=== PATIENT | female | born 1935 | race Caucasian/White ===

== ENCOUNTER → 2020-08-17 | Outpatient (CLI) | payer MEDICARE, OTHER ==
[2020-08-17 10:42] LABS: POTASSIUM 3.7 MMOL/L (3.6-5.0)
[2020-08-17 10:43] LABS: ALBUMIN 3.6 GM/DL (3.2-4.5); BILIRUBIN,TOTAL 0.6 MG/DL (0.1-1.0); CALCIUM 8.7 MG/DL (8.5-10.1); CREATININE SERUM 1.19 MG/DL (0.60-1.30); TOTAL PROTEIN 6.3 GM/DL (6.4-8.2)
== END ==
LOC: LAB FS 09:56
PROVIDERS: ATTEND Family Medicine
DX: I10 Essential (primary) hypertension (principal); E03.9 Hypothyroidism, unspecified
CPT/HCPCS: 36415; 80053; 80061; 84443

== ENCOUNTER → 2021-02-16 | Outpatient (CLI) | payer MEDICARE, OTHER ==
[2021-02-16 11:45] LABS: CREATININE SERUM 1.12 MG/DL (0.60-1.30); POTASSIUM 4.2 MMOL/L (3.6-5.0)
[2021-02-16 11:46] LABS: ALBUMIN 3.5 GM/DL (3.2-4.5); BILIRUBIN,TOTAL 0.3 MG/DL (0.1-1.0); CALCIUM 8.4 MG/DL (8.5-10.1); TOTAL PROTEIN 6.3 GM/DL (6.4-8.2)
== END ==
LOC: LAB FS 10:37
PROVIDERS: ATTEND Family Medicine
DX: I10 Essential (primary) hypertension (principal); E03.9 Hypothyroidism, unspecified
CPT/HCPCS: 36415; 80053; 80061; 84443

== ENCOUNTER 2021-03-04 16:54 | Inpatient (IN) | payer MEDICARE, OTHER ==
[~2021-03-04] VITALS: Ht 157.2 cm; Wt 63.3 kg
[2021-03-04 17:46] LABS: BASOPHILS # (AUTO) 0.1 10^3/uL (0.0-0.1); BASOPHILS % (AUTO) 1 % (0-10); EOSINOPHILS # (AUTO) 0.1 10^3/uL (0.0-0.3); EOSINOPHILS % (AUTO) 2 % (0-10); LYMPHOCYTES % (AUTO) 19 % (12-44); MEAN CORPUSCULAR HEMOGLOBIN 17 pg (25-34); MEAN CORPUSCULAR HGB CONC 27 g/dL (32-36); MEAN CORPUSCULAR VOLUME 64 fL (80-99); MEAN PLATELET VOLUME 9.7 fL (9.0-12.2); MONOCYTES # (AUTO) 0.4 10^3/uL (0.0-1.0); MONOCYTES % (AUTO) 7 % (0-12); NEUTROPHILS % (AUTO) 71 % (42-75); PLATELET COUNT 352 10^3/uL (130-400); WHITE BLOOD COUNT 5.6 10^3/uL (4.3-11.0)
--- NOTE | 2021-03-04 17:48 | ED General ---
General Chief Complaint: General Problems/Pain Stated Complaint: SOA/POSS GI BLEED Source of Information: Patient Exam Limitations: No Limitations History of Present Illness Date Seen by Provider: Mar 04, 2021 Time Seen by Provider: 17:38 Initial Comments This is an 85-year-old female who presented to the ER from urgent care in [facility]. States that she went to the urgent care for increasing dizziness and shortness of breath with activity. During visit she was noted to have a i-STAT hemoglobin of 5.3, they referred her to the emergency department for further evaluation. Denies any falls or trauma. States that she has "normal bowel movements", denies any dark, tarry stools, or sarika bleeding. Denies any fever, chills, cough, chest pain, nausea, vomiting, diarrhea, or abdominal pain. Allergies and Home Medications Allergies Coded Allergies: Penicillins (Verified Allergy, Unknown, 03/04/21) cephalexin (Verified Allergy, Unknown, 03/04/21) hydrocodone (Verified Allergy, Unknown, 03/04/21) indomethacin (Verified Allergy, Unknown, 03/04/21) latex (Verified Allergy, Unknown, 03/04/21) morphine (Verified Allergy, Unknown, 03/04/21) Uncoded Allergies: STATIN (Allergy, Unknown, 03/04/21) Patient Home Medication List Home Medication List Reviewed: Yes Review of Systems Review of Systems Constitutional: dizziness EENTM: no symptoms reported Respiratory: no symptoms reported Cardiovascular: no symptoms reported Gastrointestinal: no symptoms reported Genitourinary: no symptoms reported Musculoskeletal: no symptoms reported Skin: no symptoms reported Psychiatric/Neurological: No Symptoms Reported Hematologic/Lymphatic: No Symptoms Reported Immunological/Allergic: no symptoms reported Physical Exam Vital Signs Vital Signs - First Documented 03/04/21 17:10 Temp 36.6 Pulse 67 Resp 16 B/P (MAP) 122/66 (84) Pulse Ox 99 O2 Delivery Room Air Capillary Refill : Height, Weight, BMI Height: '" Weight: lbs. oz. kg; BMI Method: General Appearance: No Apparent Distress, WD/WN Eyes: Bilateral Eye Normal Inspection, Bilateral Eye PERRL, Bilateral Eye EOMI, Bilateral Eye Conjunctivae Pale HEENT: PERRL/EOMI, Pharynx Normal, Moist Mucous Membranes Neck: Full Range of Motion, Normal Inspection Respiratory: Lungs Clear, Normal Breath Sounds, No Accessory Muscle Use Cardiovascular: Regular Rate, Rhythm, No Gallop Gastrointestinal: Normal Bowel Sounds, No Organomegaly, Non Tender, Soft Rectal: Normal Exam, Normal Rectal Tone, Heme Positive Stool Genital/Rectal: Normal Rectal Exam Extremity: Normal Inspection, Normal Range of Motion Neurologic/Psychiatric: Alert, Oriented x3, No Motor/Sensory Deficits, Normal Mood/Affect Skin: Warm/Dry, Pallor Progress/Results/Core Measures Suspected Sepsis SIRS Temperature: Pulse: Respiratory Rate: Laboratory Tests 03/04/21 17:20: White Blood Count 5.6 Blood Pressure / Mean: Laboratory Tests 03/04/21 17:20: Creatinine 1.00, Platelet Count 352, Total Bilirubin 0.4 Results/Orders Lab Results Laboratory Tests Test 03/04/21 17:20 Range/Units White Blood Count 5.6 4.3-11.0 10^3/uL Red Blood Count 3.16 L 3.80-5.11 10^6/uL Hemoglobin 5.4 *L 11.5-16.0 g/dL Hematocrit 20 *L 35-52 % Mean Corpuscular Volume 64 L 80-99 fL Mean Corpuscular Hemoglobin 17 L 25-34 pg Mean Corpuscular Hemoglobin Concent 27 L 32-36 g/dL Red Cell Distribution Width 18.6 H 10.0-14.5 % Platelet Count 352 130-400 10^3/uL Mean Platelet Volume 9.7 9.0-12.2 fL Immature Granulocyte % (Auto) 0 % Neutrophils (%) (Auto) 71 42-75 % Lymphocytes (%) (Auto) 19 12-44 % Monocytes (%) (Auto) 7 0-12 % Eosinophils (%) (Auto) 2 0-10 % Basophils (%) (Auto) 1 0-10 % Neutrophils # (Auto) 4.0 1.8-7.8 10^3/uL Lymphocytes # (Auto) 1.0 1.0-4.0 10^3/uL Monocytes # (Auto) 0.4 0.0-1.0 10^3/uL Eosinophils # (Auto) 0.1 0.0-0.3 10^3/uL Basophils # (Auto) 0.1 0.0-0.1 10^3/uL Immature Granulocyte # (Auto) 0.0 0.0-0.1 10^3/uL Sodium Level 142 135-145 MMOL/L Potassium Level 3.5 L 3.6-5.0 MMOL/L Chloride Level 103 98-107 MMOL/L Carbon Dioxide Level 23 21-32 MMOL/L Anion Gap 16 H 5-14 MMOL/L Blood Urea Nitrogen 23 H 7-18 MG/DL Creatinine 1.00 0.60-1.30 MG/DL Estimat Glomerular Filtration Rate 53 BUN/Creatinine Ratio 23 Glucose Level 106 H 70-105 MG/DL Calcium Level 8.7 8.5-10.1 MG/DL Corrected Calcium 9.0 8.5-10.1 MG/DL Total Bilirubin 0.4 0.1-1.0 MG/DL Aspartate Amino Transf (AST/SGOT) 12 5-34 U/L Alanine Aminotransferase (ALT/SGPT) 6 0-55 U/L Alkaline Phosphatase 59 40-136 U/L Total Protein 6.8 6.4-8.2 GM/DL Albumin 3.6 3.2-4.5 GM/DL My Orders Orders - MARLINE MIGUEL FARM DEMONSTRATOR Cbc With Automated Diff (03/04/21 17:05) Comprehensive Metabolic Panel (03/04/21 17:05) Fecal Occult Bedside (03/04/21 17:05) Type And Screen (03/04/21 17:05) Red Cells Leukocytes Reduced (03/04/21 18:08) Vital Signs/I&O 03/04/21 17:10 Temp 36.6 Pulse 67 Resp 16 B/P (MAP) 122/66 (84) Pulse Ox 99 O2 Delivery Room Air Capillary Refill : Point of Care Testing Fecal Occult: Positive Progress Note : Progress Note Patient examined and in no acute distress. VSS. Labs repeated. Hgb 5.4, and positive bedside FOBT. Likely GI related loss. Discussed case with Dr. Kan general surgeon and Dr. Daigle hospitalist. Plan to admit patient, clear liquids, PRBC's, and possible colonoscopy on Saturday. Reviewed POC with patient and she is agreeable with plan. During ED visit stated the ED cot was uncomfortable. Requested Tylenol, given prior to dismissal from ED. Departure Communication (Admissions) Time/Spoke to Admitting Phy: 18:12 Dr. Dagile Time/Spoke to Consulting Phy: 18:09 Dr. Kan Impression Primary Impression: Anemia Additional Impression: Positive fecal occult blood test Disposition: ADMITTED INPATIENT Condition: Stable Admissions Decision to Admit Reason: Admit from ER (General) Decision to Admit/Date: Mar 04, 2021 Time/Decision to Admit Time: 18:08 Departure-Patient Inst. Referrals: ROBERTA FOSTER MD (PCP/Family) Primary Care Physician MARLINE MIGUEL APRN Mar 04, 2021 17:48
[2021-03-04 17:56] LABS: ALBUMIN 3.6 GM/DL (3.2-4.5); POTASSIUM 3.5 MMOL/L (3.6-5.0)
[2021-03-04 17:58] LABS: CALCIUM 8.7 MG/DL (8.5-10.1)
[2021-03-04 17:59] LABS: TOTAL PROTEIN 6.8 GM/DL (6.4-8.2)
[2021-03-04 18:01] LABS: BILIRUBIN,TOTAL 0.4 MG/DL (0.1-1.0)
[2021-03-04 18:07] LABS: HEMATOCRIT 20 % (35-52); HEMOGLOBIN 5.4 g/dL (11.5-16.0)
[2021-03-04] MEDS ORDERED: ACETAMINOPHEN 500 MG TAB (TYLENOL) PO ONE (19:00)
[2021-03-04 19:26] VITALS: BP 127/80
[2021-03-04] MEDS ORDERED: ONDANSETRON 4 MG/2 ML (SDV) Z0FRAN IV PRN (19:45)
[2021-03-04] MEDS ORDERED: NS IV 1000 ML 1,000 ML IV SCH (19:45)
[2021-03-04 20:49] VITALS: BP 122/66
[2021-03-04] MEDS: GABAPENTIN 600 MG (NEURONTIN) TAB PO SCH (20:50)
[2021-03-04] MEDS: PANTOPRAZOLE 40 MG (PROTONIX) VIAL IV SCH (20:50)
[2021-03-04] MEDS: eZETimibe 10 MG (ZETIA) TABLET PO SCH (20:50)
[2021-03-04] MEDS ORDERED: FUROSEMIDE 40 MG/4 ML INJ (LASIX) IV SCH (21:00)
[2021-03-04] MEDS ORDERED: RT-ALBUTEROL SULF 2.5 MG/3 ML PRE-MIX VIAL INH PRN (21:00)
[2021-03-04 21:36] VITALS: BP 120/60
[2021-03-04 21:52] VITALS: BP 128/58
[2021-03-04] MEDS: ACETAMINOPHEN 325 MG TABLET PO PRN (22:58)
[2021-03-05] VITALS (10 sets, daily range): BP systolic 110–138; BP diastolic 58–70
[2021-03-05] MEDS ORDERED: FUROSEMIDE 40 MG/4 ML INJ (LASIX) ONE (01:14)
[2021-03-05] MEDS: ACETAMINOPHEN 325 MG TABLET PO PRN (04:56)
[2021-03-05] MEDS ORDERED: LEVO50TA6 PO (05:17)
[2021-03-05] MEDS ORDERED: ESTR1TAB24 PO (05:17)
[2021-03-05] MEDS ORDERED: GBPN600T PO (05:17)
[2021-03-05] MEDS ORDERED: ALEN70TA80 PO (05:17)
[2021-03-05] MEDS ORDERED: INDA1.25 PO (05:17)
[2021-03-05] MEDS ORDERED: EZET10TA49 PO (05:17)
[2021-03-05] MEDS ORDERED: CELE-63 PO (05:17)
[2021-03-05] MEDS: LEVOTHYROXINE 50 MCG (LEVOTHROID) TAB PO SCH (05:56)
[2021-03-05] MEDS: PANTOPRAZOLE 40 MG (PROTONIX) VIAL IV SCH (05:57)
[2021-03-05 05:58] LABS: BASOPHILS # (AUTO) 0.1 10^3/uL (0.0-0.1); BASOPHILS % (AUTO) 1 % (0-10); EOSINOPHILS # (AUTO) 0.3 10^3/uL (0.0-0.3); EOSINOPHILS % (AUTO) 6 % (0-10); HEMATOCRIT 24 % (35-52); HEMOGLOBIN 7.1 g/dL (11.5-16.0); LYMPHOCYTES # (AUTO) 1.3 X 10^3 (1.0-4.0); LYMPHOCYTES % (AUTO) 28 % (12-44); MEAN CORPUSCULAR HEMOGLOBIN 20 pg (25-34); MEAN CORPUSCULAR HGB CONC 30 g/dL (32-36); MEAN CORPUSCULAR VOLUME 68 fL (80-99); MEAN PLATELET VOLUME 9.3 fL (9.0-12.2); MONOCYTES # (AUTO) 0.4 X 10^3 (0.0-1.0); MONOCYTES % (AUTO) 9 % (0-12); NEUTROPHILS # (AUTO) 2.8 X 10^3 (1.8-7.8); NEUTROPHILS % (AUTO) 57 % (42-75); PLATELET COUNT 284 10^3/uL (130-400); WHITE BLOOD COUNT 4.9 10^3/uL (4.3-11.0)
[2021-03-05 06:28] LABS: CALCIUM 8.1 MG/DL (8.5-10.1); CREATININE SERUM 0.95 MG/DL (0.60-1.30); POTASSIUM 3.1 MMOL/L (3.6-5.0)
[2021-03-05] MEDS ORDERED: ASPI-999 PO (07:28)
[2021-03-05 07:58] LABS: HEMOGLOBIN 7.2 g/dL (11.5-16.0)
[2021-03-05] MEDS: GABAPENTIN 600 MG (NEURONTIN) TAB PO SCH ×2 (08:38→20:28)
[2021-03-05] MEDS: POTASSIUM CL 10MEQ/50ML IVPB 50 ML IV SCH (10:40)
[2021-03-05] MEDS: KCL 20 MEQ TAB (K-DUR) PO SCH (10:40)
[2021-03-05] MEDS: KCL 20 MEQ TAB (K-DUR) PO NR ×2 (11:02→13:53)
--- NOTE | 2021-03-05 11:36 | History & Physical-Hospitalist ---
History of Present Illness HPI/Chief Complaint Pt is an 85yoCF with a PMH of hypothyroidism, HLD, osteoporosis who presented to the ER as she well SOB and not feeling well. She has a tooth pulled on 03/03 and thought it was due to that. She went to an urgent care where they did labs and found she was anemic and referred her to the ER. Here her hemoglobin was 5.4. Gino slaughter was admitted for anemia. She denies any dark or bloody stools. She has never had this issue before. She received 2 units yesterday and feels better but does have chest pain now. Source: patient Date Seen 03/05/21 Time Seen by a Provider: 11:34 Attending Physician Iam Freeman MD PCP Marisa Kang MD Referring Physician Date of Admission Mar 04, 2021 at 18:42 Home Medications & Allergies Home Medications Reviewed patient Home Medication Reconciliation performed by pharmacy medication reconciliations budget technician and/or nursing. Patients Allergies have been reviewed. Allergies Allergies Coded Allergies Penicillins (Verified Allergy, Unknown, 03/04/21) cephalexin (Verified Allergy, Unknown, 03/04/21) hydrocodone (Verified Allergy, Unknown, 03/04/21) indomethacin (Verified Allergy, Unknown, 03/04/21) latex (Verified Allergy, Unknown, 03/04/21) morphine (Verified Allergy, Unknown, 03/04/21) Uncoded Allergies STATIN ( Allergy, Unknown, 03/04/21) Past [id number] Hx Patient Social History Tobacco Use?: No Smoking Status: Unknown if Ever Smoked Use of E-Cig and/or Vaping dev: No Substance use?: No Alcohol Use?: No Pt feels they are or have been: No Immunizations Up To Date First/Initial COVID19 Vaccinat: OCTOBER 04 2020 Second COVID19 Vaccination [place]: NOVEMBER 02 2020 Current Status status: No status: No Advance Directives: Yes Advance Directive Location: [facility] Communicates: Verbally Primary Language: Moroccan Preferred Spoken Language: Moroccan Is interpretation needed?: No Sensory deficits: Vision impairment Implanted or Applied Medical D: Orthopedic hardware Review of Systems Constitutional: No chills, No fever; malaise, weakness EENTM: no symptoms reported Respiratory: see HPI; No cough; short of breath Cardiovascular: see HPI, chest pain; No edema, No Hx of Intervention, No palpitations Gastrointestinal: No constipation, No diarrhea, No hematemesis, No melena Genitourinary: no symptoms reported Musculoskeletal: no symptoms reported Skin: no symptoms reported Psychiatric/Neurological: No Symptoms Reported Physical Exam Physical Exam Vital Signs Vital Signs - First Documented 03/04/21 03/04/21 03/05/21 17:10 20:49 08:00 Temp 36.6 Pulse 67 Resp 16 B/P (MAP) 122/66 (84) Pulse Ox 99 O2 Delivery Room Air O2 Flow Rate 0.00 FiO2 21 Capillary Refill : Less Than 3 Seconds Height, Weight, BMI Height: '" Weight: lbs. oz. kg; 25.61 BMI Method: General Appearance: No Apparent Distress, WD/WN, Thin HEENT: PERRL/EOMI, Moist Mucous Membranes; No Scleral Icterus (L), No Scleral Icterus (R) Neck: Normal Inspection, Supple Respiratory: Chest Non Tender, Lungs Clear, No Accessory Muscle Use, No Respiratory Distress Cardiovascular: Regular Rate, Rhythm, No JVD, No Murmur Gastrointestinal: Normal Bowel Sounds, Non Tender, Soft Extremity: Normal Capillary Refill, No Calf Tenderness, No Pedal Edema Neurologic/Psychiatric: Alert, Oriented x3 Skin: Normal Color, Warm/Dry Results Results/Procedures Labs Laboratory Tests 03/04/21 17:20 03/05/21 05:41 03/05/21 07:49 Patient resulted labs reviewed. Assessment/Plan Admission Diagnosis Anemia Admission Status: Inpatient Order (span 2 midnights) Reason for Inpatient Admission: see below Assessment and Plan Anemia Presumed GI bleed Hgb up appropriately following 2 units prbcs Iron studies ordered Surgery consulted, appreciate recs plan for scope tomorrow Chest pain cardiology consulted, appreciate recs Troponin and EKG ordered likely due to anemia and demand ischemia Hypokalemia Replace per protocol Hypothyroidism Continue home meds HTN Bp well controlled, trend DVT ppx: SCDs only due to anemia IAM FREEMAN MD Mar 05, 2021 11:36
[2021-03-05 12:18] LABS: CHOLESTEROL 104 MG/DL (< 200); HDL CHOLESTEROL 39 MG/DL (40-60); TRIGLYCERIDES 67 MG/DL (<150); VLDL CHOLESTEROL 13 MG/DL (5-40)
--- NOTE | 2021-03-05 12:19 | Consultation-Cardiology ---
HPI-Cardiology Cardiology Consultation: Date of Consultation 03/05/2021 Date of Admission 03/04/2021 Attending Physician Bere Daigle MD Admitting Physician Marisa Kang MD Consulting Physician TYLER HENDRICKS JR, MD HPI: Time Seen by a Provider: 12:16 Chief Complaint: Reason for consultation: Chest pain. I had the pleasure of seeing Vicki on the medical/surgical unit here at [facility], [place] today. She is pleasant 85-year-old female with no known history of coronary artery disease. She does have hypertension and hyperlipidemia. She recently had a tooth pulled and 2 of her grandchildren was going to check on her and thought that she appeared very pale and weak. They brought her to the emergency room in [place] for further evaluation. She had a hemoglobin level drawn which was very low and she was sent to [facility] for further evaluation. She has already received 2 blood transfusions. Then this morning, she started complaining of some substernal chest discomfort. This radiates straight to her back. This makes her feel short of breath. This is not pleuritic. She denies any previous history of chest discomfort. Because of the chest discomfort, a cardiology consultation was requested. She had been having some dizziness and profound fatigue over the past few days. She denies blood in her stool or dark stools. She states that she has had some dyspnea on exertion earlier in the year and at one point had mentioned this to her primary provider but did not have any additional testing at that time. She denies paroxysmal nocturnal dyspnea, orthopnea, palpitations, or syncope. She has chronic, intermittent mild ankle edema which has been unchanged. She lives alone in the [place] area. She gets Meals on Wheels. She is a non-smoker. Certain portions of this document may have been dictated utilizing voice recognition technology. Inherent to this technology, typographical and grammatical errors may exist. As much as I am diligent to identify and correct these mistakes, some errors may remain in the document. Review of Systems-Cardiology Review of Systems Other comments Review of 10 organ systems is as per the history of present illness, otherwise negative. [id number] Hx Patient Social History Employed/Student: retired Have you traveled recently?: No Alcohol Use?: No Pt feels they are or have been: No Past Medical History PMH As described under Assessment. Family Medical History Family Medical History: The patient does not know of any family history of premature coronary artery disease. Allergies and Home Medications Allergies Coded Allergies: Penicillins (Verified Allergy, Unknown, 03/04/21) cephalexin (Verified Allergy, Unknown, 03/04/21) hydrocodone (Verified Allergy, Unknown, 03/04/21) indomethacin (Verified Allergy, Unknown, 03/04/21) latex (Verified Allergy, Unknown, 03/04/21) morphine (Verified Allergy, Unknown, 03/04/21) Uncoded Allergies: STATIN (Allergy, Unknown, 03/04/21) Home Medications Alendronate Sodium 70 Mg Tablet, 70 MG PO WEEK, (Reported) Last Action: Reviewed Celecoxib 200 Mg Capsule, 200 MG PO DAILY, (Reported) Last Action: Reviewed Estradiol 1 Mg Tablet, 1 MG PO DAILY, (Reported) Last Action: Reviewed Ezetimibe 10 Mg Tablet, 10 MG PO HS, (Reported) Last Action: Reviewed Gabapentin 600 Mg Tablet, 600 MG PO BID, (Reported) Last Action: Reviewed Indapamide 1.25 Mg Tablet, 1.25 MG PO DAILY, (Reported) Last Action: Reviewed Levothyroxine Sodium 50 Mcg Tablet, 50 MCG PO DAILY, (Reported) Last Action: Reviewed Patient Home Medication List Home Medication List Reviewed: Yes Exam Vital Signs Vital Signs Date Time Temp Pulse Resp B/P (MAP) Pulse Ox O2 Delivery O2 Flow Rate FiO2 03/05/21 11:39 36.9 58 18 132/61 (84) 99 Room Air 03/05/21 08:00 0.00 03/04/21 20:49 21 Physical Exam General: Alert. No acute distress. Well nourished and appears stated age. Eye: Extraocular movements are intact. Conjunctivae are clear. There are no xanthelasma. HENT: Normocephalic. Atraumatic. Carotid pulsations 2/2 without bruits. Neck: Jugular venous pressure does not appear elevated. No thyromegaly appreciated. Respiratory: Lungs are clear to auscultation. Respirations are non-labored. Breath sounds are equal. Symmetrical chest wall expansion. Cardiovascular: Normal rate. Regular rhythm. No murmur. No gallop. Point of maximal impulse is not appear displaced. Good pulses equal in all extremities. No edema. Gastrointestinal: Soft. Normal bowel sounds. Skin: Skin turgor is normal. There is no pallor. Musculoskeletal: No kyphosis or scoliosis appreciated. Neurologic: Alert and oriented to person, place, time. Cranial nerves 3-12 appear grossly intact. The patient has good motor tone strength in the upper and lower extremities bilaterally. Psychiatric: Cooperative. Appropriate mood & affect. Labs Laboratory Tests Test 03/04/21 17:20 03/05/21 05:41 03/05/21 07:49 Range/Units White Blood Count 5.6 4.9 4.3-11.0 10^3/uL Red Blood Count 3.16 L 3.52 L 3.80-5.11 10^6/uL Hemoglobin 5.4 *L 7.1 L 7.2 #L 11.5-16.0 g/dL Hematocrit 20 *L 24 L 25 L 35-52 % Mean Corpuscular Volume 64 L 68 L 80-99 fL Mean Corpuscular Hemoglobin 17 L 20 L 25-34 pg Mean Corpuscular Hemoglobin Concent 27 L 30 L 32-36 g/dL Red Cell Distribution Width 18.6 H 21.0 H 10.0-14.5 % Platelet Count 352 284 130-400 10^3/uL Mean Platelet Volume 9.7 9.3 9.0-12.2 fL Immature Granulocyte % (Auto) 0 0 % Neutrophils (%) (Auto) 71 57 42-75 % Lymphocytes (%) (Auto) 19 28 12-44 % Monocytes (%) (Auto) 7 9 0-12 % Eosinophils (%) (Auto) 2 6 0-10 % Basophils (%) (Auto) 1 1 0-10 % Neutrophils # (Auto) 4.0 2.8 1.8-7.8 X 10^3 Lymphocytes # (Auto) 1.0 1.3 1.0-4.0 X 10^3 Monocytes # (Auto) 0.4 0.4 0.0-1.0 X 10^3 Eosinophils # (Auto) 0.1 0.3 0.0-0.3 10^3/uL Basophils # (Auto) 0.1 0.1 0.0-0.1 10^3/uL Immature Granulocyte # (Auto) 0.0 0.0 0.0-0.1 10^3/uL Sodium Level 142 139 135-145 MMOL/L Potassium Level 3.5 L 3.1 L 3.6-5.0 MMOL/L Chloride Level 103 106 98-107 MMOL/L Carbon Dioxide Level 23 24 21-32 MMOL/L Anion Gap 16 H 9 5-14 MMOL/L Blood Urea Nitrogen 23 H 19 H 7-18 MG/DL Creatinine 1.00 0.95 0.60-1.30 MG/DL Estimat Glomerular Filtration Rate 53 56 BUN/Creatinine Ratio 23 20 Glucose Level 106 H 68 L 70-105 MG/DL Calcium Level 8.7 8.1 L 8.5-10.1 MG/DL Corrected Calcium 9.0 8.5-10.1 MG/DL Total Bilirubin 0.4 0.1-1.0 MG/DL Aspartate Amino Transf (AST/SGOT) 12 5-34 U/L Alanine Aminotransferase (ALT/SGPT) 6 0-55 U/L Alkaline Phosphatase 59 40-136 U/L Total Protein 6.8 6.4-8.2 GM/DL Albumin 3.6 3.2-4.5 GM/DL Troponin I < 0.028 <0.028 NG/ML ECG Impression ECG Comment Sinus rhythm with first-degree AV block and right bundle branch block. No acute ST changes. Diagnosis/Problems Diagnosis/Problems (1) Chest pain Assessment & Plan: Exact etiology unclear. I added her troponin levels to her admission labs and this was undetectable. I would suggest serial troponins. There are no ischemic changes on her electrocardiogram. I will start her on nitroglycerin paste. She should continue on Ezetimibe. She is intolerant to statin medications. I would hold off on aspirin given her acute anemia. I will obtain an echocardiogram in the morning. We will await the results of the troponin levels to determine whether or not she should have a noninvasive or invasive ischemic evaluation or just continue with medical therapy. (2) Abnormal ECG Assessment & Plan: Her electrocardiogram shows a first-degree AV block and right bundle branch block but no evidence of ischemia in the face of her current chest pain. We will proceed as above. (3) Essential hypertension Assessment & Plan: She was taking indapamide at home. This is presently on hold. We will monitor her blood pressures closely. (4) Mixed hyperlipidemia Assessment & Plan: Continue ezetimibe. I added a lipid panel to her admission blood sample. (5) Chronic kidney disease, stage 3 Assessment & Plan: We will need to keep this in mind if she needs any procedures that would require intravascular contrast. TYLER HENDRICKS JR, MD Mar 05, 2021 12:19
[2021-03-05] MEDS: NITROGLYCERIN 2% OINT 1 GM UNIT DOSE PACKET TOP SCH ×3 (12:50→23:44)
--- NOTE | 2021-03-05 14:51 | Consultation - Surgery ---
History of Present Illness History of Present Illness Patient Consulted On(toni/time) 03/05/21 14:46 Time Seen by Provider: 14:21 History of Present Illness Surgery asked to consult regarding Profound Anemia. HPI per ED: Pt is an 85yoCF with a PMH of hypothyroidism, HLD, osteoporosis who presented to the ER as she well SOB and not feeling well. She has a tooth pulled on 03/03 and thought it was due to that. She went to an urgent care where they did labs and found she was anemic and referred her to the ER. Here her hemoglobin was 5.4. She was admitted for anemia. She denies any dark or bloody stools. She has never had this issue before. She received 2 units yesterday and feels better but does have chest pain now. When I spoke to pt she denied any abdominal pain and didn't think she had been told before that she was anemic. She does not remember ever having any endoscopies performed. Allergies and Home Medications Allergies Coded Allergies: Penicillins (Verified Allergy, Unknown, 03/04/21) cephalexin (Verified Allergy, Unknown, 03/04/21) hydrocodone (Verified Allergy, Unknown, 03/04/21) indomethacin (Verified Allergy, Unknown, 03/04/21) latex (Verified Allergy, Unknown, 03/04/21) morphine (Verified Allergy, Unknown, 03/04/21) Uncoded Allergies: STATIN (Allergy, Unknown, 03/04/21) Home Medications Alendronate Sodium 70 Mg Tablet, 70 MG PO WEEK, (Reported) Last Action: Reviewed Celecoxib 200 Mg Capsule, 200 MG PO DAILY, (Reported) Last Action: Reviewed Estradiol 1 Mg Tablet, 1 MG PO DAILY, (Reported) Last Action: Reviewed Ezetimibe 10 Mg Tablet, 10 MG PO HS, (Reported) Last Action: Reviewed Gabapentin 600 Mg Tablet, 600 MG PO BID, (Reported) Last Action: Reviewed Indapamide 1.25 Mg Tablet, 1.25 MG PO DAILY, (Reported) Last Action: Reviewed Levothyroxine Sodium 50 Mcg Tablet, 50 MCG PO DAILY, (Reported) Last Action: Reviewed Patient Home Medication List Home Medication List Reviewed: Yes Past Akdlycv-Ajouzk-Dcuiya Hx Patient Social History Smoking Status: Never a Smoker Alcohol Use?: No Have you traveled recently?: No Surgeries History of Surgeries: Yes Surgeries: Section, Orthopedic (2 knee surgeries) Respiratory History of Respiratory Disorde: No Cardiovascular History of Cardiac Disorders: No Neurological History of Neurological Disord: No Genitourinary History of Genitourinary Disor: No Gastrointestinal History of Gastrointestinal Di: No Musculoskeletal History of Musculoskeletal Dis: Yes Musculoskeletal Disorders: Arthritis Endocrine History of Endocrine Disorders: Yes Endocrine Disorders: Hypothyroidsim HEENT History of HEENT Disorders: Yes HEENT Disorders: Cataract Hearing Impairment: Hard of Hearing Cancer History of Cancer: No Psychosocial History of Psychiatric Problem: No Integumentary History of Skin or Integumenta: No Family Medical History Significant Family History: Cancer (denied in her family), Diabetes (denied in her family) Review of Systems-General Constitutional: malaise, weakness EENTM: vision loss (with age); No blurred vision, No double vision, No epistaxis Respiratory: No cough; dyspnea on exertion; No hemoptysis; short of breath Cardiovascular: chest pain; No Hx of Intervention Gastrointestinal: No abdominal pain, No melena, No nausea, No vomiting Genitourinary: No dysuria, No frequency, No hematuria Musculoskeletal: back pain, joint pain, joint swelling, muscle pain, muscle stiffness Skin: No change in color, No change in hair/nails Psychiatric/Neurological: Denies Anxiety, Denies Depressed, Denies Seizure, Denies Tremors Physical Exam-General Problems Physical Exam Vital Signs Vital Signs - First Documented 03/04/21 03/04/21 03/05/21 17:10 20:49 08:00 Temp 36.6 Pulse 67 Resp 16 B/P (MAP) 122/66 (84) Pulse Ox 99 O2 Delivery Room Air O2 Flow Rate 0.00 FiO2 21 Capillary Refill : Less Than 3 Seconds Eyes: Bilateral Eye PERRL, Bilateral Eye EOMI (left eye slightly deviates out) HEENT: pharynx normal; No scleral icterus (R), No scleral icterus (L) Neck: non-tender, supple Respiratory: lungs clear, normal breath sounds, no respiratory distress, no accessory muscle use Cardiovascular: regular rate, rhythm, no murmur Gastrointestinal: non tender, soft, no organomegaly Back: no CVA tenderness, no vertebral tenderness Extremities: no calf tenderness, normal capillary refill, pedal edema Neurologic/Psychiatric: branch chief II-XII nml as tested, alert, normal mood/affect, oriented x 3 Skin: warm/dry, pallor (mild) Lymphatic: no adenopathy (neck, axilla or groin) Data Review Labs Laboratory Tests 03/04/21 17:20: White Blood Count 5.6, Red Blood Count 3.16L, Hemoglobin 5.4*L, Hematocrit 20*L, Mean Corpuscular Volume 64L, Mean Corpuscular Hemoglobin 17L, Mean Corpuscular Hemoglobin Concent 27L, Red Cell Distribution Width 18.6H, Platelet Count 352, Mean Platelet Volume 9.7, Immature Granulocyte % (Auto) 0, Neutrophils (%) (Auto) 71, Lymphocytes (%) (Auto) 19, Monocytes (%) (Auto) 7, Eosinophils (%) (Auto) 2, Basophils (%) (Auto) 1, Neutrophils # (Auto) 4.0, Lymphocytes # (Auto) 1.0, Monocytes # (Auto) 0.4, Eosinophils # (Auto) 0.1, Basophils # (Auto) 0.1, Immature Granulocyte # (Auto) 0.0, Sodium Level 142, Potassium Level 3.5L, Chl oride Level 103, Carbon Dioxide Level 23, Anion Gap 16H, Blood Urea Nitrogen 23H , Creatinine 1.00, Estimat Glomerular Filtration Rate 53, BUN/Creatinine Ratio 23, Glucose Level 106H, Calcium Level 8.7, Corrected Calcium 9.0, Total Bilirubin 0.4, Aspartate Amino Transf (AST/SGOT) 12, Alanine Aminotransferase (ALT/SGPT) 6, Alkaline Phosphatase 59, Total Protein 6.8, Albumin 3.6 03/05/21 05:41: White Blood Count 4.9, Red Blood Count 3.52L, Hemoglobin 7.1L, Hematocrit 24L, Mean Corpuscular Volume 68L, Mean Corpuscular Hemoglobin 20L, Mean Corpuscular Hemoglobin Concent 30L, Red Cell Distribution Width 21.0H, Platelet Count 284, Mean Platelet Volume 9.3, Immature Granulocyte % (Auto) 0, Neutrophils (%) (Auto) 57, Lymphocytes (%) (Auto) 28, Monocytes (%) (Auto) 9, Eosinophils (%) (Auto) 6, Basophils (%) (Auto) 1, Neutrophils # (Auto) 2.8, Lymphocytes # (Auto) 1.3, Monocytes # (Auto) 0.4, Eosinophils # (Auto) 0.3, Basophils # (Auto) 0.1, Immature Granulocyte # (Auto) 0.0, Sodium Level 139, Potassium Level 3.1L, Chloride Level 106, Carbon Dioxide Level 24, Anion Gap 9, Blood Urea Nitrogen 19H, Creatinine 0.95, Estimat Glomerular Filtration Rate 56, BUN/Creatinine Ratio 20, Glucose Level 68L, Calcium Level 8.1L, Troponin I < 0.028, Triglycerides Level 67, Cholesterol Level 104, LDL Cholesterol Direct 55, VLDL Cholesterol 13, HDL Cholesterol 39L 03/05/21 07:49: Hemoglobin 7.2#L, Hematocrit 25L 03/05/21 12:32: Troponin I 0.030H Assessment/Plan Assessment/Plan Assessment/Plan Anemia, profound Hyokalemia Pt does not appear to have ever had an EGD or colonoscopy; will prep her and put her on schedule tomorrow. Will get consent and put in orders for prep. Discussed the procedures with pt, including risks and complications not limited to pain, bleeding, infection and even esophageal or intestinal perforation. All questions answered to her satisfaction. BALJINDER BRINK DO Mar 05, 2021 14:51
[2021-03-05] MEDS ORDERED: BISACODYL 5 MG (DULCOLAX) TABLET PO SCH ×2 (15:00→20:00)
[2021-03-05] MEDS ORDERED: polyethylene glycoL Bowel Prep(MIRALAX) 238 GM PO SCH (18:00)
[2021-03-05] MEDS: eZETimibe 10 MG (ZETIA) TABLET PO SCH (20:27)
[2021-03-06] VITALS (12 sets, daily range): BP systolic 97–149; BP diastolic 55–74
[2021-03-06] MEDS ORDERED: POTASSIUM CL 10MEQ/50ML IVPB 50 ML IV SCH (06:00)
[2021-03-06] MEDS ORDERED: KCL 20 MEQ TAB (K-DUR) PO SCH (06:00)
[2021-03-06] MEDS: NITROGLYCERIN 2% OINT 1 GM UNIT DOSE PACKET TOP SCH ×4 (06:29→23:41)
[2021-03-06] MEDS: PANTOPRAZOLE 40 MG (PROTONIX) VIAL IV SCH (06:30)
[2021-03-06] MEDS: LEVOTHYROXINE 50 MCG (LEVOTHROID) TAB PO SCH (06:30)
[2021-03-06 06:39] LABS: HEMATOCRIT 26 % (35-52); HEMOGLOBIN 7.3 g/dL (11.5-16.0); MEAN CORPUSCULAR HEMOGLOBIN 20 pg (25-34); MEAN CORPUSCULAR HGB CONC 28 g/dL (32-36); MEAN CORPUSCULAR VOLUME 70 fL (80-99); MEAN PLATELET VOLUME 9.3 fL (9.0-12.2); PLATELET COUNT 306 10^3/uL (130-400); WHITE BLOOD COUNT 5.2 10^3/uL (4.3-11.0)
[2021-03-06 07:10] LABS: CALCIUM 8.4 MG/DL (8.5-10.1)
[2021-03-06 07:14] LABS: CREATININE SERUM 0.88 MG/DL (0.60-1.30)
[2021-03-06 07:16] LABS: MAGNESIUM 1.9 MG/DL (1.6-2.4)
[2021-03-06] MEDS: POTASSIUM CL 10MEQ/50ML IVPB 50 ML IV SCH (07:35)
[2021-03-06] MEDS: KCL 20 MEQ TAB (K-DUR) PO SCH (07:36)
[2021-03-06] MEDS: MAGNESIUM 1 GM/100 ML IVPB 100 ML IV SCH (07:36)
[2021-03-06] MEDS: GABAPENTIN 600 MG (NEURONTIN) TAB PO SCH ×2 (09:04→20:43)
--- NOTE | 2021-03-06 10:32 | Progress Note - Hospitalist ---
Subjective HPI/CC On Admission Date Seen by Provider: Mar 06, 2021 Time Seen by Provider: 10:00 Pt is an 85yoCF with a PMH of hypothyroidism, HLD, osteoporosis who presented to the ER as she well SOB and not feeling well. She has a tooth pulled on 03/03 and thought it was due to that. She went to an urgent care where they did labs and found she was anemic and referred her to the ER. Here her hemoglobin was 5.4. She was admitted for anemia. She denies any dark or bloody stools. She has never had this issue before. She received 2 units yesterday and feels better but does have chest pain now. Subjective/Events-last exam Pt doing a little bit better After three units of blood her Hgb is 7.3 Echocardiogram ordered by cardiology Slightly elevated Troponin Pt is a poor historian Dementia is likely the diagnosis Will reach out to Dr. Kan Review of Systems General: Fatigue Pulmonary: Dyspnea Neurological: Confusion Objective Exam Vital Signs Vital Signs Date Time Temp Pulse Resp B/P (MAP) Pulse Ox O2 Delivery O2 Flow Rate FiO2 03/07/21 03:46 36.6 74 18 112/56 (74) 95 Room Air 03/06/21 13:25 5 03/04/21 20:49 21 Capillary Refill : Less Than 3 Seconds General Appearance: No Apparent Distress, WD/WN, Chronically ill Respiratory: Lungs Clear, Normal Breath Sounds Cardiovascular: Regular Rate, Rhythm Neurologic/Psychiatric: Alert, Oriented x3, Disoriented Results/Procedures Lab Laboratory Tests 03/06/21 06:20 Patient resulted labs reviewed. Assessment/Plan Assessment and Plan Assess & Plan/Chief Complaint Assessment: Anemia Presumed GI bleed Hgb up appropriately following 2 units prbcs Iron studies ordered Surgery consulted, appreciate recs plan for scope today Chest pain cardiology consulted, appreciate recs Troponin and EKG ordered likely due to anemia and demand ischemia Hypokalemia Replace per protocol Hypothyroidism Continue home meds HTN Bp well controlled, trend DVT ppx: SCDs only due to anemia Plan: Scopes today ALFONSO MEDINA DO Mar 06, 2021 10:32
[2021-03-06] MEDS ORDERED: LACTATED RINGERS 1,000 ML IV ONE (12:28)
[2021-03-06] MEDS ORDERED: LACTATED RINGERS 1,000 ML IV STA (12:33)
[2021-03-06] MEDS ORDERED: PROPOFOL INJECTION 50 ML IV ONE (12:33)
[2021-03-06] MEDS ORDERED: HURRICAINE EXT TUBE (BENZOCAINE) XX PRN (12:45)
--- NOTE | 2021-03-06 12:46 | Progress Note - Surgery ---
Subjective Time Seen by a Provider: 12:37 Subjective/Events-last exam Pt seen and examined, states she is tired and just wants to get the scopes over with. Denied abdominal pain, when I asked if she was up all night going to the bathroom; she said no. Review of Systems General: Fatigue, Malaise Pulmonary: Dyspnea; No Cough Cardiovascular: No: Chest Pain, Palpitations Gastrointestinal: No: Nausea, Vomiting, Abdominal Pain Objective Exam Vital Signs Date Time Temp Pulse Resp B/P (MAP) Pulse Ox O2 Delivery O2 Flow Rate FiO2 03/06/21 11:38 37.0 64 18 121/66 (84) 98 Room Air 03/06/21 08:00 Room Air 03/06/21 07:19 36.6 66 18 119/66 (83) 98 Room Air 03/06/21 07:00 50 03/06/21 06:36 62 119/68 (85) 03/06/21 03:47 35.8 64 18 98/62 (74) 100 Room Air 03/06/21 01:00 57 03/06/21 00:17 36.4 60 18 149/72 (97) 100 Room Air 03/05/21 20:30 Room Air 03/05/21 19:09 63 03/05/21 19:03 35.8 61 18 135/65 (88) 99 Room Air 03/05/21 15:50 36.4 58 18 110/61 (77) 100 Room Air 03/05/21 13:00 58 I & O 03/06/21 07:00 Intake Total 4004 ml Output Total 5200 ml Balance -1196 ml Capillary Refill : Less Than 3 Seconds General Appearance: No Apparent Distress, Thin HEENT: PERRL/EOMI, Moist Mucous Membranes; No Scleral Icterus (L), No Scleral Icterus (R) Neck: Normal Inspection, Supple Respiratory: Chest Non Tender, Lungs Clear, No Accessory Muscle Use, No Respiratory Distress Cardiovascular: Regular Rate, Rhythm, No JVD, No Murmur Gastrointestinal: non tender, soft, no organomegaly Extremity: Normal Capillary Refill, No Calf Tenderness, No Pedal Edema Neurologic/Psychiatric: Alert, Oriented x3 Skin: Normal Color, Warm/Dry Results Lab Laboratory Tests 03/05/21 15:00: SARS-CoV-2 RNA (RT-PCR) Not Detected 03/05/21 15:31: 8/2/21 06:20: White Blood Count 5.2, Red Blood Count 3.70L, Hemoglobin 7.3L, Hematocrit 26L, Mean Corpuscular Volume 70L, Mean Corpuscular Hemoglobin 20L, Mean Corpuscular Hemoglobin Concent 28L, Red Cell Distribution Width 20.7H, Platelet Count 306, Mean Platelet Volume 9.3, Sodium Level 140, Potassium Level 4.0, Chloride Level 108H, Carbon Dioxide Level 23, Anion Gap 9, Blood Urea Nitrogen 10, Creatinine 0.88, Estimat Glomerular Filtration Rate 61, BUN/Creatinine Ratio 11, Glucose Level 65L, Calcium Level 8.4L, Magnesium Level 1.9 Assessment/Plan Assessment/Plan Assessment/Plan Anemia, profound Hyokalemia Plan is EGD and colonoscopy today. All questions answered to her satisfaction. BALJINDER BRINK DO Mar 06, 2021 12:46
--- NOTE | 2021-03-06 13:26 | Progress Note-Post Operative ---
Post-Operative Progess Note Surgeon (s)/Psychologist Developmental (s) Surgeon BALJINDER BRINK DO Psychologist Developmental: none Pre-Operative Diagnosis Profound anemia Post-Operative Diagnosis Gastric ulcers hiatal hernia - small Diverticula Int hem thrombosed ext hem Procedure & Operative Findings Date of Procedure 03/06/21 Procedure Performed/Findings EGD with bx Colonoscopy PROCEDURE NOTE: After informed consent was obtained, the patient was brought to the endoscopy suite, placed in bed in left lateral decubitus position. She was administered IV sedation by the SELLING MANAGER who then monitored vitals the entire time, heart rate, blood pressure and pulse ox and the scope was inserted down the mouth through the esophagus into the stomach. On the way down, did not see any esophagitis, pushed into the stomach and past the antrum into the duodenum. Duodenum looked good. Pulled back into the antrum and found 2 large gastric ulcers. No signs of active bleeding or any recent bleeding. Did a biopsy of one of the antral ulcers. Next I retroflexed the scope and saw what looked like very severe Gastritis and did a biopsy of the body. I also saw a small hiatal hernia, took a picture of this and then pulled the scope into the GE junction. I did not see any esophagitis or change of the Z-line; did a biopsy of the GE junction. Pushed the scope back into the stomach, suctioned all the air out of the stomach. At this point pulled the scope up the esophagus and out the mouth. Switched camera, switched gloves, went down below, started the colonoscopy. Pushed all the way into about 140 cm to get all the way to cecum, took a picture of the appendiceal orifice, noted the ileocecal valve and then slowly withdrew the scope, insufflating to look circumferentially at the tovar starting in the cecum, up the ascending colon to the hepatic flexure, then down the transverse colon, splenic flexure, into the descending colon, down into the sigmoid. I saw Diverticula mostly in the descending and sigmoid colon, but did see some in ascending colon also. Finally into the rectum, retroflexed in the rectal vault, saw some minimal internal hemorrhoids and took a picture of this. I also noted a thrombosed hemorrhoid just before I started colonoscopy and took a picture; it had ruptured and clot was visible. The patient tolerated the procedure and she recovered in the endoscopy suite. Anesthesia Type IV sedation by anesthesia Estimated Blood Loss Estimated blood loss (mL): scant Specimens/Packing Specimens Removed antral ulcer bx body of stomach bx GE jxn bx BALJINDER BRINK DO Mar 06, 2021 13:26
[2021-03-06] MEDS ORDERED: ASPI-1238 PO (14:26)
--- NOTE | 2021-03-06 15:20 | Anesthesia-General Post-Op ---
MAC Patient Condition Mental Status/LOC: Same as Preop Cardiovascular: Satisfactory Nausea/Vomiting: Absent Respiratory: Satisfactory Pain: Controlled Complications: Absent Post Op Complications Complications None Follow Up Care/Instructions Patient Instructions None needed. Anesthesiology Discharge Order Discharge Order Patient was seen after the procedure and she was doing well, no complaints, stable vital signs, no apparent adverse anesthesia problems. PORFIRIO CARRERO DO Mar 06, 2021 15:20
[2021-03-06] MEDS: eZETimibe 10 MG (ZETIA) TABLET PO SCH (20:43)
[2021-03-07] VITALS (10 sets, daily range): BP systolic 101–124; BP diastolic 53–67
[2021-03-07] MEDS: LEVOTHYROXINE 50 MCG (LEVOTHROID) TAB PO SCH (05:58)
[2021-03-07] MEDS: PANTOPRAZOLE 40 MG (PROTONIX) VIAL IV SCH (05:58)
[2021-03-07] MEDS: NITROGLYCERIN 2% OINT 1 GM UNIT DOSE PACKET TOP SCH ×2 (05:59→12:46)
[2021-03-07 06:50] LABS: BASOPHILS % (AUTO) 0 % (0-10); EOSINOPHILS # (AUTO) 0.3 10^3/uL (0.0-0.3); EOSINOPHILS % (AUTO) 4 % (0-10); HEMATOCRIT 24 % (35-52); LYMPHOCYTES # (AUTO) 1.2 10^3/uL (1.0-4.0); LYMPHOCYTES % (AUTO) 18 % (12-44); MEAN CORPUSCULAR HEMOGLOBIN 20 pg (25-34); MEAN CORPUSCULAR HGB CONC 29 g/dL (32-36); MEAN CORPUSCULAR VOLUME 70 fL (80-99); MEAN PLATELET VOLUME 9.4 fL (9.0-12.2); MONOCYTES # (AUTO) 0.4 10^3/uL (0.0-1.0); MONOCYTES % (AUTO) 7 % (0-12); NEUTROPHILS # (AUTO) 4.6 10^3/uL (1.8-7.8); NEUTROPHILS % (AUTO) 70 % (42-75); PLATELET COUNT 265 10^3/uL (130-400); WHITE BLOOD COUNT 6.5 10^3/uL (4.3-11.0)
[2021-03-07 06:52] LABS: HEMOGLOBIN 6.8 g/dL (11.5-16.0)
[2021-03-07 07:16] LABS: ALBUMIN 2.7 GM/DL (3.2-4.5); BILIRUBIN,TOTAL 0.4 MG/DL (0.1-1.0); CALCIUM 8.1 MG/DL (8.5-10.1); CREATININE SERUM 0.81 MG/DL (0.60-1.30); MAGNESIUM 2.1 MG/DL (1.6-2.4); POTASSIUM 3.5 MMOL/L (3.6-5.0); TOTAL PROTEIN 5.3 GM/DL (6.4-8.2)
[2021-03-07] MEDS: MAGNESIUM 1 GM/100 ML IVPB 100 ML IV SCH (07:23)
[2021-03-07] MEDS: KCL 20 MEQ TAB (K-DUR) PO SCH (07:24)
[2021-03-07] MEDS: POTASSIUM CL 10MEQ/50ML IVPB 50 ML IV SCH (07:25)
[2021-03-07] MEDS ORDERED: KCL 20 MEQ TAB (K-DUR) PO ONE (08:00)
[2021-03-07] MEDS: GABAPENTIN 600 MG (NEURONTIN) TAB PO SCH ×2 (08:28→19:38)
[2021-03-07] MEDS ORDERED: NS IV 500 ML 500 ML IV NR (10:15)
--- NOTE | 2021-03-07 10:52 | History & Physical ---
History of Present Illness History of Present Illness Reason for visit/HPI Severe anemia Date of Admission Mar 04, 2021 at 18:42 Time Seen by a Provider: 08:21 I consulted on this patient on 03/07/21 08:21 Vicki is recovering from severe anemia, much improved after 3 units of blood by IM yesterday. She had just finished eating a full breakfast when entering room. She feels ready to go home but is slightly hesitant pending getting a ride from her grandson Christiano. Attending Physician Torrie Oro DO Admitting Physician Marisa Kang MD Consult Allergies and Home Medications Allergies Coded Allergies: Penicillins (Verified Allergy, Unknown, 03/04/21) Egfqfme-Iiw-Cat Reductase Inhibitor (Unverified Allergy, Unknown, 03/07/21) cephalexin (Verified Allergy, Unknown, 03/04/21) hydrocodone (Verified Allergy, Unknown, 03/04/21) indomethacin (Verified Allergy, Unknown, 03/04/21) latex (Verified Allergy, Unknown, 03/04/21) morphine (Verified Allergy, Unknown, 03/04/21) Home Medications Alendronate Sodium 70 Mg Tablet, 70 MG PO SATURDAY, (Reported) Last Action: Reviewed Aspirin 81 Mg Tablet.dr, 81 MG PO DAILY, (Reported) Last Action: Reviewed Celecoxib 200 Mg Capsule, 200 MG PO DAILY, (Reported) Last Action: Reviewed Estradiol 1 Mg Tablet, 1 MG PO DAILY, (Reported) Last Action: Reviewed Ezetimibe 10 Mg Tablet, 10 MG PO HS, (Reported) Last Action: Reviewed Gabapentin 600 Mg Tablet, 600 MG PO BID, (Reported) Last Action: Reviewed Indapamide 1.25 Mg Tablet, 1.25 MG PO DAILY, (Reported) Last Action: Reviewed Levothyroxine Sodium 50 Mcg Tablet, 50 MCG PO DAILY, (Reported) Last Action: Reviewed Past Zkfqlwv-Nqeati-Oyvlnn Hx Patient Social History Employed/Student: retired Tobacco Use?: No Smoking Status: Never a Smoker Use of E-Cig and/or Vaping dev: No Substance use?: No Alcohol Use?: No Pt feels they are or have been: No Immunizations Up To Date First/Initial COVID19 Vaccinat: OCTOBER 04 2020 Second COVID19 Vaccination [place]: NOVEMBER 02 2020 Current Status status: No status: No Advance Directives: Yes Advance Directive Location: [facility] Communicates: Verbally Primary Language: Guyanese Preferred Spoken Language: Guyanese Is interpretation needed?: No Sensory deficits: Vision impairment Implanted or Applied Medical D: Orthopedic hardware Past Medical History Surgeries: Section, Orthopedic (2 knee surgeries) Arthritis Hypothyroidsim Cataract Hearing Impairment: Hard of Hearing Family Medical History Cancer (denied in her family), Diabetes (denied in her family) Review of Systems Constitutional: weakness EENTM: no symptoms reported Respiratory: no symptoms reported Cardiovascular: no symptoms reported Gastrointestinal: no symptoms reported Musculoskeletal: no symptoms reported Physical Exam Vital Signs Vital Signs - First Documented 03/04/21 03/04/21 03/05/21 17:10 20:49 08:00 Temp 36.6 Pulse 67 Resp 16 B/P (MAP) 122/66 (84) Pulse Ox 99 O2 Delivery Room Air O2 Flow Rate 0.00 FiO2 21 Capillary Refill : Less Than 3 Seconds Height, Weight, BMI Height: '" Weight: lbs. oz. kg; 25.61 BMI Method: General Appearance: No Apparent Distress Eyes: Right Eye Abnormal EOM; Bilateral Eye PERRL Respiratory: Chest Non Tender, Lungs Clear, Normal Breath Sounds, No Accessory Muscle Use Cardiovascular: Regular Rate, Rhythm, Normal Peripheral Pulses Neurologic/Psychiatric: Alert, Oriented x3 Skin: Normal Color, Warm/Dry Assessment/Plan Assessment and Plan recovering from anemia, improved to 7.3Hgb Plan - monitor and consider discharge plans Problems: (1) Chest pain Assessment & Plan: Exact etiology unclear. I added her troponin levels to her admission labs and this was undetectable. I would suggest serial troponins. There are no ischemic changes on her electrocardiogram. I will start her on nitroglycerin paste. She should continue on Ezetimibe. She is intolerant to statin medications. I would hold off on aspirin given her acute anemia. I will obtain an echocardiogram in the morning. We will await the results of the troponin levels to determine whether or not she should have a noninvasive or in vasive ischemic evaluation or just continue with medical therapy. (2) Abnormal ECG Assessment & Plan: Her electrocardiogram shows a first-degree AV block and right bundle branch block but no evidence of ischemia in the face of her current chest pain. We will proceed as above. (3) Essential hypertension Assessment & Plan: She was taking indapamide at home. This is presently on hold. We will monitor her blood pressures closely. (4) Mixed hyperlipidemia Assessment & Plan: Continue ezetimibe. I added a lipid panel to her admission blood sample. (5) Chronic kidney disease, stage 3 Assessment & Plan: We will need to keep this in mind if she needs any procedures that would require intravascular contrast. TYLER CROFT Mar 07, 2021 10:52
--- NOTE | 2021-03-07 11:56 | Occupational Therapy Eval ---
OT Evaluation-General/PLF Medical Diagnosis Admission Date Mar 04, 2021 at 18:42 Medical Diagnosis: anemia Onset Date: Mar 03, 2021 Therapy Diagnosis Therapy Diagnosis: weakness Precautions Precautions/Isolations: Standard Precautions Referral Physician: Shorty Referral Reason: Evaluation/Treatment Medical History Pertinent Medical History: Arthritis, Hypothroidism Additional Medical History cataract, 2 knee surgeries, HLD Current History pt went to urgent care due to SOB and not feeling well, labs found anemic Hgb 5.4, pt referred to ED Social History Home: Single Level Current Living Status: Alone Entry Into Home: Stairs With Railing Steps Into Home: 2 ADL-Prior Level of Function SCALE: Activities may be completed with or without assistive devices. 8-Qmjtgbcctr-boyysqe completes the activity by him/herself with no assistance from a helper. 5-Set-up or Clean-up Assistance-helper sets up or cleans up; patient completes activity. [place] assists only prior to or following the activity. 4-Supervision or Touching Assistance-helper provides verbal cues and/or touching/steadying and/or contact guard assistance as patient completes activity. Assistance may be provided throughout the activity or intermittently. 3-Partial/Moderate Assistance-helper does LESS THAN HALF the effort. Ellery lifts, holds or supports trunk or limbs, but provides less than half the effort. 2-Substantial/Maximal Assistance-helper does MORE THAN HALF the effort. Ellery lifts or holds trunk or limbs and provides more than half the effort. 7-Btjikkzwp-mjsxup does ALL the effort. Patient does none of the effort to complete the activity. Or, the assistance of 2 or more helpers is required for the patient to complete the activity. If activity was not attempted, code reason: 7-Patient Refused. 9-Not Applicable-not attempted and the patient did not perform the activity be fore the current illness, exacerbation or injury. 10-Not Attempted due to Environmental Limitations-(lack of equipment, weather restraints, etc.). 88-Not Attempted due to Medical Conditions or Safety Concerns. ADL PLOF Comments Pt reports IND with ADLs and functional mobility using 4WW Self Care: Independent Functional Cognition: Independent OT Current Status Subjective Pt up in recliner, agreeable to OT Tx. During tx, nurse present to start blood transfusion. Mental Status/Objective Patient Orientation: Person, Place, Time, Situation Current Glasses/Contacts: Yes Hand Dominance: Right Upper Extremity ROM WFL, BUE shoulder flexion to approx 140 degrees Upper Extremity Coordination WFL Upper Extremity Sensation WFL Upper Extremity Strength grossly 3+/5 ADL-Treatment Eating (QC): 6 (per pt report) Toileting Hygiene (QC): 4 (Pt states able to manage clothing and hygiene.) Other Treatments Pt seated in recliner, OT educated pt on purpose and benefit of OT, she verbalized understanding. Pt provided information about PLOF and home set up, and participated in UE screen. Pt's nurse present to begin blood transfusion. Pt declined need to complete toileting and ADLs at this time. In order to increase BUE strength and activity tolerance, pt completed x10 reps each of the following BUE exercises: shoulder flexion, elbow flexion, elbow extension, and finger flexion/extension. Post tx, pt seated in recliner, call light in reach and all needs met. 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 2=Patient will verbalize/demonstrate understanding of assistive devices/modifications for ADL. 3=Patient will improve strength/tolerance for activity to enable patient to perform ADL's. OT Education/Plan Problem List/Assessment Assessment: Decreased Activ Tolerance, Decreased UE Strength, Impaired Funct Balance, Impaired I ADL's, Impaired Self-Care Skills Discharge Recommendations Plan/Recommendations: Continue POC Treatment Plan/Plan of Care Patient would benefit from OT for education, treatment and training to promote independence in ADL's, mobility, safety and/or upper extremity function for ADL's. Plan of Care: ADL Retraining, Functional Mobility, UE Funct Exercise/Act Treatment Duration: Mar 17, 2021 Frequency: 5 times per week Estimated Hrs Per Day: .25 hour per day Rehab Potential: Fair Time/GCodes Start Time: 11:04 Stop Time: 11:19 Total Time Billed (hr/min): 15 Billed Treatment Time 1, WAQAS KUNZ OT Mar 07, 2021 11:56
--- NOTE | 2021-03-07 12:24 | Progress Note - Surgery ---
TYLER CROFT 03/07/21 1224: Subjective Date Seen by a Provider: Mar 07, 2021 Time Seen by a Provider: 08:21 Subjective/Events-last exam 03/07/21 08:21 Vicki is recovering from severe anemia, much improved after 3 units of blood by IM yesterday. She had just finished eating a full breakfast when entering room. She feels ready to go home but is slightly hesitant pending getting a ride from her grandson Christiano. Review of Systems General: No Chills, No Night Sweats, No Fatigue, No Malaise HEENT: No Head Aches, No Eye Pain, No Ear Pain, No Dysphasia, No Sinus Congestion, No Post Nasal Drip, No Sore Throat Pulmonary: No Dyspnea, No Cough, No Pleuritic Chest Pain Cardiovascular: No: Chest Pain, Palpitations, Orthopnea, Paroxysmal Noc. Dyspnea, Edema, Lt Headedness Gastrointestinal: No: Nausea, Vomiting, Abdominal Pain, Diarrhea, Constipation, Melena, Hematochezia Genitourinary: No Dysuria, No Frequency, No Incontinence, No Hematuria, No Retention Musculoskeletal: No: other, neck pain, shoulder pain, arm pain, back pain, hand pain, leg pain, foot pain Neurological: No: Weakness, Numbness, Incoordination, Change in speech, Confusion, Seizures, Other Focused Exam Respiratory: Chest Non Tender, Lungs Clear, Normal Breath Sounds, No Accessory Muscle Use, No Respiratory Distress Cardiovascular: Regular Rate, Rhythm Peripheral Pulses: 2+ Radial Pulses (R), 2+ Radial Pulses (L) Skin: normal color, warm/dry Objective Exam Vital Signs Date Time Temp Pulse Resp B/P (MAP) Pulse Ox O2 Delivery O2 Flow Rate FiO2 03/07/21 11:50 36.7 68 18 113/67 (82) 98 Room Air 03/07/21 11:25 36.7 68 18 113/53 98 Room Air 03/07/21 11:10 36.8 70 18 103/53 98 Room Air 03/07/21 08:00 Room Air 03/07/21 07:30 35.4 74 18 101/58 (72) 97 Room Air 03/07/21 07:00 70 03/07/21 03:46 36.6 74 18 112/56 (74) 95 Room Air 8/3/21 01:16 36.9 78 97 03/07/21 01:13 77 03/07/21 00:03 36.9 78 16 107/57 (74) 97 Room Air 03/06/21 20:45 Room Air 03/06/21 19:20 35.2 74 18 111/61 (78) 98 Room Air 03/06/21 19:00 70 03/06/21 18:03 Room Air 03/06/21 15:55 36.0 71 18 130/60 (83) 99 Room Air 03/06/21 14:04 36.2 65 18 124/62 (82) 98 Room Air 03/06/21 13:35 63 16 95 Room Air 03/06/21 13:30 73 20 99 Room Air 03/06/21 13:25 70 20 98 OxyMask 5 03/06/21 13:21 77 20 100 OxyMask 10 03/06/21 13:00 76 I & O 03/07/21 07:00 Intake Total 1360 ml Output Total 1625 ml Balance -265 ml Capillary Refill : Less Than 3 Seconds General Appearance: No Apparent Distress HEENT: PERRL/EOMI, Moist Mucous Membranes; No Scleral Icterus (L), No Scleral Icterus (R) Neck: Normal Inspection, Supple Respiratory: Chest Non Tender, Lungs Clear, Normal Breath Sounds, No Accessory Muscle Use Cardiovascular: Regular Rate, Rhythm, Normal Peripheral Pulses Gastrointestinal: non tender, soft, no organomegaly Extremity: Normal Capillary Refill, No Calf Tenderness, No Pedal Edema Neurologic/Psychiatric: Alert, Oriented x3 Skin: Normal Color, Warm/Dry Results Lab Laboratory Tests 03/07/21 06:35: White Blood Count 6.5, Red Blood Count 3.41L, Hemoglobin 6.8*L, Hematocrit 24L, Mean Corpuscular Volume 70L, Mean Corpuscular Hemoglobin 20L, Mean Corpuscular Hemoglobin Concent 29L, Red Cell Distribution Width 22.3H, Platelet Count 265, Mean Platelet Volume 9.4, Immature Granulocyte % (Auto) 1, Neutrophils (%) (Auto) 70, Lymphocytes (%) (Auto) 18, Monocytes (%) (Auto) 7, Eosinophils (%) (Auto) 4, Basophils (%) (Auto) 0, Neutrophils # (Auto) 4.6, Lymphocytes # (Auto) 1.2, Monocytes # (Auto) 0.4, Eosinophils # (Auto) 0.3, Basophils # (Auto) 0.0, Immature Granulocyte # (Auto) 0.0, Percent Immature Platelet Fraction 2.2, Sodium Level 138, Potassium Level 3.5L, Chloride Level 108H, Carbon Dioxide Level 24, Anion Gap 6, Blood Urea Nitrogen 8, Creatinine 0.81, Estimat Glomerular Filtration Rate 68, BUN/Creatinine Ratio 10, Glucose Level 67L, Calcium Level 8.1L, Corrected Calcium 9.1, Magnesium Level 2.1, Total Bilirubin 0.4, Aspartate Amino Transf (AST/SGOT) 13, Alanine Aminotransferase (ALT/SGPT) 11, Alkaline Phosphatase 55, Total Protein 5.3L, Albumin 2.7L Microbiology 03/05/21 MRSA Screen - Final, Complete MRSA not isolated Assessment/Plan Assessment/Plan Assessment/Plan Anemia, improved to 7.3Hgb Plan is monitor and consider discharge Clinical Quality Measures Admission Status Admission Dx recovering from anemia, improved to 7.3Hgb Plan - monitor and consider discharge plans BALJINDER KAN DO 03/07/21 1310: Subjective Time Seen by a Provider: 12:01 Subjective/Events-last exam Pt seen and examined, she was getting another unit of PRBC when I saw her. She denied melena, hematochezia or hematemesis. She is still weak Review of Systems General: Fatigue, Malaise Pulmonary: No Dyspnea, No Cough Cardiovascular: No: Chest Pain, Palpitations Gastrointestinal: No: Nausea, Vomiting, Abdominal Pain, Melena, Hematochezia Objective Exam General Appearance: No Apparent Distress, Thin HEENT: Moist Mucous Membranes Respiratory: Lungs Clear, Normal Breath Sounds, No Accessory Muscle Use Cardiovascular: Regular Rate, Rhythm, No Murmur Gastrointestinal: non tender, soft, no organomegaly Skin: Warm/Dry Assessment/Plan Assessment/Plan Assessment/Plan Anemia secondary to Gastric ulcers (found yesterday during EGD) Plan is PPI BID, Carafate QID and monitor H/H. She can be D/C'd from surgery standpoint. Will need to follow up with me in a week and will need repeat EGD in 2-3 months. Supervisory-Addendum Brief Verification & Attestation Participated in pt care: history, MDM, physical Personally performed: exam, history, MDM, supervision of care Care discussed with: Medical Student Procedures: n/a Verification and Attestation of Medical Student E/M Service A medical student performed and documented this service. I then reviewed and verified all information documented by the medical student and made modifications to such information, when appropriate. I personally performed a physical exam, medical decision making and then discussed any differences between the notes and made revisions as necessary to create one note. Baljinder Kan , 03/07/21 , 13:09 TYLER CROFT Mar 07, 2021 12:24 BALJINDER KAN DO Mar 07, 2021 13:10
[2021-03-07] MEDS: SUCRALFATE 1 GM (CARAFATE) TAB PO SCH ×3 (12:46→19:38)
--- NOTE | 2021-03-07 12:55 | Physical Therapy Evaluation ---
PT Evaluation-General Medical Diagnosis Admission Date Mar 04, 2021 at 18:42 Medical Diagnosis: anemia Onset Date: Mar 03, 2021 Therapy Diagnosis Therapy Diagnosis: debility/weakenss Precautions Precautions/Isolations: Standard Precautions Referral Physician: Shorty Reason for Referral: Evaluation/Treatment Medical History Pertinent Medical History: Arthritis, Hypothroidism Current History ER from urgent care due to critical Hgb Reviewed History: Yes Social History Home: Single Level Current Living Status: Alone Entry Into Home: Stairs With Railing PT Steps Into Home: 2 Prior Prior Level of Function SCALE: Activities may be completed with or without assistive devices. 7-Rddsvufsvr-pkgizue completes the activity by him/herself with no assistance from a helper. 5-Set-up or Clean-up Assistance-helper sets up or cleans up; patient completes activity. [place] assists only prior to or following the activity. 4-Supervision or Touching Assistance-helper provides verbal cues and/or touching/steadying and/or contact guard assistance as patient completes activity. Assistance may be provided throughout the activity or intermittently. 3-Partial/Moderate Assistance-helper does LESS THAN HALF the effort. [place] l ifts, holds or supports trunk or limbs, but provides less than half the effort. 2-Substantial/Maximal Assistance-helper does MORE THAN HALF the effort. [place] lifts or holds trunk or limbs and provides more than half the effort. 5-Ivotjvlnv-mecxmw does ALL the effort. Patient does none of the effort to complete the activity. Or, the assistance of 2 or more helpers is required for t he patient to complete the activity. If activity was not attempted, code reason: 7-Patient Refused. 9-Not Applicable-not attempted and the patient did not perform the activity before the current illness, exacerbation or injury. 10-Not Attempted due to Environmental Limitations-(lack of equipment, weather restraints, etc.). 88-Not Attempted due to Medical Conditions or Safety Concerns. Bed Mobility: 6 Transfers (B,C,W/C): 6 Gait: 6 Stairs: 6 Indoor Mobility (Ambulation): Independent Stairs: Independent Prior Devices Use: Walker (4WW) PT Evaluation-Current Subjective Patient agrees to PT. Objective Patient Orientation: Normal For Age Attachments: IV ROM/Strength ROM Lower Extremities bilateral LE WFL Strength Lower Extremities 4-/5 grossly bilateral LE Integumentary/Posture Bowel Incontinence: No Bladder Incontinence: No Posture slightly kyphotic Neuromuscular (Tone, Coordination, Reflexes) grossly intact Sensory Vision: Wears Glasses Hearing: Functional Hand Dominance: Right Transfers Roll Left to Right (QC): 5 Sit to Lying (QC): 5 Lying to Sitting/Side of Bed(Q: 5 Sit to Stand (QC): 4 Chair/Doj-qw-Whetr Xfer(QC): 4 Gait Does the Patient Walk?: Yes Mode of Locomotion: Walk Anticipated Mode of Locomotion: Walk Walk 10 feet (QC): 4 Walk 50 ft with 2 Turns(QC): 4 Walk 150 ft (QC): 88 Distance: 50' Gait Assistive Device: Walker 4 Wheeled Comments/Gait Description safe and functional with no deviation Balance Sitting Static: Normal Sitting Dynamic: Normal Standing Static: Normal Standing Dynamic: Normal Assessment/Needs Slight impaired mobility due to weakness/decreased Hgb. Fatigues quickly with minimal activity. Rehab Potential: Fair PT Correction Goals Ibm [employer] Commerce Developer Goals PT Correction Goals Time Frame: Mar 17, 2021 Roll Left & Right (QC): 6 Sit to Lying (QC): 6 Lying-Sitting on Side/Bed(QC): 6 Sit to Stand (QC): 6 Chair/Uvl-sp-Njpkw Xfer(QC): 6 Toilet Transfer (QC): 6 Car Transfer (QC): 6 Does the Patient Walk: Yes Walk 10 feet (QC): 6 Walk 50ft with 2 Turns (QC): 6 Walk 150 ft (QC): 6 PT Plan Problem List Problem List: Activity Tolerance, Functional Strength Treatment/Plan Treatment Plan: Continue Plan of Care Treatment Plan: Bed Mobility, Education, Functional Activity Philipp, Functional Strength, Gait, Safety, Therapeutic Exercise, Transfers Treatment Duration: Mar 17, 2021 Frequency: 6 times per week Estimated Hrs Per Day: .25 hour per day Patient and/or Family Agrees t: Yes Time/GCodes Time In: 1125 Time Out: 1140 Total Billed Treatment Time: 15 Total Billed Treatment 1 visit EVMod 15 min NIA DAMON PT Mar 07, 2021 12:55
--- NOTE | 2021-03-07 12:59 | Physician Query Clarification ---
Physician Query-General Query to Physician: The medical record reflects the following clinical scenario: The patient, in the setting of History/Risk factors, Home medications: Alendronate, aspirin, Celecoxib Clinical Findings FOBT - Pos, EGD showing 2 large gastric ulcers (no sign of active bleeding), "Severe Gastritis", Iron studies showing low iron levels Treatment 2 units PRBC's, Surgery consult with EGD and colonoscopy Question: Can you further specify Anemia per the clinical indicators above? Please document your response in the Progress Notes or Discharge Summary. 1. Anemia likely due to due to acute blood loss 2. Other, with explanation of clinical findings 3. Clinically undetermined, no explanation for clinical findings Please clarify and document your clinical opinion in the Progress Notes and Discharge Summary including the definitive and/or presumptive diagnosis, (suspected or probable), related to the above clinical findings. Please include clinical findings supporting your diagnosis. In responding to this query, please exercise your independent professional judgment. The purpose of this communication is to more accurately reflect the complexity of your patients condition. The fact that a question is asked does not imply that any particular answer is desired or expected. Please remember a lack of response to the above will prompt a phone page by CDI/coding staff. Thank you for timely response to this clarification. Teresa Vergara MSN, RN Clinical Weapons Designer [phone] [email or web address] PHYSICIAN RESPONSE: Based on the clinical findings in the record, please respond to the query above on this document as an addendum. Physician Response: Physician Response 1 If you have questions please contact: Restaurant Operations Manager: Ext: Thank you for your time and cooperation. Clinical Weapons Designer/Restaurant Operations Manager This is a permanent part of the medical record TERESA VERGARA Mar 07, 2021 12:59 ALFONSO MEDINA DO Mar 07, 2021 20:27
--- NOTE | 2021-03-07 13:53 | Progress Note ---
DEE MENJIVAR MED STUDENT 03/07/21 1353: Subjective Date Seen by a Provider: Mar 07, 2021 Time Seen by a Provider: 10:30 Subjective/Events-last exam Tracy is a 85 yo female that was sitting in her chair watching TV upon entering the room. Pt was calm, cooperative, and engaged during questioning. Cu rrently on day 4 of her hospital stay with the chief complaint of anemia requiring 3 prior units of blood. Pt was oriented x2 and aware that she was forgetful stating that "she could hardly remember who she was at times". She complained of fatigue and left sided neck tenderness upon palpation. She denies having any chest pain, such as that described yesterday. Pt was much more resp onsive to questioning when rounding this morning as compared to previous day. ECHO report showed minimal mitral and tricuspid regurgitation. EGD and colonoscopy complete 03/06 showed the presence of gastric ulcers, a small hiatal hernia, diverticula, internal hemorrhoids, and thrombosed external hemorrhoids. Review of Systems General: Fatigue; No Appetite HEENT: No Head Aches Pulmonary: No Dyspnea Cardiovascular: Edema (nonpitting edema on bilateral lower extrremity); No: Chest Pain Gastrointestinal: No: Nausea, Vomiting, Constipation, Melena, Hematochezia Genitourinary: No Dysuria, No Frequency, No Hematuria Musculoskeletal: neck pain (left sided cervical tenderness to palpation) Neurological: Weakness, Confusion Focused Exam Time of Focused Exam: 10:30 Respiratory: Chest Non Tender, Lungs Clear, Normal Breath Sounds, No Accessory Muscle Use, No Respiratory Distress Cardiovascular: Regular Rate, Rhythm, No Gallop, No JVD, Normal Peripheral Pulses; No Other (nonpitting edema on bilateral lower extrremity) Skin: normal color, warm/dry Objective Exam Last Set of Vital Signs Vital Signs Date Time Temp Pulse Resp B/P (MAP) Pulse Ox O2 Delivery O2 Flow Rate FiO2 03/07/21 13:28 37.2 68 18 115/65 98 Room Air 03/06/21 13:25 5 03/04/21 20:49 21 Capillary Refill : Less Than 3 Seconds I&O Intake and Output 03/07/21 00:00 Intake Total 1260 ml Output Total 2325 ml Balance -1065 ml Intake Oral 660 ml IV Total 600 ml Output Urine Total 225 ml Stool Total 2100 ml # Voids 1 General: Alert, Cooperative HEENT: Atraumatic, PERRLA Neck: Supple, Other (left sided cervical tenderness to palpation) Lungs: Clear to Auscultation, Normal Air Movement Heart: Regular Rate, Other (2/6 murmur present) Abdomen: Normal Bowel Sounds, Soft, No Tenderness, No Hepatosplenomegaly Extremities: No Cyanosis, Normal Pulses, Other (minimal nonpitting edema present on bilateral lower extremeities) Skin: No Rashes, No Breakdown, No Significant Lesion Neuro: Normal Speech Psych/Mental Status: Mood NL, Other (signs of dementia present) Results Lab Laboratory Tests 03/07/21 06:35: White Blood Count 6.5, Red Blood Count 3.41L, Hemoglobin 6.8*L, Hematocrit 24L, Mean Corpuscular Volume 70L, Mean Corpuscular Hemoglobin 20L, Mean Corpuscular Hemoglobin Concent 29L, Red Cell Distribution Width 22.3H, Platelet Count 265, Mean Platelet Volume 9.4, Immature Granulocyte % (Auto) 1, Neutrophils (%) (Auto) 70, Lymphocytes (%) (Auto) 18, Monocytes (%) (Auto) 7, Eosinophils (%) (Auto) 4, Basophils (%) (Auto) 0, Neutrophils # (Auto) 4.6, Lymphocytes # (Auto) 1.2, Monocytes # (Auto) 0.4, Eosinophils # (Auto) 0.3, Basophils # (Auto) 0.0, Immature Granulocyte # (Auto) 0.0, Percent Immature Platelet Fraction 2.2, Sodium Level 138, Potassium Level 3.5L, Chloride Level 108H, Carbon Dioxide Level 24, Anion Gap 6, Blood Urea Nitrogen 8, Creatinine 0.81, Estimat Glomerular Filtration Rate 68, BUN/Creatinine Ratio 10, Glucose Level 67L, Calcium Level 8.1L, Corrected Calcium 9.1, Magnesium Level 2.1, Total Bilirubin 0.4, Aspartate Amino Transf (AST/SGOT) 13, Alanine Aminotransferase (ALT/SGPT) 11, Alkaline Phosphatase 55, Total Protein 5.3L, Albumin 2.7L Microbiology 03/05/21 MRSA Screen - Final, Complete MRSA not isolated Assessment/Plan Assessment/Plan Assess & Plan/Chief Complaint Assessment/Plan: -anemia secondary to gastric ulcers-HgB of 6.8, down from 7.3 yesterday add carafate and a proton pump inhibitor for treatment transfuse 1 unit of blood today -occasional chest pain pain likely due to anemia and demand ischemia -hypokalemia- potassium of 3.5 replace per protocol -hypothyroidism home medications continued -HTN well controlled on home medications- BP of 101/58 - DVT prophalaxis SCDs only due to anemia - dementia - consult PT/OT to assess for capacity to go home TORRIE MEDINA DO 03/08/21 0614: Subjective Subjective/Events-last exam Pt doing a little better PT and OT will be ordered Assisted living at [place] will be recommended by family Hgb 6.8 will give one more unit of blood Gastric ulcers on scope Overall doing very well otherwise Review of Systems General: Fatigue Objective Exam General: Alert, Oriented X3, Cooperative, No Acute Distress, Other (Poor recall) Lungs: Clear to Auscultation Heart: Regular Rate Psych/Mental Status: Mental Status NL Assessment/Plan Assessment/Plan Assess & Plan/Chief Complaint Monitor closely Check labs in the morning Assisted living at discharge PT and OT Supervisory-Addendum Brief Verification & Attestation Participated in pt care: history, MDM, physical Personally performed: exam, history, MDM, supervision of care Care discussed with: Medical Student Procedures: n/a Results interpretation: Verified all documentation Verification and Attestation of Medical Student E/M Service A medical student performed and documented this service in my presence. I reviewed and verified all information documented by the medical student and made modifications to such information, when appropriate. I personally performed the physical exam and medical decision making. Torrie Medina, Mar 08, 2021,06:13 DEE MENJIVAR MED STUDENT Mar 07, 2021 13:53 TORRIE MEDINA DO Mar 08, 2021 06:14
--- NOTE | 2021-03-07 17:46 | Cardiology Progress Note ---
Progress Note-Cardiology Events since last exam Date Seen by Provider: Mar 07, 2021 Time Seen by Provider: 17:40 Events since last exam We are seeing her for chest pain. She denies any further chest pain since ad mission. She denies chest discomfort, palpitations, or syncope. She denies any change in her chronic lower extremity edema. Certain portions of this document may have been dictated utilizing voice r ecognition technology. Inherent to this technology, typographical and grammatical errors may exist. As much as I am diligent to identify and correct these mistakes, some errors may remain in the document. Vitals Last set of Vitals Signs Vital Signs 03/04/21 03/06/21 03/07/21 20:49 13:25 15:29 Temp 36.5 Pulse 69 Resp 20 B/P (MAP) 122/67 (85) Pulse Ox 97 O2 Delivery Room Air O2 Flow Rate 5 FiO2 21 Labs Labs Laboratory Tests 03/07/21 06:35 Exam Vital Signs Vital Signs Date Time Temp Pulse Resp B/P (MAP) Pulse Ox O2 Delivery O2 Flow Rate FiO2 03/07/21 15:29 36.5 69 20 122/67 (85) 97 Room Air 03/06/21 13:25 5 03/04/21 20:49 21 Physical Exam General: Alert. No acute distress. Eye: No xanthelasma. HENT: Normocephalic. Neck: Jugular venous pressure does not appear elevated. Respiratory: Lungs are clear to auscultation. Respirations are non-labored. Breath sounds are equal. Symmetrical chest wall expansion. Cardiovascular: Normal rate. Regular rhythm. No murmur. No gallop. 1+ bilateral pretibial edema. Gastrointestinal: Soft. Normal bowel sounds. Skin: Warm. Dry. Neurologic: Alert and oriented to person, place, time. Cranial nerves 3-11 grossly intact. Psychiatric: Cooperative. Appropriate mood & affect. Labs Laboratory Tests Test 03/07/21 06:35 03/07/21 14:32 Range/Units White Blood Count 6.5 4.3-11.0 10^3/uL Red Blood Count 3.41 L 3.80-5.11 10^6/uL Hemoglobin 6.8 *L 11.5-16.0 g/dL Hematocrit 24 L 35-52 % Mean Corpuscular Volume 70 L 80-99 fL Mean Corpuscular Hemoglobin 20 L 25-34 pg Mean Corpuscular Hemoglobin Concent 29 L 32-36 g/dL Red Cell Distribution Width 22.3 H 10.0-14.5 % Platelet Count 265 130-400 10^3/uL Mean Platelet Volume 9.4 9.0-12.2 fL Immature Granulocyte % (Auto) 1 % Neutrophils (%) (Auto) 70 42-75 % Lymphocytes (%) (Auto) 18 12-44 % Monocytes (%) (Auto) 7 0-12 % Eosinophils (%) (Auto) 4 0-10 % Basophils (%) (Auto) 0 0-10 % Neutrophils # (Auto) 4.6 1.8-7.8 10^3/uL Lymphocytes # (Auto) 1.2 1.0-4.0 10^3/uL Monocytes # (Auto) 0.4 0.0-1.0 10^3/uL Eosinophils # (Auto) 0.3 0.0-0.3 10^3/uL Basophils # (Auto) 0.0 0.0-0.1 10^3/uL Immature Granulocyte # (Auto) 0.0 0.0-0.1 10^3/uL Percent Immature Platelet Fraction 2.2 0.0-7.6 % Sodium Level 138 135-145 MMOL/L Potassium Level 3.5 L 3.6-5.0 MMOL/L Chloride Level 108 H 98-107 MMOL/L Carbon Dioxide Level 24 21-32 MMOL/L Anion Gap 6 5-14 MMOL/L Blood Urea Nitrogen 8 7-18 MG/DL Creatinine 0.81 0.60-1.30 MG/DL Estimat Glomerular Filtration Rate 68 BUN/Creatinine Ratio 10 Glucose Level 67 L 70-105 MG/DL Calcium Level 8.1 L 8.5-10.1 MG/DL Corrected Calcium 9.1 8.5-10.1 MG/DL Magnesium Level 2.1 1.6-2.4 MG/DL Total Bilirubin 0.4 0.1-1.0 MG/DL Aspartate Amino Transf (AST/SGOT) 13 5-34 U/L Alanine Aminotransferase (ALT/SGPT) 11 0-55 U/L Alkaline Phosphatase 55 40-136 U/L Total Protein 5.3 L 6.4-8.2 GM/DL Albumin 2.7 L 3.2-4.5 GM/DL Lab Scanned Report Transfusion Reaction Form [id number] Diagnosis/Problems Diagnosis/Problems (1) Chest pain Assessment & Plan: Exact etiology unclear. Her initial troponin level on admission was negative and then she had one borderline elevated troponin. She had no ischemic changes on her electrocardiogram. Her echocardiogram showed normal ejection fraction with no obvious wall motion abnormalities. This may have been a probable type II non-ST elevation myocardial infarction due to supply/demand mismatch from her severe anemia. Her chest discomfort resolved after she received blood transfusions. She should continue on Ezetimibe. She is intolerant to statin medications. I would hold off on aspirin given her acute anemia. I do not see any strong indication for an ischemic evaluation at this time. Since her chest discomfort has resolved, cardiology will sign off. Please call if you have other questions or concerns. I do not necessarily see any reason why she will need ongoing cardiology follow-up after discharge. (2) Essential hypertension Assessment & Plan: She was taking indapamide at home. This is presently on hold. She remains normotensive on new antihypertensive medication here in the hospital. (3) Mixed hyperlipidemia Assessment & Plan: Continue ezetimibe. Her cholesterol level is under excellent control on the lipid panel obtained during this hospitalization. TYLER HENDRICKS JR, MD Mar 07, 2021 17:46
[2021-03-07] MEDS: PANTOPRAZOLE 40 MG (PROTONIX) TAB PO SCH (19:38)
[2021-03-07] MEDS: eZETimibe 10 MG (ZETIA) TABLET PO SCH (19:38)
[2021-03-08 00:22] VITALS: BP 114/56
[2021-03-08 04:10] VITALS: BP 113/56
[2021-03-08 05:44] LABS: POTASSIUM 4.1 MMOL/L (3.6-5.0)
[2021-03-08 05:45] LABS: CALCIUM 8.2 MG/DL (8.5-10.1)
[2021-03-08 05:49] LABS: CREATININE SERUM 0.97 MG/DL (0.60-1.30)
[2021-03-08 05:52] LABS: MAGNESIUM 1.7 MG/DL (1.6-2.4)
[2021-03-08] MEDS: POTASSIUM CL 10MEQ/50ML IVPB 50 ML IV SCH (05:52)
[2021-03-08] MEDS: KCL 20 MEQ TAB (K-DUR) PO SCH (05:53)
[2021-03-08] MEDS: MAGNESIUM 1 GM/100 ML IVPB 100 ML IV SCH ×3 (05:56→06:29)
[2021-03-08] MEDS ORDERED: IRON SUCROSE 200 MG/10 ML (VENOFER) VIAL IV ONE (06:00)
[2021-03-08 06:05] LABS: BASOPHILS % (AUTO) 1 % (0-10); EOSINOPHILS # (AUTO) 0.4 10^3/uL (0.0-0.3); EOSINOPHILS % (AUTO) 5 % (0-10); HEMATOCRIT 28 % (35-52); HEMOGLOBIN 8.2 g/dL (11.5-16.0); LYMPHOCYTES # (AUTO) 1.3 10^3/uL (1.0-4.0); LYMPHOCYTES % (AUTO) 17 % (12-44); MEAN CORPUSCULAR HEMOGLOBIN 21 pg (25-34); MEAN CORPUSCULAR HGB CONC 29 g/dL (32-36); MEAN CORPUSCULAR VOLUME 73 fL (80-99); MEAN PLATELET VOLUME 9.5 fL (9.0-12.2); MONOCYTES # (AUTO) 0.5 10^3/uL (0.0-1.0); MONOCYTES % (AUTO) 7 % (0-12); NEUTROPHILS # (AUTO) 5.3 10^3/uL (1.8-7.8); NEUTROPHILS % (AUTO) 70 % (42-75); PLATELET COUNT 260 10^3/uL (130-400); WHITE BLOOD COUNT 7.5 10^3/uL (4.3-11.0)
[2021-03-08] MEDS: LEVOTHYROXINE 50 MCG (LEVOTHROID) TAB PO SCH (06:24)
[2021-03-08] MEDS: SUCRALFATE 1 GM (CARAFATE) TAB PO SCH ×4 (06:24→20:03)
[2021-03-08 07:17] VITALS: BP 116/67
[2021-03-08] MEDS: GABAPENTIN 600 MG (NEURONTIN) TAB PO SCH ×2 (07:58→20:03)
[2021-03-08] MEDS: PANTOPRAZOLE 40 MG (PROTONIX) TAB PO SCH ×2 (07:58→20:03)
--- NOTE | 2021-03-08 11:00 | Occupational Ther Daily Note ---
OT Current Status-Daily Note Subjective Pt alert, sitting in recliner. Pt states that she is worn out from moving from the bed to BSC to recliner. With encouragement pt agrees to therapy. Mental Status/Objective Patient Orientation: Person, Place, Time, Situation Attachments: IV ADL-Treatment Pt states that meghan penny only had to stand with her while she completed toilet transfer, hygiene and clothing manipulation. Pt able to adjust self in chair to make herself comfortable. Therapy Code Descriptions/Definitions Functional [place] Measure: 0=Not Assessed/NA 4=Minimal Assistance 1=Total Assistance 5=Supervision or Setup 2=Maximal Assistance 6=Modified [place] 3=Moderate Assistance 7=Complete IndependenceSCALE: Activities may be completed with or without assistive devices. 3-Zhwcichjvc-ymkmvyo completes the activity by him/herself with no assistance from a helper. 5-Set-up or Clean-up Assistance-helper sets up or cleans up; patient completes activity. [place] assists only prior to or following the activity. 4-Supervision or Touching Assistance-helper provides verbal cues and/or touching/steadying and/or contact guard assistance as patient completes activity. Assistance may be provided throughout the activity or intermittently. 3-Partial/Moderate Assistance-helper does LESS THAN HALF the effort. [place] lifts, holds or supports trunk or limbs, but provides less than half the effort. 2-Substantial/Maximal Assistance-helper does MORE THAN HALF the effort. [place] lifts or holds trunk or limbs and provides more than half the effort. 1-Nivndrnqa-naozml does ALL the effort. Patient does none of the effort to complete the activity. Or, the assistance of 2 or more helpers is required for the patient to complete the activity. If activity was not attempted, code reason: 7-Patient Refused. 9-Not Applicable-not attempted and the patient did not perform the activity before the current illness, exacerbation or injury. 10-Not Attempted due to Environmental Limitations-(lack of equipment, weather restraints, etc.). 88-Not Attempted due to Medical Conditions or Safety Concerns. Toileting Hygiene (QC): 4 Toilet Transfer (QC): 4 Other Treatment Discussed energy conservation with pt. Pt acknowledged understanding of this by giving own strategies that she has used at home. Pt did stated that she will be moving to an assisted living facility that will assist with IADLs and ADLs. Pt encouraged to continue to do as much for herself as possible to maintain independence and function. After therapy, pt sitting in recliner with call light/phone in reach. All needs met in room. 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 2=Patient will verbalize/demonstrate understanding of assistive hillary martha/modifications for ADL. 3=Patient will improve strength/tolerance for activity to enable patient to perform ADL's. OT Education/Plan Problem List/Assessment Assessment: Decreased Activ Tolerance, Decreased UE Strength, Impaired I ADL's, Impaired Self-Care Skills Discharge Recommendations Plan/Recommendations: Continue POC Treatment Plan/Plan of Care Patient would benefit from OT for education, treatment and training to promote independence in ADL's, mobility, safety and/or upper extremity function for ADL's. Plan of Care: ADL Retraining, Functional Mobility, UE Funct Exercise/Act Treatment Duration: Mar 17, 2021 Frequency: 5 times per week Estimated Hrs Per Day: .25 hour per day Rehab Potential: Fair Time/GCodes Start Time: 10:35 Stop Time: 10:52 Total Time Billed (hr/min): 17 Billed Treatment Time 1 visit-FA 1 (17 min) DARREL BEARD Mar 08, 2021 11:00
[2021-03-08 11:27] VITALS: BP 132/78
--- NOTE | 2021-03-08 11:50 | Physical Therapy Daily Note ---
PT Daily Note-Current Subjective Patient in recliner pre tx, agrees to PT, has no complaints of pain Appearance Patient in recliner post tx with nurse call, phone, tray, all needs met, legs elevated. Mental Status Patient Orientation: Person, Place, Situation Transfers SCALE: Activities may be completed with or without assistive devices. 6-Bjdmzjvqyt-ewybtjc completes the activity by him/herself with no assistance from a helper. 5-Set-up or Clean-up Assistance-helper sets up or cleans up; patient completes activity. [place] assists only prior to or following the activity. 4-Supervision or Touching Assistance-helper provides verbal cues and/or touching/steadying and/or contact guard assistance as patient completes activity. Assistance may be provided throughout the activity or intermittently. 3-Partial/Moderate Assistance-helper does LESS THAN HALF the effort. [place] lifts, holds or supports trunk or limbs, but provides less than half the effort. 2-Substantial/Maximal Assistance-helper does MORE THAN HALF the effort. [place] lifts or holds trunk or limbs and provides more than half the effort. 4-Kwgzpmcsa-uvmysi does ALL the effort. Patient does none of the effort to complete the activity. Or, the assistance of 2 or more helpers is required for the patient to complete the activity. If activity was not attempted, code reason: 7-Patient Refused. 9-Not Applicable-not attempted and the patient did not perform the activity before the current illness, exacerbation or injury. 10-Not Attempted due to Environmental Limitations-(lack of equipment, weather restraints, etc.). 88-Not Attempted due to Medical Conditions or Safety Concerns. Sit to Stand (QC): 3 Chair/Ady-dq-Ejgxc Xfer(QC): 4 Gait Training Distance: 120' Walk 10 feet (QC): 4 Walk 50 ft with 2 Turns(QC): 4 Gait Persons Needed: 1 Gait Assistive Device: Walker 4 Wheeled CGA, slow but steady ambulation, patient states she may have walked too far but she was able to make it back to her room without incident Exercises Seated Therapy Exercises: Ankle pumps, Long arc quads Seated Reps: 20 Treatments transfers, ambulation, LE strengthening Assessment Current Status: Fair Progress improving endurance PT Integrated Program Teacher Goals Integrated Program Teacher Goals PT Integrated Program Teacher Goals Time Frame: Mar 17, 2021 Roll Left & Right (QC): 6 Sit to Lying (QC): 6 Lying-Sitting on Side/Bed(QC): 6 Sit to Stand (QC): 6 Chair/Pvd-nl-Walee Xfer(QC): 6 Toilet Transfer (QC): 6 Car Transfer (QC): 6 Does the Patient Walk: Yes Walk 10 feet (QC): 6 Walk 50ft with 2 Turns (QC): 6 Walk 150 ft (QC): 6 PT Plan Problem List Problem List: Activity Tolerance, Functional Strength, Safety, Balance, Gait, Transfer, Bed Mobility, ROM Treatment/Plan Treatment Plan: Continue Plan of Care Treatment Plan: Bed Mobility, Education, Functional Activity Philipp, Functional Strength, Gait, Safety, Therapeutic Exercise, Transfers Treatment Duration: Mar 17, 2021 Frequency: 6 times per week Estimated Hrs Per Day: .25 hour per day Patient and/or Family Agrees t: Yes Safety Risks/Education Patient Education: Gait Training, Transfer Techniques, Correct Positioning, Safety Issues Teaching Recipient: Patient Teaching Methods: Demonstration, Discussion Response to Teaching: Reinforcement Needed Time/GCodes Time In: 1112 Time Out: 1124 Total Billed Treatment Time: 12 Total Billed Treatment 1 visit GT 12' SANDRA TRAN PT Mar 08, 2021 11:50
--- NOTE | 2021-03-08 11:57 | Progress Note ---
ANDREW WALSH 03/08/21 1157: Subjective Date Seen by a Provider: Mar 08, 2021 Time Seen by a Provider: 09:32 Subjective/Events-last exam Patient reports fatigue, but has been eating solids. Patient denies bowel movements since colonoscopy, chest pain, bloody stool, black tarry stools, pallor, abdominal pain, allergic rxn from blood transfusion, fever, chills, diarrhea. Her vitals have been stable and has been given 1 unit of blood where hgb 6.8 to 8.2 L. Still on protonix and carafate for gastritis. Plan for discharge soon. Review of Systems General: No Chills; Fatigue, Appetite HEENT: No Visual Changes, No Dysphasia, No Post Nasal Drip Pulmonary: No Dyspnea, No Cough Cardiovascular: No: Chest Pain, Lt Headedness Gastrointestinal: No: Nausea, Vomiting, Diarrhea Genitourinary: No Dysuria, No Hematuria Musculoskeletal: No: neck pain, shoulder pain Neurological: No: Change in speech, Seizures Focused Exam Time of Focused Exam: 10:30 Objective Exam Last Set of Vital Signs Vital Signs Date Time Temp Pulse Resp B/P (MAP) Pulse Ox O2 Delivery O2 Flow Rate FiO2 03/08/21 11:27 35.6 68 18 132/78 (96) 97 Room Air 03/06/21 13:25 5 03/04/21 20:49 21 Capillary Refill : Less Than 3 Seconds I&O Intake and Output 03/08/21 00:00 Intake Total 1800 ml Output Total 2800 ml Balance -1000 ml Intake Oral 1770 ml IV Total 30 ml Output Urine Total 2800 ml General: Alert, Cooperative, No Acute Distress HEENT: Atraumatic, EOMI, Mucous Memb Moist/[place] Neck: Supple, No Thyromegaly Lungs: Clear to Auscultation, Normal Air Movement Heart: Regular Rate, No Murmurs, Gallops Abdomen: Soft, No Tenderness Extremities: No Cyanosis, No Edema, No Tenderness/Swelling Skin: No Breakdown, No Significant Lesion Neuro: Normal Speech, Cranial Nerves 3-12 NL (CN 3-12 Grossly intact) Psych/Mental Status: Mood NL Results Lab Laboratory Tests 03/07/21 14:32: Lab Scanned Report Transfusion Reaction Form 03/08/21 05:25: White Blood Count 7.5, Red Blood Count 3.86, Hemoglobin 8.2#L, Hematocrit 28L, Mean Corpuscular Volume 73L, Mean Corpuscular Hemoglobin 21L, Mean Corpuscular Hemoglobin Concent 29L, Red Cell Distribution Width 23.3H, Platelet Count 260, Mean Platelet Volume 9.5, Immature Granulocyte % (Auto) 0, Neutrophils (%) (Au to) 70, Lymphocytes (%) (Auto) 17, Monocytes (%) (Auto) 7, Eosinophils (%) (Auto) 5, Basophils (%) (Auto) 1, Neutrophils # (Auto) 5.3, Lymphocytes # (Auto) 1.3, Monocytes # (Auto) 0.5, Eosinophils # (Auto) 0.4H, Basophils # (Auto) 0.0, Immature Granulocyte # (Auto) 0.0, Sodium Level 139, Potassium Level 4.1, Chloride Level 105, Carbon Dioxide Level 25, Anion Gap 9, Blood Urea Nitrogen 11, Creatinine 0.97, Estimat Glomerular Filtration Rate 55, BUN/Creatinine Ratio 11, Glucose Level 88, Calcium Level 8.2L, Magnesium Level 1.7 Microbiology 03/05/21 MRSA Screen - Final, Complete MRSA not isolated Assessment/Plan Assessment/Plan Assess & Plan/Chief Complaint Anemia Hgb 6.8 to 8.2 after new 1 unit prbcs Iron was administered, follow up iron studies Chest pain Resolved Status Post Op EGD/Scope Findings were significant for Gastric ulcers, hiatal hernia - small, Diverticula, Int hem, thrombosed ext hem Hypokalemia Resolved and continue replace per protocol Hypothyroidism Continue home meds HTN Bp well controlled, trend DVT ppx: SCDs only due to anemia TORRIE MEDINA DO 03/08/212131: Subjective Subjective/Events-last exam Pt doing a lot better Has received a total of 3 units of blood, her Hgb is 8.2 Denies any other significant problems Poor recall, I have introduced myself everyday Reported she didnt even know her son yesterday Going to assisted living tomorrow Objective Exam General: Alert, Cooperative, No Acute Distress, Other (poo recall) Lungs: Clear to Auscultation Heart: Regular Rate Assessment/Plan Assessment/Plan Assess & Plan/Chief Complaint DC to [facility] tomorrow Monitor hgb Supervisory-Addendum Brief Verification & Attestation Participated in pt care: history, MDM, physical Personally performed: exam, history, MDM, supervision of care Care discussed with: Medical Student Procedures: n/a Results interpretation: Verified all documentation Verification and Attestation of Medical Student E/M Service A medical student performed and documented this service in my presence. I reviewed and verified all information documented by the medical student and made modifications to such information, when appropriate. I personally performed the physical exam and medical decision making. Torrie Medina, Mar 08, 2021,21:32 ANDREW WALSH Mar 08, 2021 11:57 TORRIE MEDINA DO Mar 08, 2021 21:32
--- NOTE | 2021-03-08 14:09 | Endoscopy Discharge Instruct ---
Endo Procedure/Findings Findings 1.: Gastric Ulcer 2.: Hiatal Hernia 3.: Diverticulosis 4.: Internal Hemorrhoids, Other Findings (Thrombosed ext hemorrhoid) Discharge Instructions - Activity: You might feel a little sleepy until tomorrow. This is due to the medicine you received to relax you. Until tomorrow, you should: NOT drive a car, operate machinery or power tools. NOT drink any alcoholic beverages. NOT make any important decisions or sign importortant papers. Do not return to work until tomorrow, unless otherwise instructed. Resume previous activities tomorrow. Diet: Start by taking liquids. If you tolerate liquids, advance to solid food. Make an appointment to see me in one week, 1.: EGD in 6-8 weeks 2.: Colonscopy in 10 years Notify Physician - If you experience excessive bleeding, unusual abdominal pain, fever, or chest pain, contact your doctor immediately. Follow-Up: Reconcile Patient Problems Problems: (1) Chest pain (2) Essential hypertension (3) Mixed hyperlipidemia BALJINDER BRINK DO Mar 08, 2021 14:09
--- NOTE | 2021-03-08 14:12 | Progress Note - Surgery ---
Subjective Time Seen by a Provider: 13:26 Subjective/Events-last exam Pt seen and examined, she is tolerating regular diet. Denies hematochezia and melena; thinks she is slightly stronger today. Pt is also confused, stated "I am not sure where I am", but knows her name and where she lives. Review of Systems General: Fatigue Pulmonary: No Dyspnea, No Cough Cardiovascular: No: Chest Pain, Palpitations Gastrointestinal: No: Nausea, Vomiting, Abdominal Pain Focused Exam Time of Focused Exam: 10:30 Objective Exam Vital Signs Date Time Temp Pulse Resp B/P (MAP) Pulse Ox O2 Delivery O2 Flow Rate FiO2 03/08/21 11:27 35.6 68 18 132/78 (96) 97 Room Air 03/08/21 08:00 95 Room Air 03/08/21 07:17 37.6 77 18 116/67 (83) 95 Room Air 03/08/21 06:42 81 03/08/21 04:10 37.2 74 20 113/56 (75) 96 Room Air 03/08/21 01:07 75 03/08/21 00:22 37.0 69 18 114/56 (75) 97 Room Air 03/07/21 20:00 37.0 68 18 124/67 (86) 98 Room Air 03/07/21 19:35 Room Air 03/07/21 19:00 68 03/07/21 15:29 36.5 69 20 122/67 (85) 97 Room Air I & O 03/08/21 07:00 Intake Total 1650 ml Output Total 2700 ml Balance -1050 ml Capillary Refill : Less Than 3 Seconds General Appearance: No Apparent Distress, Thin HEENT: Moist Mucous Membranes Neck: Normal Inspection, Supple Respiratory: Chest Non Tender, Lungs Clear, Normal Breath Sounds, No Accessory Muscle Use, No Respiratory Distress Cardiovascular: Regular Rate, Rhythm, Normal Peripheral Pulses; No Other (nonpitting edema on bilateral lower extrremity) Peripheral Pulses: 2+ Radial Pulses (R), 2+ Radial Pulses (L) Gastrointestinal: non tender, soft, no organomegaly Extremity: Normal Capillary Refill, No Calf Tenderness, No Pedal Edema Neurologic/Psychiatric: Alert Skin: Warm/Dry Results Lab Laboratory Tests 03/07/21 14:32: Lab Scanned Report Transfusion Reaction Form 03/08/21 05:25: White Blood Count 7.5, Red Blood Count 3.86, Hemoglobin 8.2#L, Hematocrit 28L, Mean Corpuscular Volume 73L, Mean Corpuscular Hemoglobin 21L, Mean Corpuscular Hemoglobin Concent 29L, Red Cell Distribution Width 23.3H, Platelet Count 260, Mean Platelet Volume 9.5, Immature Granulocyte % (Auto) 0, Neutrophils (%) (Auto) 70, Lymphocytes (%) (Auto) 17, Monocytes (%) (Auto) 7, Eosinophils (%) (Auto) 5, Basophils (%) (Auto) 1, Neutrophils # (Auto) 5.3, Lymphocytes # (Auto) 1.3, Monocytes # (Auto) 0.5, Eosinophils # (Auto) 0.4H, Basophils # (Auto) 0.0, Immature Granulocyte # (Auto) 0.0, Sodium Level 139, Potassium Level 4.1, Chloride Level 105, Carbon Dioxide Level 25, Anion Gap 9, Blood Urea Nitrogen 11, Creatinine 0.97, Estimat Glomerular Filtration Rate 55, BUN/Creatinine Ratio 11, Glucose Level 88, Calcium Level 8.2L, Magnesium Level 1.7 03/08/21 12:30: Lab Scanned Report Transfusion Reaction Form Microbiology 03/05/21 MRSA Screen - Final, Complete MRSA not isolated Assessment/Plan Assessment/Plan Assessment/Plan Anemia Hgb 6.8 to 8.2 after new 1 unit prbcs. Will probably do well with Iron infusions Chest pain Resolved Status Post Op EGD/Scope Findings were significant for Gastric ulcers, hiatal hernia - small, Diverticula, Int hem, thrombosed ext hem Hypokalemia Resolved and continue replace per protocol Hypothyroidism Continue home meds HTN Bp well controlled, trend DVT ppx: SCDs only due to anemia BALJINDER BRINK DO Mar 08, 2021 14:12
[2021-03-08 15:45] VITALS: BP 131/70
[2021-03-08] MEDS: eZETimibe 10 MG (ZETIA) TABLET PO SCH (20:03)
[2021-03-08 20:50] VITALS: BP 119/70
[2021-03-09 00:36] VITALS: BP 124/59
[2021-03-09 03:11] VITALS: BP 121/69
[2021-03-09] MEDS: ACETAMINOPHEN 325 MG TABLET PO PRN (03:11)
[2021-03-09] MEDS: LEVOTHYROXINE 50 MCG (LEVOTHROID) TAB PO SCH (05:29)
[2021-03-09] MEDS: SUCRALFATE 1 GM (CARAFATE) TAB PO SCH ×2 (05:29→11:27)
[2021-03-09 05:42] LABS: BASOPHILS % (AUTO) 1 % (0-10); EOSINOPHILS # (AUTO) 0.4 10^3/uL (0.0-0.3); EOSINOPHILS % (AUTO) 5 % (0-10); HEMATOCRIT 29 % (35-52); HEMOGLOBIN 8.2 g/dL (11.5-16.0); LYMPHOCYTES # (AUTO) 1.3 10^3/uL (1.0-4.0); LYMPHOCYTES % (AUTO) 15 % (12-44); MEAN CORPUSCULAR HEMOGLOBIN 21 pg (25-34); MEAN CORPUSCULAR HGB CONC 29 g/dL (32-36); MEAN CORPUSCULAR VOLUME 73 fL (80-99); MEAN PLATELET VOLUME 9.8 fL (9.0-12.2); MONOCYTES # (AUTO) 0.7 10^3/uL (0.0-1.0); MONOCYTES % (AUTO) 8 % (0-12); NEUTROPHILS # (AUTO) 6.1 10^3/uL (1.8-7.8); NEUTROPHILS % (AUTO) 71 % (42-75); PLATELET COUNT 269 10^3/uL (130-400); WHITE BLOOD COUNT 8.6 10^3/uL (4.3-11.0)
[2021-03-09 05:51] LABS: ALBUMIN 2.8 GM/DL (3.2-4.5); POTASSIUM 3.9 MMOL/L (3.6-5.0)
[2021-03-09 05:53] LABS: CALCIUM 8.1 MG/DL (8.5-10.1)
[2021-03-09 05:54] LABS: TOTAL PROTEIN 5.5 GM/DL (6.4-8.2)
[2021-03-09 05:56] LABS: BILIRUBIN,TOTAL 0.3 MG/DL (0.1-1.0)
[2021-03-09 05:57] LABS: CREATININE SERUM 1.01 MG/DL (0.60-1.30)
[2021-03-09] MEDS: POTASSIUM CL 10MEQ/50ML IVPB 50 ML IV SCH (06:30)
[2021-03-09] MEDS: KCL 20 MEQ TAB (K-DUR) PO SCH (06:31)
[2021-03-09 07:13] VITALS: BP 113/64
[2021-03-09] MEDS: PANTOPRAZOLE 40 MG (PROTONIX) TAB PO SCH (09:25)
[2021-03-09] MEDS: GABAPENTIN 600 MG (NEURONTIN) TAB PO SCH (09:25)
[2021-03-09] MEDS ORDERED: PANT40TA52 PO (11:38)
[2021-03-09] MEDS ORDERED: TRM50T PO (11:38)
[2021-03-09] MEDS ORDERED: FERR325T18 PO (11:38)
[2021-03-09] MEDS ORDERED: SUCR1TAB PO (11:38)
--- NOTE | 2021-03-09 11:40 | Discharge Summary ---
Diagnosis/Chief Complaint Date of Admission Mar 04, 2021 at 18:42 Date of Discharge Discharge Date: Mar 09, 2021 Discharge Diagnosis Anemia Hgb 6.8 to 8.2 after new 1 unit prbcs Iron was administered, follow up iron studies Chest pain Resolved Status Post Op EGD/Scope Findings were significant for Gastric ulcers, hiatal hernia - small, Diverticula, Int hem, thrombosed ext hem Hypokalemia Resolved and continue replace per protocol Hypothyroidism Continue home meds HTN Bp well controlled, trend DVT ppx: SCDs only due to anemia Discharge Summary Discharge Physical Examination Allergies: Coded Allergies: Penicillins (Verified Allergy, Unknown, 03/04/21) [id number] Reductase Inhibitor (Unverified Allergy, Unknown, 03/07/21) cephalexin (Verified Allergy, Unknown, 03/04/21) hydrocodone (Verified Allergy, Unknown, 03/04/21) indomethacin (Verified Allergy, Unknown, 03/04/21) latex (Verified Allergy, Unknown, 03/04/21) morphine (Verified Allergy, Unknown, 03/04/21) Vitals & I&Os Vital Signs Date Time Temp Pulse Resp B/P (MAP) Pulse Ox O2 Delivery O2 Flow Rate FiO2 03/09/21 12:18 35.8 69 18 134/78 98 Room Air 03/06/21 13:25 5 03/04/21 20:49 21 General Appearance: Alert, Cooperative, Other (Poor recall) Respiratory: Clear to Auscultation Neuro: Normal Gait Hospital Course Was the Problem List Reviewed?: Yes Hospital Course: Pt had a lengthy hospital course. She was admitted for GI bleed and severe anemia. EGD showed gastric ulcers. She received 3 units of blood, Hgb remained stable at 8.2 at time of DC. Proton pump inhibitor and Carafate initiated. She will go to assisted living with outpatient PT and OT. Labs (last 24 hrs) Laboratory Tests 03/04/21 17:20: White Blood Count 5.6, Red Blood Count 3.16L, Hemoglobin 5.4*L, Hematocrit 20*L, Mean Corpuscular Volume 64L, Mean Corpuscular Hemoglobin 17L, Mean Corpuscular Hemoglobin Concent 27L, Red Cell Distribution Width 18.6H, Platelet Count 352, Mean Platelet Volume 9.7, Immature Granulocyte % (Auto) 0, Neutrophils (%) (Auto) 71, Lymphocytes (%) (Auto) 19, Monocytes (%) (Auto) 7, Eosinophils (%) (Auto) 2, Basophils (%) (Auto) 1, Neutrophils # (Auto) 4.0, Lymphocytes # (Auto) 1.0, Monocytes # (Auto) 0.4, Eosinophils # (Auto) 0.1, Basophils # (Auto) 0.1, Immature Granulocyte # (Auto) 0.0, Sodium Level 142, Potassium Level 3.5L, Chloride Level 103, Carbon Dioxide Level 23, Anion Gap 16H, Blood Urea Nitrogen 23H, Creatinine 1.00, Estimat Glomerular Filtration Rate 53, BUN/Creatinine Ratio 23, Glucose Level 106H, Calcium Level 8.7, Corrected Calcium 9.0, Total Bilirubin 0.4, Aspartate Amino Transf (AST/SGOT) 12, Alanine Aminotransferase (ALT/SGPT) 6, Alkaline Phosphatase 59, Total Protein 6.8, Albumin 3.6 03/05/21 05:41: White Blood Count 4.9, Red Blood Count 3.52L, Hemoglobin 7.1L, Hematocrit 24L, Mean Corpuscular Volume 68L, Mean Corpuscular Hemoglobin 20L, Mean Corpuscular Hemoglobin Concent 30L, Red Cell Distribution Width 21.0H, Platelet Count 284, Mean Platelet Volume 9.3, Immature Granulocyte % (Auto) 0, Neutrophils (%) (Auto) 57, Lymphocytes (%) (Auto) 28, Monocytes (%) (Auto) 9, Eosinophils (%) (Auto) 6, Basophils (%) (Auto) 1, Neutrophils # (Auto) 2.8, Lymphocytes # (Auto) 1.3, Monocytes # (Auto) 0.4, Eosinophils # (Auto) 0.3, Basophils # (Auto) 0.1, Immature Granulocyte # (Auto) 0.0, Sodium Level 139, Potassium Level 3.1L, Chloride Level 106, Carbon Dioxide Level 24, Anion Gap 9, Blood Urea Nitrogen 19H, Creatinine 0.95, Estimat Glomerular Filtration Rate 56, BUN/Creatinine Ratio 20, Glucose Level 68L, Calcium Level 8.1L, Troponin I < 0.028, Triglycerides Level 67, Cholesterol Level 104, LDL Cholesterol Direct 55, VLDL Cholesterol 13, HDL Cholesterol 39L 03/05/21 07:49: Hemoglobin 7.2#L, Hematocrit 25L 03/05/21 12:32: Troponin I 0.030H 03/05/21 15:00: SARS-CoV-2 RNA (RT-PCR) Not Detected 03/05/21 15:31: Iron Level 45, Total Iron Binding Capacity 377H, Unsaturated Iron Binding Capacity 332, Transferrin % Saturation 12L, Ferritin 9.3L 03/06/21 06:20: White Blood Count 5.2, Red Blood Count 3.70L, Hemoglobin 7.3L, Hematocrit 26L, Mean Corpuscular Volume 70L, Mean Corpuscular Hemoglobin 20L, Mean Corpuscular Hemoglobin Concent 28L, Red Cell Distribution Width 20.7H, Platelet Count 306, Mean Platelet Volume 9.3, Sodium Level 140, Potassium Level 4.0, Chloride Level 108H, Carbon Dioxide Level 23, Anion Gap 9, Blood Urea Nitrogen 10, Creatinine 0.88, Estimat Glomerular Filtration Rate 61, BUN/Creatinine Ratio 11, Glucose Level 65L, Calcium Level 8.4L, Magnesium Level 1.9 03/07/21 06:35: White Blood Count 6.5, Red Blood Count 3.41L, Hemoglobin 6.8*L, Hematocrit 24L, Mean Corpuscular Volume 70L, Mean Corpuscular Hemoglobin 20L, Mean Corpuscular Hemoglobin Concent 29L, Red Cell Distribution Width 22.3H, Platelet Count 265, Mean Platelet Volume 9.4, Sodium Level 138, Potassium Level 3.5L, Chloride Level 108H, Carbon Dioxide Level 24, Anion Gap 6, Blood Urea Nitrogen 8, Creatinine 0.81, Estimat Glomerular Filtration Rate 68, BUN/Creatinine Ratio 10, Glucose Level 67L, Calcium Level 8.1L, Magnesium Level 2.1, Immature Granulocyte % (Auto) 1, Neutrophils (%) (Auto) 70, Lymphocytes (%) (Auto) 18, Monocytes (%) (Auto) 7, Eosinophils (%) (Auto) 4, Basophils (%) (Auto) 0, Neutrophils # (Auto) 4.6, Lymphocytes # (Auto) 1.2, Monocytes # (Auto) 0.4, Eosinophils # (Auto) 0.3, Basophils # (Auto) 0.0, Immature Granulocyte # (Auto) 0.0, Percent Immature Platelet Fraction 2.2, Corrected Calcium 9.1, Total Bilirubin 0.4, Aspartate Amino Transf (AST/SGOT) 13, Alanine Aminotransferase (ALT/SGPT) 11, Alkaline Phosphatase 55, Total Protein 5.3L, Albumin 2.7L 03/07/21 14:32: Lab Scanned Report Transfusion Reaction Form 03/08/21 05:25: White Blood Count 7.5, Red Blood Count 3.86, Hemoglobin 8.2#L, Hematocrit 28L, Mean Corpuscular Volume 73L, Mean Corpuscular Hemoglobin 21L, Mean Corpuscular Hemoglobin Concent 29L, Red Cell Distribution Width 23.3H, Platelet Count 260, Mean Platelet Volume 9.5, Immature Granulocyte % (Auto) 0, Neutrophils (%) (Auto) 70, Lymphocytes (%) (Auto) 17, Monocytes (%) (Auto) 7, Eosinophils (%) (Auto) 5, Basophils (%) (Auto) 1, Neutrophils # (Auto) 5.3, Lymphocytes # (Auto) 1.3, Monocytes # (Auto) 0.5, Eosinophils # (Auto) 0.4H, Basophils # (Auto) 0.0, Immature Granulocyte # (Auto) 0.0, Sodium Level 139, Potassium Level 4.1, Chloride Level 105, Carbon Dioxide Level 25, Anion Gap 9, Blood Urea Nitrogen 11, Creatinine 0.97, Estimat Glomerular Filtration Rate 55, BUN/Creatinine Ratio 11, Glucose Level 88, Calcium Level 8.2L, Magnesium Level 1.7 03/08/21 12:30: Lab Scanned Report Transfusion Reaction Form 03/09/21 05:08: White Blood Count 8.6, Red Blood Count 3.92, Hemoglobin 8.2L, Hematocrit 29L, Mean Corpuscular Volume 73L, Mean Corpuscular Hemoglobin 21L, Mean Corpuscular Hemoglobin Concent 29L, Red Cell Distribution Width 24.7H, Platelet Count 269, Mean Platelet Volume 9.8, Immature Granulocyte % (Auto) 1, Neutrophils (%) (Auto) 71, Lymphocytes (%) (Auto) 15, Monocytes (%) (Auto) 8, Eosinophils (%) (Auto) 5, Basophils (%) (Auto) 1, Neutrophils # (Auto) 6.1, Lymphocytes # (Auto) 1.3, Monocytes # (Auto) 0.7, Eosinophils # (Auto) 0.4H, Basophils # (Auto) 0.0, Immature Granulocyte # (Auto) 0.1, Sodium Level 140, Potassium Level 3.9, Chloride Level 105, Carbon Dioxide Level 26, Anion Gap 9, Blood Urea Nitrogen 16, Creatinine 1.01, Estimat Glomerular Filtration Rate 52, BUN/Creatinine Ratio 16, Glucose Level 81, Calcium Level 8.1L, Corrected Calcium 9.1, Total Bilirubin 0.3, Aspartate Amino Transf (AST/SGOT) 12, Alanine Aminotransferase (ALT/SGPT) 7, Alkaline Phosphatase 66, Total Protein 5.5L, Albumin 2.8L Microbiology 03/05/21 MRSA Screen - Final, Complete MRSA not isolated Pending Labs Microbiology Date/Time Source Procedure Growth Status 03/05/21 15:00 Nasal MRSA Screen - Final MRSA not isolated Complete Laboratory Tests 03/04/21 17:20: White Blood Count 5.6, Red Blood Count 3.16, Hemoglobin 5.4, Hematocrit 20, Mean Corpuscular Volume 64, Mean Corpuscular Hemoglobin 17, Mean Corpuscular Hemoglobin Concent 27, Red Cell Distribution Width 18.6, Platelet Count 352, Mean Platelet Volume 9.7, Immature Granulocyte % (Auto) 0, Neutrophils (%) (Auto) 71, Lymphocytes (%) (Auto) 19, Monocytes (%) (Auto) 7, Eosinophils (%) (Auto) 2, Basophils (%) (Auto) 1, Neutrophils # (Auto) 4.0, Lymphocytes # (Auto) 1.0, Monocytes # (Auto) 0.4, Eosinophils # (Auto) 0.1, Basophils # (Auto) 0.1, Immature Granulocyte # (Auto) 0.0, Sodium Level 142, Potassium Level 3.5, Chloride Level 103, Carbon Dioxide Level 23, Anion Gap 16, Blood Urea Nitrogen 23, Creatinine 1.00, Estimat Glomerular Filtration Rate 53, BUN/Creatinine Ratio 23, Glucose Level 106, Calcium Level 8.7, Corrected Calcium 9.0, Total Bilirubin 0.4, Aspartate Amino Transf (AST/SGOT) 12, Alanine Aminotransferase (ALT/SGPT) 6, Alkaline Phosphatase 59, Total Protein 6.8, Albumin 3.6 03/05/21 05:41: White Blood Count 4.9, Red Blood Count 3.52, Hemoglobin 7.1, Hematocrit 24, Mean Corpuscular Volume 68, Mean Corpuscular Hemoglobin 20, Mean Corpuscular Hemoglobin Concent 30, Red Cell Distribution Width 21.0, Platelet Count 284, Mean Platelet Volume 9.3, Immature Granulocyte % (Auto) 0, Neutrophils (%) (Auto) 57, Lymphocytes (%) (Auto) 28, Monocytes (%) (Auto) 9, Eosinophils (%) (Auto) 6, Basophils (%) (Auto) 1, Neutrophils # (Auto) 2.8, Lymphocytes # (Auto) 1.3, Monocytes # (Auto) 0.4, Eosinophils # (Auto) 0.3, Basophils # (Auto) 0.1, Immature Granulocyte # (Auto) 0.0, Sodium Level 139, Potassium Level 3.1, Chloride Level 106, Carbon Dioxide Level 24, Anion Gap 9, Blood Urea Nitrogen 19, Creatinine 0.95, Estimat Glomerular Filtration Rate 56, BUN/Creatinine Ratio 20, Glucose Level 68, Calcium Level 8.1, Troponin I < 0.028, Triglycerides Level 67, Cholesterol Level 104, LDL Cholesterol Direct 55, VLDL Cholesterol 13, HDL Cholesterol 39 03/05/21 07:49: Hemoglobin 7.2, Hematocrit 25 03/05/21 12:32: Troponin I 0.030 03/05/21 15:00: SARS-CoV-2 RNA (RT-PCR) Not Detected 03/05/21 15:31: Iron Level 45, Total Iron Binding Capacity 377, Unsaturated Iron Binding Capacity 332, Transferrin % Saturation 12, Ferritin 9.3 03/06/21 06:20: White Blood Count 5.2, Red Blood Count 3.70, Hemoglobin 7.3, Hematocrit 26, Mean Corpuscular Volume 70, Mean Corpuscular Hemoglobin 20, Mean Corpuscular Hemoglobin Concent 28, Red Cell Distribution Width 20.7, Platelet Count 306, Mean Platelet Volume 9.3, Sodium Level 140, Potassium Level 4.0, Chloride Level 108, Carbon Dioxide Level 23, Anion Gap 9, Blood Urea Nitrogen 10, Creatinine 0.88, Estimat Glomerular Filtration Rate 61, BUN/Creatinine Ratio 11, Glucose Level 65, Calcium Level 8.4, Magnesium Level 1.9 03/07/21 06:35: White Blood Count 6.5, Red Blood Count 3.41, Hemoglobin 6.8, Hematocrit 24, Mean Corpuscular Volume 70, Mean Corpuscular Hemoglobin 20, Mean Corpuscular Hemoglobin Concent 29, Red Cell Distribution Width 22.3, Platelet Count 265, Mean Platelet Volume 9.4, Sodium Level 138, Potassium Level 3.5, Chloride Level 108, Carbon Dioxide Level 24, Anion Gap 6, Blood Urea Nitrogen 8, Creatinine 0.81, Estimat Glomerular Filtration Rate 68, BUN/Creatinine Ratio 10, Glucose Level 67, Calcium Level 8.1, Magnesium Level 2.1, Immature Granulocyte % (Auto) 1, Neutrophils (%) (Auto) 70, Lymphocytes (%) (Auto) 18, Monocytes (%) (Auto) 7, Eosinophils (%) (Auto) 4, Basophils (%) (Auto) 0, Neutrophils # (Auto) 4.6, Lymphocytes # (Auto) 1.2, Monocytes # (Auto) 0.4, Eosinophils # (Auto) 0.3, Basophils # (Auto) 0.0, Immature Granulocyte # (Auto) 0.0, Percent Immature Platelet Fraction 2.2, Corrected Calcium 9.1, Total Bilirubin 0.4, Aspartate Amino Transf (AST/SGOT) 13, Alanine Aminotransferase (ALT/SGPT) 11, Alkaline Phosphatase 55, Total Protein 5.3, Albumin 2.7 03/07/21 14:32: Lab Scanned Report Transfusion Reaction Form 03/08/21 05:25: White Blood Count 7.5, Red Blood Count 3.86, Hemoglobin 8.2, Hematocrit 28, Mean Corpuscular Volume 73, Mean Corpuscular Hemoglobin 21, Mean Corpuscular Hemoglobin Concent 29, Red Cell Distribution Width 23.3, Platelet Count 260, Mean Platelet Volume 9.5, Immature Granulocyte % (Auto) 0, Neutrophils (%) (Auto) 70, Lymphocytes (%) (Auto) 17, Monocytes (%) (Auto) 7, Eosinophils (%) (Auto) 5, Basophils (%) (Auto) 1, Neutrophils # (Auto) 5.3, Lymphocytes # (Auto) 1.3, Monocytes # (Auto) 0.5, Eosinophils # (Auto) 0.4, Basophils # (Auto) 0.0, Immature Granulocyte # (Auto) 0.0, Sodium Level 139, Potassium Level 4.1, Chloride Level 105, Carbon Dioxide Level 25, Anion Gap 9, Blood Urea Nitrogen 11, Creatinine 0.97, Estimat Glomerular Filtration Rate 55, BUN/Creatinine Ratio 11, Glucose Level 88, Calcium Level 8.2, Magnesium Level 1.7 03/08/21 12:30: Lab Scanned Report Transfusion Reaction Form 03/09/21 05:08: White Blood Count 8.6, Red Blood Count 3.92, Hemoglobin 8.2, Hematocrit 29, Mean Corpuscular Volume 73, Mean Corpuscular Hemoglobin 21, Mean Corpuscular Hemoglobin Concent 29, Red Cell Distribution Width 24.7, Platelet Count 269, Mean Platelet Volume 9.8, Immature Granulocyte % (Auto) 1, Neutrophils (%) (Auto) 71, Lymphocytes (%) (Auto) 15, Monocytes (%) (Auto) 8, Eosinophils (%) (Auto) 5, Basophils (%) (Auto) 1, Neutrophils # (Auto) 6.1, Lymphocytes # (Auto) 1.3, Monocytes # (Auto) 0.7, Eosinophils # (Auto) 0.4, Basophils # (Auto) 0.0, Immature Granulocyte # (Auto) 0.1, Sodium Level 140, Potassium Level 3.9, Chloride Level 105, Carbon Dioxide Level 26, Anion Gap 9, Blood Urea Nitrogen 16, Creatinine 1.01, Estimat Glomerular Filtration Rate 52, BUN/Creatinine Ratio 16, Glucose Level 81, Calcium Level 8.1, Corrected Calcium 9.1, Total Bilirubin 0.3, Aspartate Amino Transf (AST/SGOT) 12, Alanine Aminotransferase (ALT/SGPT) 7, Alkaline Phosphatase 66, Total Protein 5.5, Albumin 2.8 Discharge Home Medications: Active Scripts Active Ferrous Sulfate 325 Mg Tablet 325 Mg PO DAILY Pantoprazole Sodium 40 Mg Tablet.dr 40 Mg PO BID Sucralfate 1 Gm Tablet 1 Gm PO ACHS Tramadol HCl 50 Mg Tablet 50 Mg PO Q6HR PRN Reported Estradiol Tablet (Estradiol) 1 Mg Tablet 1 Mg PO DAILY Alendronate Sodium 70 Mg Tablet 70 Mg PO SATURDAY Gabapentin 600 Mg Tablet 600 Mg PO BID Levothyroxine Sodium 50 Mcg Tablet 50 Mcg PO DAILY Ezetimibe 10 Mg Tablet 10 Mg PO HS Indapamide 1.25 Mg Tablet 1.25 Mg PO DAILY Instructions to patient/family Please see electronic discharge instructions given to patient. ALFONSO MEDINA DO Mar 09, 2021 11:40
[2021-03-09 11:43] VITALS: BP 134/78
[2021-03-09 12:18] VITALS: BP 134/78
--- NOTE | 2021-03-09 16:11 | Progress Note ---
ANDREW WALSH 03/09/21 1610: Progress Note 85 F presents with anemia secondary to gastric ulcer. Consult with Dr. Kan EGD/Colonoscopy. Echo normal. 3 units of PRBCs was transfused and hgb levels improved appropriately. Discharged to assisted living on protonix and carafate. TORRIE MEDINA DO 03/10/21 0709: Supervisory-Addendum Brief Verification & Attestation Participated in pt care: history, MDM, physical Personally performed: exam, history, MDM, supervision of care Care discussed with: Medical Student Procedures: n/a Results interpretation: Verified all documentation Verification and Attestation of Medical Student E/M Service A medical student performed and documented this service in my presence. I reviewed and verified all information documented by the medical student and made modifications to such information, when appropriate. I personally performed the physical exam and medical decision making. Torrie Medina, Mar 10, 2021,07:09 ANDREW WALSH Mar 09, 2021 16:10 TORRIE MEDINA DO Mar 10, 2021 07:09
== END 2021-03-09 14:15 | disposition home or self-care (01) | DRG 378 ==
LOC: EDUNIT# 16:54 → ER 16:55 → 4TH 18:42
PROVIDERS: ADMIT Family Medicine; ATTEND Internal Medicine
PROC: 0DJD8ZZ Inspection of Lower Intestinal Tract, Via Natural or Artificial Opening Endoscopic (ICD-10-PCS; 2021-03-06)
PROC: 0DB48ZX Excision of Esophagogastric Junction, Via Natural or Artificial Opening Endoscopic, Diagnostic (ICD-10-PCS; principal; 2021-03-06 12:20)
PROC: 0DB68ZX Excision of Stomach, Via Natural or Artificial Opening Endoscopic, Diagnostic (ICD-10-PCS; 2021-03-06 12:20)
DX: K25.4 Chronic or unspecified gastric ulcer with hemorrhage (principal); D62 Acute posthemorrhagic anemia; E03.9 Hypothyroidism, unspecified; M81.0 Age-related osteoporosis without current pathological fracture; R07.9 Chest pain, unspecified; Z20.822 Contact with and (suspected) exposure to COVID-19; E78.2 Mixed hyperlipidemia; E87.6 Hypokalemia; N18.30 Chronic kidney disease, stage 3 unspecified; I12.9 Hypertensive chronic kidney disease with stage 1 through stage 4 chronic kidney disease, or unspecified chronic kidney disease; F03.90 Unspecified dementia, unspecified severity, without behavioral disturbance, psychotic disturbance, mood disturbance, and anxiety; K44.9 Diaphragmatic hernia without obstruction or gangrene; K57.90 Diverticulosis of intestine, part unspecified, without perforation or abscess without bleeding; K64.8 Other hemorrhoids; K64.4 Residual hemorrhoidal skin tags; Z88.5 Allergy status to narcotic agent; Z88.0 Allergy status to penicillin; Z88.1 Allergy status to other antibiotic agents; Z91.040 Latex allergy status
CPT/HCPCS: 36415; 80048; 80053; 80061; 82274; 82728; 83540; 83550; 83735; 84484; 85014; 85018; 85025; 85027; 86850; 86900; 86901; 86920; 87081; 87636; 88305; 93005; 93306

== ENCOUNTER 2021-08-07 12:55 | Emergency (ER) | payer MEDICARE, OTHER ==
[~2021-08-07 12:55] MED LIST: ALEN70TA80 PO; ASPI-1238 PO; ASPI-999 PO; CELE-63 PO; ESTR1TAB24 PO; EZET10TA49 PO; FERR325T18 PO; GBPN600T PO; INDA1.25 PO; LEVO50TA6 PO; PANT40TA52 PO; SUCR1TAB PO; TRM50T PO
--- NOTE | 2021-08-07 13:25 | ED Fall/Injury ---
General Chief Complaint: Trauma-Non Activation Stated Complaint: FALL History of Present Illness Date Seen by Provider: Aug 07, 2021 Time Seen by Provider: 13:15 Initial Comments 86-year-old female presents after a fall at her assisted living this morning. The fall was not witnessed by staff and the patient has confusion related to the events. Her only complaint is pain in her right shoulder which is chronic for her. She has no areas of erythema or ecchymosis. She is not on anticoagulants and denies a headache or head injury. Occurred: this morning Severity: mild Loss of Consciousness: unsure Associated Symptoms (Fall): Denies Symptoms; No Abdominal Pain, No Chest Pain, No Confusion, No Headache, No Muscle Spasms, No Nausea/Vomiting, No Neck Pain, No Seizures, No Shortness of Air, No Slurred Speech, No Trouble Walking, No Vision Changes Allergies and Home Medications Allergies Coded Allergies: Penicillins (Verified Allergy, Unknown, 03/04/21) Fusxomr-Uim-Oal Reductase Inhibitor (Unverified Allergy, Unknown, 03/07/21) cephalexin (Verified Allergy, Unknown, 03/04/21) hydrocodone (Verified Allergy, Unknown, 03/04/21) indomethacin (Verified Allergy, Unknown, 03/04/21) latex (Verified Allergy, Unknown, 03/04/21) morphine (Verified Allergy, Unknown, 03/04/21) Patient Home Medication List Home Medication List Reviewed: Yes Alendronate Sodium (Alendronate Sodium) 70 Mg Tablet, 70 MG PO SATURDAY, (Report ed) Entered as Reported by: ANANT PRATT on 03/05/21516 Ciprofloxacin HCl (Ciprofloxacin HCl) 500 Mg Tablet, 500 MG PO BID Prescribed by: PREET MAN on 08/07/21 1616 Estradiol (Estradiol Tablet) 1 Mg Tablet, 1 MG PO DAILY, (Reported) Entered as Reported by: ANANT PRATT on 03/05/21516 Ezetimibe (Ezetimibe) 10 Mg Tablet, 10 MG PO HS, (Reported) Entered as Reported by: ANANT PRATT on 03/05/21516 Ferrous Sulfate (Ferrous Sulfate) 325 Mg Tablet, 325 MG PO DAILY Prescribed by: ALFONSO MEDINA on 03/09/21 1138 Gabapentin (Gabapentin) 600 Mg Tablet, 600 MG PO BID, (Reported) Entered as Reported by: ANANT PRATT on 03/05/21516 Indapamide (Indapamide) 1.25 Mg Tablet, 1.25 MG PO DAILY, (Reported) Entered as Reported by: ANANT PRATT on 03/05/21516 Levothyroxine Sodium (Levothyroxine Sodium) 50 Mcg Tablet, 50 MCG PO DAILY, (Reported) Entered as Reported by: ANANT PRATT on 03/05/21516 Pantoprazole Sodium (Pantoprazole Sodium) 40 Mg Tablet.dr, 40 MG PO BID Prescribed by: ALFONSO MEDINA on 03/09/211137 Sucralfate (Sucralfate) 1 Gm Tablet, 1 GM PO ACHS Prescribed by: ALFONSO MEDINA on 03/09/21 113 Tramadol HCl (Tramadol HCl) 50 Mg Tablet, 50 MG PO Q6HR PRN for PAIN-MODERATE (5-7) Prescribed by: ALFONSO MEDINA on 03/09/211137 Review of Systems Review of Systems Constitutional: no symptoms reported, see HPI Musculoskeletal: see HPI; No back pain; joint pain (Right shoulder); No neck pain All Other Systems Reviewed Negative Unless Noted: Yes Past Chpvhqf-Bqxelg-Pfvjql Hx Past Medical History Surgeries: Yes Section, Orthopedic Respiratory: No Cardiac: No Neurological: No Genitourinary: No Gastrointestinal: No Musculoskeletal: Yes Arthritis Endocrine: Yes Hypothyroidsim HEENT: Yes Cataract Hearing Impairment: Hard of Hearing Cancer: No Psychosocial: No Integumentary: No Family Medical History Reviewed Nursing Family Hx Cancer, Diabetes Physical Exam Vital Signs Vital Signs - First Documented 08/07/21 12:55 Temp 36.3 Pulse 70 Resp 17 B/P (MAP) 155/74 (101) Pulse Ox 95 O2 Delivery Room Air Capillary Refill : Height, Weight, BMI Height: '" Weight: lbs. oz. kg; 25.61 BMI Method: General Appearance: WD/WN, no apparent distress HEENT: PERRL/EOMI, normal ENT inspection, TMs normal, pharynx normal Neck: non-tender, full range of motion, supple, normal inspection Cardiovascular: normal peripheral pulses, regular rate, rhythm Respiratory: chest non-tender, lungs clear, normal breath sounds Gastrointestinal: normal bowel sounds, non tender, soft Extremities: normal inspection, pedal edema (1+ bilateral lower extremities.), other (Limitation of motion right shoulder secondary to pain, no ecchymosis, swelling or crepitus.) Neurologic/Psychiatric: no motor/sensory deficits, alert, normal mood/affect, oriented x 3 Skin: normal color, warm/dry Irina Coma Score Best Eye Response: (4) Open Spontaneously Best Verbal Response: (5) Oriented Best Motor Response: (6) Obeys Commands [place] Total: 15 Progress/Results/Core Measures Results/Orders Lab Results Laboratory Tests Test 08/07/21 14:50 08/07/21 15:32 Range/Units Urine Color DARK YELLOW Urine Clarity SL CLOUDY Urine pH 5.5 5-9 Urine Specific [place] 1.020 1.016-1.022 Urine Protein 2+ H NEGATIVE Urine Glucose (UA) NEGATIVE NEGATIVE Urine Ketones TRACE H NEGATIVE Urine Nitrite NEGATIVE NEGATIVE Urine Bilirubin NEGATIVE NEGATIVE Urine Urobilinogen 0.2 < = 1.0 MG/DL Urine Leukocyte Esterase TRACE H NEGATIVE Urine RBC (Auto) 3+ H NEGATIVE Urine RBC 50-100 H /HPF Urine WBC 5-10 H /HPF Urine Squamous Epithelial Cells 5-10 /HPF Urine Crystals NONE /LPF Urine Bacteria FEW H /HPF Urine Casts PRESENT /LPF Urine Hyaline Casts RARE /LPF Urine Mucus SMALL H /LPF Urine Culture Indicated YES White Blood Count 8.4 4.3-11.0 10^3/uL Red Blood Count 5.08 3.80-5.11 10^6/uL Hemoglobin 15.8 11.5-16.0 g/dL Hematocrit 47 35-52 % Mean Corpuscular Volume 92 80-99 fL Mean Corpuscular Hemoglobin 31 25-34 pg Mean Corpuscular Hemoglobin Concent 34 32-36 g/dL Red Cell Distribution Width 13.9 10.0-14.5 % Platelet Count 152 130-400 10^3/uL Mean Platelet Volume 8.9 L 9.0-12.2 fL Immature Granulocyte % (Auto) 1 % Neutrophils (%) (Auto) 89 H 42-75 % Lymphocytes (%) (Auto) 6 L 12-44 % Monocytes (%) (Auto) 2 0-12 % Eosinophils (%) (Auto) 3 0-10 % Basophils (%) (Auto) 0 0-10 % Neutrophils # (Auto) 7.5 1.8-7.8 X 10^3 Lymphocytes # (Auto) 0.5 L 1.0-4.0 X 10^3 Monocytes # (Auto) 0.2 0.0-1.0 X 10^3 Eosinophils # (Auto) 0.2 0.0-0.3 10^3/uL Basophils # (Auto) 0.0 0.0-0.1 10^3/uL Immature Granulocyte # (Auto) 0.1 0.0-0.1 10^3/uL Neutrophils % (Manual) 66 % Lymphocytes % (Manual) 10 % Monocytes % (Manual) 2 % Eosinophils % (Manual) 5 % Band Neutrophils 17 % Blood Morphology Comment NORMAL Prothrombin Time 13.0 12.2-14.7 SEC INR Comment 0.9 0.8-1.4 Activated Partial Thromboplast Time 33 24-35 SEC Sodium Level 135 135-145 MMOL/L Potassium Level 3.0 L 3.6-5.0 MMOL/L Chloride Level 90 L 98-107 MMOL/L Carbon Dioxide Level 30 21-32 MMOL/L Anion Gap 15 H 5-14 MMOL/L Blood Urea Nitrogen 20 H 7-18 MG/DL Creatinine 1.04 0.60-1.30 MG/DL Estimat Glomerular Filtration Rate 50 BUN/Creatinine Ratio 19 Glucose Level 94 70-105 MG/DL Calcium Level 9.6 8.5-10.1 MG/DL Corrected Calcium 9.6 8.5-10.1 MG/DL Total Bilirubin 0.6 0.1-1.0 MG/DL Aspartate Amino Transf (AST/SGOT) 111 H 5-34 U/L Alanine Aminotransferase (ALT/SGPT) 47 0-55 U/L Alkaline Phosphatase 72 40-136 U/L Total Protein 7.8 6.4-8.2 GM/DL Albumin 4.0 3.2-4.5 GM/DL My Orders Orders - [employer] Cbc With Automated Diff (08/07/21 13:25) Comprehensive Metabolic Panel (08/07/21 13:25) Ua Culture If Indicated (08/07/21 13:25) Protime With Inr (08/07/21 13:25) Partial Thromboplastin Time (08/07/21 13:25) Shoulder, Right, 3 Views (08/07/21 13:29) Ct Head Wo (08/07/21 13:45) Chest 1 View, Ap/Pa Only (08/07/21 13:47) Acetaminophen Tablet/Caplet (Tylenol T (08/07/21 15:01) Urine Culture (08/07/21 14:50) Manual Differential (08/07/21 15:32) Ciprofloxacin Tablet (Cipro Tablet) (08/07/21 16:17) Vital Signs/I&O 08/07/21 08/07/21 12:55 16:30 Temp 36.3 36.3 Pulse 70 62 Resp 17 17 B/P (MAP) 155/74 (101) 118/70 Pulse Ox 95 94 O2 Delivery Room Air Room Air Progress Progress Note : Time: 13:15 Progress Note Patient seen and evaluated, will obtain CT of the head, and x-rays of the right shoulder. 1400 patient requesting medicine for pain, will give Tylenol 650 mg orally. 1445 patient's son is present in the room, he reports that her symptoms are compatible with her baseline status, she will have times of confusion at other times of being coherent. He reports she has had right shoulder pain for several years. No acute fracture was noted on x-ray. Awaiting lab results 1600 patient has UTI. Otherwise labs are all within normal limits. Plan to return to assisted living. Discharge instructions and return precautions reviewed. Diagnostic Imaging Diagonstic Imaging: Xray Plain Films/CT/US/NM/MRI: chest Comments NAME: [facility] REC#: [id number] PT STATUS: REG ER : 1935 PHYSICIAN: PREET MAN ADMIT DATE: 08/07/21/ER Signed Date of Exam:08/07/21 CHEST 1 VIEW, AP/PA ONLY INDICATION: Right shoulder injury from a fall. EXAMINATION: Portable chest at 1:57 PM. FINDINGS: The heart size and pulmonary vascularity are normal. The lungs are clear. There are no effusions or pneumothoraces. IMPRESSION: No acute abnormalities in the chest. Dictated by: Dictated on workstation # [id number] Dict: 08/07/21 1402 Trans: 08/07/21 1440 [id number] Interpreted by: RAFAL SHANE MD Electronically signed by: RAFAL SHANE MD 08/07/21 1440 Reviewed: Reviewed by Pa Diagonstic Imaging: CT Comments NAME: [facility] REC#: [id number] PT STATUS: REG ER : 1935 PHYSICIAN: PREET MAN ADMIT DATE: 08/07/21/ER Signed Date of Exam:08/07/21 CT HEAD WO EXAMINATION: CT head without contrast. TECHNIQUE: Multiple contiguous axial images were obtained through the brain without the use of intravenous contrast. All CT scans use one or more of the following dose optimizing techniques: Automated exposure control, MA and/or KvP adjustment based on patient size and exam type or iterative reconstruction. HISTORY: Confusion. Unwitnessed fall. Right-sided head pain. COMPARISON: None available. FINDINGS: No large acute territorial ischemia, mass, or hemorrhage. No midline shift or mass effect. Decreased attenuation is seen in the periventricular and subcortical white matter. The ventricles and cortical sulci are prominent. The basilar cisterns are patent and unremarkable. The orbits are normal. Frothy secretions are seen in the left sphenoid sinus. Mastoid air cells are clear. No soft tissue abnormality is seen. No osseous lesions or fractures are seen. IMPRESSION: 1. No large acute territorial ischemia, mass, or hemorrhage. 2. Chronic microvascular disease. 3. Generalized parenchymal volume loss. 4. Acute sinusitis involving the left sphenoid sinus. Dictated by: Dictated on workstation # [id number] Dict: 08/07/21 1408 Trans: 08/07/21 1426 [id number] Interpreted by: ASYA HATCH DO Electronically signed by: ASYA HATCH DO 08/07/21 1426 Reviewed: Reviewed by Pa Diagonstic Imaging: Xray Comments NAME: [facility] REC#: [id number] PT STATUS: REG ER : 1935 PHYSICIAN: PREET MAN ADMIT DATE: 08/07/21/ER Signed Date of Exam:08/07/21 SHOULDER, RIGHT, 3 VIEWS INDICATION: Right shoulder pain. FINDINGS: Three views of the right shoulder show degenerative changes of the glenohumeral joint with large osteophytes forming at the articular margins. There is no acute fracture or dislocation. IMPRESSION: Degenerative changes of the glenohumeral joint. No acute abnormality seen. 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 Decision time for Depature: 16:00 Referrals: ROBERTA FOSTER MD (PCP/Family) Primary Care Physician Patient Instructions: Shoulder Pain (DC), Urinary Tract Infection, Adult (DC) Add. Discharge Instructions: Limit the number of sedating medications given, please follow up with Yanna PICKARD for medications. Take antibiotics, as prescribed for UTI. Alternate between Tylenol 650 mg and ibuprofen 600 mg every 4 hours as needed for pain. Follow-up with your primary care provider if symptoms are not improving or worsen. Assist with activities, as needed. Return to the emergency department for new, urgent healthcare needs. All discharge instructions reviewed with patient and/or family. Voiced understanding. Scripts Ciprofloxacin HCl (Ciprofloxacin HCl) 500 Mg Tablet 500 MG PO BID, #10 TAB Prov: PREET MAN 08/07/21 Copy Copies To 1: WEN LARIOS MD, AMY ARNP Aug 07, 2021 13:25
--- NOTE | 2021-08-07 14:05 | Diagnostic Imaging Report ---
INDICATION: Right shoulder pain. FINDINGS: Three views of the right shoulder show degenerative changes of the glenohumeral joint with large osteophytes forming at the articular margins. There is no acute fracture or dislocation. IMPRESSION: Degenerative changes of the glenohumeral joint. No acute abnormality seen. Dictated by: Dictated on workstation # [id number]
--- NOTE | 2021-08-07 14:08 | Diagnostic Imaging Report ---
INDICATION: Right shoulder injury from a fall. EXAMINATION: Portable chest at 1:57 PM. FINDINGS: The heart size and pulmonary vascularity are normal. The lungs are clear. There are no effusions or pneumothoraces. IMPRESSION: No acute abnormalities in the chest. Dictated by: Dictated on workstation # [id number]
--- NOTE | 2021-08-07 14:11 | Diagnostic Imaging Report ---
EXAMINATION: CT head without contrast. TECHNIQUE: Multiple contiguous axial images were obtained through the brain without the use of intravenous contrast. All CT scans use one or more of the following dose optimizing techniques: Automated exposure control, MA and/or KvP adjustment based on patient size and exam type or iterative reconstruction. HISTORY: Confusion. Unwitnessed fall. Right-sided head pain. COMPARISON: None available. FINDINGS: No large acute territorial ischemia, mass, or hemorrhage. No midline shift or mass effect. Decreased attenuation is seen in the periventricular and subcortical white matter. The ventricles and cortical sulci are prominent. The basilar cisterns are patent and unremarkable. The orbits are normal. Frothy secretions are seen in the left sphenoid sinus. Mastoid air cells are clear. No soft tissue abnormality is seen. No osseous lesions or fractures are seen. IMPRESSION: 1. No large acute territorial ischemia, mass, or hemorrhage. 2. Chronic microvascular disease. 3. Generalized parenchymal volume loss. 4. Acute sinusitis involving the left sphenoid sinus. Dictated by: Dictated on workstation # [id number]
[2021-08-07] MEDS ORDERED: ACETAMINOPHEN 325 MG TABLET PO STA (15:01)
[2021-08-07 15:07] LABS: BILIRUBIN,URINE NEGATIVE (NEGATIVE); CLARITY,URINE SL CLOUDY; COLOR,URINE DARK YELLOW; GLUCOSE, URINE (UA) NEGATIVE (NEGATIVE); KETONES,URINE TRACE (NEGATIVE); LEUKOCYTE ESTERASE ,URINE TRACE (NEGATIVE); NITRITE,URINE NEGATIVE (NEGATIVE); PH,URINE 5.5 (5-9); PROTEIN,URINE 2+ (NEGATIVE)
[2021-08-07 15:36] LABS: BACTERIA,URINE FEW /HPF; HYALINE CASTS, URINE RARE /LPF; RBC,URINE 50-100 /HPF
[2021-08-07 15:46] LABS: BASOPHILS % (AUTO) 0 % (0-10); EOSINOPHILS # (AUTO) 0.2 10^3/uL (0.0-0.3); EOSINOPHILS % (AUTO) 3 % (0-10); HEMATOCRIT 47 % (35-52); HEMOGLOBIN 15.8 g/dL (11.5-16.0); LYMPHOCYTES # (AUTO) 0.5 X 10^3 (1.0-4.0); LYMPHOCYTES % (AUTO) 6 % (12-44); MEAN CORPUSCULAR HEMOGLOBIN 31 pg (25-34); MEAN CORPUSCULAR HGB CONC 34 g/dL (32-36); MEAN CORPUSCULAR VOLUME 92 fL (80-99); MEAN PLATELET VOLUME 8.9 fL (9.0-12.2); MONOCYTES # (AUTO) 0.2 X 10^3 (0.0-1.0); MONOCYTES % (AUTO) 2 % (0-12); NEUTROPHILS # (AUTO) 7.5 X 10^3 (1.8-7.8); NEUTROPHILS % (AUTO) 89 % (42-75); PLATELET COUNT 152 10^3/uL (130-400); WHITE BLOOD COUNT 8.4 10^3/uL (4.3-11.0)
[2021-08-07 15:55] LABS: CALCIUM 9.6 MG/DL (8.5-10.1)
[2021-08-07 15:57] LABS: TOTAL PROTEIN 7.8 GM/DL (6.4-8.2)
[2021-08-07 15:58] LABS: BILIRUBIN,TOTAL 0.6 MG/DL (0.1-1.0); INR 0.9 (0.8-1.4)
[2021-08-07 16:00] LABS: CREATININE SERUM 1.04 MG/DL (0.60-1.30)
[2021-08-07] MEDS ORDERED: CIPR500T5 PO (16:16)
[2021-08-07] MEDS ORDERED: CIPROFLOXACIN 500 MG (CIPRO) TABLET PO STA (16:17)
[2021-08-07 16:28] LABS: BAND NEUTROPHILS 17 %; EOSINOPHILS % (MANUAL) 5 %; LYMPHOCYTES % (MANUAL) 10 %; MONOCYTES % (MANUAL) 2 %; NEUTROPHILS % (MANUAL) 66 %; RBC MORPH NORMAL
[2021-08-07 16:30] VITALS: BP 118/70
== END 2021-08-07 16:29 | disposition home or self-care (01) ==
LOC: EDUNIT# 12:55 → ER 12:56
DX: M19.011 Primary osteoarthritis, right shoulder (principal); N39.0 Urinary tract infection, site not specified; E03.9 Hypothyroidism, unspecified; Z91.040 Latex allergy status; Z79.890 Hormone replacement therapy
CPT/HCPCS: 36415; 70450; 71045; 73030; 80053; 81000; 85007; 85027; 85610; 85730; 87077; 87088

== ENCOUNTER 2021-08-17 16:13 | Inpatient (IN) | payer MEDICARE, OTHER ==
[~2021-08-17] VITALS: Ht 157.4 cm; Wt 76.5 kg
[~2021-08-17 16:13] MED LIST changes: +CIPR500T5 PO
[2021-08-17] MEDS ORDERED: NS IV 1000 ML 1,000 ML IV SCH ×2 (16:45→18:15)
[2021-08-17 16:46] LABS: BASOPHILS # (AUTO) 0.1 10^3/uL (0.0-0.1); BASOPHILS % (AUTO) 0 % (0-10); EOSINOPHILS # (AUTO) 0.4 10^3/uL (0.0-0.3); EOSINOPHILS % (AUTO) 2 % (0-10); HEMATOCRIT 39 % (35-52); HEMOGLOBIN 13.1 g/dL (11.5-16.0); LYMPHOCYTES # (AUTO) 0.4 10^3/uL (1.0-4.0); LYMPHOCYTES % (AUTO) 2 % (12-44); MEAN CORPUSCULAR HEMOGLOBIN 31 pg (25-34); MEAN CORPUSCULAR HGB CONC 33 g/dL (32-36); MEAN CORPUSCULAR VOLUME 94 fL (80-99); MEAN PLATELET VOLUME 9.3 fL (9.0-12.2); MONOCYTES # (AUTO) 0.9 10^3/uL (0.0-1.0); MONOCYTES % (AUTO) 4 % (0-12); NEUTROPHILS # (AUTO) 22.6 10^3/uL (1.8-7.8); NEUTROPHILS % (AUTO) 92 % (42-75); PLATELET COUNT 262 10^3/uL (130-400); WHITE BLOOD COUNT 24.5 10^3/uL (4.3-11.0)
--- NOTE | 2021-08-17 16:48 | ED General ---
General Stated Complaint: LETHARGIC Source of Information: Family (daughter) Exam Limitations: Physical Impairments (COLIN OJEDA MD) History of Present Illness Date Seen by Provider: Aug 17, 2021 Time Seen by Provider: 16:28 Initial Comments Patient is an 86-year-old female who presents to the emergency room from a local assisted living facility, chief complaint altered mental status. Patient has been on antibiotics now for several weeks, started out on Cipro which she had a reaction to change to Macrobid. Repeat urinalysis done on 08/15/2021, restarted on Macrobid on the . Patient was also started on Remeron and as needed Xanax on the night of the . According to daughter at the bedside she is normally completely awake alert oriented and conversational. Over the last several days she has made random phone calls to multiple family members during the night, yesterday she was quite tearful and confused but looked better according to the daughter. No known COVID at the assisted living facility that she resides at. She is COVID vaccinated in October 2020, no booster. At the facility this afternoon she had a slightly low blood pressure at 90/50, slightly low oxygen saturations at 91 to 92%. She normally does not wear oxygen. She did not recognize her daughter from [place] when she came to visit today. She is only had approximately 16 ounces of fluid intake and a little bit of food. The majority of this history was obtained from a note from the RN at [facility]. Further history from the daughter from [place] at the bedside. Patient reportedly had a fall on Saturday earlier this week and was seen and evaluated at this facility. No falls known since that time Timing/Duration: Other (Several weeks) Severity: Severe Associated Systoms: Malaise, Weakness (COLIN OJEDA MD) Allergies and Home Medications Allergies Coded Allergies: Penicillins (Verified Allergy, Unknown, 03/04/21) Ypdithm-NOF-BtP Reductase Inhibitor (Unverified Allergy, Unknown, 03/07/21) cephalexin (Verified Allergy, Unknown, 03/04/21) hydrocodone (Verified Allergy, Unknown, 03/04/21) indomethacin (Verified Allergy, Unknown, 03/04/21) latex (Verified Allergy, Unknown, 03/04/21) morphine (Verified Allergy, Unknown, 03/04/21) Patient Home Medication List Home Medication List Reviewed: Yes (COLIN OJEDA MD) ALPRAZolam (ALPRAZolam) 0.25 Mg Tablet, 0.25 MG PO BID, (Reported) Entered as Reported by: JUANA TEE on 08/18/21919 Last Action: Reviewed Acetaminophen (Tylenol Extra Strength) 500 Mg Tablet, 500 MG PO QID, (Reported) Entered as Reported by: JUANA TEE on 08/18/21919 Last Action: Reviewed Alendronate Sodium (Alendronate Sodium) 70 Mg Tablet, 70 MG PO SATURDAY, (Reported) Entered as Reported by: ANANT PRATT on 03/05/21516 Last Action: Reviewed Baclofen (Baclofen) 10 Mg Tablet, 10 MG PO TID PRN for MUSCLE SPASMS, (Reported) Entered as Reported by: JUANA TEE on 08/18/21919 Last Action: Reviewed Estradiol (Estradiol Tablet) 1 Mg Tablet, 1 MG PO DAILY, (Reported) Entered as Reported by: ANANT PRATT on 03/05/21516 Last Action: Reviewed Ezetimibe (Ezetimibe) 10 Mg Tablet, 10 MG PO HS, (Reported) Entered as Reported by: ANANT PRATT on 03/05/21516 Last Action: Reviewed Ferrous Sulfate (Ferrous Sulfate) 325 Mg Tablet, 325 MG PO 1200, (Reported) Entered as Reported by: JUANA TEE on 08/18/21919 Last Action: Reviewed Gabapentin (Gabapentin) 600 Mg Tablet, 600 MG PO BID, (Reported) Entered as Reported by: ANANT PRATT on 03/05/21516 Last Action: Reviewed Indapamide (Indapamide) 1.25 Mg Tablet, 1.25 MG PO DAILY, (Reported) Entered as Reported by: ANANT PRATT on 03/05/21516 Last Action: Reviewed Levothyroxine Sodium (Levothyroxine Sodium) 75 Mcg Tablet, 75 MCG PO DAILY, (Reported) Entered as Reported by: JUANA TEE on 08/18/21919 Last Action: Reviewed Nitrofurantoin Monohyd/M-Cryst (Nitrofurantoin [place]-Mcr 100 mg) 100 Mg Capsule, 100 MG PO BID, (Reported) Entered as Reported by: JUANA TEE on 08/18/21919 Last Action: Reviewed Pantoprazole Sodium (Pantoprazole Sodium) 40 Mg Tablet.dr, 40 MG PO BID, (Reported) Entered as Reported by: JUANA TEE on 08/18/21919 Last Action: Reviewed Sucralfate (Carafate) 1 Gm Tablet, 1 GM PO ACHS, (Reported) Entered as Reported by: JUANA TEE on 08/18/21919 Last Action: Reviewed Discontinued Medications Ciprofloxacin HCl (Ciprofloxacin HCl) 500 Mg Tablet, 500 MG PO BID Discontinued Reason: Duplicate Order Prescribed by: PREET MAN on 08/07/21 1616 Last Action: Discontinued Ferrous Sulfate (Ferrous Sulfate) 325 Mg Tablet, 325 MG PO DAILY Discontinued Reason: Duplicate Order Prescribed by: ALFONSO MEDINA on 03/09/211137 Last Action: Discontinued Levothyroxine Sodium (Levothyroxine Sodium) 50 Mcg Tablet, 50 MCG PO DAILY, (Reported) Discontinued Reason: Duplicate Order Entered as Reported by: ANANT PRATT on 03/05/21 0517 Last Action: Discontinued Pantoprazole Sodium (Pantoprazole Sodium) 40 Mg Tablet., 40 MG PO BID Discontinued Reason: No Longer Taking Prescribed by: ALFOSNO MEDINA on 03/09/211137 Last Action: Discontinued Sucralfate (Sucralfate) 1 Gm Tablet, 1 GM PO ACHS Discontinued Reason: No Longer Taking Prescribed by: ALFONSO MEDINA on 03/09/211137 Last Action: Discontinued Tramadol HCl (Tramadol HCl) 50 Mg Tablet, 50 MG PO Q6HR PRN for PAIN-MODERATE (5-7) Discontinued Reason: No Longer Taking Prescribed by: ALFONSO MEDINA on 03/09/211137 Last Action: Discontinued Review of Systems Review of Systems Constitutional: malaise, weakness EENTM: other (Dry mouth) Respiratory: no symptoms reported Cardiovascular: no symptoms reported Gastrointestinal: no symptoms reported Genitourinary: no symptoms reported Musculoskeletal: no symptoms reported Skin: no symptoms reported Psychiatric/Neurological: Headache (Slight) (COLIN OJEDA MD) All Other Systems Reviewed Negative Unless Noted: Yes (COLIN OJEDA MD) Past Sadzgdf-Cgfjdk-Fsavas Hx Immunizations Up To Date First/Initial COVID19 Vaccinat: OCTOBER 04 2020 Second COVID19 Vaccination Ford: NOVEMBER 02 2020 (COLIN OJEDA MD) Past Medical History Surgeries: Yes Section, Orthopedic Respiratory: No Cardiac: No Neurological: No Genitourinary: No Gastrointestinal: No Musculoskeletal: Yes Arthritis Endocrine: Yes Hypothyroidsim HEENT: Yes Cataract Hearing Impairment: Hard of Hearing Cancer: No Psychosocial: No Integumentary: No (COLIN OJEDA MD) Family Medical History Cancer, Diabetes (COLIN OJEDA MD) Physical Exam Vital Signs Vital Signs - First Documented (SILKE SIEGEL APRN) Vital Signs Capillary Refill : (COLIN OJEDA MD) Height, Weight, BMI Height: '" Weight: lbs. oz. kg; 25.61 BMI Method: General Appearance: No Apparent Distress, WD/WN Eyes: Bilateral Eye Normal Inspection, Bilateral Eye PERRL (Pupils 2 to 3 mm, equal bilaterally), Bilateral Eye EOMI HEENT: PERRL/EOMI, Other (Extremely dry oral mucosa) Neck: Normal Inspection Respiratory: Lungs Clear (Oxygen saturations 91% on room air, no increased work of breathing/respiratory distress), Normal Breath Sounds, No Accessory Muscle Use, No Respiratory Distress Cardiovascular: Regular Rate, Rhythm (90's) Gastrointestinal: Non Tender, Soft Extremity: Normal Inspection, Normal Range of Motion, Non Tender, No Calf Tenderness, No Pedal Edema Neurologic/Psychiatric: Alert, No Motor/Sensory Deficits, Depressed Affect, Other (Disoriented to year, states it is 2020, when I asked her the month she said "[place]") Skin: Normal Color, Warm/Dry (COLIN OJEDA MD) Focused Exam Lactate Level 08/17/21 17:30: Lactic Acid Level 2.64*H (SILKE SIEGEL APRN) Lactic Acid Level Laboratory Tests Test 08/17/21 17:30 Lactic Acid Level 2.64 MMOL/L (0.50-2.00) *H (SILKE SIEGEL APRN) Procedures/Interventions Lumen: triple Central Line Procedure: betadine prep, sterile drapes applied, sterile dressing applied Position: internal jugular (R) Anesthesia: Lidocaine Volume Anesthetic (ccs): 5 Complications: none Post Position: sutured, good blood return, position confirmed w/ CXR The right internal jugular was placed and it looks like it tracks down of the right subclavian. Left this in place and attempted to start a left internal jugular but as with the first had some difficulty getting the guidewire to advance. Due to fear of causing injury we ceased further attempts at attempting to advance the guidewire on the left side. (SILKE SIEGEL APRN) Progress/Results/Core Measures Suspected Sepsis SIRS Temperature: Pulse: Respiratory Rate: Blood Pressure / Mean: 08/17/21 17:30: Lactic Acid Level 2.64*H Laboratory Tests 08/17/21 16:22: INR Comment 1.0 (COLIN OJEDA MD) Results/Orders Lab Results Laboratory Tests Test 08/17/21 16:22 08/17/21 16:36 08/17/21 16:39 08/17/21 17:30 Range/Units White Blood Count 24.5 H 4.3-11.0 10^3/uL Red Blood Count 4.19 3.80-5.11 10^6/uL Hemoglobin 13.1 11.5-16.0 g/dL Hematocrit 39 35-52 % Mean Corpuscular Volume 94 80-99 fL Mean Corpuscular Hemoglobin 31 25-34 pg Mean Corpuscular Hemoglobin Concent 33 32-36 g/dL Red Cell Distribution Width 15.2 H 10.0-14.5 % Platelet Count 262 130-400 10^3/uL Mean Platelet Volume 9.3 9.0-12.2 fL Immature Granulocyte % (Auto) 1 % Neutrophils (%) (Auto) 92 H 42-75 % Lymphocytes (%) (Auto) 2 L 12-44 % Monocytes (%) (Auto) 4 0-12 % Eosinophils (%) (Auto) 2 0-10 % Basophils (%) (Auto) 0 0-10 % Neutrophils # (Auto) 22.6 H 1.8-7.8 10^3/uL Lymphocytes # (Auto) 0.4 L 1.0-4.0 10^3/uL Monocytes # (Auto) 0.9 0.0-1.0 10^3/uL Eosinophils # (Auto) 0.4 H 0.0-0.3 10^3/uL Basophils # (Auto) 0.1 0.0-0.1 10^3/uL Immature Granulocyte # (Auto) 0.2 H 0.0-0.1 10^3/uL Neutrophils % (Manual) 96 % Lymphocytes % (Manual) 2 % Monocytes % (Manual) 2 % Blood Morphology Comment NORMAL Prothrombin Time 13.9 12.2-14.7 SEC INR Comment 1.0 0.8-1.4 Activated Partial Thromboplast Time 35 24-35 SEC Sodium Level 138 135-145 MMOL/L Potassium Level 3.4 L 3.6-5.0 MMOL/L Chloride Level 98 98-107 MMOL/L Carbon Dioxide Level 24 21-32 MMOL/L Anion Gap 16 H 5-14 MMOL/L Blood Urea Nitrogen 28 H 7-18 MG/DL Creatinine 1.59 H 0.60-1.30 MG/DL Estimat Glomerular Filtration Rate 32 BUN/Creatinine Ratio 18 Glucose Level 108 H 70-105 MG/DL Calcium Level 8.7 8.5-10.1 MG/DL Corrected Calcium 9.6 8.5-10.1 MG/DL Total Bilirubin 0.9 0.1-1.0 MG/DL Aspartate Amino Transf (AST/SGOT) 29 5-34 U/L Alanine Aminotransferase (ALT/SGPT) 27 0-55 U/L Alkaline Phosphatase 60 40-136 U/L Total Protein 5.8 L 6.4-8.2 GM/DL Albumin 2.9 L 3.2-4.5 GM/DL Glucometer 103 70-110 MG/DL Influenza Type A (RT-PCR) Not Detected Not Detecte Influenza Type B (RT-PCR) Not Detected Not Detecte SARS-CoV-2 RNA (RT-PCR) Not Detected Not Detecte Lactic Acid Level 2.64 *H 0.50-2.00 MMOL/L Test 08/17/21 17:40 Range/Units Urine Color YELLOW Urine Clarity CLEAR Urine pH 6.0 5-9 Urine Specific [place] 1.015 L 1.016-1.022 Urine Protein NEGATIVE NEGATIVE Urine Glucose (UA) NEGATIVE NEGATIVE Urine Ketones NEGATIVE NEGATIVE Urine Nitrite NEGATIVE NEGATIVE Urine Bilirubin NEGATIVE NEGATIVE Urine Urobilinogen 0.2 < = 1.0 MG/DL Urine Leukocyte Esterase NEGATIVE NEGATIVE Urine RBC (Auto) NEGATIVE NEGATIVE Urine RBC NONE /HPF Urine WBC 0-2 /HPF Urine Squamous Epithelial Cells 0-2 /HPF Urine Crystals NONE /LPF Urine Bacteria TRACE /HPF Urine Casts PRESENT /LPF Urine Hyaline Casts 5-10 H /LPF Urine Mucus NEGATIVE /LPF Urine Culture Indicated NO (SILKE SIEGEL APRN) Vital Signs/I&O 08/17/21 08/17/21 08/17/21 16:20 16:20 16:20 Temp 36.4 36.4 Pulse 89 89 Resp 24 24 B/P (MAP) 100/55 100/55 (70) Pulse Ox 92 92 94 O2 Delivery Nasal Cannula Nasal Cannula Nasal Cannula O2 Flow Rate 2.00 2.00 2.00 (SILKE SIEGEL APRN) Vital Signs/I&O Capillary Refill : (COLIN OJEDA MD) Progress Note : Time: 18:29 Progress Note Discussed with Dr. Medina, she states the patient meets ICU criteria for severe sepsis, likely has bilateral pneumonia with "basilar atelectasis bilaterally" on chest x-ray. She is septic. She has had 2 L of fluids at this point with a pressure of 100/44. Checked again a couple of minutes ago, blood pressure 90s over upper 40s. Patient's heart rate is in the low 80s. Dr. Medina recommends 1/3 L of normal saline, meropenem 500 mg x 1 and Vanco 1 g. We will maintain patient's DNR status and see if we can treat her sepsis. I have discussed all of this with the patient's daughter who is at the bedside. She is actually an employee of [facility] [employer] in [place] and requested that I call their facility to see if they had capability for ICU care. They are in fact on forced open meaning they are not taking any outside transfers at this time. Central line will be placed by Silke Siegel NP. (COLIN OJEDA MD) Diagnostic Imaging Diagonstic Imaging: Xray Plain Films/CT/US/NM/MRI: chest Comments [facility], [place] NAME: CLINTON SCHWAB [facility] REC#: [id number] PT STATUS: REG ER : 1935 PHYSICIAN: COLIN OJEDA MD ADMIT DATE: 08/17/21/ER Signed Date of Exam:08/17/21 CHEST 1 VIEW, AP/PA ONLY INDICATION: Chest pain COMPARISON: 08/07/2021 FINDINGS: Single view of the chest demonstrates minimal atelectasis in the bases. The heart is prominent but stable. There is no pulmonary edema, pneumothorax or effusion. Osseous structures are stable. IMPRESSION: 1. Basilar atelectasis. 2. Cardiac enlargement without pulmonary edema or acute infiltrate. Dictated by: Dictated on workstation # [id number] Dict: 08/17/21 1726 Trans: 08/17/21 1735 [facility] [id number] Interpreted by: ALDAIR YOU Electronically signed by: ALDAIR YOU 08/17/21 1735 (COLIN OJEDA MD) Critical Care Note Critical Care Start Time: 16:28 Stop Time: 18:15 Total Time (minutes) 40 minutes critical care time in the evaluation and management of this 86-year-old with altered mental status, hypotension. Time includes initial evaluation and management, fluid resuscitation with 2 L of IV fluids, review and interpretation of laboratory studies, review and interpretation of imaging, review of the patient's medical record, extensive discussion with admitting provider, Dr. Medina, antibiotics and further fluids. (COLIN OJEDA MD) Departure Communication (Admissions) Time/Spoke to Admitting Phy: 18:[address] Medina (COLIN OJEDA MD) Impression Primary Impression: Severe sepsis Additional Impression: Pneumonia Qualified Codes: J18.9 - Pneumonia, unspecified organism Disposition: ADMITTED INPATIENT Condition: Stable Admissions Decision to Admit Reason: Admit from ER (General) Decision to Admit/Date: Aug 17, 2021 Time/Decision to Admit Time: 17:51 (COLIN OJEDA MD) Departure-Patient Inst. Referrals: ROBERTA FOSTER MD (PCP/Family) Primary Care Physician COLIN OJEDA MD Aug 17, 2021 16:48 SILKE SIEGEL APRN Aug 17, 2021 21:29
[2021-08-17 16:52] LABS: PROTHROMBIN TIME PATIENT 13.9 SEC (12.2-14.7)
[2021-08-17 16:55] LABS: ALBUMIN 2.9 GM/DL (3.2-4.5)
[2021-08-17 16:56] LABS: POTASSIUM 3.4 MMOL/L (3.6-5.0)
[2021-08-17 16:57] LABS: CALCIUM 8.7 MG/DL (8.5-10.1)
[2021-08-17 16:58] LABS: TOTAL PROTEIN 5.8 GM/DL (6.4-8.2)
[2021-08-17 17:00] LABS: BILIRUBIN,TOTAL 0.9 MG/DL (0.1-1.0)
[2021-08-17 17:02] LABS: CREATININE SERUM 1.59 MG/DL (0.60-1.30)
[2021-08-17 17:25] LABS: LYMPHOCYTES % (MANUAL) 2 %; MONOCYTES % (MANUAL) 2 %; NEUTROPHILS % (MANUAL) 96 %
[2021-08-17 17:26] LABS: RBC MORPH NORMAL
--- NOTE | 2021-08-17 17:28 | Diagnostic Imaging Report ---
INDICATION: Chest pain COMPARISON: 08/07/2021 FINDINGS: Single view of the chest demonstrates minimal atelectasis in the bases. The heart is prominent but stable. There is no pulmonary edema, pneumothorax or effusion. Osseous structures are stable. IMPRESSION: 1. Basilar atelectasis. 2. Cardiac enlargement without pulmonary edema or acute infiltrate. Dictated by: Dictated on workstation # [id number]
[2021-08-17 17:46] LABS: BILIRUBIN,URINE NEGATIVE (NEGATIVE); CLARITY,URINE CLEAR; COLOR,URINE YELLOW; GLUCOSE, URINE (UA) NEGATIVE (NEGATIVE); KETONES,URINE NEGATIVE (NEGATIVE); LEUKOCYTE ESTERASE ,URINE NEGATIVE (NEGATIVE); NITRITE,URINE NEGATIVE (NEGATIVE); PROTEIN,URINE NEGATIVE (NEGATIVE)
[2021-08-17 17:54] LABS: BACTERIA,URINE TRACE /HPF; SQUAMOUS EPITHELIAL CELL,UR 0-2 /HPF; WBC,URINE 0-2 /HPF
[2021-08-17] MEDS ORDERED: MEROPENEM 500 MG in NS (IVPB) 100 ML IV ONE (18:15)
[2021-08-17] MEDS ORDERED: VANCOMYCIN INJECTION 1,000 MG in NS (IVPB) 250 ML IV ONE (18:15)
--- NOTE | 2021-08-17 19:53 | Diagnostic Imaging Report ---
INDICATION: Central line. COMPARISON: 08/17/2021 at 5:04 p.m. FINDINGS: There is a right entering central venous catheter which tracks superiorly into the internal jugular vein. There is no obvious pneumothorax. IMPRESSION: Right-sided central venous catheter in right internal jugular vein. Dictated by: Dictated on workstation # [id number]
--- NOTE | 2021-08-17 20:35 | Tele-ICU Consult ---
History of Present Illness History of Present Illness Date Seen by Provider: Aug 17, 2021 Time Seen by Provider: 20:34 Allergies and Home Medications Allergies Coded Allergies: Penicillins (Verified Allergy, Unknown, 03/04/21) Ylkckvz-NLC-YrT Reductase Inhibitor (Unverified Allergy, Unknown, 03/07/21) cephalexin (Verified Allergy, Unknown, 03/04/21) hydrocodone (Verified Allergy, Unknown, 03/04/21) indomethacin (Verified Allergy, Unknown, 03/04/21) latex (Verified Allergy, Unknown, 03/04/21) morphine (Verified Allergy, Unknown, 03/04/21) Home Medications Alendronate Sodium 70 Mg Tablet, 70 MG PO SATURDAY, (Reported) Ciprofloxacin HCl 500 Mg Tablet, 500 MG PO BID Prescribed by: PREET MAN on 08/07/21 1616 Estradiol 1 Mg Tablet, 1 MG PO DAILY, (Reported) Ezetimibe 10 Mg Tablet, 10 MG PO HS, (Reported) Ferrous Sulfate 325 Mg Tablet, 325 MG PO DAILY Prescribed by: ALFONSO MEDINA on 03/09/21 1138 Gabapentin 600 Mg Tablet, 600 MG PO BID, (Reported) Indapamide 1.25 Mg Tablet, 1.25 MG PO DAILY, (Reported) Levothyroxine Sodium 50 Mcg Tablet, 50 MCG PO DAILY, (Reported) Pantoprazole Sodium 40 Mg Tablet.dr, 40 MG PO BID Prescribed by: ALFONSO MEDINA on 03/09/21 1138 Sucralfate 1 Gm Tablet, 1 GM PO ACHS Prescribed by: ALFONSO MEDINA on 03/09/21 1138 Tramadol HCl 50 Mg Tablet, 50 MG PO Q6HR PRN for PAIN-MODERATE (5-7) Prescribed by: ALFONSO MEDINA on 03/09/21 1138 Past Medical/Social/Family Hx Patient Social History Tobacco Use?: No Use of E-Cig and/or Vaping dev: No Substance use?: No Alcohol Use?: No Pt stated abuse/neglect: No Immunizations Up To Date First/Initial COVID19 Vaccinat: 10.04.2020 Second COVID19 Vaccination [place]: 11.02.2020 Tetanus Booster (TDap): Unknown Current Status Advance Directives: Yes Advance Directive Location: Copy placed in chart Communicates: Verbally Primary Language: [place]ican Preferred Spoken Language: [place] Is interpretation needed?: No Focused Exam Lactate Level 08/17/21 17:30: Lactic Acid Level 2.64*H 08/17/21 20:05: Height, Weight, BMI Height: '" Weight: lbs. oz. kg; 29.00 BMI Method: Lactic Acid Level Laboratory Tests Test 08/17/21 17:30 08/17/21 20:05 Lactic Acid Level 2.64 MMOL/L (0.50-2.00) *H Exam Exam Patient acknowledged, consented, and participated in this virtual visit which was conducted using real time audio/video Vital Signs Date Time Temp Pulse Resp B/P (MAP) Pulse Ox O2 Delivery O2 Flow Rate FiO2 08/17/21 16:20 94 Nasal Cannula 2.00 08/17/21 16:20 36.4 89 24 100/55 (70) 92 Nasal Cannula 2.00 08/17/21 16:20 36.4 89 24 100/55 92 Nasal Cannula 2.00 Height & Weight Height: '" Weight: lbs. oz. kg; 29.00 BMI Method: General Appearance: No Apparent Distress, WD/WN HEENT: PERRL/EOMI, Other (Extremely dry oral mucosa) Neck: Normal Inspection Respiratory: Lungs Clear (Oxygen saturations 91% on room air, no increased work of breathing/respiratory distress), Normal Breath Sounds, No Accessory Muscle Use, No Respiratory Distress Cardiovascular: Regular Rate, Rhythm (90's) Capillary Refill: Less Than 3 Seconds Extremity: Normal Inspection, Normal Range of Motion, Non Tender, No Calf Tenderness, No Pedal Edema Neurologic/Psychiatric: Alert, No Motor/Sensory Deficits, Depressed Affect, Other (Disoriented to year, states it is 2020, when I asked her the month she said "[place]") Skin: Normal Color, Warm/Dry Results Lab Laboratory Tests 08/17/21 16:22 KATIE VILLANUEVA MD Aug 17, 2021 20:35
--- NOTE | 2021-08-17 20:49 | Tele-ICU Consult ---
History of Present Illness History of Present Illness Date Seen by Provider: Aug 17, 2021 Time Seen by Provider: 20:39 History of Present Illness 86 yo F came to ED with AMS, lives in assisted living, has bilateral infiltrates on CXR, given appropriate IVF, started on IV Vanco/Meropenem, pt is DNR Has been on Nitrobid for chonic UTI, also Remeron, Xanax, WBC 24k, Cr 1.59 suggesting mild GIGI, CT head not done yet Allergies and Home Medications Allergies Coded Allergies: Penicillins (Verified Allergy, Unknown, 03/04/21) Wcfepun-NDD-OeQ Reductase Inhibitor (Unverified Allergy, Unknown, 03/07/21) cephalexin (Verified Allergy, Unknown, 03/04/21) hydrocodone (Verified Allergy, Unknown, 03/04/21) indomethacin (Verified Allergy, Unknown, 03/04/21) latex (Verified Allergy, Unknown, 03/04/21) morphine (Verified Allergy, Unknown, 03/04/21) Home Medications Alendronate Sodium 70 Mg Tablet, 70 MG PO SATURDAY, (Reported) Ciprofloxacin HCl 500 Mg Tablet, 500 MG PO BID Prescribed by: PREET MAN on 08/07/21 1616 Estradiol 1 Mg Tablet, 1 MG PO DAILY, (Reported) Ezetimibe 10 Mg Tablet, 10 MG PO HS, (Reported) Ferrous Sulfate 325 Mg Tablet, 325 MG PO DAILY Prescribed by: ALFONSO MEDINA on 03/09/21 1138 Gabapentin 600 Mg Tablet, 600 MG PO BID, (Reported) Indapamide 1.25 Mg Tablet, 1.25 MG PO DAILY, (Reported) Levothyroxine Sodium 50 Mcg Tablet, 50 MCG PO DAILY, (Reported) Pantoprazole Sodium 40 Mg Tablet.dr, 40 MG PO BID Prescribed by: ALFONSO MEDINA on 03/09/21 1138 Sucralfate 1 Gm Tablet, 1 GM PO ACHS Prescribed by: ALFONSO MEDINA on 03/09/21 1138 Tramadol HCl 50 Mg Tablet, 50 MG PO Q6HR PRN for PAIN-MODERATE (5-7) Prescribed by: ALFONSO MEDINA on 03/09/21 1138 Past Medical/Social/Family Hx Patient Social History Tobacco Use?: No Use of E-Cig and/or Vaping dev: No Substance use?: No Alcohol Use?: No Pt stated abuse/neglect: No Immunizations Up To Date First/Initial COVID19 Vaccinat: 10.04.2020 Second COVID19 Vaccination [place]: 11.02.2020 Tetanus Booster (TDap): Unknown Current Status Advance Directives: Yes Advance Directive Location: Copy placed in chart Communicates: Verbally Primary Language: Namibian Preferred Spoken Language: Namibian Is interpretation needed?: No Review of Systems Constitutional: see HPI EENTM: see HPI Respiratory: see HPI Cardiovascular: see HPI Gastrointestinal: see HPI Genitourinary: see HPI Musculoskeletal: see HPI Skin: see HPI Psychiatric/Neurological: See HPI Focused Exam Lactate Level 08/17/21 17:30: Lactic Acid Level 2.64*H 08/17/21 20:05: Lactic Acid Level 1.69 Height, Weight, BMI Height: '" Weight: lbs. oz. kg; 29.00 BMI Method: Lactic Acid Level Laboratory Tests Test 08/17/21 17:30 08/17/21 20:05 Lactic Acid Level 2.64 MMOL/L (0.50-2.00) *H 1.69 MMOL/L (0.50-2.00) Exam Exam Patient acknowledged, consented, and participated in this virtual visit which was conducted using real time audio/video Vital Signs Date Time Temp Pulse Resp B/P (MAP) Pulse Ox O2 Delivery O2 Flow Rate FiO2 08/17/21 16:20 94 Nasal Cannula 2.00 08/17/21 16:20 36.4 89 24 100/55 (70) 92 Nasal Cannula 2.00 08/17/21 16:20 36.4 89 24 100/55 92 Nasal Cannula 2.00 Height & Weight Height: '" Weight: lbs. oz. kg; 29.00 BMI Method: General Appearance: No Apparent Distress, WD/WN HEENT: PERRL/EOMI, Other (Extremely dry oral mucosa) Neck: Normal Inspection Respiratory: Lungs Clear (Oxygen saturations 91% on room air, no increased work of breathing/respiratory distress), Normal Breath Sounds, No Accessory Muscle Use, No Respiratory Distress Cardiovascular: Regular Rate, Rhythm (90's) Capillary Refill: Less Than 3 Seconds Extremity: Normal Inspection, Normal Range of Motion, Non Tender, No Calf Tenderness, No Pedal Edema Neurologic/Psychiatric: Alert, No Motor/Sensory Deficits, Depressed Affect, Other (Disoriented to year, states it is 2020, when I asked her the month she said "[place]") Skin: Normal Color, Warm/Dry Results Lab Laboratory Tests 08/17/21 16:22 Assessment/Plan Assessment/Plan AMS, probably from sepsis, but would do CT head has gotten appropriate IVF, continue abx will replace potassium, if HR goes higher, will give IV metroprolol Critical Care: Critically Ill Patient Time spent with patient (mins): 30 KATIE VILLANUEVA MD Aug 17, 2021 20:49
[2021-08-17] MEDS ORDERED: MELATONIN 3 MG TABLET PO PRN (22:00)
[2021-08-17] MEDS ORDERED: MILK OF MAGNESIA 400 MG/5 ML 30 ML UDC PO PRN (22:00)
[2021-08-17] MEDS ORDERED: diphenhydrAMINE 50 MG/ML INJ (BENADRYL) IVP PRN (22:00)
[2021-08-17] MEDS ORDERED: WATER (STERILE) FOR INJ 10 ML BTL INJ SCH (22:00)
[2021-08-17] MEDS ORDERED: BISACODYL 10 MG SUPP (DULCOLAX) PR PRN (22:00)
[2021-08-17] MEDS ORDERED: ONDANSETRON 4 MG/2 ML (SDV) Z0FRAN IV PRN (22:00)
[2021-08-17] MEDS ORDERED: ANTACID SUSP 30 ML UDC (MYLANTA) PO PRN (22:00)
[2021-08-17] MEDS ORDERED: diphenhydrAMINE 25 MG TAB (BENADRYL) PO PRN (22:00)
[2021-08-17] MEDS ORDERED: NOREPINEPHRINE 8 MG/250 ML 250 ML IV SCH (22:00)
[2021-08-17] MEDS ORDERED: CALCIUM CARBONATE 500 MG (TUMS) TAB.CHEW PO PRN (22:00)
[2021-08-17] MEDS ORDERED: ONDANSETRON 4 MG (ZOFRAN) ORAL DISSOLVE TAB PO PRN (22:00)
[2021-08-17] MEDS ORDERED: ZIPRASIDONE 20 MG INJ (GEODON) VIAL IM PRN (22:00)
[2021-08-17] MEDS ORDERED: ENOXAPARIN 40 MG/0.4 ML (LOVENOX) SYR SC SCH (22:00)
[2021-08-17] MEDS ORDERED: HYDROmorphone 2 MG/ML VIAL (DILAUDID) IVP PRN (22:00)
[2021-08-17] MEDS ORDERED: LACTULOSE SYRUP 10GM/15ML (ENULOSE) 30ML UDC PO PRN (22:00)
[2021-08-17] MEDS ORDERED: polyethylene glycoL POWDER 17 GM (MIRALAX) PACK PO PRN (22:00)
[2021-08-17] MEDS ORDERED: PHARMACY TO DOSE IV SCH (22:00)
[2021-08-17] MEDS: ACETAMINOPHEN 325 MG TABLET PO PRN (22:05)
[2021-08-17] MEDS: NS IV 1000 ML 1,000 ML IV SCH (22:06)
[2021-08-17] MEDS ORDERED: ENOXAPARIN 30 MG/0.3 ML (LOVENOX) SYR SC SCH (22:30)
[2021-08-17] MEDS ORDERED: VANCOMYCIN 500 MG/NS 100 ML IV ONE ×2 (22:30)
[2021-08-17] MEDS: FAMOTIDINE 20MG/2ML IV (PEPCID) IVP SCH (23:34)
[2021-08-18 01:05] LABS: CALCIUM 7.5 MG/DL (8.5-10.1)
[2021-08-18] MEDS ORDERED: POTASSIUM CL 10MEQ/50ML IVPB 250 ML IV ONE (01:08)
[2021-08-18 01:09] LABS: PHOSPHORUS 2.3 MG/DL (2.3-4.7)
[2021-08-18 01:10] LABS: CREATININE SERUM 1.13 MG/DL (0.60-1.30)
[2021-08-18 01:12] LABS: MAGNESIUM 1.3 MG/DL (1.6-2.4)
[2021-08-18] MEDS ORDERED: MAGNESIUM 1 GM/100 ML IVPB 400 ML IV ONE (01:17)
[2021-08-18] MEDS: MAGNESIUM 1 GM/100 ML IVPB 100 ML IV SCH ×4 (01:20→05:18)
[2021-08-18] MEDS: POTASSIUM CL 10MEQ/50ML IVPB 50 ML IV SCH ×5 (01:20→05:19)
[2021-08-18] MEDS ORDERED: RT-ALBUTEROL SULF 2.5 MG/3 ML PRE-MIX VIAL INH PRN (01:45)
[2021-08-18 05:56] LABS: BASOPHILS # (AUTO) 0.1 10^3/uL (0.0-0.1); BASOPHILS % (AUTO) 0 % (0-10); EOSINOPHILS # (AUTO) 0.7 10^3/uL (0.0-0.3); EOSINOPHILS % (AUTO) 4 % (0-10); HEMATOCRIT 36 % (35-52); HEMOGLOBIN 11.9 g/dL (11.5-16.0); LYMPHOCYTES # (AUTO) 0.4 10^3/uL (1.0-4.0); LYMPHOCYTES % (AUTO) 2 % (12-44); MEAN CORPUSCULAR HEMOGLOBIN 31 pg (25-34); MEAN CORPUSCULAR HGB CONC 33 g/dL (32-36); MEAN CORPUSCULAR VOLUME 94 fL (80-99); MEAN PLATELET VOLUME 9.1 fL (9.0-12.2); MONOCYTES # (AUTO) 0.5 10^3/uL (0.0-1.0); MONOCYTES % (AUTO) 3 % (0-12); NEUTROPHILS # (AUTO) 16.7 10^3/uL (1.8-7.8); NEUTROPHILS % (AUTO) 90 % (42-75); PLATELET COUNT 184 10^3/uL (130-400); WHITE BLOOD COUNT 18.6 10^3/uL (4.3-11.0)
[2021-08-18] MEDS ORDERED: KCL 20 MEQ TAB (K-DUR) PO SCH (06:00)
[2021-08-18] MEDS ORDERED: POTASSIUM CL 10MEQ/50ML IVPB 50 ML IV SCH (06:00)
[2021-08-18] MEDS ORDERED: MAGNESIUM 1 GM/100 ML IVPB 100 ML IV SCH (06:00)
[2021-08-18 06:17] LABS: ALBUMIN 2.5 GM/DL (3.2-4.5); BILIRUBIN,TOTAL 0.7 MG/DL (0.1-1.0); CALCIUM 7.6 MG/DL (8.5-10.1); CREATININE SERUM 1.1 MG/DL (0.60-1.30); MAGNESIUM 2.1 MG/DL (1.6-2.4); PHOSPHORUS 2.5 MG/DL (2.3-4.7); POTASSIUM 3.5 MMOL/L (3.6-5.0); TOTAL PROTEIN 4.9 GM/DL (6.4-8.2)
[2021-08-18] MEDS: NS IV 1000 ML 1,000 ML IV SCH ×2 (06:32→16:05)
[2021-08-18] MEDS: MEROPENEM 500 MG in NS (IVPB) 100 ML IV SCH ×3 (06:32→19:51)
[2021-08-18] MEDS: DOCUSATE SODIUM 100 MG (COLACE) CAP PO SCH ×2 (08:07→19:57)
[2021-08-18] MEDS: SENNOSIDES 8.6 MG (SENOKOT) TAB PO SCH ×2 (08:08→19:58)
--- NOTE | 2021-08-18 08:33 | Diagnostic Imaging Report ---
INDICATION: Follow-up pneumonia. TIME OF EXAM: 1:37 AM Correlation is made with prior chest from one day earlier. Heart size is stable. There has been some improved aeration of both lungs. There is a zone of linear atelectasis in the left base. Otherwise, the lungs appear clear. There is no effusion or pneumothorax. IMPRESSION: Improved aeration of both lungs when compared with examination one day earlier. Dictated by: Dictated on workstation # [id number]
[2021-08-18] MEDS ORDERED: ALPR0.254 PO (09:20)
[2021-08-18] MEDS ORDERED: NITR100C10 PO (09:20)
[2021-08-18] MEDS ORDERED: LEVO75TA6 PO (09:20)
[2021-08-18] MEDS ORDERED: PANT40TA52 PO (09:20)
[2021-08-18] MEDS ORDERED: SUCR1TAB36 PO (09:20)
[2021-08-18] MEDS ORDERED: BACL10TA PO (09:20)
[2021-08-18] MEDS ORDERED: FERR325T18 PO (09:20)
[2021-08-18] MEDS ORDERED: ACET-2267 PO (09:20)
[2021-08-18 10:41] LABS: CALCIUM 7.8 MG/DL (8.5-10.1); CREATININE SERUM 0.99 MG/DL (0.60-1.30); MAGNESIUM 2.1 MG/DL (1.6-2.4); POTASSIUM 3.6 MMOL/L (3.6-5.0)
--- NOTE | 2021-08-18 14:37 | History & Physical-Hospitalist ---
[facility] 08/18/21 1437: History of Present Illness HPI/Chief Complaint CC: Altered mental status HPI: 86 yo female presents to the ED from a local assisted living facility with altered mental status. Patient has a history of falls. At the time of visit, history was collected via family members and RN note, but this morning patient was much more oriented to place and self. Stated that a week ago, she was feeling more and more confused making phone calls to family members. She cannot recall the events prior to arriving to the ED, but was found on the ground. Patient reports MSK pain that comes and goes and appears to be positional. Denies being short of breath or having a cough. A CBC revealed a WBC of 24 and chest x-ray showed basilar atelectasis. Source: patient, family Exam Limitations: clinical condition Date Seen 08/18/21 Time Seen by a Provider: 09:30 Attending Physician Torrie Oro Katrina M MD Referring Physician Date of Admission Aug 17, 2021 at 18:14 Home Medications & Allergies Home Medications Reviewed patient Home Medication Reconciliation performed by pharmacy medication reconciliations robotic maintenance technician and/or nursing. Patients Allergies have been reviewed. Allergies Allergies Coded Allergies Penicillins (Verified Allergy, Unknown, 03/04/21) Kqtyvjy-KDZ-HtI Reductase Inhibitor (Unverified Allergy, Unknown, 03/07/21) cephalexin (Verified Allergy, Unknown, 03/04/21) hydrocodone (Verified Allergy, Unknown, 03/04/21) indomethacin (Verified Allergy, Unknown, 03/04/21) latex (Verified Allergy, Unknown, 03/04/21) morphine (Verified Allergy, Unknown, 03/04/21) Past Uyzkiwn-Azqcow-Nqsuzi Hx Patient Social History Tobacco Use?: No Smoking Status: Never a Smoker Use of E-Cig and/or Vaping dev: No Substance use?: No Alcohol Use?: No Pt feels they are or have been: No Immunizations Up To Date Date of Influenza Vaccine: May 05, 2021 First/Initial COVID19 Vaccinat: 10.04.2020 Second COVID19 Vaccination Ford: 11.02.2020 Tetanus Booster (TDap): Unknown Current Status Advance Directives: Yes Advance Directive Location: Copy placed in chart Communicates: Verbally Primary Language: [place]se Preferred Spoken Language: [place]se Is interpretation needed?: No Past Medical History Surgeries: Section, Orthopedic Arthritis Hypothyroidsim Cataract Hearing Impairment: Hard of Hearing Family Medical History Cancer, Diabetes Review of Systems Constitutional: No chills, No fever Respiratory: No cough, No dyspnea on exertion Cardiovascular: No chest pain, No palpitations Gastrointestinal: No abdominal pain, No nausea Genitourinary: No dysuria, No frequency Musculoskeletal: No joint pain, No other (joint erythema) Physical Exam Physical Exam Vital Signs Vital Signs - First Documented 08/18/21 01:25 FiO2 24 Capillary Refill : Less Than 3 Seconds Height, Weight, BMI Height: '" Weight: lbs. oz. kg; 33.82 BMI Method: General Appearance: No Apparent Distress, Other (Frail, Elderly) HEENT: PERRL/EOMI, Normal ENT Inspection (No gross deformities) Neck: Non Tender, Supple Respiratory: Chest Non Tender, No Accessory Muscle Use, No Respiratory Distress Cardiovascular: Normal Peripheral Pulses (radial pulses bilaterally) Gastrointestinal: Non Tender, Soft Extremity: Non Tender, No Calf Tenderness Neurologic/Psychiatric: Alert, Normal Mood/Affect, Other (Oriented x 2) Skin: Normal Color, Warm/Dry Lymphatic: No Adenopathy Results Results/Procedures Labs Laboratory Tests 08/17/21 16:22 08/18/21 00:25 08/18/21 05:40 08/18/21 10:15 Patient resulted labs reviewed. Assessment/Plan Admission Diagnosis Severe Sepsis secondary to pneumonia Admission Status: Inpatient Order (span 2 midnights) Reason for Inpatient Admission: Severe sepsis secondary to pneumonia Assessment and Plan Severe Sepsis secondary to pneumonia Leukocytosis Elevated lactic acid History of Falls Altered mental status (resolved) Dehydration Hypothyroidism Poor venous access Consult social welfare clerk for placement when clinically indicated PICC line for IV access Continue Home medications Transfer to floor Continue Abx Continue Fluids Requires assistance with out of bed activity DNR Monitor Oxygen saturation TORRIE ORO DO 08/19/21 0537: History of Present Illness HPI/Chief Complaint CC: AMS with hypotension History of present illness: This is an 86-year-old white female who lives in assisted living who presented to the ER with weakness and altered mental status. She was found to have an elevated white count of 24,000 without source initially since she had had struggles with recurrent UTIs last few weeks but chest x-ray revealed bilateral atelectasis and considering her dehydration state bilateral pneumonia was diagnosed IV meropenem and vancomycin initiated. One of the 7 children is an ICU nurse and is at the bedside who has made it clear she is a DNR but upon my assessment if she is to continue on this level she would be on the cusp of recoverable. Source: patient, family Exam Limitations: clinical condition Past Guztyhp-Jpazbu-Yhbayk Hx Patient Social History Marrital Status: single Employed/Student: retired Smoking Status: Unknown if Ever Smoked Past Medical History Hypertension Dementia Kidney Infection, Bladder Infection Review of Systems ROS-Unable to Obtain: Lethargy Constitutional: see HPI Physical Exam Physical Exam General Appearance: Other (Frail, Elderly) Respiratory: No Accessory Muscle Use, No Respiratory Distress, Decreased Breath Sounds Cardiovascular: Regular Rate, Rhythm Neurologic/Psychiatric: Alert, Disoriented, Other (Oriented x 2) Assessment/Plan Admission Diagnosis Assessment: Altered mental status Sepsis severe type status post 30 cc/KG fluid Hypotension Dehydration Leukocytosis Bilateral pneumonia Dementia DNR Recurrent UTI with multiple antibiotics recently Plan: IV fluid Transfer to fourth floor IV antibiotics Admission Status: Inpatient Order (span 2 midnights) Reason for Inpatient Admission: Sepsis Supervisory-Addendum Brief Verification & Attestation Participated in pt care: history, MDM, physical Personally performed: exam, history, MDM, supervision of care Care discussed with: Medical Student Procedures: n/a Results interpretation: Verified all documentation Verification and Attestation of Medical Student E/M Service A medical student performed and documented this service in my presence. I reviewed and verified all information documented by the medical student and made modifications to such information, when appropriate. I personally performed the physical exam and medical decision making. Torrie Oro, Aug 19, 2021,05:31 DEENA [facility] Aug 18, 2021 14:37 TORRIE ORO DO Aug 19, 2021 05:37
[2021-08-18] MEDS: VANCOMYCIN 1 GM/NS 250 ML IVPB IV SCH ×2 (18:46)
[2021-08-18] MEDS: ENOXAPARIN 40 MG/0.4 ML (LOVENOX) SYR SC SCH (19:51)
[2021-08-18] MEDS: FAMOTIDINE 20MG/2ML IV (PEPCID) IVP SCH (21:43)
[2021-08-19] MEDS: NS IV 1000 ML 1,000 ML IV SCH ×4 (01:47→20:07)
[2021-08-19] MEDS: MEROPENEM 500 MG in NS (IVPB) 100 ML IV SCH ×3 (03:12→20:51)
[2021-08-19 04:53] LABS: ALBUMIN 2.4 GM/DL (3.2-4.5); POTASSIUM 3.2 MMOL/L (3.6-5.0)
[2021-08-19 04:54] LABS: CALCIUM 7.4 MG/DL (8.5-10.1)
[2021-08-19 04:55] LABS: TOTAL PROTEIN 4.9 GM/DL (6.4-8.2)
[2021-08-19 04:57] LABS: BILIRUBIN,TOTAL 0.5 MG/DL (0.1-1.0)
[2021-08-19 04:59] LABS: CREATININE SERUM 0.73 MG/DL (0.60-1.30)
[2021-08-19 05:00] LABS: BASOPHILS % (AUTO) 0 % (0-10); EOSINOPHILS # (AUTO) 0.9 10^3/uL (0.0-0.3); EOSINOPHILS % (AUTO) 9 % (0-10); HEMATOCRIT 33 % (35-52); HEMOGLOBIN 10.8 g/dL (11.5-16.0); LYMPHOCYTES # (AUTO) 0.7 10^3/uL (1.0-4.0); LYMPHOCYTES % (AUTO) 8 % (12-44); MEAN CORPUSCULAR HEMOGLOBIN 31 pg (25-34); MEAN CORPUSCULAR HGB CONC 33 g/dL (32-36); MEAN CORPUSCULAR VOLUME 95 fL (80-99); MEAN PLATELET VOLUME 9.3 fL (9.0-12.2); MONOCYTES # (AUTO) 0.4 10^3/uL (0.0-1.0); MONOCYTES % (AUTO) 4 % (0-12); NEUTROPHILS # (AUTO) 7.2 10^3/uL (1.8-7.8); NEUTROPHILS % (AUTO) 77 % (42-75); PLATELET COUNT 186 10^3/uL (130-400); WHITE BLOOD COUNT 9.3 10^3/uL (4.3-11.0)
--- NOTE | 2021-08-19 06:00 | Progress Note - Hospitalist ---
Subjective HPI/CC On Admission Date Seen by Provider: Aug 19, 2021 Time Seen by Provider: 11:00 CC: AMS with hypotension History of present illness: This is an 86-year-old white female who lives in assisted living who presented to the ER with weakness and altered mental status. She was found to have an elevated white count of 24,000 without source initially since she had had struggles with recurrent UTIs last few weeks but chest x-ray revealed bilateral atelectasis and considering her dehydration state bilateral pneumonia was diagnosed IV meropenem and vancomycin initiated. One of the 7 children is an ICU nurse and is at the bedside who has made it clear she is a DNR but upon my assessment if she is to continue on this level she would be on the cusp of recoverable. Subjective/Events-last exam Patient doing a lot better More alert Eating lunch 2 daughters at the bedside PT worked with her Patient's dementia is profound more than reported by ronen originally Other daughter took a video of her walking today Empiric antibiotics continue Labs reviewed Review of Systems General: Fatigue, Malaise Neurological: Confusion Focused Exam Lactate Level 08/17/21 17:30: Lactic Acid Level 2.64*H 08/17/21 20:05: Lactic Acid Level 1.69 Objective Exam Vital Signs Vital Signs Date Time Temp Pulse Resp B/P (MAP) Pulse Ox O2 Delivery O2 Flow Rate FiO2 08/20/21 04:00 36.7 83 20 154/74 93 Room Air 08/18/21 06:00 2.00 08/18/21 01:25 24 Capillary Refill : Less Than 3 Seconds General Appearance: No Apparent Distress, WD/WN, Chronically ill Respiratory: Lungs Clear, Normal Breath Sounds, Decreased Breath Sounds Cardiovascular: Regular Rate, Rhythm Neurologic/Psychiatric: Alert, Oriented x3, Abnormal Gait, Disoriented, Motor Weakness Results/Procedures Lab Patient resulted labs reviewed. Assessment/Plan Assessment and Plan Assess & Plan/Chief Complaint Assessment: Altered mental status now much improved Sepsis severe type status post 30 cc/KG fluid Hypotension resolved Dehydration improved Leukocytosis improved Bilateral pneumonia Dementia DNR Recurrent UTI with multiple antibiotics recently Plan: IV fluids IV antibiotics Critical Care Critically Ill Patient DAAMALFONSO DON Aug 19, 2021 06:00
[2021-08-19] MEDS: POTASSIUM CL 10MEQ/50ML IVPB 50 ML IV SCH ×3 (06:50→07:52)
[2021-08-19] MEDS: DOCUSATE SODIUM 100 MG (COLACE) CAP PO SCH ×2 (07:52→19:03)
[2021-08-19] MEDS: SENNOSIDES 8.6 MG (SENOKOT) TAB PO SCH ×2 (07:52→19:04)
[2021-08-19] MEDS: ACETAMINOPHEN 325 MG TABLET PO PRN (07:59)
--- NOTE | 2021-08-19 12:42 | Physical Therapy Evaluation ---
PT Evaluation-General Medical Diagnosis Admission Date Aug 17, 2021 at 18:14 Medical Diagnosis: sepsis; pneumonia Onset Date: Aug 18, 2021 Therapy Diagnosis Therapy Diagnosis: weakness Precautions Precautions/Isolations: Fall Prevention, Standard Precautions Weight Bear Status Full Weight Bearing Full Weight Bearing Referral Reason for Referral: Evaluation/Treatment Medical History Pertinent Medical History: Arthritis, Hypothroidism Additional Medical History AMENA Current History Pt fell at her assisted living facility. She has had progressive mental confusion for several days. Found to have pneumonia with spesis. Social History Home: Assisted Living Prior Prior Level of Function SCALE: Activities may be completed with or without assistive devices. 2-Yuhbtuifoq-puzkwzg completes the activity by him/herself with no assistance from a helper. 5-Set-up or Clean-up Assistance-helper sets up or cleans up; patient completes activity. Bayard assists only prior to or following the activity. 4-Supervision or Touching Assistance-helper provides verbal cues and/or touching/steadying and/or contact guard assistance as patient completes activity. Assistance may be provided throughout the activity or intermittently. 3-Partial/Moderate Assistance-helper does LESS THAN HALF the effort. Bayard lifts, holds or supports trunk or limbs, but provides less than half the effort. 2-Substantial/Maximal Assistance-helper does MORE THAN HALF the effort. Bayard lifts or holds trunk or limbs and provides more than half the effort. 1-Pkudxofrd-vkzgnx does ALL the effort. Patient does none of the effort to complete the activity. Or, the assistance of 2 or more helpers is required for the patient to complete the activity. If activity was not attempted, code reason: 7-Patient Refused. 9-Not Applicable-not attempted and the patient did not perform the activity before the current illness, exacerbation or injury. 10-Not Attempted due to Environmental Limitations-(lack of equipment, weather restraints, etc.). 88-Not Attempted due to Medical Conditions or Safety Concerns. Bed Mobility: 6 Transfers (B,C,W/C): 6 Gait: 6 walked to and from meals with supervision using a 4 wheel walker and was ad golden in her room at assisted living PT Evaluation-Current Subjective 86 y/o female that fell at her assisted living facility. She has a hx of falls. Objective Patient Orientation: Confused, Place, Situation Attachments: Avitia Catheter, IV ROM/Strength Strength Upper Extremities gross 4/5 Strength Lower Extremities gross 4/5 Sensory Vision: Functional Hearing: Functional Transfers Roll Left to Right (QC): 4 Sit to Lying (QC): 3 Lying to Sitting/Side of Bed(Q: 3 Sit to Stand (QC): 4 Chair/Ygy-pz-Jbqsv Xfer(QC): 4 Min assist for legs out of bed, mod assist for legs back to bed Gait Does the Patient Walk?: Yes Mode of Locomotion: Walk Anticipated Mode of Locomotion: Walk Gait Assistive Device: FWW Comments/Gait Description Ambulate 50ft with FWW, stopped secondary to fatigue. Min assist to guide around obstacles. Balance Sitting Static: Fair Sitting Dynamic: Fair Standing Static: Fair Standing Dynamic: Fair Assessment/Needs Pt cognition is improving per daughter's report. She was steady on her feet but very fatigued. This was her first time out of bed in 3 days. Rehab Potential: Good PT Nursing Home Goals Nursing Home Goals PT Nursing Home Goals Time Frame: Aug 25, 2021 Roll Left & Right (QC): 6 Sit to Lying (QC): 6 Lying-Sitting on Side/Bed(QC): 6 Sit to Stand (QC): 6 Chair/Bmh-hh-Jedqu Xfer(QC): 6 Toilet Transfer (QC): 5 Does the Patient Walk: Yes Walk 150 ft (QC): 4 PT Plan Problem List Problem List: Activity Tolerance, Safety, Balance, Gait, Transfer Treatment/Plan Treatment Plan: Continue Plan of Care Treatment Plan: Bed Mobility, Concurrent Therapy, Education, Functional Activity Philipp, Functional Strength, Gait, Safety, Therapeutic Exercise, Transfers Treatment Duration: Aug 25, 2021 Frequency: 6 times per week Estimated Hrs Per Day: .25 hour per day Discharge Recommendations Therapy Discharge Recommendati: Post Acute PT Barriers to Progress confusion Time/GCodes Time In: 950 Time Out: 1015 Total Billed Treatment Time: 25 Total Billed Treatment visit, evaluation moderate complexity 25 min JENNIFER BARDEN PT Aug 19, 2021 12:42
[2021-08-19] MEDS: LORazepam INJ 2 MG/ML (ATIVAN) VIAL IVP PRN ×2 (16:18→21:43)
[2021-08-19] MEDS ORDERED: TROUGH ORDER-PHARMACY XX ONE (17:30)
[2021-08-19] MEDS: VANCOMYCIN 1 GM/NS 250 ML IVPB IV SCH ×2 (19:16)
[2021-08-19] MEDS: ENOXAPARIN 40 MG/0.4 ML (LOVENOX) SYR SC SCH (20:07)
[2021-08-19] MEDS: FAMOTIDINE 20MG/2ML IV (PEPCID) IVP SCH (20:52)
[2021-08-20] MEDS: MEROPENEM 500 MG in NS (IVPB) 100 ML IV SCH ×3 (04:06→19:15)
[2021-08-20] MEDS: LORazepam INJ 2 MG/ML (ATIVAN) VIAL IVP PRN (04:12)
[2021-08-20] MEDS: NS IV 1000 ML 1,000 ML IV SCH (05:31)
[2021-08-20 05:42] LABS: BASOPHILS % (AUTO) 1 % (0-10); EOSINOPHILS # (AUTO) 0.6 10^3/uL (0.0-0.3); EOSINOPHILS % (AUTO) 8 % (0-10); HEMATOCRIT 35 % (35-52); HEMOGLOBIN 11.6 g/dL (11.5-16.0); LYMPHOCYTES # (AUTO) 0.7 10^3/uL (1.0-4.0); LYMPHOCYTES % (AUTO) 9 % (12-44); MEAN CORPUSCULAR HEMOGLOBIN 31 pg (25-34); MEAN CORPUSCULAR HGB CONC 34 g/dL (32-36); MEAN CORPUSCULAR VOLUME 93 fL (80-99); MONOCYTES # (AUTO) 0.5 10^3/uL (0.0-1.0); MONOCYTES % (AUTO) 7 % (0-12); NEUTROPHILS # (AUTO) 5.7 10^3/uL (1.8-7.8); NEUTROPHILS % (AUTO) 75 % (42-75); PLATELET COUNT 200 10^3/uL (130-400); WHITE BLOOD COUNT 7.7 10^3/uL (4.3-11.0)
[2021-08-20 05:53] LABS: ALBUMIN 2.7 GM/DL (3.2-4.5); POTASSIUM 3.2 MMOL/L (3.6-5.0)
[2021-08-20 05:55] LABS: CALCIUM 7.9 MG/DL (8.5-10.1)
[2021-08-20 05:56] LABS: TOTAL PROTEIN 5.5 GM/DL (6.4-8.2)
[2021-08-20 05:59] LABS: CREATININE SERUM 0.68 MG/DL (0.60-1.30)
--- NOTE | 2021-08-20 06:18 | Progress Note - Hospitalist ---
Subjective HPI/CC On Admission Date Seen by Provider: Aug 20, 2021 Time Seen by Provider: 10:30 CC: AMS with hypotension History of present illness: This is an 86-year-old white female who lives in assisted living who presented to the ER with weakness and altered mental status. She was found to have an elevated white count of 24,000 without source initially since she had had struggles with recurrent UTIs last few weeks but chest x-ray revealed bilateral atelectasis and considering her dehydration state bilateral pneumonia was diagnosed IV meropenem and vancomycin initiated. One of the 7 children is an ICU nurse and is at the bedside who has made it clear she is a DNR but upon my assessment if she is to continue on this level she would be on the cusp of recoverable. Subjective/Events-last exam Patient doing better Ativan was given due to restlessness and made her oversedated CT of brain will be obtained tomorrow morning since she does have some facial droop and has some weakness on left side that has been chronic due to left leg injury also in the past Potassium 3.2 so supplementing that We will discontinue catheter tomorrow she is just not moving around much Bowels are loose Good urinary output Daughters at bedside who are heavily involved and give an immense amount of information during conversations Review of Systems General: Fatigue, Malaise Neurological: Weakness, Confusion Focused Exam Lactate Level Objective Exam Vital Signs Vital Signs Date Time Temp Pulse Resp B/P (MAP) Pulse Ox O2 Delivery O2 Flow Rate FiO2 08/21/21 03:13 36.7 74 18 140/67 95 Room Air 08/20/21 13:38 0.00 08/18/21 01:25 24 Capillary Refill : Less Than 3 Seconds General Appearance: No Apparent Distress, WD/WN, Chronically ill Respiratory: Lungs Clear, Normal Breath Sounds Cardiovascular: Regular Rate, Rhythm Neurologic/Psychiatric: Alert, Depressed Affect, Disoriented Results/Procedures Lab Laboratory Tests 08/20/21 05:35 Patient resulted labs reviewed. Assessment/Plan Assessment and Plan Assess & Plan/Chief Complaint Assessment: Altered mental status now much improved Sepsis severe type status post 30 cc/KG fluid Hypotension resolved Dehydration improved Leukocytosis improved Bilateral pneumonia Dementia DNR Recurrent UTI with multiple antibiotics recently Plan: IV fluids IV antibiotics 08/20/2021: Obtain CT brain tomorrow Continue antibiotics PT and OT Critical Care Critically Ill Patient ALFONSO MEDINA DO Aug 20, 2021 06:18
[2021-08-20] MEDS: KCL 20 MEQ TAB (K-DUR) PO SCH (06:44)
[2021-08-20] MEDS: SENNOSIDES 8.6 MG (SENOKOT) TAB PO SCH ×2 (07:25→19:10)
[2021-08-20] MEDS: DOCUSATE SODIUM 100 MG (COLACE) CAP PO SCH ×2 (07:25→19:10)
[2021-08-20] MEDS: VANCOMYCIN 1250 MG/NS 250 ML IVPB IV SCH ×2 (11:23)
[2021-08-20] MEDS ORDERED: LORazepam INJ 2 MG/ML (ATIVAN) VIAL IM PRN (12:00)
[2021-08-20] MEDS: ACETAMINOPHEN 325 MG TABLET PO PRN (14:32)
[2021-08-20] MEDS: ENOXAPARIN 40 MG/0.4 ML (LOVENOX) SYR SC SCH (21:45)
[2021-08-20] MEDS: FAMOTIDINE 20MG/2ML IV (PEPCID) IVP SCH (21:45)
[2021-08-21] MEDS: MEROPENEM 500 MG in NS (IVPB) 100 ML IV SCH ×3 (03:10→20:30)
[2021-08-21] MEDS: ACETAMINOPHEN 325 MG TABLET PO PRN ×2 (04:37→10:37)
[2021-08-21] MEDS: KCL 20 MEQ TAB (K-DUR) PO SCH (06:01)
[2021-08-21 07:22] LABS: BASOPHILS % (AUTO) 1 % (0-10); EOSINOPHILS # (AUTO) 0.4 10^3/uL (0.0-0.3); EOSINOPHILS % (AUTO) 6 % (0-10); HEMATOCRIT 37 % (35-52); HEMOGLOBIN 12.4 g/dL (11.5-16.0); LYMPHOCYTES # (AUTO) 1.2 10^3/uL (1.0-4.0); LYMPHOCYTES % (AUTO) 19 % (12-44); MEAN CORPUSCULAR HEMOGLOBIN 31 pg (25-34); MEAN CORPUSCULAR HGB CONC 34 g/dL (32-36); MEAN CORPUSCULAR VOLUME 92 fL (80-99); MEAN PLATELET VOLUME 9.2 fL (9.0-12.2); MONOCYTES # (AUTO) 0.6 10^3/uL (0.0-1.0); MONOCYTES % (AUTO) 10 % (0-12); NEUTROPHILS % (AUTO) 64 % (42-75); PLATELET COUNT 233 10^3/uL (130-400); WHITE BLOOD COUNT 6.3 10^3/uL (4.3-11.0)
[2021-08-21 07:46] LABS: ALBUMIN 2.9 GM/DL (3.2-4.5); BILIRUBIN,TOTAL 1.1 MG/DL (0.1-1.0); CALCIUM 8.6 MG/DL (8.5-10.1); CREATININE SERUM 0.66 MG/DL (0.60-1.30); POTASSIUM 3.5 MMOL/L (3.6-5.0)
[2021-08-21 07:55] VITALS: BP 140/67
[2021-08-21] MEDS: DOCUSATE SODIUM 100 MG (COLACE) CAP PO SCH ×2 (07:57→20:31)
[2021-08-21] MEDS: SENNOSIDES 8.6 MG (SENOKOT) TAB PO SCH ×2 (07:58→20:31)
--- NOTE | 2021-08-21 10:27 | Diagnostic Imaging Report ---
CLINICAL INDICATION: Patient with CVA, pneumonia, septic. EXAM: Axial CT scan of the brain performed without IV contrast with sagittal and coronal reformatted images. Auto Exposure Controls were utilized during the CT exam to meet ALARA standards for radiation dose reduction. COMPARISON: CT scan of the brain without contrast dated 08/07/2021. FINDINGS: There is interval development of a small area of low density involving the inferior aspect of left cerebellum concerning for likely subacute infarct. This area measures roughly 10 mm in greatest axial dimension. There are no new areas of intracranial hemorrhage or other areas concerning for acute infarct seen on this exam. There is stable diffuse brain parenchymal volume loss. Stable diffuse confluent low-attenuation white matter changes throughout both cerebral hemispheres and periventricular regions, likely representing chronic small vessel ischemic disease and leukoaraiosis. Stable ventricle sizes which are slightly prominent, but likely related to brain parenchymal volume loss. There is no evidence of hydrocephalus. Basal cisterns are unremarkable. The extracranial soft tissue, skull, and orbits are unremarkable. There is moderate mucosal thickening or secretions within the sphenoid sinus which has slightly increased in the interim. Mastoid air cells are clear. IMPRESSION: 1.: There is interval development of a small likely subacute infarct involving the inferior aspect of left cerebellum. There is no brain herniation, midline shift or intracranial hemorrhage. 2: Otherwise, stable age-related brain parenchymal changes with chronic small vessel ischemic disease and leukoaraiosis. 3: Slight progression of sphenoid sinus disease. Dictated by: Dictated on workstation # [id number]
--- NOTE | 2021-08-21 11:49 | Physical Therapy Daily Note ---
PT Daily Note-Current Subjective Patient has difficulty remaining on task and following direction. Family present. Mental Status Patient Orientation: Confused Attachments: Avitia Catheter Transfers SCALE: Activities may be completed with or without assistive devices. 9-Dmpebhlhxx-oeloflw completes the activity by him/herself with no assistance from a helper. 5-Set-up or Clean-up Assistance-helper sets up or cleans up; patient completes activity. Binger assists only prior to or following the activity. 4-Supervision or Touching Assistance-helper provides verbal cues and/or touching/steadying and/or contact guard assistance as patient completes activity. Assistance may be provided throughout the activity or intermittently. 3-Partial/Moderate Assistance-helper does LESS THAN HALF the effort. Binger lifts, holds or supports trunk or limbs, but provides less than half the effort. 2-Substantial/Maximal Assistance-helper does MORE THAN HALF the effort. Binger lifts or holds trunk or limbs and provides more than half the effort. 9-Utmuyzerj-fdjljd does ALL the effort. Patient does none of the effort to complete the activity. Or, the assistance of 2 or more helpers is required for the patient to complete the activity. If activity was not attempted, code reason: 7-Patient Refused. 9-Not Applicable-not attempted and the patient did not perform the activity before the current illness, exacerbation or injury. 10-Not Attempted due to Environmental Limitations-(lack of equipment, weather restraints, etc.). 88-Not Attempted due to Medical Conditions or Safety Concerns. Lying to Sitting/Side of Bed(Q: 3 Sit to Stand (QC): 3 Chair/Voi-kg-Ifwlq Xfer(QC): 3 Weight Bearing Full Weight Bearing Full Weight Bearing Gait Training Distance: 10' Walk 10 feet (QC): 3 Gait Assistive Device: FWW very unsteady with PT correct/shuffle gait sequence Assessment Patient had difficulty with remaining on task and following direction. Patient is unsteady with mobility. Per daughter, patient had received a pain pill this morning and this could be effecting her status. SW notified. PT [facility] Goals [facility] Goals PT Senior Care Goals Time Frame: Aug 25, 2021 Roll Left & Right (QC): 6 Sit to Lying (QC): 6 Lying-Sitting on Side/Bed(QC): 6 Sit to Stand (QC): 6 Chair/Buk-yf-Rencd Xfer(QC): 6 Toilet Transfer (QC): 5 Does the Patient Walk: Yes Walk 150 ft (QC): 4 PT Plan Treatment/Plan Treatment Plan: Continue Plan of Care Treatment Plan: Bed Mobility, Concurrent Therapy, Education, Functional Activity Philipp, Functional Strength, Gait, Safety, Therapeutic Exercise, Transfers Treatment Duration: Aug 25, 2021 Frequency: 6 times per week Estimated Hrs Per Day: .25 hour per day Time/GCodes Time In: 1120 Time Out: 1131 Total Billed Treatment Time: 11 Total Billed Treatment 1 visit FA 11 min NIA DAMON PT Aug 21, 2021 11:49
--- NOTE | 2021-08-21 11:58 | Occupational Therapy Eval ---
OT Evaluation-General/PLF Medical Diagnosis Admission Date Aug 17, 2021 at 18:14 Medical Diagnosis: sepsis; pneumonia Onset Date: Aug 18, 2021 Therapy Diagnosis Therapy Diagnosis: decreased ADL status Precautions Precautions/Isolations: Fall Prevention, Standard Precautions Referral Physician: Shorty Cassidy Reason: Evaluation/Treatment Medical History Pertinent Medical History: Arthritis, Hypothroidism Additional Medical History arthritis, hypothyroidism, cataract Current History ED from [facility] due to AMS and falls. Pt's daughter states CT scan revealed CVA Social History Home: Assisted Living ADL-Prior Level of Function SCALE: Activities may be completed with or without assistive devices. 8-Twmruehphm-ktozbwe completes the activity by him/herself with no assistance from a helper. 5-Set-up or Clean-up Assistance-helper sets up or cleans up; patient completes activity. Percival assists only prior to or following the activity. 4-Supervision or Touching Assistance-helper provides verbal cues and/or touching/steadying and/or contact guard assistance as patient completes activity. Assistance may be provided throughout the activity or intermittently. 3-Partial/Moderate Assistance-helper does LESS THAN HALF the effort. Percival lifts, holds or supports trunk or limbs, but provides less than half the effort. 2-Substantial/Maximal Assistance-helper does MORE THAN HALF the effort. Percival lifts or holds trunk or limbs and provides more than half the effort. 9-Lpmhklgnn-plpwre does ALL the effort. Patient does none of the effort to complete the activity. Or, the assistance of 2 or more helpers is required for the patient to complete the activity. If activity was not attempted, code reason: 7-Patient Refused. 9-Not Applicable-not attempted and the patient did not perform the activity befo re the current illness, exacerbation or injury. 10-Not Attempted due to Environmental Limitations-(lack of equipment, weather re straints, etc.). 88-Not Attempted due to Medical Conditions or Safety Concerns. ADL PLOF Comments Per pt and daughter report, pt IND with bathing, dressing and toileting. Uses a FWW for functional mobility, and has supervision between her room and dinning room with ambulation. She has a walk in shower with SC Self Care: Independent Functional Cognition: Independent OT Current Status Subjective Pt in bed, daughter present. Pt agreeable to OT Tx. Mental Status/Objective Patient Orientation: Person, Place, Situation Current Glasses/Contacts: Yes Dentures/Partials: No Hand Dominance: Right Upper Extremity ROM Decreased RUE shoulder ROM, daughter states pt got an injection recently. LUManju WFL Upper Extremity Coordination Slightly decreased. ADL-Treatment Eating (QC): 3 (Per daughter report, required min A - SBA with breakfast this AM.) Oral Hygiene (QC): 3 (Min A with wiping her mouth and bringing cup/basin to her mouth for rinsing.) Toileting Hygiene (QC): 1 (catheter) Other Treatments Pt in bed, agreeable to OT Tx. Pt's daughter provided information about PLOF. Pt agreeable to brushing her teeth and washing her face. Pt required min A with oral care, cue to terminate task as pt perseverated with brushing, assistance bringing cup to mouth to rinse, and assistance to wipe lips after rinsing. Pt a ble to wash her face with set up assistance. Pt agreeable to transferring to recliner, PT entered room at this time. Post tx, pt in bed, PT present, all needs met. 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 2=Patient will verbalize/demonstrate understanding of assistive devices/modifications for ADL. 3=Patient will improve strength/tolerance for activity to enable patient to perform ADL's. OT Education/Plan Problem List/Assessment Assessment: Decreased Activ Tolerance, Decreased UE Strength, Impaired Coordination, Impaired Funct Balance, Impaired I ADL's, Impaired Self-Care Skills, Restricted Funct UE ROM Discharge Recommendations Plan/Recommendations: Continue POC Treatment Plan/Plan of Care Patient would benefit from OT for education, treatment and training to promote independence in ADL's, mobility, safety and/or upper extremity function for ADL 's. Plan of Care: ADL Retraining, Functional Mobility, UE Funct Exercise/Act Treatment Duration: Sep 08, 2021 Frequency: 5 times per week Estimated Hrs Per Day: .25 hour per day Rehab Potential: Fair Time/GCodes Start Time: 11:03 Stop Time: 11:21 Total Time Billed (hr/min): 18 Billed Treatment Time 1, WAQAS KUNZ OT Aug 21, 2021 11:58
[2021-08-21] MEDS: VANCOMYCIN 1250 MG/NS 250 ML IVPB IV SCH ×2 (12:34)
[2021-08-21] MEDS ORDERED: ASPIRIN E.C. 325 MG (ECOTRIN) TABLET PO NR (15:15)
--- NOTE | 2021-08-21 15:47 | Diagnostic Imaging Report ---
CLINICAL INDICATION: Patient with pneumonia, severe sepsis, and stroke. COMPARISON: None. EXAM: Real-time ultrasound carotid Doppler duplex imaging is performed bilaterally with multiple real-time grayscale images obtained in various projections. Additional spectral analysis and color Doppler duple images were also obtained. Peak systolic velocity, ICA/CCA peak systolic ratio, spectral analysis, and vascular morphology are studied. FINDINGS: ARTERY VELOCITY Right Left CCA 0.81 m/s 1.03 m/s ICA 1.06 m/s 0.73 m/s ECA 0.77 m/s 0.56 m/s ICA/CCA 1.3 0.7 VERT.ART Antegrade Antegrade There is mild bilateral carotid artery atherosclerotic disease. There is a small area of vascular prominence in the expected region of the right jugular vein measuring at least 1.6 cm in width. IMPRESSION: 1: There is mild bilateral carotid artery atherosclerotic disease with no grayscale or Doppler evidence of significant vascular stenosis. 2: There is a short segment area of vascular prominence involving the right IJ which may represent a small varix. Dictated by: Dictated on workstation # [id number]
--- NOTE | 2021-08-21 16:53 | Progress Note - Hospitalist ---
Subjective HPI/CC On Admission Date Seen by Provider: Aug 21, 2021 Time Seen by Provider: 10:40 CC: AMS with hypotension History of present illness: This is an 86-year-old white female who lives in assisted living who presented to the ER with weakness and altered mental status. She was found to have an elevated white count of 24,000 without source initially since she had had struggles with recurrent UTIs last few weeks but chest x-ray revealed bilateral atelectasis and considering her dehydration state bilateral pneumonia was diagnosed IV meropenem and vancomycin initiated. One of the 7 children is an ICU nurse and is at the bedside who has made it clear she is a DNR but upon my assessment if she is to continue on this level she would be on the cusp of recoverable. Subjective/Events-last exam She is in bed. She is not short of breath. She is not having pain. She is not lightheaded or dizzy. She is not having any weakness. Objective Exam Vital Signs Vital Signs Date Time Temp Pulse Resp B/P (MAP) Pulse Ox O2 Delivery O2 Flow Rate FiO2 08/21/21 15:34 37.0 77 20 169/78 95 Room Air 08/20/21 13:38 0.00 08/18/21 01:25 24 Capillary Refill : Less Than 3 Seconds General Appearance: No Apparent Distress, WD/WN Respiratory: Lungs Clear, Normal Breath Sounds, No Respiratory Distress Cardiovascular: Regular Rate, Rhythm, No Murmur Gastrointestinal: Normal Bowel Sounds, Non Tender, Soft Extremity: Normal Inspection, Non Tender, No Pedal Edema Neurologic/Psychiatric: Alert, No Motor/Sensory Deficits, Normal Mood/Affect, Disoriented Skin: Normal Color, Warm/Dry Results/Procedures Lab Laboratory Tests 08/21/21 07:10 Patient resulted labs reviewed. Imaging: Reviewed Imaging Report Assessment/Plan Assessment and Plan Assess & Plan/Chief Complaint Sepsis Pneumonia Procal remains elevated Cultures negative to date Continue Merrem Stop Vancomycin Subacute cerebellar stroke Irregular heart rhythm Mild bilateral carotid stenois Recurrent falls Debility CT with cerebellar stroke EKG with irregular rhythm Consult cardiology Echo ordered Carotid ultrasound with mild bilateral stenosis ASA Allergy to statins PT/OT IRU evaluation Dementia Appears to be mild-moderate Clinically significant, no acute management needs DVT prophylaxis: Lovenox Diagnosis/Problems Diagnosis/Problems (1) Severe sepsis Status: Acute (2) Pneumonia Status: Acute Qualifiers: Pneumonia type: due to unspecified organism Laterality: bilateral Lung location: lower lobe of lung Qualified Codes: J18.9 - Pneumonia, unspecified organism (3) Irregular heart rhythm Status: Acute (4) Cerebellar stroke Status: Acute (5) Recurrent falls Status: Acute HIEU ALLEN MD Aug 21, 2021 16:53
[2021-08-21] MEDS: ENOXAPARIN 40 MG/0.4 ML (LOVENOX) SYR SC SCH (20:30)
[2021-08-21] MEDS: FAMOTIDINE 20MG/2ML IV (PEPCID) IVP SCH (21:08)
[2021-08-22] MEDS: ACETAMINOPHEN 325 MG TABLET PO PRN ×2 (03:50→17:14)
[2021-08-22] MEDS: KCL 20 MEQ TAB (K-DUR) PO SCH (05:03)
[2021-08-22 07:41] LABS: BASOPHILS # (AUTO) 0.1 10^3/uL (0.0-0.1); BASOPHILS % (AUTO) 1 % (0-10); EOSINOPHILS # (AUTO) 0.4 10^3/uL (0.0-0.3); EOSINOPHILS % (AUTO) 8 % (0-10); HEMATOCRIT 38 % (35-52); HEMOGLOBIN 12.7 g/dL (11.5-16.0); LYMPHOCYTES # (AUTO) 1.3 10^3/uL (1.0-4.0); LYMPHOCYTES % (AUTO) 23 % (12-44); MEAN CORPUSCULAR HEMOGLOBIN 31 pg (25-34); MEAN CORPUSCULAR HGB CONC 34 g/dL (32-36); MEAN CORPUSCULAR VOLUME 93 fL (80-99); MEAN PLATELET VOLUME 9.5 fL (9.0-12.2); MONOCYTES # (AUTO) 0.6 10^3/uL (0.0-1.0); MONOCYTES % (AUTO) 11 % (0-12); NEUTROPHILS % (AUTO) 55 % (42-75); PLATELET COUNT 241 10^3/uL (130-400); WHITE BLOOD COUNT 5.4 10^3/uL (4.3-11.0)
[2021-08-22 07:54] LABS: ALBUMIN 2.9 GM/DL (3.2-4.5); BILIRUBIN,TOTAL 0.6 MG/DL (0.1-1.0); CALCIUM 8.6 MG/DL (8.5-10.1); CREATININE SERUM 0.68 MG/DL (0.60-1.30); POTASSIUM 3.5 MMOL/L (3.6-5.0); TOTAL PROTEIN 6.4 GM/DL (6.4-8.2)
[2021-08-22] MEDS: DOCUSATE SODIUM 100 MG (COLACE) CAP PO SCH ×2 (09:10→20:07)
[2021-08-22] MEDS: SENNOSIDES 8.6 MG (SENOKOT) TAB PO SCH ×2 (09:11→20:07)
[2021-08-22] MEDS: ASPIRIN E.C. 325 MG (ECOTRIN) TABLET PO SCH (09:12)
--- NOTE | 2021-08-22 10:14 | Consultation-Cardiology ---
HPI-Cardiology Cardiology Consultation: Date of Consultation 08/22/2021 Date of Admission 08/17/2021 Attending Physician Essence Lyon MD Admitting Physician Marisa Kang MD Consulting Physician TYLER HENDRICKS JR, MD HPI: Time Seen by a Provider: 09:40 Chief Complaint: Reason for consultation: Acute/subacute stroke I had the pleasure of seeing Vicki on the medical/surgical unit at [facility] in [place], [place] this morning. I spoke with the patient and one of her daughters. I actually met the patient back in March when she was in the hospital with anemia and also had some chest pain. At that time she underwent endoscopies and there was no source of gastrointestinal hemorrhage identified. I had her undergo a troponin level at that time which was undetectable and I concluded that her chest discomfort was most likely noncardiac. I did suggest that she may need to undergo an ischemic evaluation after discharge but then the patient was lost to follow-up with my office. She currently resides in an assisted care facility. On the day of admission she was confused and very weak. She had slipped out of her chair. Her daughter was visiting with her and noted that her mother just was not right. The patient was brought to the emergency room for further evaluation. During her evaluation, she underwent a head CT that showed an acute/subacute cerebellar stroke. She was also noted to have some irregular heart rhythms. Because of this, a cardiology consultation was requested. The patient's daughter states that her mother seems to be a little more clear today. Normally the patient is oriented to person place and time but this morning was only oriented to person. She was not having any focal neurologic complaints. Yesterday after having her echocardiogram, she was complaining of some left-sided chest discomfort around the area where the spinneret cleaner was taking images from her chest. This morning she denied any chest discomfort. She denied dyspnea, paroxysmal nocturnal dyspnea, orthopnea, palpitations, lightheadedness, or syncope. She has been having some mild lower extremity edema but her daughter reports that she spends much of her day in a chair with her feet down. Certain portions of this document may have been dictated utilizing voice recognition technology. Inherent to this technology, typographical and grammatical errors may exist. As much as I am diligent to identify and correct these mistakes, some errors may remain in the document. Review of Systems-Cardiology Review of Systems Other comments Review of 10 organ systems is as per the history of present illness, otherwise negative. All Other Systems Reviewed Negative Unless Noted: Yes [id number] Hx Patient Social History Marrital Status: single Employed/Student: retired Smoking Status: Unknown if Ever Smoked Have you traveled recently?: No Alcohol Use?: No Pt feels they are or have been: No Immunizations Up To Date Date of Influenza Vaccine: May 05, 2021 Past Medical History PMH As described under Assessment. Family Medical History Family Medical History: The patient does not know of any family history of premature coronary artery disease. Allergies and Home Medications Allergies Coded Allergies: Penicillins (Verified Allergy, Unknown, 03/04/21) Xukanuo-FQG-JgT Reductase Inhibitor (Unverified Allergy, Unknown, 03/07/21) cephalexin (Verified Allergy, Unknown, 03/04/21) hydrocodone (Verified Allergy, Unknown, 03/04/21) indomethacin (Verified Allergy, Unknown, 03/04/21) latex (Verified Allergy, Unknown, 03/04/21) morphine (Verified Allergy, Unknown, 03/04/21) Patient Home Medication List Home Medication List Reviewed: Yes ALPRAZolam (ALPRAZolam) 0.25 Mg Tablet, 0.25 MG PO BID, (Reported) Entered as Reported by: JUANA TEE on 08/18/21919 Last Action: Reviewed Acetaminophen (Tylenol Extra Strength) 500 Mg Tablet, 500 MG PO QID, (Reported) Entered as Reported by: JUANA TEE on 08/18/21919 Last Action: Reviewed Alendronate Sodium (Alendronate Sodium) 70 Mg Tablet, 70 MG PO SATURDAY, (Reported) Entered as Reported by: ANANT PRATT on 03/05/21516 Last Action: Reviewed Baclofen (Baclofen) 10 Mg Tablet, 10 MG PO TID PRN for MUSCLE SPASMS, (Reported) Entered as Reported by: JUANA TEE on 08/18/21919 Last Action: Reviewed Estradiol (Estradiol Tablet) 1 Mg Tablet, 1 MG PO DAILY, (Reported) Entered as Reported by: ANANT PRATT on 03/05/21516 Last Action: Reviewed Ezetimibe (Ezetimibe) 10 Mg Tablet, 10 MG PO HS, (Reported) Entered as Reported by: ANANT PRATT on 03/05/21516 Last Action: Reviewed Ferrous Sulfate (Ferrous Sulfate) 325 Mg Tablet, 325 MG PO 1200, (Reported) Entered as Reported by: JUANA TEE on 08/18/21919 Last Action: Reviewed Gabapentin (Gabapentin) 600 Mg Tablet, 600 MG PO BID, (Reported) Entered as Reported by: ANANT PRATT on 03/05/21516 Last Action: Reviewed Indapamide (Indapamide) 1.25 Mg Tablet, 1.25 MG PO DAILY, (Reported) Entered as Reported by: ANANT PRATT on 03/05/21516 Last Action: Reviewed Levothyroxine Sodium (Levothyroxine Sodium) 75 Mcg Tablet, 75 MCG PO DAILY, (Reported) Entered as Reported by: JUANA TEE on 08/18/21919 Last Action: Reviewed Nitrofurantoin Monohyd/M-Cryst (Nitrofurantoin Nance-Mcr 100 mg) 100 Mg Capsule, 100 MG PO BID, (Reported) Entered as Reported by: JUANA TEE on 08/18/21919 Last Action: Reviewed Pantoprazole Sodium (Pantoprazole Sodium) 40 Mg Tablet.dr, 40 MG PO BID, (Reported) Entered as Reported by: JUANA TEE on 08/18/21919 Last Action: Reviewed Sucralfate (Carafate) 1 Gm Tablet, 1 GM PO ACHS, (Reported) Entered as Reported by: JUANA TEE on 08/18/21919 Last Action: Reviewed Discontinued Medications Ciprofloxacin HCl (Ciprofloxacin HCl) 500 Mg Tablet, 500 MG PO BID Discontinued Reason: Duplicate Order Prescribed by: PREET MAN on 08/07/21 1616 Last Action: Discontinued Ferrous Sulfate (Ferrous Sulfate) 325 Mg Tablet, 325 MG PO DAILY Discontinued Reason: Duplicate Order Prescribed by: ALFONSO MEDINA on 03/09/21 1138 Last Action: Discontinued Levothyroxine Sodium (Levothyroxine Sodium) 50 Mcg Tablet, 50 MCG PO DAILY, (Reported) Discontinued Reason: Duplicate Order Entered as Reported by: ANANT PRATT on 03/05/21516 Last Action: Discontinued Pantoprazole Sodium (Pantoprazole Sodium) 40 Mg Tablet.dr, 40 MG PO BID Discontinued Reason: No Longer Taking Prescribed by: ALFONSO MEDINA on 03/09/211137 Last Action: Discontinued Sucralfate (Sucralfate) 1 Gm Tablet, 1 GM PO ACHS Discontinued Reason: No Longer Taking Prescribed by: ALFONSO MEDINA on 03/09/211137 Last Action: Discontinued Tramadol HCl (Tramadol HCl) 50 Mg Tablet, 50 MG PO Q6HR PRN for PAIN-MODERATE (5-7) Discontinued Reason: No Longer Taking Prescribed by: ALFONSO MEDINA on 03/09/211137 Last Action: Discontinued Exam Vital Signs Vital Signs Date Time Temp Pulse Resp B/P (MAP) Pulse Ox O2 Delivery O2 Flow Rate FiO2 08/22/21 08:00 36.5 80 20 166/87 95 Room Air 08/20/21 13:38 0.00 08/18/21 01:25 24 Physical Exam General: Alert. No acute distress. Well nourished and appears stated age. Eye: Extraocular movements are intact. Conjunctivae are clear. There are no xanthelasma. HENT: Normocephalic. Atraumatic. Carotid pulsations 2/2 without bruits. Neck: Jugular venous pressure does not appear elevated. No thyromegaly appreciated. Respiratory: Lungs are clear to auscultation. Respirations are non-labored. Breath sounds are equal. Symmetrical chest wall expansion. Cardiovascular: Normal rate. Regular rhythm. No murmur. No gallop. Point of maximal impulse is not appear displaced. Good pulses equal in all extremities. No edema. Gastrointestinal: Soft. Normal bowel sounds. Skin: Skin turgor is normal. There is no pallor. Musculoskeletal: No kyphosis or scoliosis appreciated. Neurologic: Alert and oriented to person only. Cranial nerves 3-12 appear grossly intact. The patient has good motor tone strength in the upper and lower extremities bilaterally. Psychiatric: Cooperative. Flat affect. Labs Laboratory Tests Test 08/22/21 07:25 Range/Units White Blood Count 5.4 4.3-11.0 10^3/uL Red Blood Count 4.07 3.80-5.11 10^6/uL Hemoglobin 12.7 11.5-16.0 g/dL Hematocrit 38 35-52 % Mean Corpuscular Volume 93 80-99 fL Mean Corpuscular Hemoglobin 31 25-34 pg Mean Corpuscular Hemoglobin Concent 34 32-36 g/dL Red Cell Distribution Width 14.0 10.0-14.5 % Platelet Count 241 130-400 10^3/uL Mean Platelet Volume 9.5 9.0-12.2 fL Immature Granulocyte % (Auto) 1 % Neutrophils (%) (Auto) 55 42-75 % Lymphocytes (%) (Auto) 23 12-44 % Monocytes (%) (Auto) 11 0-12 % Eosinophils (%) (Auto) 8 0-10 % Basophils (%) (Auto) 1 0-10 % Neutrophils # (Auto) 3.0 1.8-7.8 10^3/uL Lymphocytes # (Auto) 1.3 1.0-4.0 10^3/uL Monocytes # (Auto) 0.6 0.0-1.0 10^3/uL Eosinophils # (Auto) 0.4 H 0.0-0.3 10^3/uL Basophils # (Auto) 0.1 0.0-0.1 10^3/uL Immature Granulocyte # (Auto) 0.1 0.0-0.1 10^3/uL Sodium Level 139 135-145 MMOL/L Potassium Level 3.5 L 3.6-5.0 MMOL/L Chloride Level 108 H 98-107 MMOL/L Carbon Dioxide Level 21 21-32 MMOL/L Anion Gap 10 5-14 MMOL/L Blood Urea Nitrogen 9 7-18 MG/DL Creatinine 0.68 0.60-1.30 MG/DL Estimat Glomerular Filtration Rate 86 BUN/Creatinine Ratio 13 Glucose Level 80 70-105 MG/DL Calcium Level 8.6 8.5-10.1 MG/DL Corrected Calcium 9.5 8.5-10.1 MG/DL Total Bilirubin 0.6 0.1-1.0 MG/DL Aspartate Amino Transf (AST/SGOT) 17 5-34 U/L Alanine Aminotransferase (ALT/SGPT) 16 0-55 U/L Alkaline Phosphatase 52 40-136 U/L Total Protein 6.4 6.4-8.2 GM/DL Albumin 2.9 L 3.2-4.5 GM/DL Radiology ECHOCARDIOGRAM (08/21/2021): 1. Left ventricle: The cavity size is normal. There is mild concentric hypertrophy. Systolic function is normal. The estimated ejection fraction is 55- 60%. There were no regional wall motion abnormalities identified. Doppler parameters are consistent with abnormal left ventricular relaxation (grade 1 diastolic dysfunction). 2. Pulmonary arteries: The pulmonary artery pressure cannot be estimated on this study due to inadequate tricuspid regurgitant envelope. ECG Impression ECG Comment She had an electrocardiogram on 08/17 and another on 08/22 both of which showed sinus tachycardia with multiple premature supraventricular complexes and a right bundle branch block Diagnosis/Problems Diagnosis/Problems (1) Cerebellar stroke Status: Acute Assessment & Plan: As above, she appears to have suffered a left cerebellar ischemic stroke. This may have caused issues with her balance which may have led to her fall prior to admission. She is now working with physical therapy. This raises a concern of possible atrial fibrillation. I would normally consider implanting a loop recorder but the patient's daughter is not sure the family wants to have her mother undergo any further invasive procedures. The patient's daughter will discuss this with her siblings and get back to us. If the family does decide to go ahead with an implantable loop recorder, I could certainly before she goes back home to the assisted living. In the interim, I recommend she continue on aspirin. She was taking low strength aspirin at home and is now on full-strength aspirin. This is not unreasonable. There is no indication for antithrombotic treatment at this time. I will resume her ezetimibe. She has an intolerance to statin medications. (2) Irregular heart rhythm Status: Acute Assessment & Plan: She has frequent premature supraventricular complexes which is most likely causing the irregular heart rhythm. There has not been any definitive evidence of atrial fibrillation. If the patient and family decide to go ahead with a loop recorder, I will before she is discharged. I can either do this procedure on the medical floor or in the rehab unit. (3) Primary hypertension Assessment & Plan: She was taking indapamide at home. Given the frequent premature supraventricular complexes and elevated blood pressure, I will start her on metoprolol succinate. I will start her on a low-dose due to the acute/subacute stroke. I would recommend we allow for at least some degree of permissive hypertension in light of the stroke (4) Mixed hyperlipidemia Assessment & Plan: Her LDL level is under reasonably good control with Ezetimibe. I have reordered this medication. TYLER HENDRICKS JR, MD Aug 22, 2021 10:14
--- NOTE | 2021-08-22 10:40 | Physical Therapy Daily Note ---
PT Daily Note-Current Subjective Patient presented in chair and was more alert today than yesterday. Patient consented to ambulate for physical therapy today. Mental Status Patient Orientation: Confused, Mumbles Attachments: Avitia Catheter Transfers SCALE: Activities may be completed with or without assistive devices. 4-Rbhtzfxvmz-errpdql completes the activity by him/herself with no assistance from a helper. 5-Set-up or Clean-up Assistance-helper sets up or cleans up; patient completes activity. Isabella assists only prior to or following the activity. 4-Supervision or Touching Assistance-helper provides verbal cues and/or touching/steadying and/or contact guard assistance as patient completes activity. Assistance may be provided throughout the activity or intermittently. 3-Partial/Moderate Assistance-helper does LESS THAN HALF the effort. Isabella lifts, holds or supports trunk or limbs, but provides less than half the effort. 2-Substantial/Maximal Assistance-helper does MORE THAN HALF the effort. Isabella lifts or holds trunk or limbs and provides more than half the effort. 3-Kixkjzeqm-pmnlzl does ALL the effort. Patient does none of the effort to complete the activity. Or, the assistance of 2 or more helpers is required for the patient to complete the activity. If activity was not attempted, code reason: 7-Patient Refused. 9-Not Applicable-not attempted and the patient did not perform the activity before the current illness, exacerbation or injury. 10-Not Attempted due to Environmental Limitations-(lack of equipment, weather restraints, etc.). 88-Not Attempted due to Medical Conditions or Safety Concerns. Sit to Stand (QC): 3 Weight Bearing Full Weight Bearing Full Weight Bearing Gait Training Does the Patient Walk?: Yes Distance: 150' Walk 10 feet (QC): 3 Walk 50 ft with 2 Turns(QC): 3 Walk 150 ft (QC): 3 Gait Assistive Device: FWW Patient ambulated with FWW but required min assist for ambulation. Patient required assistance to ambulate in a straight line and not run into the wall or other objects when ambulating. Exercises Seated Therapy Exercises: Long arc quads, Hip flexion Seated Reps: 10 Assessment Patient was able to ambulate more today than yesterday and seemed to be cognitively more aware today. Patient might have minor neglect on the left side and PT had to give patient multiple cues to keep patient from veering to the left while ambulating. Patient had difficulty steering the walking and not running into objects while ambulating. Patient had difficulty following cues and was confused with instructions given. Patients daughter answers lots of questions for the patient so it is difficult to determine level of function for the patient. PT Dental Hygiene Administrative Assistant Goals Dental Hygiene Administrative Assistant Goals PT Dental Hygiene Administrative Assistant Goals Time Frame: Aug 25, 2021 Roll Left & Right (QC): 6 Sit to Lying (QC): 6 Lying-Sitting on Side/Bed(QC): 6 Sit to Stand (QC): 6 Chair/Qwm-gb-Mndoz Xfer(QC): 6 Toilet Transfer (QC): 5 Does the Patient Walk: Yes Walk 150 ft (QC): 4 PT Plan Treatment/Plan Treatment Plan: Continue Plan of Care Treatment Plan: Bed Mobility, Concurrent Therapy, Education, Functional Activity Philipp, Functional Strength, Gait, Safety, Therapeutic Exercise, Transfers Treatment Duration: Aug 25, 2021 Frequency: 6 times per week Estimated Hrs Per Day: .25 hour per day Time/GCodes Time In: 945 Time Out: 956 Total Billed Treatment Time: 11 Total Billed Treatment 1 Visit FA 11 min NIA DAMON PT Aug 22, 2021 10:40
[2021-08-22] MEDS ORDERED: meTOproloL SUCCINATE 50 MG (TOPROL XL) TAB PO NR (11:00)
--- NOTE | 2021-08-22 14:25 | Occupational Ther Daily Note ---
OT Current Status-Daily Note Subjective Pt sitting in recliner. Pt agreeable to OT tx. Pts daughter present in room. Mental Status/Objective Patient Orientation: Person, Confused (Pt asked multiple times what she was supposed to be doing during her sponge bath.) Attachments: Telemetry ADL-Treatment Therapy Code Descriptions/Definitions Functional Meacham Measure: 0=Not Assessed/NA 4=Minimal Assistance 1=Total Assistance 5=Supervision or Setup 2=Maximal Assistance 6=Modified Meacham 3=Moderate Assistance 7=Complete IndependenceSCALE: Activities may be completed with or without assistive devices. 7-Makqdsjtwm-kezpvzv completes the activity by him/herself with no assistance from a helper. 5-Set-up or Clean-up Assistance-helper sets up or cleans up; patient completes activity. [place] assists only prior to or following the activity. 4-Supervision or Touching Assistance-helper provides verbal cues and/or touching/steadying and/or contact guard assistance as patient completes activity. Assistance may be provided throughout the activity or intermittently. 3-Partial/Moderate Assistance-helper does LESS THAN HALF the effort. [place] lifts, holds or supports trunk or limbs, but provides less than half the effort. 2-Substantial/Maximal Assistance-helper does MORE THAN HALF the effort. [place] lifts or holds trunk or limbs and provides more than half the effort. 2-Wgisgjhku-ndqdhf does ALL the effort. Patient does none of the effort to complete the activity. Or, the assistance of 2 or more helpers is required for the patient to complete the activity. If activity was not attempted, code reason: 7-Patient Refused. 9-Not Applicable-not attempted and the patient did not perform the activity before the current illness, exacerbation or injury. 10-Not Attempted due to Environmental Limitations-(lack of equipment, weather restraints, etc.). 88-Not Attempted due to Medical Conditions or Safety Concerns. Bathing Location: L Arm, R Arm, L Upper Leg, R Upper Leg, L Lower Leg (including foot), R Lower Leg (including foot), Chest, Abdomen Shower/Bathe Self (QC): 3 (min A needed to clean BLE) Upper Body Dressing (QC): 5 (setup) Lower Body Dressing (QC): 2 (max assist. Pt needed help threading feet through pants, pt able to pull them up once standing.) On/Off Footwear: 1 (total assist ) Other Treatment Pt in recliner. Pt used shower cap to wash hair, mod A needed to thoroughly wash, Pt was able to scrub the front of her head. Pt doffed socks, total assist and hospital gown with min A. Pt completed a sponge bath, she needed min A to clean BLE, Pt was able to clean the rest of body with verbal cues for sequence. Buttocks and periarea not washed during sponge bath due to recently being cleaned with nursings staff. Pt handed initial washcloth, perseverated on washing her face. 2nd wash cloth provided, pt again used it to wash her face after instructions given to wash legs. Pt required redirection in order to wash her legs. Pt donned shirt, pants and socks. Pt needed total assist to don socks and was able to pull pants up once she stood up, after they were threaded on her feet. Pt able to don shirt with set up assistance, checking to make sure the tag was in the back without cues. Pt brushed hair, assistance needed to thoroughly brush the back. Pt in recliner, call light in reach and all needs met. Throughout session, pt required min-mod verbal cues for sequencing, as she often forgot what she was supposed to be doing. Min A sit to stand transfer. Education OT Patient Education: Correct positioning, Energy conservation, Modified ADL techniques, Progress toward Goal/Update tx plan, Purpose of tx/functional activities Teaching Recipient: Patient, Family (daughter) Teaching Methods: Demonstration, Discussion Response to Teaching: Verbalize Understanding, Return Demonstration, Reinforcement Needed OT Usp Goals Usp Goals Time Frame: Sep 08, 2021 Eating (QC): 5 Oral Hygiene (QC): 5 Toileting Hygiene (QC): 4 Shower/Bathe Self (QC): 4 Upper Body Dressing (QC): 5 Lower Body Dressing (QC): 4 On/Off Footwear (QC): 4 Additional Goals: 1-Demonstrate ADL Tasks, 2-Verbalize Understanding, 3- ImproveStrength/Philipp 1=Demonstrate adherence to instructed precautions during ADL tasks. 2=Patient will verbalize/demonstrate understanding of assistive devices/modifications for ADL. 3=Patient will improve strength/tolerance for activity to enable patient to perform ADL's. OT Education/Plan Problem List/Assessment Assessment: Decreased Activ Tolerance, Decreased UE Strength, Impaired Cognition, Impaired I ADL's, Impaired Self-Care Skills Discharge Recommendations Plan/Recommendations: Continue POC Treatment Plan/Plan of Care Patient would benefit from OT for education, treatment and training to promote independence in ADL's, mobility, safety and/or upper extremity function for ADL's. Plan of Care: ADL Retraining, Functional Mobility, UE Funct Exercise/Act Treatment Duration: Sep 08, 2021 Frequency: 5 times per week Estimated Hrs Per Day: .25 hour per day Rehab Potential: Fair Time/GCodes Start Time: 13:45 Stop Time: 14:15 Total Time Billed (hr/min): 30 Billed Treatment Time 1, ADL 2 (30) WAQAS HARDING OT Aug 22, 2021 14:25
[2021-08-22] MEDS ORDERED: amLODIPine 10 MG (NORVASC) TAB PO NR (18:15)
--- NOTE | 2021-08-22 18:20 | Progress Note - Hospitalist ---
Subjective HPI/CC On Admission Date Seen by Provider: Aug 22, 2021 Time Seen by Provider: 11:25 CC: AMS with hypotension History of present illness: This is an 86-year-old white female who lives in assisted living who presented to the ER with weakness and altered mental status. She was found to have an elevated white count of 24,000 without source initially since she had had struggles with recurrent UTIs last few weeks but chest x-ray revealed bilateral atelectasis and considering her dehydration state bilateral pneumonia was diagnosed IV meropenem and vancomycin initiated. One of the 7 children is an ICU nurse and is at the bedside who has made it clear she is a DNR but upon my assessment if she is to continue on this level she would be on the cusp of recoverable. Subjective/Events-last exam She is doing a little better today. She was able to walk with therapy in the halls. She denies pain. She denies lightheadedness and dizziness. Objective Exam Vital Signs Vital Signs Date Time Temp Pulse Resp B/P (MAP) Pulse Ox O2 Delivery O2 Flow Rate FiO2 08/22/21 15:00 35.8 64 18 187/88 95 Room Air 08/20/21 13:38 0.00 08/18/21 01:25 24 Capillary Refill : Less Than 3 Seconds General Appearance: No Apparent Distress, WD/WN Respiratory: Lungs Clear, Normal Breath Sounds, No Respiratory Distress Cardiovascular: Regular Rate, Rhythm, No Murmur Gastrointestinal: Normal Bowel Sounds, Soft Extremity: Normal Inspection, No Pedal Edema Neurologic/Psychiatric: Alert, Motor Weakness Skin: Normal Color, Warm/Dry Results/Procedures Lab Laboratory Tests 08/22/21 07:25 Patient resulted labs reviewed. Imaging: Reviewed Imaging Report Assessment/Plan Assessment and Plan Assess & Plan/Chief Complaint Sepsis Pneumonia Procal remains elevated Cultures negative to date Continue Merrem Subacute cerebellar stroke Irregular heart rhythm Mild bilateral carotid stenois Recurrent falls Debility CT with cerebellar stroke EKG with irregular rhythm Consult cardiology Echo pending Carotid ultrasound with mild bilateral stenosis ASA Allergy to statins PT/OT IRU evaluation Dementia Appears to be mild-moderate Clinically significant, no acute management needs DVT prophylaxis: Lovenox Diagnosis/Problems Diagnosis/Problems (1) Severe sepsis Status: Acute (2) Pneumonia Status: Acute Qualifiers: Pneumonia type: due to unspecified organism Laterality: bilateral Lung location: lower lobe of lung Qualified Codes: J18.9 - Pneumonia, unspecified organism (3) Irregular heart rhythm Status: Acute (4) Cerebellar stroke Status: Acute (5) Recurrent falls Status: Acute HIEU ALLEN MD Aug 22, 2021 18:20
[2021-08-22] MEDS: ENOXAPARIN 40 MG/0.4 ML (LOVENOX) SYR SC SCH (20:46)
[2021-08-22] MEDS ORDERED: eZETimibe 10 MG (ZETIA) TABLET PO SCH (21:00)
[2021-08-22] MEDS: FAMOTIDINE 20MG/2ML IV (PEPCID) IVP SCH (22:57)
[2021-08-23] MEDS: KCL 20 MEQ TAB (K-DUR) PO SCH (06:25)
[2021-08-23] MEDS: ACETAMINOPHEN 325 MG TABLET PO PRN (06:32)
[2021-08-23 07:11] LABS: BASOPHILS # (AUTO) 0.1 10^3/uL (0.0-0.1); BASOPHILS % (AUTO) 1 % (0-10); EOSINOPHILS # (AUTO) 0.5 10^3/uL (0.0-0.3); EOSINOPHILS % (AUTO) 6 % (0-10); HEMATOCRIT 44 % (35-52); HEMOGLOBIN 14.6 g/dL (11.5-16.0); LYMPHOCYTES # (AUTO) 1.5 10^3/uL (1.0-4.0); LYMPHOCYTES % (AUTO) 20 % (12-44); MEAN CORPUSCULAR HEMOGLOBIN 31 pg (25-34); MEAN CORPUSCULAR HGB CONC 33 g/dL (32-36); MEAN CORPUSCULAR VOLUME 93 fL (80-99); MEAN PLATELET VOLUME 9.2 fL (9.0-12.2); MONOCYTES # (AUTO) 0.7 10^3/uL (0.0-1.0); MONOCYTES % (AUTO) 10 % (0-12); NEUTROPHILS # (AUTO) 4.6 10^3/uL (1.8-7.8); NEUTROPHILS % (AUTO) 61 % (42-75); PLATELET COUNT 290 10^3/uL (130-400); WHITE BLOOD COUNT 7.5 10^3/uL (4.3-11.0)
[2021-08-23 07:30] LABS: ALBUMIN 3.5 GM/DL (3.2-4.5); BILIRUBIN,TOTAL 0.8 MG/DL (0.1-1.0); CALCIUM 9.6 MG/DL (8.5-10.1); CREATININE SERUM 0.74 MG/DL (0.60-1.30); POTASSIUM 3.5 MMOL/L (3.6-5.0); TOTAL PROTEIN 7.6 GM/DL (6.4-8.2)
[2021-08-23] MEDS ORDERED: doxAzosin 4 MG (CARDURA) TAB PO PRN (08:00)
[2021-08-23] MEDS: ASPIRIN E.C. 325 MG (ECOTRIN) TABLET PO SCH (08:59)
[2021-08-23] MEDS: SENNOSIDES 8.6 MG (SENOKOT) TAB PO SCH (08:59)
[2021-08-23] MEDS: DOCUSATE SODIUM 100 MG (COLACE) CAP PO SCH (08:59)
[2021-08-23] MEDS ORDERED: meTOproloL SUCCINATE 50 MG (TOPROL XL) TAB PO SCH (09:00)
[2021-08-23] MEDS ORDERED: amLODIPine 10 MG (NORVASC) TAB PO SCH (09:00)
--- NOTE | 2021-08-23 09:45 | Cardiology Progress Note ---
Progress Note-Cardiology Events since last exam Date Seen by Provider: Aug 23, 2021 Time Seen by Provider: 09:44 Events since last exam I am following her due to acute cerebellar stroke. I spoke with the patient and another one of her daughters who was at the bedside. The patient denies chest discomfort, dyspnea at rest, palpitations, syncope, or ankle edema. The plan is to transfer her to inpatient rehab. The family has requested to have their mother undergo an implantable loop recorder for prolonged surveillance for atrial fibrillation in light of the acute stroke. Certain portions of this document may have been dictated utilizing voice recognition technology. Inherent to this technology, typographical and grammatical errors may exist. As much as I am diligent to identify and correct these mistakes, some errors may remain in the document. Vitals Last set of Vitals Signs Vital Signs 08/18/21 08/20/21 08/23/21 08/23/21 01:25 13:38 11:15 13:00 Temp 36.4 Pulse 64 Resp 16 B/P (MAP) 159/78 Pulse Ox 92 O2 Delivery Room Air O2 Flow Rate 0.00 FiO2 24 Labs Labs Laboratory Tests 08/23/21 06:50 Exam Vital Signs Vital Signs Date Time Temp Pulse Resp B/P (MAP) Pulse Ox O2 Delivery O2 Flow Rate FiO2 08/23/21 13:00 64 08/23/21 11:15 36.4 16 159/78 92 Room Air 08/20/21 13:38 0.00 08/18/21 01:25 24 Physical Exam General: Alert. No acute distress. She was sitting up in bed and had just finished eating breakfast on her own. Eye: No xanthelasma. HENT: Normocephalic. Neck: Jugular venous pressure does not appear elevated. Respiratory: Lungs are clear to auscultation. Respirations are non-labored. Breath sounds are equal. Symmetrical chest wall expansion. Cardiovascular: Normal rate. Regular rhythm. No murmur. No gallop. Trace bilateral pretibial edema. Gastrointestinal: Soft. Normal bowel sounds. Skin: Warm. Dry. Neurologic: Alert and oriented to person only. Cranial nerves 3-11 grossly intact. Psychiatric: Cooperative. Flat affect. Labs Laboratory Tests Test 08/23/21 06:50 Range/Units White Blood Count 7.5 4.3-11.0 10^3/uL Red Blood Count 4.71 3.80-5.11 10^6/uL Hemoglobin 14.6 11.5-16.0 g/dL Hematocrit 44 35-52 % Mean Corpuscular Volume 93 80-99 fL Mean Corpuscular Hemoglobin 31 25-34 pg Mean Corpuscular Hemoglobin Concent 33 32-36 g/dL Red Cell Distribution Width 14.2 10.0-14.5 % Platelet Count 290 130-400 10^3/uL Mean Platelet Volume 9.2 9.0-12.2 fL Immature Granulocyte % (Auto) 2 % Neutrophils (%) (Auto) 61 42-75 % Lymphocytes (%) (Auto) 20 12-44 % Monocytes (%) (Auto) 10 0-12 % Eosinophils (%) (Auto) 6 0-10 % Basophils (%) (Auto) 1 0-10 % Neutrophils # (Auto) 4.6 1.8-7.8 10^3/uL Lymphocytes # (Auto) 1.5 1.0-4.0 10^3/uL Monocytes # (Auto) 0.7 0.0-1.0 10^3/uL Eosinophils # (Auto) 0.5 H 0.0-0.3 10^3/uL Basophils # (Auto) 0.1 0.0-0.1 10^3/uL Immature Granulocyte # (Auto) 0.2 H 0.0-0.1 10^3/uL Sodium Level 141 135-145 MMOL/L Potassium Level 3.5 L 3.6-5.0 MMOL/L Chloride Level 105 98-107 MMOL/L Carbon Dioxide Level 22 21-32 MMOL/L Anion Gap 14 5-14 MMOL/L Blood Urea Nitrogen 12 7-18 MG/DL Creatinine 0.74 0.60-1.30 MG/DL Estimat Glomerular Filtration Rate 80 BUN/Creatinine Ratio 16 Glucose Level 76 70-105 MG/DL Calcium Level 9.6 8.5-10.1 MG/DL Corrected Calcium 10.0 8.5-10.1 MG/DL Total Bilirubin 0.8 0.1-1.0 MG/DL Aspartate Amino Transf (AST/SGOT) 17 5-34 U/L Alanine Aminotransferase (ALT/SGPT) 18 0-55 U/L Alkaline Phosphatase 69 40-136 U/L Total Protein 7.6 6.4-8.2 GM/DL Albumin 3.5 3.2-4.5 GM/DL Diagnosis/Problems Diagnosis/Problems (1) Cerebellar stroke Status: Acute Assessment & Plan: As above, she appears to have suffered a left cerebellar ischemic stroke. This may have caused issues with her balance which may have led to her fall prior to admission. She is now working with physical therapy and will be transferred to inpatient rehab. The stroke a concern of possible atrial fibrillation. I will plan to have her undergo an implantable loop recorder insertion tomorrow. I recommend she continue on aspirin. She was taking low strength aspirin at home and is now on full-strength aspirin. This is not unreasonable. There is no indication for antithrombotic treatment at this time. I resumed her ezetimibe. She has an intolerance to statin medications. (2) Irregular heart rhythm Status: Acute Assessment & Plan: She has frequent premature supraventricular complexes which is most likely causing the irregular heart rhythm. There has not been any definitive evidence of atrial fibrillation. As above, I will plan to implant a loop recorder tomorrow. (3) Primary hypertension Assessment & Plan: She was taking indapamide at home. Given the frequent premature supraventricular complexes and elevated blood pressure, I started her on metoprolol succinate. I started a low-dose due to the acute/subacute stroke. I would recommend we allow for at least some degree of permissive hypertension in light of the stroke (4) Mixed hyperlipidemia Assessment & Plan: Her LDL level is under reasonably good control with Ezetimibe. I have reordered this medication. TYLER HENDRICKS JR, MD Aug 23, 2021 09:45
[2021-08-23] MEDS ORDERED: ASPI325T32 PO (10:41)
--- NOTE | 2021-08-23 11:02 | Speech Therapy Progress Note ---
Therapy Progress Note Speech pathology received and acknowledges the consult for a cognitive linguistic evaluation. As the patient will be admitted to the ARU, ST was instructed to HOLD evaluation until ARU admit. RADHA EVERETT Aug 23, 2021 11:02
[2021-08-23 11:15] VITALS: BP 159/78
[2021-08-23] MEDS ORDERED: FAMOTIDINE 20 MG (PEPCID) TABLET PO SCH (21:00)
== END 2021-08-23 11:15 | DRG 871 ==
LOC: EDUNIT# 16:13 → ER 16:14 → ICU 18:14 → 4TH 08-18 13:00
PROVIDERS: ADMIT Internal Medicine; ATTEND Internal Medicine
DX: A41.9 Sepsis, unspecified organism (principal); J18.9 Pneumonia, unspecified organism; I63.89 Other cerebral infarction; N39.0 Urinary tract infection, site not specified; R65.20 Severe sepsis without septic shock; D72.829 Elevated white blood cell count, unspecified; Z20.822 Contact with and (suspected) exposure to COVID-19; E86.0 Dehydration; E03.9 Hypothyroidism, unspecified; E78.2 Mixed hyperlipidemia; Z66 Do not resuscitate; I10 Essential (primary) hypertension; F03.90 Unspecified dementia, unspecified severity, without behavioral disturbance, psychotic disturbance, mood disturbance, and anxiety; M19.90 Unspecified osteoarthritis, unspecified site; I65.23 Occlusion and stenosis of bilateral carotid arteries; R53.81 Other malaise; Z88.0 Allergy status to penicillin; Z88.5 Allergy status to narcotic agent; Z88.1 Allergy status to other antibiotic agents; Z91.040 Latex allergy status
CPT/HCPCS: 36410; 36415; 51702; 70450; 71045; 76937; 80048; 80053; 80061; 80202; 81000; 82947; 83605; 83735; 84100; 84145; 85007; 85025; 85027; 85610; 85730; 87040; 87088; 87636; 93005; 93306; 93880; 94640; 94664; 94760

== ENCOUNTER 2021-08-23 10:12 | Inpatient (IN) | payer MEDICARE, OTHER ==
[~2021-08-23] VITALS: Ht 152.4 cm; Wt 74.3 kg
[~2021-08-23 10:12] MED LIST changes: +ACET-2267 PO; +ALPR0.254 PO; +BACL10TA PO; +LEVO75TA6 PO; +NITR100C10 PO; +SUCR1TAB36 PO
[2021-08-23] MEDS ORDERED: ASPI325T32 PO (10:41)
[2021-08-23 11:30] VITALS: BP 140/76
--- NOTE | 2021-08-23 12:02 | Occupational Therapy Eval ---
OT Evaluation-General/PLF Medical Diagnosis Admission Date Aug 23, 2021 Medical Diagnosis: CVA Onset Date: Aug 18, 2021 Therapy Diagnosis Therapy Diagnosis: decreased ADL status Referral Physician: Shorty Referral Reason: Evaluation/Treatment Medical History Pertinent Medical History: Arthritis, Hypothroidism Additional Medical History arthritis, hypothyroidism, cataract Current History ED from [facility] due to AMS and falls. Pt's daughter states CT scan revealed CVA. Pt transferred to ARU 08/23/21 for continued skilled therapy and medication management. Social History Home: Assisted Living ADL-Prior Level of Function SCALE: Activities may be completed with or without assistive devices. 4-Exidkjyizl-zxvgzsd completes the activity by him/herself with no assistance from a helper. 5-Set-up or Clean-up Assistance-helper sets up or cleans up; patient completes activity. [place] assists only prior to or following the activity. 4-Supervision or Touching Assistance-helper provides verbal cues and/or touching/steadying and/or contact guard assistance as patient completes activity. Assistance may be provided throughout the activity or intermittently. 3-Partial/Moderate Assistance-helper does LESS THAN HALF the effort. [place] lifts, holds or supports trunk or limbs, but provides less than half the effort. 2-Substantial/Maximal Assistance-helper does MORE THAN HALF the effort. [place] lifts or holds trunk or limbs and provides more than half the effort. 4-Ymyxwoanf-asitod does ALL the effort. Patient does none of the effort to complete the activity. Or, the assistance of 2 or more helpers is required for the patient to complete the activity. If activity was not attempted, code reason: 7-Patient Refused. 9-Not Applicable-not attempted and the patient did not perform the activity before the current illness, exacerbation or injury. 10-Not Attempted due to Environmental Limitations-(lack of equipment, weather restraints, etc.). 88-Not Attempted due to Medical Conditions or Safety Concerns. ADL PLOF Comments Per pt and daughter report, pt IND with bathing, dressing and toileting. Uses a FWW for functional mobility, and has supervision between her room and dinning room with ambulation. She has a walk in shower with SC Self Care: Independent Functional Cognition: Independent DME/Equipment: Bath Chair, Shower OT Current Status Subjective Pt agreeable to OT evaluation. Mental Status/Objective Patient Orientation: Person Current Glasses/Contacts: Yes Dentures/Partials: No Hand Dominance: Right Upper Extremity ROM WFL AAROM. Pt able to perform AROM LUE to approx 120 degrees, AAROM RUE to ap prox 120 degrees as pt flexed her elbow with instruction but did not flex shoulder. Upper Extremity Strength grossly 3+/5 ADL-Treatment Eating (QC): 7 Oral Hygiene (QC): 7 Shower/Bathe Self (QC): 7 Upper Body Dressing (QC): 7 Lower Body Dressing (QC): 7 On/Off Footwear (QC): 7 Toileting Hygiene (QC): 7 Other Treatments OT evaluation performed. Pt and daughter provided information about PLOF and home set up and participated in UE screen. PT present for evaluation and tx. Post tx, pt with PT, all needs met. ADLs will be complete on follow up OT tx. Education OT Patient Education: Correct positioning, Modified ADL techniques, Progress toward Goal/Update tx plan, Purpose of tx/functional activities, Rehab process Teaching Recipient: Patient Teaching Methods: Discussion Response to Teaching: Verbalize Understanding OT Short Term Goals Short Term Goals Time Frame: Sep 01, 2021 Eatin Oral hygiene: 5 Toileting hygiene: 3 Shower/bathe self: 3 OT Penitentiary Goals Steelscope Operator Goals Time Frame: Sep 15, 2021 Eating (QC): 6 Oral Hygiene (QC): 6 Toileting Hygiene (QC): 6 Shower/Bathe Self (QC): 4 Upper Body Dressing (QC): 6 Lower Body Dressing (QC): 4 On/Off Footwear (QC): 4 Additional Goals: 1-Demonstrate ADL Tasks, 2-Verbalize Understanding, 3-Im proveStrength/Philipp 1=Demonstrate adherence to instructed precautions during ADL tasks. 2=Patient will verbalize/demonstrate understanding of assistive devices/modifications for ADL. 3=Patient will improve strength/tolerance for activity to enable patient to perform ADL's. OT Education/Plan Problem List/Assessment Assessment: Decreased Activ Tolerance, Decreased UE Strength, Impaired Funct Balance, Impaired I ADL's, Impaired Self-Care Skills Discharge Recommendations Plan/Recommendations: Continue POC Treatment Plan/Plan of Care Patient would benefit from OT for education, treatment and training to promote independence in ADL's, mobility, safety and/or upper extremity function for ADL's. Plan of Care: ADL Retraining, Functional Mobility, UE Funct Exercise/Act Treatment Duration: Sep 15, 2021 Frequency: At least 5 of 7 days/Wk (IRF) Estimated Hrs Per Day: 1.5 hours per day Agreement: Yes Rehab Potential: Fair Time/GCodes Start Time: 11:10 Stop Time: 11:20 Total Time Billed (hr/min): 10 Billed Treatment Time 1, WAQAS KUNZ OT Aug 23, 2021 12:02
[2021-08-23] MEDS ORDERED: ONDANSETRON 4 MG (ZOFRAN) ORAL DISSOLVE TAB PO PRN (12:45)
[2021-08-23] MEDS ORDERED: LACTULOSE SYRUP 10GM/15ML (ENULOSE) 30ML UDC PO PRN (12:45)
[2021-08-23] MEDS ORDERED: CALCIUM CARBONATE 500 MG (TUMS) TAB.CHEW PO PRN (12:45)
[2021-08-23] MEDS ORDERED: FLEET ENEMA ADULT 1 EA BTL PR PRN (12:45)
[2021-08-23] MEDS ORDERED: DOCUSATE SODIUM 100 MG (COLACE) CAP PO PRN (12:45)
[2021-08-23] MEDS ORDERED: LOPERAMIDE 2 MG (IMODIUM) TABLET PO PRN (12:45)
[2021-08-23] MEDS ORDERED: BISACODYL 10 MG SUPP (DULCOLAX) PR PRN (12:45)
[2021-08-23] MEDS ORDERED: guaiFENesin/CODEINE (ROBITUSSIN AC) 10ML UDC PO PRN (12:45)
[2021-08-23] MEDS ORDERED: ALPRAZolam 0.25 MG (XANAX) TAB PO PRN (12:45)
[2021-08-23] MEDS ORDERED: diphenhydrAMINE 25 MG TAB (BENADRYL) PO PRN (12:45)
--- NOTE | 2021-08-23 12:46 | PM&R Post Admission Assessment ---
PM&R HP Date of Visit: Aug 23, 2021 Time of Visit: 13:00 History of Present Illness CC: Debility from cerebellar stroke, pneumonia HPI: This is an 86 yr old clinic pt of Dr. Kang who presents from 4th floor after a complicated course requiring ICU for pneumonia with hypotension and severe sepsis placed on broad spectrum antibiotics. Pt ultimately improved but appears she has sustained a subacute cerebellar stroke. She will be receiving aggressive therapy in order to return back to independent living with assisted living. She does have significant dementia, so I'll monitor closely. She resides in assisted living and the goal is to regain enough independence to return there. Cognition is certainly an issue. Past Zwdhtfs-Ijfpvq-Exjilg Hx Past Med/Social Hx: Reviewed Nursing Past Med/Soc Hx, Reviewed and Corrections made Patient Social History Marrital Status: Employed/Student: retired Smoking Status: Never a Smoker Immunizations Up To Date Date of Influenza Vaccine: May 05, 2021 Past Medical History Surgeries: Section, Orthopedic Respiratory: Pneumonia Cardiac: Hypertension Neurological: Dementia, Stroke, TIA Genitourinary: Kidney Infection, Bladder Infection Musculoskeletal: Arthritis Endocrine: Hypothyroidsim HEENT: Cataract Hearing Impairment: Hard of Hearing Family History Cancer, Diabetes Self Care: Independent Functional Cognition: Independent PM&R Allergy/Meds/Data Review Allergies Coded Allergies: Penicillins (Verified Allergy, Unknown, 03/04/21) Venrcss-AAH-CoZ Reductase Inhibitor (Unverified Allergy, Unknown, 03/07/21) cephalexin (Verified Allergy, Unknown, 03/04/21) hydrocodone (Verified Allergy, Unknown, 03/04/21) indomethacin (Verified Allergy, Unknown, 03/04/21) latex (Verified Allergy, Unknown, 03/04/21) morphine (Verified Allergy, Unknown, 03/04/21) Home Medications Scheduled ALPRAZolam (ALPRAZolam), 0.25 MG PO BID, (Reported) Acetaminophen (Tylenol Extra Strength), 500 MG PO QID, (Reported) Alendronate Sodium (Alendronate Sodium), 70 MG PO SATURDAY, (Reported) Aspirin (Aspirin EC), 325 MG PO DAILY Estradiol (Estradiol Tablet), 1 MG PO DAILY, (Reported) Ezetimibe (Ezetimibe), 10 MG PO HS, (Reported) Ferrous Sulfate (Ferrous Sulfate), 325 MG PO 1200, (Reported) Gabapentin (Gabapentin), 600 MG PO BID, (Reported) Indapamide (Indapamide), 1.25 MG PO DAILY, (Reported) Levothyroxine Sodium (Levothyroxine Sodium), 75 MCG PO DAILY, (Reported) Pantoprazole Sodium (Pantoprazole Sodium), 40 MG PO BID, (Reported) Sucralfate (Carafate), 1 GM PO ACHS, (Reported) Scheduled PRN Baclofen (Baclofen), 10 MG PO TID PRN for MUSCLE SPASMS, (Reported) Discontinued Medications Ciprofloxacin HCl (Ciprofloxacin HCl), 500 MG PO BID Discontinued Reason: Duplicate Order Ferrous Sulfate (Ferrous Sulfate), 325 MG PO DAILY Discontinued Reason: Duplicate Order Levothyroxine Sodium (Levothyroxine Sodium), 50 MCG PO DAILY, (Reported) Discontinued Reason: Duplicate Order Nitrofurantoin Monohyd/M-Cryst (Nitrofurantoin [place]-Mcr 100 mg), 100 MG PO BID, (Reported) Pantoprazole Sodium (Pantoprazole Sodium), 40 MG PO BID Discontinued Reason: No Longer Taking Sucralfate (Sucralfate), 1 GM PO ACHS Discontinued Reason: No Longer Taking Tramadol HCl (Tramadol HCl), 50 MG PO Q6HR PRN for PAIN-MODERATE (5-7) Discontinued Reason: No Longer Taking Current Medications Current Medications Reviewed Review of Systems Constitutional: see HPI, malaise, weakness EENTM: no symptoms reported Respiratory: no symptoms reported Cardiovascular: no symptoms reported Gastrointestinal: no symptoms reported Genitourinary: no symptoms reported Musculoskeletal: no symptoms reported Skin: no symptoms reported Psychiatric/Neurological: Anxiety, Depressed All Other Systems Reviewed Negative Unless Noted: Yes Physical Exam Physical Exam Vital Signs Vital Signs - First Documented 08/23/21 11:30 Temp 37.0 Pulse 66 Resp 18 B/P (MAP) 140/76 (97) Pulse Ox 99 O2 Delivery Room Air Capillary Refill : Height, Weight, BMI Height: '" Weight: lbs. oz. kg; 33.82 BMI Method: General Appearance: No Apparent Distress, WD/WN, Chronically ill Eyes: Bilateral Eye Normal Inspection, Bilateral Eye PERRL HEENT: PERRL/EOMI, Normal ENT Inspection, Pharynx Normal Neck: Full Range of Motion, Normal Inspection, Non Tender, Supple, Carotid Brui t Respiratory: Chest Non Tender, Lungs Clear, Normal Breath Sounds, No Accessory Muscle Use, No Respiratory Distress Cardiovascular: Regular Rate, Rhythm, No Edema, No Gallop, No JVD, No Murmur, Normal Peripheral Pulses Gastrointestinal: Normal Bowel Sounds, No Organomegaly, No Pulsatile Mass, Non Tender, Soft Back: Normal Inspection, No CVA Tenderness, No Vertebral Tenderness Extremity: Normal Capillary Refill, Normal Inspection, Normal Range of Motion, Non Tender, No Calf Tenderness, No Pedal Edema Neurologic/Psychiatric: Alert, No Motor/Sensory Deficits, inspector subassemblies II-XII Norm as Tested, Abnormal Gait, Depressed Affect, Disoriented, Motor Weakness (left sided) Skin: Normal Color, Warm/Dry Lymphatic: No Adenopathy PM&R Medical Assessment & Plan REHAB/MEDICAL ASSESSMENT AND PLAN: REHAB IMPAIRMENT GROUP: Cerebellar CVA ETIOLOGIC DIAGNOSIS: Cerebellar CVA The comorbidities that impact the patients function and/or functional outcome by: Cognitive deficit acute on chronic, new CVA, dementia, recent pneumonia REHAB PLAN: The patient is being admitted to our comprehensive inpatient rehabilitation facility and can tolerate the intensity of service consisting of at least: 180 minutes of therapy a day, 5 out of 7 days a week Rehab treatment will consist of: PT and OT will focus on regaining enough independence to use assistive device in order to return back to independent living and speech therapy will work on cognition The patient/family has a good understanding of our discharge process and will benefit from an interdisciplinary inpatient rehabilitation program. The patient has potential to make improvement and is in need of at least two of the following multidisciplinary therapies including but not limited to physical, occupational, speech, and prosthetics and orthotics. Additionally the patient will need services from respiratory, nutritional services, wound care, psychology, etc. (Customize this to each patient). Given the patients complex condition and risk of further medical complications, rehabilitation services cannot be safely or effectively provided at a lower level of care such as a intermediate facility. BARRIERS TO DISCHARGE: Cognitive deficit ESTIMATED LOS: 7 days DISPOSITION: Assisted living RELEVANT CHANGES SINCE PREADMISSION SCREENING: I have compared the patients medical and functional status at the time of the preadmission screening and there are: No changes PROGNOSIS: Fair REHABILITATION GOALS: 1. PT and OT will focus on regaining enough independence to use assistive device in order to return back to independent living and speech therapy will work on cognition All the above goals were reviewed with the patient and he/she is in agreement. By signing this document, I acknowledge that I have personally performed a full physical examination on this patient within 24 hours of admission to this inpatient rehabilitation facility and have determined the patient to be able to tolerate the above course of treatment at an intensive level for a reasonable period of time. I will be completing a detailed individualized Plan of Care for this patient by day #4 of the patients stay based upon the Preadmission Screen, the Post-Admission Evaluation, and the therapy evaluations. Admission Dx/Comorbidities: (1) Cerebellar stroke Status: Acute ICD Codes: I63.9 - Cerebral infarction, unspecified (2) Severe sepsis Status: Acute ICD Codes: A41.9 - Sepsis, unspecified organism; R65.20 - Severe sepsis without septic shock (3) Pneumonia Status: Acute ICD Codes: J18.9 - Pneumonia, unspecified organism (4) Primary hypertension ICD Codes: I10 - Essential (primary) hypertension (5) Anemia Status: Acute ICD Codes: D64.9 - Anemia, unspecified (6) Mixed hyperlipidemia ICD Codes: E78.2 - Mixed hyperlipidemia (7) Right bundle branch block ICD Codes: I45.10 - Unspecified right bundle-branch block (8) Essential hypertension ICD Codes: I10 - Essential (primary) hypertension (9) Chronic kidney disease, stage 3 ICD Codes: N18.30 - Chronic kidney disease, stage 3 unspecified Assessment/Plan Assessment and Plan Assess & Plan/Chief Complaint Assessment: Cerebellar stroke Dementia Status post severe sepsis with pneumonia History of recurrent UTIs Osteoporosis Hypertension Anemia DNR Chronic debility resides in assisted living Plan: Home meds Aggressive rehab Speech therapy ALFONSO MEDINA DO Aug 23, 2021 12:45
--- NOTE | 2021-08-23 12:46 | Physical Therapy Evaluation ---
PT Evaluation-General Medical Diagnosis Admission Date Aug 23, 2021 at 11:10 Medical Diagnosis: sepsis, pneumonia Onset Date: Aug 18, 2021 Therapy Diagnosis Therapy Diagnosis: debility, weakness Precautions Precautions/Isolations: Fall Prevention Referral Physician: Shorty Reason for Referral: Evaluation/Treatment Medical History Pertinent Medical History: Arthritis, Hypothroidism Additional Medical History Arthritis, Hypothroidism Reviewed History: Yes Social History Home: Assisted Living Prior Prior Level of Function SCALE: Activities may be completed with or without assistive devices. 1-Kulqkiqlzz-rvcqjbx completes the activity by him/herself with no assistance from a helper. 5-Set-up or Clean-up Assistance-helper sets up or cleans up; patient completes activity. [place] assists only prior to or following the activity. 4-Supervision or Touching Assistance-helper provides verbal cues and/or touching/steadying and/or contact guard assistance as patient completes activity. Assistance may be provided throughout the activity or intermittently. 3-Partial/Moderate Assistance-helper does LESS THAN HALF the effort. [place] lifts, holds or supports trunk or limbs, but provides less than half the effort. 2-Substantial/Maximal Assistance-helper does MORE THAN HALF the effort. [place] lifts or holds trunk or limbs and provides more than half the effort. 5-Qxdxiboir-skiekn does ALL the effort. Patient does none of the effort to complete the activity. Or, the assistance of 2 or more helpers is required for the patient to complete the activity. If activity was not attempted, code reason: 7-Patient Refused. 9-Not Applicable-not attempted and the patient did not perform the activity before the current illness, exacerbation or injury. 10-Not Attempted due to Environmental Limitations-(lack of equipment, weather restraints, etc.). 88-Not Attempted due to Medical Conditions or Safety Concerns. Bed Mobility: 6 Transfers (B,C,W/C): 6 Gait: 6 Indoor Mobility (Ambulation): Independent Stairs: Unknown Prior Devices Use: Walker PT Evaluation-Current Subjective Patient presented sitting in her chair with and agrees to start therapy. Patient is very slow with answering questions today. No complaints of pain. Pt/Family Goals none stated Objective Patient Orientation: Person, Confused ROM/Strength ROM Lower Extremities WFL Strength Lower Extremities 4/5 strength bilaterally grossly Sensory Vision: Wears Glasses Hearing: Functional Transfers Roll Left & Right (QC): 1 (dependent x2) Sit to Lying (QC): 1 (dependent) Lying to Sitting/Side of Bed(Q: 1 (dependent x2) Sit to Stand (QC): 3 (mod) Chair/Vbg-gb-Kqehz Xfer(QC): 3 (mod) Toilet Transfer (QC): 3 (mod) Car Transfer (QC): 1 (dependent) Patient performs rolling and supine <-> sit with dependence, sit <-> stand and transfers mod assist, car transfer dependent. Patient could not actually complete a car transfer even with assist of 2 people. Patient needs assist to help guide her walker and tactile and verbal cues for positioning and safety. Gait Does the Patient Walk?: Yes Mode of Locomotion: Walk Anticipated Mode of Locomotion: Walk Walk 10 feet (QC): 3 (mod) Walk 50 ft with 2 Turns(QC): 88 Walk 150 ft (QC): 88 Walking 10ft/uneven surface-QC: 88 Distance: 10' Gait Assistive Device: FWW Comments/Gait Description Patient can ambulate 10' with a rolling walker with mod assist. Patient ambulated with slow gait pattern. Patient required assistance moving the walker and had problems following directions with ambulation. She had difficulty bearing weight on right leg due to hip pain, has a trendelenburg gait and leans to the left. Wheelchair Training Does the Pt Use a Wheelchair?: Yes Distance: 15' Wheel 50 ft with 2 turns (QC): 88 Wheel 150 ft (QC): 88 Type of Wheelchair: Manual Patient can propel a manual WC 15' with min assist. Patient had difficulty with moving the w/c with her legs and did not attempt to propel herself with her arms. Patient moved very slowly required assistance with turning the w/c. Stairs 1 Step (curb) (QC): 88 4 Steps (QC): 88 12 Steps (QC): 88 Balance Sitting Static: Normal Sitting Dynamic: Fair Standing Static: Fair Standing Dynamic: Poor Picking up an Object (QC): 88 Assessment/Needs Patient in bed post tx with nurse call, phone, tray, all needs met, bed alarm on. Patient has impaired mobility, strength, endurance. She needs significant level of assist for supine <-> sit and mod assist for transfers and ambulation. Rehab Potential: Guarded PT Short Term Goals Short Term Goals Time Frame: Aug 30, 2021 Roll Left & Right: 2 Sit to lyin Lying to sitting on side of be: 2 Sit to stand: 3 Chair/odx-cd-zhesv transfer: 3 Walk 10 feet: 3 Walk 50 feet with two turns: 3 PT Healthcare Marketer Goals Healthcare Marketer Goals PT Correction Goals Time Frame: Sep 13, 2021 Roll Left & Right (QC): 3 Sit to Lying (QC): 3 Lying-Sitting on Side/Bed(QC): 3 Sit to Stand (QC): 4 Chair/Sju-ms-Xhpzu Xfer(QC): 4 Toilet Transfer (QC): 4 Car Transfer (QC): 3 Does the Patient Walk: Yes Walk 10 feet (QC): 4 Walk 50ft with 2 Turns (QC): 4 Walk 150 ft (QC): 4 Walking 10ft on Uneven Surface: 4 1 Step (curb) (QC): 88 4 Steps (QC): 88 12 Steps (QC): 88 Picking up an Object (QC): 4 Wheel 50 feet with 2 turns (QC: 4 Wheel 150 feet: 4 PT Plan Problem List Problem List: Activity Tolerance, Functional Strength, Safety, Balance, Gait, Transfer, Bed Mobility, ROM Treatment/Plan Treatment Plan: Continue Plan of Care Treatment Plan: Bed Mobility, Education, Functional Activity Philipp, Functional Strength, Group Therapy, Gait, Safety, Therapeutic Exercise, Transfers Treatment Duration: Sep 13, 2021 Frequency: At least 5 of 7 days/Wk (IRF) Estimated Hrs Per Day: 1.5 hours per day Patient and/or Family Agrees t: Yes Safety Risks/Education Patient Education: Gait Training, Transfer Techniques, Correct Positioning, W/C Management, Safety Issues Teaching Recipient: Patient Teaching Methods: Demonstration, Discussion Response to Teaching: Reinforcement Needed Discharge Recommendations Plan Patient will perform bed mobility and transfer training, balance and endurance training, functional strengthening, gait training, and education, to improve functional mobility and independence at home. Therapy Discharge Recommendati: 24 Hour Supervision, Post Acute PT Time/GCodes Time In: 1120 Time Out: 1200 Total Billed Treatment Time: 40 Total Billed Treatment 1 visit EVM 10' FA 30' SANDRA TRAN PT Aug 23, 2021 12:46
--- NOTE | 2021-08-23 12:57 | ST Cognitive Linguistic Eval ---
Speech Evaluation-General Medical Diagnosis CVA Onset Date: Aug 18, 2021 Therapy Diagnosis Therapy Diagnosis: Suspected Cognitive Linguistic Impairment Precautions Precautions: Fall Precautions/Isolations: Standard Precautions Referral Referring Physician: Dr. Torrie Oro Medical History Pertinent Medical History: Arthritis, Hypothroidism Current History The patient is an 86 year-old female with a past medical history significant for dementia, arthritis, and hypothyroidism, who presented to [facility] with altered mental status. The patient was found to have experienced a cerebellar stroke per head CT. Head CT: 08/21/2021: 1.: There is interval development of a small likely subacute infarct involving the inferior aspect of left cerebellum. There is no brain herniation, midline shift or intracranial hemorrhage. Reviewed History: Yes Social History Home: Assisted Living Current Living Status: Alone Speech PLF-Current Status Prior Level of Function Per patient's daughter, the patient resided in an assisted living facility. The patient completed bathroom transfers independently and required "a little help" in the shower. Subjective The patient was lying in bed, eyes closed, upon entrance. The patient required consistent verbal prompting and encouragement from the clinician for limited participation in the assessment. The patient's daughter was present at bedside, who aided the clinician in prior medical history and function information. The RN was intermittently in the room throughout the evaluation. Language Eval: Auditory The patient does not continuously remain in a wakeful state for the clinician to determine full comprehension of simple yes and no questions or the patient's ability to follow verbal commands. The patient does initially display accuracy with these items, however, her accuracy drastically declines throughout the session as the patient returns to sleep frequently. Language Eval: Verbal Language Completes Spontaneous Greeting: Functional Produces Auto, Serial Info: Functional States Basic Personal Info: Functional The patient does not continuously remain in a wakeful state for the clinician to determine the patient's full ability to express her wants and needs fluently. The patient does initially display accuracy with verbal expression, sharing basic information about self, however, her accuracy drastically declines throughout the session as the patient returns to sleep frequently. Cognitive Patient Orientation The patient stated the date was "August 05, 2020." The patient stated she was in the state of [place] following multiple repetitions of the question by the clinician. Objective Cognitive Domain Attention: Severe Memory: Severe (The patient was unable to recall any of five single words following a three minute delay.) The patient's cognitive function appears to be greatly impacted by her level of fatigue. Continued attempts to complete the cognitive screening will be attempted by the clinician. Objective Formal/Standardized Tests [facility] Status ([facility])- attempted. Oral Motor/Speech Production The clinician is unable to fully assess the patient's verbal intelligibility as the patient communicate in single words. As fatigue decreases and increased participation is accomplished, additional assessment values can be determined by the clinician. Impression Due to continued fatigue, the patient's cognitive linguistic function and ability fluctuated throughout the clinician's attempts to complete the formal cognitive linguistic evaluation. With improved alertness and participation, continued and ongoing assessment will be completed by the clinician. At this time, the patient does present with significant impairments in the areas of cognition. Speech Patient Assess Expression of Ideas/Wants: Rarely/Never (1) Understanding Verbal Content: Rarely/Never Understand (1) Brief Interview-Mental Status: No(pt is rarely/never understood) Repetition of Three Words: Three (3) Temporal Orientation: Year: Missed by 1 year (2) Temporal Orientation: Month: Accurate within 5 days(2) Temporal Orientation: Day: Incorrect or No Answer(0) Recall : Wear to say "Sock": No, could not recall (0) Recall : Color: No, could not recall (0) Recall : Bed: No, could not recall (0) Memory/Recall Ability: None of the above were recalled Speech Short Term Goals Short Term Goals Short Term Goals 1. The patient will participate in completion of the UMS assessment with mild clinician verbal prompting. Speech Long-Term Goals Medical Dosimetrist Goals 1. The patient will demonstrate increased functional safety awareness and problem solving for return to the least restrictive environment. Speech-Plan Treatment Plan Speech Therapy Treatment Plan: Continue Plan of Care Treatment Duration: Sep 20, 2021 Frequency: 4 times per week (Four to five times per week.) Estimated Hrs Per Day: .5 hour per day Rehab Potential: Fair Pt/Family Agrees to Plan: Yes Safety Risks/Education Teaching Recipient: Patient, Family Teaching Methods: Discussion Response to Teaching: Verbalize Understanding, Reinforcement Needed Education Topics Provided: Plan of Care, Role of Skilled Speech Language Pathology Time Speech Therapy Time In: 11:56 Speech Therapy Time Out: 12:26 Total Billed Time: 30 Billed Treatment Time 1[facility] SLTS LOY, ELIZ[facility] Aug 23, 2021 12:57
[2021-08-23] MEDS ORDERED: NON-FORMULARY MEDICATION 1 EA EA (Alendronate Sodium 70 MG) PO SCH (13:00)
--- NOTE | 2021-08-23 13:32 | Physical Therapy Daily Note ---
PT Daily Note-Current Subjective Patient in bed pre tx, agrees to PT with a nod of the head, voices no complaints of pain but also seems to be virtually non-verbal at this time. Will be co- treating with OT due to poor patient mobility, strength, endurance, poor safety awareness, coordinate UE and LE during activity, safety and reduce risk of falls. Appearance Patient in WC post tx, still working with OT. Mental Status Patient Orientation: Person, Unable to Assess, Non-Verbal/Aphasic Transfers SCALE: Activities may be completed with or without assistive devices. 6-Tjeauisikb-lrznwjs completes the activity by him/herself with no assistance from a helper. 5-Set-up or Clean-up Assistance-helper sets up or cleans up; patient completes activity. [place] assists only prior to or following the activity. 4-Supervision or Touching Assistance-helper provides verbal cues and/or touching/steadying and/or contact guard assistance as patient completes activity. Assistance may be provided throughout the activity or intermittently. 3-Partial/Moderate Assistance-helper does LESS THAN HALF the effort. [place] lifts, holds or supports trunk or limbs, but provides less than half the effort. 2-Substantial/Maximal Assistance-helper does MORE THAN HALF the effort. [place] lifts or holds trunk or limbs and provides more than half the effort. 1-Vjybdowbj-togmfr does ALL the effort. Patient does none of the effort to complete the activity. Or, the assistance of 2 or more helpers is required for the patient to complete the activity. If activity was not attempted, code reason: 7-Patient Refused. 9-Not Applicable-not attempted and the patient did not perform the activity before the current illness, exacerbation or injury. 10-Not Attempted due to Environmental Limitations-(lack of equipment, weather restraints, etc.). 88-Not Attempted due to Medical Conditions or Safety Concerns. Roll Left & Right (QC): 3 Lying to Sitting/Side of Bed(Q: 3 Sit to Stand (QC): 3 Chair/Gee-lb-Qkccq Xfer(QC): 3 Toilet Transfer (QC): 3 needs assist guiding walker with transfers. Assist with balance and positioning during undressing and transfers in shower and back to . Gait Training Distance: 10' Walk 10 feet (QC): 3 Gait Assistive Device: FWW Patient needs help guiding the walker, very slow ambulation, very little foot clearance, short steps. Treatments PT performed bed mobility and transfers, ambulation, balance and positioning during dressing and shower, OT performed dressing, shower, UE positioning and safety during activity. Assessment Current Status: Poor Progress Patient either having difficulty or deciding not to communicate. PT Short Term Goals Short Term Goals Time Frame: Aug 30, 2021 Roll Left & Right: 2 Sit to lyin Lying to sitting on side of be: 2 Sit to stand: 3 Chair/wqh-wx-fvhqf transfer: 3 Walk 10 feet: 3 Walk 50 feet with two turns: 3 PT Group Home Goals Hardwood Floor Installer Goals PT Group Home Goals Time Frame: Sep 13, 2021 Roll Left & Right (QC): 3 Sit to Lying (QC): 3 Lying-Sitting on Side/Bed(QC): 3 Sit to Stand (QC): 4 Chair/Pso-sv-Focob Xfer(QC): 4 Toilet Transfer (QC): 4 Car Transfer (QC): 3 Does the Patient Walk: Yes Walk 10 feet (QC): 4 Walk 50ft with 2 Turns (QC): 4 Walk 150 ft (QC): 4 Walking 10ft on Uneven Surface: 4 1 Step (curb) (QC): 88 4 Steps (QC): 88 12 Steps (QC): 88 Picking up an Object (QC): 4 Wheel 50 feet with 2 turns (QC: 4 Wheel 150 feet: 4 PT Plan Problem List Problem List: Activity Tolerance, Functional Strength, Safety, Balance, Gait, Transfer, Bed Mobility, ROM Treatment/Plan Treatment Plan: Continue Plan of Care Treatment Plan: Bed Mobility, Education, Functional Activity Philipp, Functional Strength, Group Therapy, Gait, Safety, Therapeutic Exercise, Transfers Treatment Duration: Sep 13, 2021 Frequency: At least 5 of 7 days/Wk (IRF) Estimated Hrs Per Day: 1.5 hours per day Patient and/or Family Agrees t: Yes Safety Risks/Education Patient Education: Gait Training, Transfer Techniques, Correct Positioning, Safety Issues Teaching Recipient: Patient Teaching Methods: Demonstration, Discussion Response to Teaching: Reinforcement Needed Time/GCodes Time In: 1300 Time Out: 1335 Total Billed Treatment Time: 35 Total Billed Treatment 1 visit FA 35' MARKELLSANDRA HUYNH PT Aug 23, 2021 13:32
--- NOTE | 2021-08-23 14:27 | Occupational Ther Daily Note ---
OT Current Status-Daily Note Subjective Pt alert, lying in bed. Pt inconsistently verbal, not consistently acknowledging questions. Mental Status/Objective Patient Orientation: Person, Place, Time, Situation ADL-Treatment OT/PT co-treat ([id number]), skills of 2 clinicians required to increase overall mobility for ambulation and ADLs while decreasing fall risk. PT focusing on ambulation and transfers while OT focusing on B UE placement during transfer/ambulation and ADLs. Pt appears to get 'stuck' when completing motor movements. Pt requires assist to initiate movement then at times will continue with movement or other times will not be able to move. Assist x2 for toilet transfer and assist x2 for toileting. Pt able to wash R UE and abdomen then required assist to bathe all other areas. Max A for upper/lower body dressing and footwear. Set up/supervision for oral care sitting at sink. Pt has difficulty with motor planing movements with transfers. After session, pt lying in bed with call light/phone in reach. All needs met in room. Therapy Code Descriptions/Definitions Functional [place] Measure: 0=Not Assessed/NA 4=Minimal Assistance 1=Total Assistance 5=Supervision or Setup 2=Maximal Assistance 6=Modified [place] 3=Moderate Assistance 7=Complete IndependenceSCALE: Activities may be completed with or without assistive devices. 4-Qubgohspza-awintlj completes the activity by him/herself with no assistance from a helper. 5-Set-up or Clean-up Assistance-helper sets up or cleans up; patient completes activity. [place] assists only prior to or following the activity. 4-Supervision or Touching Assistance-helper provides verbal cues and/or touching/steadying and/or contact guard assistance as patient completes activity. Assistance may be provided throughout the activity or intermittently. 3-Partial/Moderate Assistance-helper does LESS THAN HALF the effort. [place] lifts, holds or supports trunk or limbs, but provides less than half the effort. 2-Substantial/Maximal Assistance-helper does MORE THAN HALF the effort. [place] lifts or holds trunk or limbs and provides more than half the effort. 8-Vpjlovgjk-ggfccr does ALL the effort. Patient does none of the effort to complete the activity. Or, the assistance of 2 or more helpers is required for the patient to complete the activity. If activity was not attempted, code reason: 7-Patient Refused. 9-Not Applicable-not attempted and the patient did not perform the activity before the current illness, exacerbation or injury. 10-Not Attempted due to Environmental Limitations-(lack of equipment, weather restraints, etc.). 88-Not Attempted due to Medical Conditions or Safety Concerns. Oral Hygiene (QC): 4 Bathing Location: L Arm, Abdomen Shower/Bathe Self (QC): 2 Upper Body Dressing (QC): 2 Lower Body Dressing (QC): 2 On/Off Footwear: 2 Toileting Hygiene (QC): 1 Toilet Transfer (QC): 1 OT Short Term Goals Short Term Goals Time Frame: Sep 01, 2021 Eatin Oral hygiene: 5 Toileting hygiene: 3 Shower/bathe self: 3 OT Alf Goals Bible Teacher Goals Time Frame: Sep 15, 2021 Eating (QC): 6 Oral Hygiene (QC): 6 Toileting Hygiene (QC): 6 Shower/Bathe Self (QC): 4 Upper Body Dressing (QC): 6 Lower Body Dressing (QC): 4 On/Off Footwear (QC): 4 Additional Goals: 1-Demonstrate ADL Tasks, 2-Verbalize Understanding, 3- ImproveStrength/Philipp 1=Demonstrate adherence to instructed precautions during ADL tasks. 2=Patient will verbalize/demonstrate understanding of assistive devices/modific ations for ADL. 3=Patient will improve strength/tolerance for activity to enable patient to perform ADL's. OT Education/Plan Problem List/Assessment Assessment: Decreased Activ Tolerance, Decreased Safety Aware, Impaired Bed Mobility, Impaired Cognition, Impaired Coordination, Impaired Self-Care Skills Discharge Recommendations Plan/Recommendations: Continue POC Treatment Plan/Plan of Care Patient would benefit from OT for education, treatment and training to promote independence in ADL's, mobility, safety and/or upper extremity function for ADL's. Plan of Care: ADL Retraining, Functional Mobility, UE Funct Exercise/Act Treatment Duration: Sep 15, 2021 Frequency: At least 5 of 7 days/Wk (IRF) Estimated Hrs Per Day: 1.5 hours per day Agreement: Yes Rehab Potential: Guarded Time/GCodes Start Time: 13:00 Stop Time: 14:10 Total Time Billed (hr/min): 70 Billed Treatment Time 1 visit-ADL 5 (70 min) DARREL BEARD Aug 23, 2021 14:27
[2021-08-23] MEDS: ACETAMINOPHEN 500 MG TAB (TYLENOL) PO SCH ×3 (14:33→19:23)
[2021-08-23] MEDS: SUCRALFATE 1 GM (CARAFATE) TAB PO SCH ×3 (16:02→19:23)
[2021-08-23] MEDS: ALPRAZolam 0.25 MG (XANAX) TAB PO SCH (19:23)
[2021-08-23] MEDS: GABAPENTIN 600 MG (NEURONTIN) TAB PO SCH (19:23)
[2021-08-23] MEDS: PANTOPRAZOLE 40 MG (PROTONIX) TAB PO SCH (19:23)
[2021-08-23] MEDS: eZETimibe 10 MG (ZETIA) TABLET PO SCH (19:23)
[2021-08-23 20:00] VITALS: BP 148/73
[2021-08-23] MEDS: polyethylene glycoL POWDER 17 GM (MIRALAX) PACK PO SCH (20:05)
[2021-08-23] MEDS: DOCUSATE SODIUM 100 MG (COLACE) CAP PO SCH (20:05)
[2021-08-23] MEDS: SENNA W/DOCUSATE (SENOKOT S) TABLET PO SCH (20:05)
[2021-08-24] MEDS ORDERED: LORazepam INJ 2 MG/ML (ATIVAN) VIAL IM PRN (05:45)
[2021-08-24] MEDS ORDERED: BISACODYL 10 MG SUPP (DULCOLAX) PR PRN (05:45)
[2021-08-24] MEDS ORDERED: WATER (STERILE) FOR INJ 10 ML BTL INJ SCH ×2 (05:45)
[2021-08-24] MEDS ORDERED: MELATONIN 3 MG TABLET PO PRN (05:45)
[2021-08-24] MEDS ORDERED: CALCIUM CARBONATE 500 MG (TUMS) TAB.CHEW PO PRN (05:45)
[2021-08-24] MEDS ORDERED: ONDANSETRON 4 MG/2 ML (SDV) Z0FRAN IV PRN (05:45)
[2021-08-24] MEDS ORDERED: polyethylene glycoL POWDER 17 GM (MIRALAX) PACK PO PRN (05:45)
[2021-08-24] MEDS ORDERED: MILK OF MAGNESIA 400 MG/5 ML 30 ML UDC PO PRN (05:45)
[2021-08-24] MEDS ORDERED: diphenhydrAMINE 25 MG TAB (BENADRYL) PO PRN (05:45)
[2021-08-24] MEDS ORDERED: ZIPRASIDONE 20 MG INJ (GEODON) VIAL IM PRN (05:45)
[2021-08-24] MEDS ORDERED: ANTACID SUSP 30 ML UDC (MYLANTA) PO PRN (05:45)
[2021-08-24] MEDS ORDERED: ACETAMINOPHEN 325 MG TABLET PO PRN (05:45)
[2021-08-24] MEDS ORDERED: diphenhydrAMINE 50 MG/ML INJ (BENADRYL) IVP PRN (05:45)
[2021-08-24] MEDS ORDERED: ONDANSETRON 4 MG (ZOFRAN) ORAL DISSOLVE TAB PO PRN (05:45)
[2021-08-24] MEDS ORDERED: doxAzosin 4 MG (CARDURA) TAB PO PRN (05:45)
[2021-08-24] MEDS ORDERED: LACTULOSE SYRUP 10GM/15ML (ENULOSE) 30ML UDC PO PRN (05:45)
--- NOTE | 2021-08-24 06:06 | PM&R Progress Note ---
Subjective HPI/CC On Admission Date Seen by Provider: Aug 24, 2021 Time Seen by Provider: 11:00 Subjective/Events-last exam 08/24/2021: Patient doing pretty well Held the scheduled Xanax due to sedation Blood pressure was elevated prior to meds Feeds her self Family told nurse they think she is having seizures since everyone in her family has seizures but there was no evidence of any seizure-like activity assessed by the nursing staff so will be on alert for anything like that. No evidence to support the addition of antiseizure meds. Review of Systems General: Fatigue, Malaise Neurological: Confusion Objective Exam Vital Signs Vital Signs Date Time Temp Pulse Resp B/P (MAP) Pulse Ox O2 Delivery O2 Flow Rate FiO2 08/24/21 21:30 58 98/54 (69) 08/24/21 21:16 36.8 24 96 Room Air Capillary Refill : General Appearance: No Apparent Distress, WD/WN, Chronically ill HEENT: PERRL/EOMI, Normal ENT Inspection, Pharynx Normal Neck: Full Range of Motion, Normal Inspection, Non Tender, Supple, Carotid Bruit Respiratory: Chest Non Tender, Lungs Clear, Normal Breath Sounds, No Accessory Muscle Use, No Respiratory Distress Cardiovascular: Regular Rate, Rhythm, No Edema, No Gallop, No JVD, No Murmur, Normal Peripheral Pulses Gastrointestinal: Normal Bowel Sounds, No Organomegaly, No Pulsatile Mass, Non Tender, Soft Back: Normal Inspection, No CVA Tenderness, No Vertebral Tenderness Extremity: Normal Capillary Refill, Normal Inspection, Normal Range of Motion, Non Tender, No Calf Tenderness, No Pedal Edema Neurologic/Psychiatric: Alert, No Motor/Sensory Deficits, cia agent II-XII Norm as Tested, Abnormal Gait, Depressed Affect, Disoriented, Motor Weakness (left sided) Skin: Normal Color, Warm/Dry Lymphatic: No Adenopathy Results/Procedures Lab Laboratory Tests 08/24/21 06:21 08/24/21 07:50 Patient resulted labs reviewed. FIM Transfers Therapy Code Descriptions/Definitions Functional [place] Measure: 0=Not Assessed/NA 4=Minimal Assistance 1=Total Assistance 5=Supervision or Setup 2=Maximal Assistance 6=Modified [place] 3=Moderate Assistance 7=Complete IndependenceSCALE: Activities may be completed with or without assistive devices. 9-Nsqbxwnvrp-yeugznd completes the activity by him/herself with no assistance from a helper. 5-Set-up or Clean-up Assistance-helper sets up or cleans up; patient completes activity. [place] assists only prior to or following the activity. 4-Supervision or Touching Assistance-helper provides verbal cues and/or touching /steadying and/or contact guard assistance as patient completes activity. Assistance may be provided throughout the activity or intermittently. 3-Partial/Moderate Assistance-helper does LESS THAN HALF the effort. [place] lifts, holds or supports trunk or limbs, but provides less than half the effort. 2-Substantial/Maximal Assistance-helper does MORE THAN HALF the effort. [place] lifts or holds trunk or limbs and provides more than half the effort. 0-Yxbopeswa-jpjgfl does ALL the effort. Patient does none of the effort to complete the activity. Or, the assistance of 2 or more helpers is required for the patient to complete the activity. If activity was not attempted, code reason: 7-Patient Refused. 9-Not Applicable-not attempted and the patient did not perform the activity before the current illness, exacerbation or injury. 10-Not Attempted due to Environmental Limitations-(lack of equipment, weather restraints, etc.). 88-Not Attempted due to Medical Conditions or Safety Concerns. Roll Left to Right (QC): 3 Sit to Lying (QC): 1 (dependent) Sit to Stand (QC): 3 Chair/Dqx-ee-Wojyx Xfer(QC): 3 Car Transfer (QC): 1 (dependent) Gait Training Does the Patient Walk?: Yes Distance: 10' Walk 10 feet (QC): 3 Walk 50 ft with 2 Turns(QC): 88 Walk 150 ft (QC): 88 Walking 10ft/uneven surface-QC: 88 Gait Assistive Device: FWW Wheelchair Training Does the Pt Use a Wheelchair?: Yes Distance: 15' Wheel 50 ft with 2 turns (QC): 88 Wheel 150 ft (QC): 88 Type of Wheelchair: Manual Stair Training 1 Step (curb) (QC): 88 4 Steps (QC): 88 12 Steps (QC): 88 Balance Picking up an Object (QC): 88 ADL-Treatment Eating (QC): 7 Oral Hygiene (QC): 4 Bathing Location: L Arm, Abdomen Shower/Bathe Self (QC): 2 Upper Body Dressing (QC): 2 Lower Body Dressing (QC): 2 On/Off Footwear (QC): 2 Toileting Hygiene (QC): 1 Toilet Transfer (QC): 1 Assessment/Plan Assessment and Plan Assess & Plan/Chief Complaint Assessment: Cerebellar stroke Dementia Status post severe sepsis with pneumonia History of recurrent UTIs Osteoporosis Hypertension Anemia DNR Chronic debility resides in assisted living Plan: Home meds Aggressive rehab Speech therapy 08/24/2021: Supportive care Be on alert for any seizures per family request (1) Cerebellar stroke Status: Acute (2) Severe sepsis Status: Acute (3) Pneumonia Status: Acute (4) Primary hypertension (5) Anemia Status: Acute (6) Mixed hyperlipidemia (7) Right bundle branch block (8) Essential hypertension (9) Chronic kidney disease, stage 3 ALFONSO MEDINA DO Aug 24, 2021 06:06
--- NOTE | 2021-08-24 06:06 | Individualized Plan of Care ---
Individualized Plan of Care Rehab Nursing IPOC Order Admission Date Aug 23, 2021 at 11:10 Current Orders Orders Admission Arrival Bed Request (08/23/21 11:58) Admission Order(Inpt,Obs,Sdc) (08/23/21 12:42) Luis Miguel Jeter (08/23/21 12:42) Sequential Compression Device (08/23/21 12:42) State Appellate Clerk-Inpt Rehab Con (08/23/21 12:42) Rehab Nursing Orders-Ipoc (08/23/21 12:42) Physical Therapy Rehab Orders (08/23/21 12:42) Occupational Therapy Rehab Ord (08/23/21 12:42) Speech Therapy Rehab Orders (08/23/21 12:42) Cbc With Automated Diff (08/24/21 06:00) Comprehensive Metabolic Panel (08/24/21 06:00) Precautions (Aru) (08/23/21 12:42) Rehab-Intensity Of Therapy (08/23/21 12:42) Initiate Admission Nursing Pro .admission (08/23/21 12:42) Alprazolam Tablet (Xanax Tablet) (08/23/21 12:45) Calcium Carbonate Chew Tablet (Antacid C (08/23/21 12:45) Diphenhydramine Tablet (Benadryl Tablet) (08/23/21 12:45) Docusate Sodium Capsule (Colace Capsule) (08/23/21 21:00) Docusate Sodium Capsule (Colace Capsule) (08/23/21 12:45) Bisacodyl Suppository (Dulcolax Supposit (08/23/21 12:45) Lactulose Oral Solution (Enulose Oral So (08/23/21 12:45) Na Phos/Na Biphos Enema (Fleet Enema De (08/23/21 12:45) Guaifenesin/Codeine Syrup (Robitussin Ac (08/23/21 12:45) Loperamide Tablet (Imodium Tablet) (08/23/21 12:45) Melatonin Tablet (Melatonin Tablet) (08/23/21 12:45) Polyethylene Glycol Powder Pkt (Miralax (08/23/21 21:00) Ondansetron Oral Dissolve Tab (Zofran (08/23/21 12:45) Senna S Tablet (Senokot S Tablet) (08/23/21 21:00) Acetaminophen Tablet/Caplet (Tylenol T (08/23/21 12:45) Code/Resuscitation (08/23/21 12:42) Initiate Admission Nursing Pro .admission (08/23/21 12:42) Patient Visit (08/23/21 ) Speech Sound Lang Comp (08/23/21 ) Treat. Speech/Lang/Voice (08/23/21 ) Acetaminophen Tablet (Tylenol Tablet) (08/23/21 13:00) Alprazolam Tablet (Xanax Tablet) (08/23/21 21:00) Aspirin Enteric Coated Tablet (Ecotrin T (08/24/21 09:00) Baclofen Tablet (Lioresal Tablet) (08/23/21 13:00) Estradiol Tablet (Estrace Tablet) (08/24/21 09:00) Ezetimibe Tablet (Zetia Tablet) (08/23/21 21:00) Ferrous Sulfate Tablet (Feosol Tablet) (08/24/21 12:00) Gabapentin Capsule/Tablet (Neurontin Cap (08/23/21 21:00) Levothyroxine Tablet (Synthroid Tablet) (08/24/21 06:30) Pantoprazole Tablet (Protonix Tablet) (08/23/21 21:00) Sucralfate Tablet (Carafate Tablet) (08/23/21 16:00) (Nf) Alendronate Sodium (08/23/21 13:00) (Nf) Indapamide (08/24/21 09:00) Indapamide Tablet (Lozol Tablet) (08/24/21 09:00) Patient Visit (08/23/21 ) Pt Eval Moderate Complexity (08/23/21 ) Functional Activities, Ea 15 (08/23/21 ) General/Regular (08/23/21 Dinner) Code/Resuscitation (08/24/21 05:39) General/Regular (08/24/21 Breakfast) Aspirin Enteric Coated Tablet (Ecotrin T (08/24/21 09:00) Diphenhydramine Injection (Benadryl Inje (08/24/21 05:45) Bisacodyl Suppository (Dulcolax Supposit (08/24/21 05:45) Enoxaparin Injection (Lovenox Injection) (08/24/21 21:00) Lactulose Oral Solution (Enulose Oral So (08/24/21 05:45) Famotidine Tablet (Pepcid Tablet) (08/24/21 21:00) Lorazepam Injection (Ativan Injection) (08/24/21 05:45) Magnesium Hydroxide Oral Susp (Mom Oral (08/24/21 05:45) Polyethylene Glycol Powder Pkt (Miralax (08/24/21 05:45) Antacid Suspension (Mylanta Suspension (08/24/21 05:45) Potassium Chloride (Tablet) (K Dur Table (08/24/21 07:00) Acetaminophen Tablet/Caplet (Tylenol T (08/24/21 05:45) Ziprasidone Injection (Geodon Injection) (08/24/21 05:45) Ondansetron Injection (Zofran Injectio (08/24/21 05:45) Amlodipine Tablet (Norvasc Tablet) (08/24/21 09:00) Doxazosin Tablet (Cardura Tablet) (08/24/21 05:45) Metoprolol Succinate (Xl) Tab (Toprol Xl (08/24/21 09:00) Oxycodone Immediate Rel Tablet (Oxyir Ta (08/24/21 05:45) Consult Cardiology (08/24/21 05:39) Incentive Spirometry Initial (08/24/21 05:39) Mat Initiate Protocol (08/24/21 05:39) Water (Sterile) For Injection (Sterile W (08/24/21 05:45) Incentive Spirometry (Nursing) Q2H (08/24/21 05:39) Consent-Obtain Consent For (08/24/21 10:57) Preop Checklist (08/24/21 10:57) Enlive Variety (08/24/21 14:00) Patient Visit (08/24/21 ) Functional Activities, Ea 15 (08/24/21 ) Patient Visit (08/24/21 ) Treat. Speech/Lang/Voice (08/24/21 ) Ns (Ivpb) (Sodium Chloride 0.9%) (08/24/21 20:45) Ns (Ivpb) (Sodium Chloride 0.9%) (08/24/21 20:57) Rehab Nursing Orders: Ongoing Assess. of Cognitive Status, Ongoing Assess. of Function Status, Bladder Management, Bladder Scan, Bladder Training, Bowel Management, Bowel Training, Disease Management & Educaiton, DVT Prophylaxis, Fall Prevention, Fluid/Electrolyte/Nutrition Mgmt, Infection Prevention, Me dication Management & Education, Management of Risks & Complications, Management of Skin Intergrity, Nutrition Management, Pain Management, Patient/Family Support, Safety Management Intensity of Therapy to be met Patient to be seen: Min.3h per day/5 of 7d PT IPOC Problem List: Activity Tolerance, Functional Strength, Safety, Balance, Gait, Transfer, Bed Mobility, ROM Treatment Plan: Continue Plan of Care Bed Mobility, Education, Functional Activity Philipp, Functional Strength, Group Therapy, Gait, Safety, Therapeutic Exercise, Transfers Treatment Duration: Sep 13, 2021 Frequency: At least 5 of 7 days/Wk (IRF) Estimated Hrs Per Day: 1.5 hours per day OT IPOC Problems: Decreased Activ Tolerance, Decreased Safety Aware, Impaired Bed Mobility, Impaired Cognition, Impaired Coordination, Impaired Self-Care Skills OT Treatment, Training and Edu: Yes Plan of Care: ADL Retraining, Functional Mobility, UE Funct Exercise/Act Treatment Duration: Sep 15, 2021 Frequency: At least 5 of 7 days/Wk (IRF) Estimated Hrs Per Day: 1.[address] IPOC Speech Therapy Treatment Plan: Continue Plan of Care Treatment Duration: Sep 20, 2021 Frequency: 4 times per week (Four to five times per week.) Estimated Hrs Per Day: .5 hour per day State Appellate Clerk/Case Mgmt State Appellate Clerk/Case Managemen: Discharge Planning Dietitian/Teamcenter Consultant Dietitian/Teamcenter Consultant to monitor nutritional status and make changes and/or recommendations as needed and work with speech pathology on dietary upgrades as the occur. Physician IPOC Medical Issues being managed closely and that require the 24 hour availability of a physician: Patient with recent severe sepsis from pneumonia and recurrent UTI with cerebellar stroke subacute will require close monitoring for any decompensation Medical Issues: Bowel/Bladder Function, DVT Prophylaxis, Falls Precautions, Fluid/Electrolyte/Nutrition Balance, Infection Protection, Pain Management, Swallowing Precautions Brief Synthesis of Preadmission Screen, Post-Admission Evaluation, and Therapy Evaluations: PT and OT will focus on regaining function with use of assistive devices in order to return back to independent living and speech therapy will help with c ognition following cerebellar stroke. Medical Prognosis: Fair Anticipated Length of Stay: 10 days ALFONSO MEDINA DO Aug 24, 2021 06:06
[2021-08-24 06:35] LABS: BASOPHILS # (AUTO) 0.1 10^3/uL (0.0-0.1); BASOPHILS % (AUTO) 1 % (0-10); EOSINOPHILS # (AUTO) 0.4 10^3/uL (0.0-0.3); EOSINOPHILS % (AUTO) 6 % (0-10); HEMATOCRIT 45 % (35-52); HEMOGLOBIN 14.8 g/dL (11.5-16.0); LYMPHOCYTES # (AUTO) 1.9 10^3/uL (1.0-4.0); LYMPHOCYTES % (AUTO) 31 % (12-44); MEAN CORPUSCULAR HEMOGLOBIN 31 pg (25-34); MEAN CORPUSCULAR HGB CONC 33 g/dL (32-36); MEAN CORPUSCULAR VOLUME 94 fL (80-99); MEAN PLATELET VOLUME 9.2 fL (9.0-12.2); MONOCYTES # (AUTO) 0.7 10^3/uL (0.0-1.0); MONOCYTES % (AUTO) 12 % (0-12); NEUTROPHILS # (AUTO) 2.8 10^3/uL (1.8-7.8); NEUTROPHILS % (AUTO) 46 % (42-75); PLATELET COUNT 286 10^3/uL (130-400); WHITE BLOOD COUNT 6.1 10^3/uL (4.3-11.0)
[2021-08-24 07:19] VITALS: BP 172/76
[2021-08-24] MEDS: meTOproloL SUCCINATE 50 MG (TOPROL XL) TAB PO SCH (07:45)
[2021-08-24] MEDS: ACETAMINOPHEN 500 MG TAB (TYLENOL) PO SCH ×4 (07:45→21:31)
[2021-08-24] MEDS: GABAPENTIN 600 MG (NEURONTIN) TAB PO SCH ×2 (07:45→21:36)
[2021-08-24] MEDS: LEVOTHYROXINE 75 MCG (LEVOTHROID) TABLET PO SCH (07:45)
[2021-08-24] MEDS: KCL 20 MEQ TAB (K-DUR) PO SCH (07:46)
[2021-08-24] MEDS: PANTOPRAZOLE 40 MG (PROTONIX) TAB PO SCH ×2 (07:46→21:32)
[2021-08-24] MEDS: ASPIRIN E.C. 325 MG (ECOTRIN) TABLET PO SCH (07:46)
[2021-08-24] MEDS: INDAPAMIDE 2.5 MG (LOZOL) TAB PO SCH (07:46)
[2021-08-24 08:28] LABS: ALBUMIN 3.1 GM/DL (3.2-4.5); POTASSIUM 3.6 MMOL/L (3.6-5.0)
[2021-08-24 08:29] LABS: CALCIUM 9.3 MG/DL (8.5-10.1)
[2021-08-24 08:31] LABS: TOTAL PROTEIN 6.7 GM/DL (6.4-8.2)
[2021-08-24 08:32] LABS: BILIRUBIN,TOTAL 0.5 MG/DL (0.1-1.0)
[2021-08-24 08:34] LABS: CREATININE SERUM 0.75 MG/DL (0.60-1.30)
--- NOTE | 2021-08-24 08:56 | Physical Therapy Daily Note ---
PT Daily Note-Current Subjective Patient in bed pre tx, agrees to PT, voices no complaints of pain. Will be co- treating with OT due to poor patient mobility, strength, endurance, severe debility, coordinate UE and LE during activity, safety and reduce risk of falls. Appearance Patient in recliner post tx with nurse call, phone, tray, all needs met, chair alarm on. Mental Status Patient Orientation: Person, Confused, Mumbles Transfers SCALE: Activities may be completed with or without assistive devices. 3-Yheyxnxede-yqhmwic completes the activity by him/herself with no assistance from a helper. 5-Set-up or Clean-up Assistance-helper sets up or cleans up; patient completes activity. [place] assists only prior to or following the activity. 4-Supervision or Touching Assistance-helper provides verbal cues and/or touching/steadying and/or contact guard assistance as patient completes acti vity. Assistance may be provided throughout the activity or intermittently. 3-Partial/Moderate Assistance-helper does LESS THAN HALF the effort. [place] lifts, holds or supports trunk or limbs, but provides less than half the effort. 2-Substantial/Maximal Assistance-helper does MORE THAN HALF the effort. [place] lifts or holds trunk or limbs and provides more than half the effort. 3-Rranxcmtq-znwxkl does ALL the effort. Patient does none of the effort to complete the activity. Or, the assistance of 2 or more helpers is required for the patient to complete the activity. If activity was not attempted, code reason: 7-Patient Refused. 9-Not Applicable-not attempted and the patient did not perform the activity before the current illness, exacerbation or injury. 10-Not Attempted due to Environmental Limitations-(lack of equipment, weather restraints, etc.). 88-Not Attempted due to Medical Conditions or Safety Concerns. Roll Left & Right (QC): 3 Lying to Sitting/Side of Bed(Q: 3 Sit to Stand (QC): 3 Chair/Jma-ow-Fkxyt Xfer(QC): 3 Toilet Transfer (QC): 3 Patient needs min assist to roll and mod assist for supine to sit, min assist for sit to stand, she ambulates into the restroom and OT helps with pants and she sits on the toilet, when done OT changes pants and brief and patient stands with min assist and OT helps her wipe. Patient then transfers to and continues with dressing. Gait Training Distance: 10'x2, 5'x2 Walk 10 feet (QC): 3 Gait Assistive Device: FWW slow, steps inches at a time, no foot clearance, slumped posture, needs assist with guiding walker Wheelchair Training Does the Pt Use a Wheelchair?: Yes Wheel 50 ft with 2 turns (QC): 2 Wheel 150 ft (QC): 2 Type of Wheelchair: Manual Exercises Supine Ex: Ankle pumps, Heel Slides Supine Reps: 20 Treatments PT performed bed mobility and transfers, ambulation, LE strengthening, standing and balance during dressing and toileting, OT performed dressing, toileting, UE positioning and safety during activity. Assessment Current Status: Poor Progress Patient is very confused, needs verbal and tactile cues for the simplest of tasks, she provides minimal effort PT Short Term Goals Short Term Goals Time Frame: Aug 30, 2021 Roll Left & Right: 2 Sit to lyin Lying to sitting on side of be: 2 Sit to stand: 3 Chair/wlt-rb-gngjb transfer: 3 Walk 10 feet: 3 Walk 50 feet with two turns: 3 PT Custodial Goals Ball Point Splitter Goals PT Custodial Goals Time Frame: Sep 13, 2021 Roll Left & Right (QC): 3 Sit to Lying (QC): 3 Lying-Sitting on Side/Bed(QC): 3 Sit to Stand (QC): 4 Chair/Amx-no-Lcpwx Xfer(QC): 4 Toilet Transfer (QC): 4 Car Transfer (QC): 3 Does the Patient Walk: Yes Walk 10 feet (QC): 4 Walk 50ft with 2 Turns (QC): 4 Walk 150 ft (QC): 4 Walking 10ft on Uneven Surface: 4 1 Step (curb) (QC): 88 4 Steps (QC): 88 12 Steps (QC): 88 Picking up an Object (QC): 4 Wheel 50 feet with 2 turns (QC: 4 Wheel 150 feet: 4 PT Plan Problem List Problem List: Activity Tolerance, Functional Strength, Safety, Balance, Gait, Transfer, Bed Mobility, ROM Treatment/Plan Treatment Plan: Continue Plan of Care Treatment Plan: Bed Mobility, Education, Functional Activity Philipp, Functional Strength, Group Therapy, Gait, Safety, Therapeutic Exercise, Transfers Treatment Duration: Sep 13, 2021 Frequency: At least 5 of 7 days/Wk (IRF) Estimated Hrs Per Day: 1.5 hours per day Patient and/or Family Agrees t: Yes Safety Risks/Education Patient Education: Gait Training, Transfer Techniques, Correct Positioning, W/C Management, Safety Issues Teaching Recipient: Patient Teaching Methods: Demonstration, Discussion Response to Teaching: Reinforcement Needed Time/GCodes Time In: 0800 Time Out: 0900 Total Billed Treatment Time: 60 Total Billed Treatment 1 visit FA 60' co-treated for 60' SANDRA TRAN PT Aug 24, 2021 08:56
[2021-08-24] MEDS ORDERED: ESTRADIOL 1 MG TAB (ESTRACE) PO SCH (09:00)
[2021-08-24] MEDS ORDERED: DOCUSATE SODIUM 100 MG (COLACE) CAP PO SCH (09:00)
[2021-08-24] MEDS ORDERED: amLODIPine 10 MG (NORVASC) TAB PO SCH (09:00)
[2021-08-24] MEDS ORDERED: ASPIRIN E.C. 325 MG (ECOTRIN) TABLET PO SCH (09:00)
[2021-08-24] MEDS ORDERED: SENNOSIDES 8.6 MG (SENOKOT) TAB PO SCH (09:00)
[2021-08-24] MEDS ORDERED: NON-FORMULARY MEDICATION 1 EA EA (Indapamide 1.25 MG) PO SCH (09:00)
--- NOTE | 2021-08-24 09:02 | Occupational Ther Daily Note ---
OT Current Status-Daily Note Subjective Pt sleeping in bed, difficult to wake. Pt c/o being cold. Adjusted temp and pt then provided warm blanket to warm pt. Nrsg in room to give meds. Pt c/o back pain, nrsg gave pain meds. Mental Status/Objective Patient Orientation: Person, Unable to Assess Attachments: IV ADL-Treatment Pt incontinent of urine. Assist x2 for bed mobility. PT/OT cotreat([id number]), skills of 2 clinicians to increase mobility due to cognitive issues requiring assist x2 for safety and decrease fall risk. PT focusing on transfers and ambulation while OT focusing on B UE arm placement with transfer and on FWW, ADLs. Mod A x2 for supine to EOB then min A to sit upright on EOB. Pt requires verbal and physical cues to transfer, ambulate and complete motor tasks. Is inconsistent with initiation and following through motor tasks. Pt ambulated to bathroom using FWW. Assist to transfer then assist to manipulate clothing and complete hygiene. Max A for lower body dressing and footwear. Pt is set up for eating then supervision to focus and finish task. After session, pt sitting in recliner with call light/phone in reach. Safety measures in place. Therapy Code Descriptions/Definitions Functional [place] Measure: 0=Not Assessed/NA 4=Minimal Assistance 1=Total Assistance 5=Supervision or Setup 2=Maximal Assistance 6=Modified [place] 3=Moderate Assistance 7=Complete IndependenceSCALE: Activities may be completed with or without assistive devices. 6-Bqyljezngo-sqslqoh completes the activity by him/herself with no assistance from a helper. 5-Set-up or Clean-up Assistance-helper sets up or cleans up; patient completes activity. [place] assists only prior to or following the activity. 4-Supervision or Touching Assistance-helper provides verbal cues and/or touching/steadying and/or contact guard assistance as patient completes activity. Assistance may be provided throughout the activity or intermittently. 3-Partial/Moderate Assistance-helper does LESS THAN HALF the effort. [place] lifts, holds or supports trunk or limbs, but provides less than half the effort. 2-Substantial/Maximal Assistance-helper does MORE THAN HALF the effort. [place] lifts or holds trunk or limbs and provides more than half the effort. 0-Nsjzrduhw-sveeee does ALL the effort. Patient does none of the effort to complete the activity. Or, the assistance of 2 or more helpers is required for the patient to complete the activity. If activity was not attempted, code reason: 7-Patient Refused. 9-Not Applicable-not attempted and the patient did not perform the activity before the current illness, exacerbation or injury. 10-Not Attempted due to Environmental Limitations-(lack of equipment, weather restraints, etc.). 88-Not Attempted due to Medical Conditions or Safety Concerns. Eating (QC): 4 (Set up and supervision) Upper Body Dressing (QC): 3 (Pt able to thread arms in sleeves then assist to place over head after set up.) Lower Body Dressing (QC): 2 On/Off Footwear: 2 Toileting Hygiene (QC): 2 Toilet Transfer (QC): 3 Other Treatment Pt able to ambulated a few feet 3x's with PT assist and COLLINS following with w/c due to pt spontaneous sitting. OT Short Term Goals Short Term Goals Time Frame: Sep 01, 2021 Eatin Oral hygiene: 5 Toileting hygiene: 3 Shower/bathe self: 3 OT Nursing Home Goals Scooper Goals Time Frame: Sep 15, 2021 Eating (QC): 6 Oral Hygiene (QC): 6 Toileting Hygiene (QC): 6 Shower/Bathe Self (QC): 4 Upper Body Dressing (QC): 6 Lower Body Dressing (QC): 4 On/Off Footwear (QC): 4 Additional Goals: 1-Demonstrate ADL Tasks, 2-Verbalize Understanding, 3- ImproveStrength/Philipp 1=Demonstrate adherence to instructed precautions during ADL tasks. 2=Patient will verbalize/demonstrate understanding of assistive devices/modifications for ADL. 3=Patient will improve strength/tolerance for activity to enable patient to perform ADL's. OT Education/Plan Problem List/Assessment Assessment: Decreased Activ Tolerance, Decreased Safety Aware, Impaired Bed Mobility, Impaired Cognition, Impaired Coordination, Impaired Funct Balance, Impaired Self-Care Skills Discharge Recommendations Plan/Recommendations: Continue POC Treatment Plan/Plan of Care Patient would benefit from OT for education, treatment and training to promote i ndependence in ADL's, mobility, safety and/or upper extremity function for ADL's. Plan of Care: ADL Retraining, Functional Mobility, UE Funct Exercise/Act Treatment Duration: Sep 15, 2021 Frequency: At least 5 of 7 days/Wk (IRF) Estimated Hrs Per Day: 1.5 hours per day Agreement: Yes Rehab Potential: Guarded Time/GCodes Start Time: 07:30 Stop Time: 09:05 Total Time Billed (hr/min): 95 Billed Treatment Time 1 visit-ADL 5 (80 min) FA 1 (15 min) Co-treat with PT [id number], individual [phone] DARREL BEARD Aug 24, 2021 09:02
[2021-08-24] MEDS: SUCRALFATE 1 GM (CARAFATE) TAB PO SCH ×4 (11:00→21:31)
--- NOTE | 2021-08-24 11:42 | Cardiology Progress Note ---
Progress Note-Cardiology Events since last exam Date Seen by Provider: Aug 24, 2021 Time Seen by Provider: 11:37 Events since last exam I am seeing her due to acute/subacute stroke of the cerebellum. She is now on the inpatient rehab service. Please see my initial consultation from her acute hospitalization earlier in the week. She is more alert and conversant today. She denies chest discomfort, dyspnea at rest, palpitations, syncope, or ankle edema. Certain portions of this document may have been dictated utilizing voice recognition technology. Inherent to this technology, typographical and grammat ical errors may exist. As much as I am diligent to identify and correct these mistakes, some errors may remain in the document. Vitals Last set of Vitals Signs Vital Signs 08/24/21 07:19 Temp 36.2 Pulse 67 Resp 22 B/P (MAP) 172/76 (108) Pulse Ox 94 O2 Delivery Room Air Labs Labs Laboratory Tests 08/24/21 06:21 08/24/21 07:50 Exam Vital Signs Vital Signs Date Time Temp Pulse Resp B/P (MAP) Pulse Ox O2 Delivery O2 Flow Rate FiO2 08/24/21 07:19 36.2 67 22 172/76 (108) 94 Room Air Physical Exam General: Alert. No acute distress. Eye: No xanthelasma. HENT: Normocephalic. Neck: Jugular venous pressure does not appear elevated. Respiratory: Lungs are clear to auscultation. Respirations are non-labored. Breath sounds are equal. Symmetrical chest wall expansion. Cardiovascular: Normal rate. Regular rhythm. No murmur. No gallop. No edema. Gastrointestinal: Soft. Normal bowel sounds. Skin: Warm. Dry. Neurologic: Alert and oriented to person, place, time. For the first couple of days of her hospitalization, she was only oriented to person so this is an improvement. Cranial nerves 3-11 grossly intact. Psychiatric: Cooperative. Appropriate mood & affect. Labs Laboratory Tests Test 08/24/21 06:18 08/24/21 06:21 08/24/21 07:50 Range/Units Glucometer 71 70-110 MG/DL White Blood Count 6.1 4.3-11.0 10^3/uL Red Blood Count 4.73 3.80-5.11 10^6/uL Hemoglobin 14.8 11.5-16.0 g/dL Hematocrit 45 35-52 % Mean Corpuscular Volume 94 80-99 fL Mean Corpuscular Hemoglobin 31 25-34 pg Mean Corpuscular Hemoglobin Concent 33 32-36 g/dL Red Cell Distribution Width 14.4 10.0-14.5 % Platelet Count 286 130-400 10^3/uL Mean Platelet Volume 9.2 9.0-12.2 fL Immature Granulocyte % (Auto) 4 % Neutrophils (%) (Auto) 46 42-75 % Lymphocytes (%) (Auto) 31 12-44 % Monocytes (%) (Auto) 12 0-12 % Eosinophils (%) (Auto) 6 0-10 % Basophils (%) (Auto) 1 0-10 % Neutrophils # (Auto) 2.8 1.8-7.8 10^3/uL Lymphocytes # (Auto) 1.9 1.0-4.0 10^3/uL Monocytes # (Auto) 0.7 0.0-1.0 10^3/uL Eosinophils # (Auto) 0.4 H 0.0-0.3 10^3/uL Basophils # (Auto) 0.1 0.0-0.1 10^3/uL Immature Granulocyte # (Auto) 0.3 H 0.0-0.1 10^3/uL Sodium Level 141 135-145 MMOL/L Potassium Level 3.6 3.6-5.0 MMOL/L Chloride Level 106 98-107 MMOL/L Carbon Dioxide Level 23 21-32 MMOL/L Anion Gap 12 5-14 MMOL/L Blood Urea Nitrogen 15 7-18 MG/DL Creatinine 0.75 0.60-1.30 MG/DL Estimat Glomerular Filtration Rate 78 BUN/Creatinine Ratio 20 Glucose Level 81 70-105 MG/DL Calcium Level 9.3 8.5-10.1 MG/DL Corrected Calcium 10.0 8.5-10.1 MG/DL Total Bilirubin 0.5 0.1-1.0 MG/DL Aspartate Amino Transf (AST/SGOT) 19 5-34 U/L Alanine Aminotransferase (ALT/SGPT) 20 0-55 U/L Alkaline Phosphatase 60 40-136 U/L Total Protein 6.7 6.4-8.2 GM/DL Albumin 3.1 L 3.2-4.5 GM/DL Diagnosis/Problems Diagnosis/Problems (1) Cerebellar stroke Status: Acute Assessment & Plan: This raises a concern of possible atrial fibrillation. I will have her undergo an implantable loop recorder insertion today. We will use this for prolonged surveillance of atrial fibrillation. For the time being, I recommend she continue on aspirin and ezetimibe. She has a reported intolerance to statin medications. She was taking estradiol at home. I recommend stopping this medication. Prolonged use of estrogen replacement therapy has been associated with increased risk of both venous and arterial thrombotic events. (2) Irregular heart rhythm Status: Acute Assessment & Plan: She was having some irregular heartbeats during her acute hospitalization. This was primarily due to frequent premature supraventricular complexes. I did not see any definitive evidence of atrial fibrillation. We will proceed with the loop recorder as above. There is no indication for oral anticoagulants at this time. (3) Primary hypertension Assessment & Plan: Her outpatient indapamide has been resumed. I also started her on metoprolol succinate due to some intermittent tachycardia. (4) Mixed hyperlipidemia Assessment & Plan: Continue ezetimibe which she was taking at home. As above, she has a reported intolerance to statin medications. TYLER HENDRICKS JR, MD Aug 24, 2021 11:42
[2021-08-24] MEDS: DOCUSATE SODIUM 100 MG (COLACE) CAP PO SCH ×2 (12:04→21:37)
[2021-08-24] MEDS: polyethylene glycoL POWDER 17 GM (MIRALAX) PACK PO SCH ×2 (12:04→21:37)
[2021-08-24] MEDS: SENNA W/DOCUSATE (SENOKOT S) TABLET PO SCH ×2 (12:05→21:38)
[2021-08-24] MEDS: ALPRAZolam 0.25 MG (XANAX) TAB PO SCH ×2 (12:11→21:38)
[2021-08-24] MEDS: FERROUS SULF 325 MG (IRON) TAB PO SCH (13:56)
--- NOTE | 2021-08-24 16:02 | Speech Therapy Daily Note ---
Speech Daily Progress Note Subjective Date Seen by Provider: Aug 24, 2021 Time Seen by Provider: 14:36 The patient was seated upright in her recliner upon entrance. The patient presented in a wakeful state, however, promptly closed eyes during the clinician's introduction. The patient required consistent, maximum verbal prompting throughout the treatment session for continued participation and appropriate alertness levels. Objective The SLUMS was re-attempted on this date due to reduced participation during the prior attempt. The patient displayed a result of +9/30 correlating with a result of "dementia" per SLUMS rating scale. The patient demonstrated difficulty with o rientation, immediate recall, delayed recall, simple math, word-finding (provided four animals within a one minute time frame, WNL+11), repetition of three digits backwards (attention, memory), and recall of information provided in a paragraph. The patient required maximum verbal prompting and encouragement for participation. The patient displayed severe cognitive deficits in all areas of cognition including memory, problem solving, executive functioning, and attention. Assessment Assessment Current Status: Poor Progress Treatment Plan Continue Plan of Care Speech Short Term Goals Short Term Goals Short Term Goals 1. The patient will participate in completion of the SLUMS assessment with mild clinician verbal prompting. 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 The patient will demonstrate increased functional safety awareness and problem solving for return to the least restrictive environment. Speech-Plan Treatment Plan Speech Therapy Treatment Plan: Continue Plan of Care Treatment Duration: Sep 20, 2021 Frequency: 4 times per week (Four to five times per week.) Estimated Hrs Per Day: .5 hour per day Rehab Potential: Guarded Pt/Family Agrees to Plan: Yes Safety Risks/Education Teaching Recipient: Patient Teaching Methods: Discussion Response to Teaching: Reinforcement Needed Education Topics Provided: Results of SLUMS, Plan of Care Time Speech Therapy Time In: 14:36 Speech Therapy Time Out: 15:06 Total Billed Time: 30 Billed Treatment Time 1MEGAN [facility] [facility] Aug 24, 2021 16:02
[2021-08-24] MEDS ORDERED: NS (IVPB) 250 ML IV ONE (20:45)
[2021-08-24] MEDS ORDERED: NS (IVPB) 250 ML ONE (20:57)
[2021-08-24] MEDS ORDERED: eZETimibe 10 MG (ZETIA) TABLET PO SCH (21:00)
[2021-08-24 21:16] VITALS: BP 82/47
[2021-08-24 21:30] VITALS: BP 98/54
[2021-08-24] MEDS: eZETimibe 10 MG (ZETIA) TABLET PO SCH (21:31)
[2021-08-24] MEDS: ENOXAPARIN 40 MG/0.4 ML (LOVENOX) SYR SC SCH (21:32)
[2021-08-24] MEDS: FAMOTIDINE 20 MG (PEPCID) TABLET PO SCH (21:36)
[2021-08-25] MEDS: ACETAMINOPHEN 325 MG TABLET PO PRN (04:44)
[2021-08-25] MEDS: LEVOTHYROXINE 75 MCG (LEVOTHROID) TABLET PO SCH (06:10)
[2021-08-25] MEDS: KCL 20 MEQ TAB (K-DUR) PO SCH (06:10)
[2021-08-25] MEDS: SUCRALFATE 1 GM (CARAFATE) TAB PO SCH ×4 (06:10→20:17)
--- NOTE | 2021-08-25 06:37 | PM&R Progress Note ---
Subjective HPI/CC On Admission Date Seen by Provider: Aug 25, 2021 Time Seen by Provider: 09:30 Subjective/Events-last exam 08/25/21: Pt doing about the same Xanax 0.25mg will be given BID scheduled as she takes at home Bowels moved yesterday No evidence of any seizures 08/24/2021: Patient doing pretty well Held the scheduled Xanax due to sedation Blood pressure was elevated prior to meds Feeds her self Family told nurse they think she is having seizures since everyone in her family has seizures but there was no evidence of any seizure-like activity assessed by the nursing staff so will be on alert for anything like that. No evidence to support the addition of antiseizure meds. Review of Systems General: Fatigue, Malaise Neurological: Confusion Objective Exam Vital Signs Vital Signs Date Time Temp Pulse Resp B/P (MAP) Pulse Ox O2 Delivery O2 Flow Rate FiO2 08/25/21 20:35 Room Air 08/25/21 20:01 36.6 62 20 114/53 (73) 96 Capillary Refill : General Appearance: No Apparent Distress, WD/WN, Chronically ill HEENT: PERRL/EOMI, Normal ENT Inspection, Pharynx Normal Neck: Full Range of Motion, Normal Inspection, Non Tender, Supple, Carotid Bruit Respiratory: Chest Non Tender, Lungs Clear, Normal Breath Sounds, No Accessory Muscle Use, No Respiratory Distress Cardiovascular: Regular Rate, Rhythm, No Edema, No Gallop, No JVD, No Murmur, Normal Peripheral Pulses Gastrointestinal: Normal Bowel Sounds, No Organomegaly, No Pulsatile Mass, Non Tender, Soft Back: Normal Inspection, No CVA Tenderness, No Vertebral Tenderness Extremity: Normal Capillary Refill, Normal Inspection, Normal Range of Motion, Non Tender, No Calf Tenderness, No Pedal Edema Neurologic/Psychiatric: Alert, No Motor/Sensory Deficits, liner man II-XII Norm as Tested, Abnormal Gait, Depressed Affect, Disoriented, Motor Weakness (left sided) Skin: Normal Color, Warm/Dry Lymphatic: No Adenopathy Results/Procedures Lab Patient resulted labs reviewed. FIM Transfers Therapy Code Descriptions/Definitions Functional [place] Measure: 0=Not Assessed/NA 4=Minimal Assistance 1=Total Assistance 5=Supervision or Setup 2=Maximal Assistance 6=Modified [place] 3=Moderate Assistance 7=Complete IndependenceSCALE: Activities may be completed with or without assistive devices. 0-Taigfemtbv-buqwrze completes the activity by him/herself with no assistance from a helper. 5-Set-up or Clean-up Assistance-helper sets up or cleans up; patient completes activity. [place] assists only prior to or following the activity. 4-Supervision or Touching Assistance-helper provides verbal cues and/or touch ing/steadying and/or contact guard assistance as patient completes activity. Assistance may be provided throughout the activity or intermittently. 3-Partial/Moderate Assistance-helper does LESS THAN HALF the effort. [place] lifts, holds or supports trunk or limbs, but provides less than half the effort. 2-Substantial/Maximal Assistance-helper does MORE THAN HALF the effort. [place] lifts or holds trunk or limbs and provides more than half the effort. 5-Tcjeijspv-ttniiq does ALL the effort. Patient does none of the effort to complete the activity. Or, the assistance of 2 or more helpers is required for the patient to complete the activity. If activity was not attempted, code reason: 7-Patient Refused. 9-Not Applicable-not attempted and the patient did not perform the activity before the current illness, exacerbation or injury. 10-Not Attempted due to Environmental Limitations-(lack of equipment, weather restraints, etc.). 88-Not Attempted due to Medical Conditions or Safety Concerns. Roll Left to Right (QC): 3 Sit to Lying (QC): 1 (dependent) Sit to Stand (QC): 3 Chair/Qct-dr-Xtbit Xfer(QC): 3 Car Transfer (QC): 1 (dependent) Gait Training Does the Patient Walk?: Yes Distance: 10'x2, 5'x2 Walk 10 feet (QC): 3 Walk 50 ft with 2 Turns(QC): 88 Walk 150 ft (QC): 88 Walking 10ft/uneven surface-QC: 88 Gait Assistive Device: FWW Wheelchair Training Does the Pt Use a Wheelchair?: Yes Distance: 15' Wheel 50 ft with 2 turns (QC): 2 Wheel 150 ft (QC): 2 Type of Wheelchair: Manual Stair Training 1 Step (curb) (QC): 88 4 Steps (QC): 88 12 Steps (QC): 88 Balance Picking up an Object (QC): 88 ADL-Treatment Eating (QC): 4 (Set up and supervision) Oral Hygiene (QC): 4 Bathing Location: L Arm, Abdomen Shower/Bathe Self (QC): 2 Upper Body Dressing (QC): 3 (Pt able to thread arms in sleeves then assist to place over head after set up.) Lower Body Dressing (QC): 2 On/Off Footwear (QC): 2 Toileting Hygiene (QC): 2 Toilet Transfer (QC): 3 Assessment/Plan Assessment and Plan Assess & Plan/Chief Complaint Assessment: Cerebellar stroke Dementia Status post severe sepsis with pneumonia History of recurrent UTIs Osteoporosis Hypertension Anemia DNR Chronic debility resides in assisted living Plan: Home meds Aggressive rehab Speech therapy 08/24/2021: Supportive care Be on alert for any seizures per family request 08/25/2021: Supportive care Dementia precludes complete recovery (1) Cerebellar stroke Status: Acute Assessment & Plan: This raises a concern of possible atrial fibrillation. I will have her undergo an implantable loop recorder insertion today. We will use this for prolonged surveillance of atrial fibrillation. For the time being, I recommend she continue on aspirin and ezetimibe. She has a reported intolerance to statin medications. She was taking estradiol at home. I recommend stopping this medication. Prolonged use of estrogen replacement therapy has been associated with increased risk of both venous and arterial thrombotic events. (2) Irregular heart rhythm Status: Acute Assessment & Plan: She was having some irregular heartbeats during her acute hospitalization. This was primarily due to frequent premature supraventricular complexes. I did not see any definitive evidence of atrial fibrillation. We will proceed with the loop recorder as above. There is no indication for oral anticoagulants at this time. (3) Primary hypertension Assessment & Plan: Her outpatient indapamide has been resumed. I also started her on metoprolol succinate due to some intermittent tachycardia. (4) Mixed hyperlipidemia Assessment & Plan: Continue ezetimibe which she was taking at home. As above, she has a reported intolerance to statin medications. ALFONSO MEDINA DO Aug 25, 2021 06:37
[2021-08-25 07:27] VITALS: BP 134/69
--- NOTE | 2021-08-25 07:42 | Occupational Ther Daily Note ---
OT Current Status-Daily Note Subjective Pt alert, lying in bed. Pt more alert today though very labile and weepy. Pt does agree to therapy. Pt c/o back pain, heated blanket placed. Reported to nrsg and nrsg ordering heating pad for pt. Mental Status/Objective Patient Orientation: Person, Place (names [facility] as hospital though does not know if she is still at the same place) Attachments: IV ADL-Treatment After set up, pt able to eat meal by self. Pt then agrees to shower. PT/OT co-treat([id number]), skills of 2 clinicians required due to pt's increased fatigue level, amount of assistance due to confusion and decrease motor processing. PT focusing on transfers/ambulation while OT focusing on ADLs and functional transfers. Pt requires gestural and verbal cues for all transfers and to initiate tasks. With assist to stand and verbal cues, pt able to complete toileting with CGA. With verbal cues and SBA for safety, pt able to complete shower using grabbars, tub bench and assist with hand held shower. Verbal cues and set up for upper body drsg. Due to time constraints, assist give to thread pt's lower body clothing and footwear then pt stood with assist and hiked front of pants while COLLINS hiked back of pants (PT stabilizing pt). Therapy Code Descriptions/Definitions Functional [place] Measure: 0=Not Assessed/NA 4=Minimal Assistance 1=Total Assistance 5=Supervision or Setup 2=Maximal Assistance 6=Modified [place] 3=Moderate Assistance 7=Complete IndependenceSCALE: Activities may be completed with or without assistive devices. 0-Bqyrljefyt-dtqkbti completes the activity by him/herself with no assistance from a helper. 5-Set-up or Clean-up Assistance-helper sets up or cleans up; patient completes activity. [place] assists only prior to or following the activity. 4-Supervision or Touching Assistance-helper provides verbal cues and/or touching/steadying and/or contact guard assistance as patient completes activity. Assistance may be provided throughout the activity or intermittently. 3-Partial/Moderate Assistance-helper does LESS THAN HALF the effort. [place] lifts, holds or supports trunk or limbs, but provides less than half the effort. 2-Substantial/Maximal Assistance-helper does MORE THAN HALF the effort. [place] lifts or holds trunk or limbs and provides more than half the effort. 1-Pjtrntkpl-isftsl does ALL the effort. Patient does none of the effort to complete the activity. Or, the assistance of 2 or more helpers is required for the patient to complete the activity. If activity was not attempted, code reason: 7-Patient Refused. 9-Not Applicable-not attempted and the patient did not perform the activity before the current illness, exacerbation or injury. 10-Not Attempted due to Environmental Limitations-(lack of equipment, weather restraints, etc.). 88-Not Attempted due to Medical Conditions or Safety Concerns. Eating (QC): 5 Shower/Bathe Self (QC): 4 Upper Body Dressing (QC): 4 Toileting Hygiene (QC): 4 Other Treatment Pt ambulated 3x's with PT assisting and cueing for safe ambulation and transfers while OT assisting with w/c and set up of areas. After session, pt sitting in recliner with call light/phone in reach. All needs met in room. OT Short Term Goals Short Term Goals Time Frame: Sep 01, 2021 Eatin Oral hygiene: 5 Toileting hygiene: 3 Shower/bathe self: 3 OT Assisted Goals Assisted Goals Time Frame: Sep 15, 2021 Eating (QC): 6 Oral Hygiene (QC): 6 Toileting Hygiene (QC): 6 Shower/Bathe Self (QC): 4 Upper Body Dressing (QC): 6 Lower Body Dressing (QC): 4 On/Off Footwear (QC): 4 Additional Goals: 1-Demonstrate ADL Tasks, 2-Verbalize Understanding, 3-ImproveStrength/Philipp 1=Demonstrate adherence to instructed precautions during ADL tasks. 2=Patient will verbalize/demonstrate understanding of assistive devices/modifications for ADL. 3=Patient will improve strength/tolerance for activity to enable patient to perform ADL's. OT Education/Plan Problem List/Assessment Assessment: Decreased Activ Tolerance, Decreased Safety Aware, Impaired Bed Mobility, Impaired Cognition, Impaired Self-Care Skills Discharge Recommendations Plan/Recommendations: Continue POC Treatment Plan/Plan of Care Patient would benefit from OT for education, treatment and training to promote independence in ADL's, mobility, safety and/or upper extremity function for ADL's. Plan of Care: ADL Retraining, Functional Mobility, UE Funct Exercise/Act Treatment Duration: Sep 15, 2021 Frequency: At least 5 of 7 days/Wk (IRF) Estimated Hrs Per Day: 1.5 hours per day Agreement: Yes Rehab Potential: Guarded Time/GCodes Start Time: 07:30 Stop Time: 09:00 Total Time Billed (hr/min): 90 Billed Treatment Time 1 visit-ADL 5 (70 min) FA 1 (20 min) individual [id number], co-treat with PT [id number] DARREL BEARD Aug 25, 2021 07:42
[2021-08-25] MEDS: SENNA W/DOCUSATE (SENOKOT S) TABLET PO SCH ×2 (07:43→21:26)
[2021-08-25] MEDS: INDAPAMIDE 2.5 MG (LOZOL) TAB PO SCH (07:43)
[2021-08-25] MEDS: meTOproloL SUCCINATE 50 MG (TOPROL XL) TAB PO SCH (07:43)
[2021-08-25] MEDS: ACETAMINOPHEN 500 MG TAB (TYLENOL) PO SCH ×4 (07:43→20:18)
[2021-08-25] MEDS: PANTOPRAZOLE 40 MG (PROTONIX) TAB PO SCH ×2 (07:43→20:18)
[2021-08-25] MEDS: ASPIRIN E.C. 325 MG (ECOTRIN) TABLET PO SCH (07:44)
[2021-08-25] MEDS: GABAPENTIN 600 MG (NEURONTIN) TAB PO SCH ×2 (07:44→20:17)
[2021-08-25] MEDS: ALPRAZolam 0.25 MG (XANAX) TAB PO SCH ×2 (07:49→20:18)
--- NOTE | 2021-08-25 08:55 | Physical Therapy Daily Note ---
PT Daily Note-Current Subjective Patient in bed pre tx, agrees to PT, voices no complaints of pain. Will be co- treating with OT due to poor patient mobility, strength, endurance, severe debility, coordinate UE and LE during activity, safety and reduce risk of falls. Appearance Patient in recliner post tx with nurse call, phone, tray, legs elevated, chair alarm on. Mental Status Patient Orientation: Person, Confused Transfers SCALE: Activities may be completed with or without assistive devices. 1-Bilvtypymo-rctanba completes the activity by him/herself with no assistance from a helper. 5-Set-up or Clean-up Assistance-helper sets up or cleans up; patient completes activity. [place] assists only prior to or following the activity. 4-Supervision or Touching Assistance-helper provides verbal cues and/or touching/steadying and/or contact guard assistance as patient completes activity. Assistance may be provided throughout the activity or intermittently. 3-Partial/Moderate Assistance-helper does LESS THAN HALF the effort. [place] lifts, holds or supports trunk or limbs, but provides less than half the effort. 2-Substantial/Maximal Assistance-helper does MORE THAN HALF the effort. [place] lifts or holds trunk or limbs and provides more than half the effort. 7-Vuibmdtir-tvkcio does ALL the effort. Patient does none of the effort to complete the activity. Or, the assistance of 2 or more helpers is required for the patient to complete the activity. If activity was not attempted, code reason: 7-Patient Refused. 9-Not Applicable-not attempted and the patient did not perform the activity before the current illness, exacerbation or injury. 10-Not Attempted due to Environmental Limitations-(lack of equipment, weather restraints, etc.). 88-Not Attempted due to Medical Conditions or Safety Concerns. Roll Left & Right (QC): 3 Lying to Sitting/Side of Bed(Q: 3 Sit to Stand (QC): 3 Chair/Zqf-bn-Mawji Xfer(QC): 4 Toilet Transfer (QC): 4 Patient sits to the side of the bed with min assist, stands with min assist, ambulates into the restroom and to the toilet, needs assist with pants (OT performs), then goes to shower. Gait Training Distance: 20', 10'x3 Walk 10 feet (QC): 4 Gait Assistive Device: FWW slow, some slight knee buckling on the right side, slumped posture Treatments PT performed bed mobility and transfers, ambulation, standing and transfers and safety positioning during toileting and shower and dressing, OT performed dressing, toileting, bathing, UE positioning and safety during activity. Assessment Current Status: Poor Progress Patient is more alert today but still needs detailed verbal and sometimes tactile cues for safety and positioning during mobility PT Short Term Goals Short Term Goals Time Frame: Aug 30, 2021 Roll Left & Right: 2 Sit to lyin Lying to sitting on side of be: 2 Sit to stand: 3 Chair/rud-ib-fyumi transfer: 3 Walk 10 feet: 3 Walk 50 feet with two turns: 3 PT Skilled Nursing Goals Skilled Nursing Goals PT Vocational Horticulture Instructor Goals Time Frame: Sep 13, 2021 Roll Left & Right (QC): 3 Sit to Lying (QC): 3 Lying-Sitting on Side/Bed(QC): 3 Sit to Stand (QC): 4 Chair/Xry-sh-Dxjde Xfer(QC): 4 Toilet Transfer (QC): 4 Car Transfer (QC): 3 Does the Patient Walk: Yes Walk 10 feet (QC): 4 Walk 50ft with 2 Turns (QC): 4 Walk 150 ft (QC): 4 Walking 10ft on Uneven Surface: 4 1 Step (curb) (QC): 88 4 Steps (QC): 88 12 Steps (QC): 88 Picking up an Object (QC): 4 Wheel 50 feet with 2 turns (QC: 4 Wheel 150 feet: 4 PT Plan Problem List Problem List: Activity Tolerance, Functional Strength, Safety, Balance, Gait, Transfer, Bed Mobility, ROM Treatment/Plan Treatment Plan: Continue Plan of Care Treatment Plan: Bed Mobility, Education, Functional Activity Philipp, Functional Strength, Group Therapy, Gait, Safety, Therapeutic Exercise, Transfers Treatment Duration: Sep 13, 2021 Frequency: At least 5 of 7 days/Wk (IRF) Estimated Hrs Per Day: 1.5 hours per day Patient and/or Family Agrees t: Yes Safety Risks/Education Patient Education: Gait Training, Transfer Techniques, Correct Positioning, Safety Issues Teaching Recipient: Patient Teaching Methods: Demonstration, Discussion Response to Teaching: Reinforcement Needed Time/GCodes Time In: 0800 Time Out: 0900 Total Billed Treatment Time: 60 Total Billed Treatment 1 visit FA 60' co-treated with OT for 60' SANDRA TRAN PT Aug 25, 2021 08:55
--- NOTE | 2021-08-25 09:30 | Speech Therapy Daily Note ---
Speech Daily Progress Note Subjective Date Seen by Provider: Aug 25, 2021 Time Seen by Provider: 09:00 The patient was seated upright in her recliner upon entrance by the clinician. The patient greeted the clinician appropriately and was agreeable to participation in the cognitive linguistic treatment session. Due to persistent fatigue, the clinician re-attempts the SLUMS on this date for improved accuracy of the results. Objective The patient continues to return to sleep throughout the session. The patient wakes easily with a verbal prompt from the clinician. The patient participated in the SLUMS with increased accuracy and cooperation. The patient resulted with a score of +14/30 which is slightly improved in comparison to the prior date of +9/30. The patient continues to display a score which correlates to a rating of "dementia" per SLUMS records. The patient displayed difficulty with orientation, delayed recall, problem solving, and attention. The patient requires maximum verbal redirection to task and frequently discusses tangential topics. Additionally, the patient displays labile emotions, crying intermittently throughout the session. The clinician provided supportive listening and encouragement. Assessment Assessment Current Status: Fair Progress Treatment Plan Continue Plan of Care Speech Short Term Goals Short Term Goals Short Term Goals 1. The patient will participate in completion of the SLUMS assessment with mild clinician verbal prompting. Speech Half-Way Goals Clinical Biostatistics Director Goals 1. The patient will demonstrate increased functional safety awareness and problem solving for return to the least restrictive environment. Speech-Plan Treatment Plan Speech Therapy Treatment Plan: Continue Plan of Care Treatment Duration: Sep 20, 2021 Frequency: 4 times per week (Four to five times per week.) Estimated Hrs Per Day: .5 hour per day Rehab Potential: Guarded Safety Risks/Education Teaching Recipient: Patient Teaching Methods: Discussion Response to Teaching: Reinforcement Needed Education Topics Provided: Plan of Care, Results of SLUMS Time Speech Therapy Time In: 09:00 Speech Therapy Time Out: 09:30 Total Billed Time: 30 Billed Treatment Time 1NANCYCHAS Jeanie RADHA EVERETT Aug 25, 2021 09:30
[2021-08-25] MEDS: FERROUS SULF 325 MG (IRON) TAB PO SCH (11:13)
[2021-08-25] MEDS: polyethylene glycoL POWDER 17 GM (MIRALAX) PACK PO SCH ×2 (11:20→21:25)
[2021-08-25] MEDS: DOCUSATE SODIUM 100 MG (COLACE) CAP PO SCH ×2 (11:20→21:25)
--- NOTE | 2021-08-25 16:34 | Cardiology Progress Note ---
Progress Note-Cardiology Events since last exam Date Seen by Provider: Aug 25, 2021 Time Seen by Provider: 16:30 Events since last exam I am following her due to a stroke. She remains in the inpatient rehab unit. She denies chest discomfort, dyspnea at rest, palpitations, syncope, or ankle edema. Early this morning the nurse called me because the patient's systolic blood pressure was in the 80s. I asked the nurse to give her 250 mL of normal saline bolus and stopped the amlodipine. She did not appear to be taking amlodipine at home. Certain portions of this document may have been dictated utilizing voice recognition technology. Inherent to this technology, typographical and grammatical errors may exist. As much as I am diligent to identify and correct these mistakes, some errors may remain in the document. Vitals Last set of Vitals Signs Vital Signs 08/25/21 07:27 Temp 37.1 Pulse 63 Resp 16 B/P (MAP) 134/69 (90) Pulse Ox 94 O2 Delivery Room Air Exam Vital Signs Vital Signs Date Time Temp Pulse Resp B/P (MAP) Pulse Ox O2 Delivery O2 Flow Rate FiO2 08/25/21 07:27 37.1 63 16 134/69 (90) 94 Room Air Physical Exam General: Alert. No acute distress. Eye: No xanthelasma. HENT: Normocephalic. Neck: Jugular venous pressure does not appear elevated. Respiratory: Lungs are clear to auscultation. Respirations are non-labored. Breath sounds are equal. Symmetrical chest wall expansion. Cardiovascular: Normal rate. Regular rhythm. No murmur. No gallop. No edema. Gastrointestinal: Soft. Normal bowel sounds. Skin: Warm. Dry. Neurologic: Alert and oriented to person, place, time. Cranial nerves 3-11 grossly intact. Psychiatric: Cooperative. Appropriate mood & affect. Diagnosis/Problems Diagnosis/Problems (1) Cerebellar stroke Status: Acute Assessment & Plan: This raises a concern of possible atrial fibrillation. I implanted a loop recorder on 08/24. The sterile dressing can be removed on 08/26. We will use this for prolonged surveillance of atrial fibrillation. For the time being, I recommend she continue on aspirin and ezetimibe. She has a reported intolerance to statin medications. She was also taking estradiol at home. I recommend stopping this medication. Prolonged use of estrogen replacement therapy has been associated with increased risk of both venous and arterial thrombotic events. (2) Irregular heart rhythm Status: Acute Assessment & Plan: She was having some irregular heartbeats during her acute hospitalization. This was primarily due to frequent premature supraventricular complexes. She also had some tachycardia. I started her on beta-antionette due to intermittent tachycardia and hypertension. I did not see any definitive evidence of atrial fibrillation. We will monitor her loop recorder for any signs of atrial fibrillation. There is no indication for oral anticoagulants at this time. (3) Primary hypertension Assessment & Plan: Her outpatient indapamide has been resumed. I also started her on metoprolol succinate due to some intermittent tachycardia. She had also been started on amlodipine. I discontinued the amlodipine after she had low blood pressure this morning. We may want to allow for some permissive hypertension given the recent stroke. (4) Mixed hyperlipidemia Assessment & Plan: Continue ezetimibe which she was taking at home. As above, she has a reported intolerance to statin medications. TYLER HENDRICKS JR, MD Aug 25, 2021 16:34
[2021-08-25 20:01] VITALS: BP 114/53
[2021-08-25] MEDS: FAMOTIDINE 20 MG (PEPCID) TABLET PO SCH (20:17)
[2021-08-25] MEDS: ENOXAPARIN 40 MG/0.4 ML (LOVENOX) SYR SC SCH (20:18)
[2021-08-25] MEDS: eZETimibe 10 MG (ZETIA) TABLET PO SCH (20:18)
[2021-08-26] MEDS: KCL 20 MEQ TAB (K-DUR) PO SCH (06:37)
[2021-08-26] MEDS: LEVOTHYROXINE 75 MCG (LEVOTHROID) TABLET PO SCH (06:37)
[2021-08-26] MEDS: SUCRALFATE 1 GM (CARAFATE) TAB PO SCH ×4 (06:37→19:48)
--- NOTE | 2021-08-26 06:56 | PM&R Progress Note ---
Subjective HPI/CC On Admission Date Seen by Provider: Aug 26, 2021 Time Seen by Provider: 13:00 Subjective/Events-last exam 08/26/2021: Patient about the same No pain issues Checked meds and labs No seizure activity reported Family will come to visit on weekends in the afternoon 08/25/21: Pt doing about the same Xanax 0.25mg will be given BID scheduled as she takes at home Bowels moved yesterday No evidence of any seizures 08/24/2021: Patient doing pretty well Held the scheduled Xanax due to sedation Blood pressure was elevated prior to meds Feeds her self Family told nurse they think she is having seizures since everyone in her family has seizures but there was no evidence of any seizure-like activity assessed by the nursing staff so will be on alert for anything like that. No evidence to bush pport the addition of antiseizure meds. Review of Systems General: Fatigue, Malaise Neurological: Confusion Objective Exam Vital Signs Vital Signs Date Time Temp Pulse Resp B/P (MAP) Pulse Ox O2 Delivery O2 Flow Rate FiO2 08/26/21 20:35 Room Air 08/26/21 20:02 36.2 59 20 132/63 (86) 97 Capillary Refill : General Appearance: No Apparent Distress, WD/WN, Chronically ill HEENT: PERRL/EOMI, Normal ENT Inspection, Pharynx Normal Neck: Full Range of Motion, Normal Inspection, Non Tender, Supple, Carotid Bruit Respiratory: Chest Non Tender, Lungs Clear, Normal Breath Sounds, No Accessory Muscle Use, No Respiratory Distress Cardiovascular: Regular Rate, Rhythm, No Edema, No Gallop, No JVD, No Murmur, Normal Peripheral Pulses Gastrointestinal: Normal Bowel Sounds, No Organomegaly, No Pulsatile Mass, Non Tender, Soft Back: Normal Inspection, No CVA Tenderness, No Vertebral Tenderness Extremity: Normal Capillary Refill, Normal Inspection, Normal Range of Motion, Non Tender, No Calf Tenderness, No Pedal Edema Neurologic/Psychiatric: Alert, No Motor/Sensory Deficits, 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 FIM Transfers Therapy Code Descriptions/Definitions Functional [place] Measure: 0=Not Assessed/NA 4=Minimal Assistance 1=Total Assistance 5=Supervision or Setup 2=Maximal Assistance 6=Modified [place] 3=Moderate Assistance 7=Complete IndependenceSCALE: Activities may be completed with or without assistive devices. 3-Eecsywahtc-ktafbqk completes the activity by him/herself with no assistance from a helper. 5-Set-up or Clean-up Assistance-helper sets up or cleans up; patient completes activity. [place] assists only prior to or following the activity. 4-Supervision or Touching Assistance-helper provides verbal cues and/or touching/steadying and/or contact guard assistance as patient completes activity. Assistance may be provided throughout the activity or intermittently. 3-Partial/Moderate Assistance-helper does LESS THAN HALF the effort. [place] lifts, holds or supports trunk or limbs, but provides less than half the effort. 2-Substantial/Maximal Assistance-helper does MORE THAN HALF the effort. [place] lifts or holds trunk or limbs and provides more than half the effort. 8-Coowyldxu-oulqwt does ALL the effort. Patient does none of the effort to complete the activity. Or, the assistance of 2 or more helpers is required for the patient to complete the activity. If activity was not attempted, code reason: 7-Patient Refused. 9-Not Applicable-not attempted and the patient did not perform the activity before the current illness, exacerbation or injury. 10-Not Attempted due to Environmental Limitations-(lack of equipment, weather restraints, etc.). 88-Not Attempted due to Medical Conditions or Safety Concerns. Roll Left to Right (QC): 3 Sit to Lying (QC): 1 (dependent) Sit to Stand (QC): 3 Chair/Odm-nh-Hionz Xfer(QC): 4 Car Transfer (QC): 1 (dependent) Gait Training Does the Patient Walk?: Yes Distance: 20', 10'x3 Walk 10 feet (QC): 4 Walk 50 ft with 2 Turns(QC): 88 Walk 150 ft (QC): 88 Walking 10ft/uneven surface-QC: 88 Gait Assistive Device: FWW Wheelchair Training Does the Pt Use a Wheelchair?: Yes Distance: 15' Wheel 50 ft with 2 turns (QC): 2 Wheel 150 ft (QC): 2 Type of Wheelchair: Manual Stair Training 1 Step (curb) (QC): 88 4 Steps (QC): 88 12 Steps (QC): 88 Balance Picking up an Object (QC): 88 ADL-Treatment Eating (QC): 5 Oral Hygiene (QC): 4 Bathing Location: L Arm, Abdomen Shower/Bathe Self (QC): 4 Upper Body Dressing (QC): 4 Lower Body Dressing (QC): 2 On/Off Footwear (QC): 2 Toileting Hygiene (QC): 4 Toilet Transfer (QC): 3 Assessment/Plan Assessment and Plan Assess & Plan/Chief Complaint Assessment: Cerebellar stroke Dementia Status post severe sepsis with pneumonia History of recurrent UTIs Osteoporosis Hypertension Anemia DNR Chronic debility resides in assisted living Plan: Home meds Aggressive rehab Speech therapy 08/24/2021: Supportive care Be on alert for any seizures per family request 08/25/2021: Supportive care Dementia precludes complete recovery 08/26/2021: Supportive care Dementia care (1) Cerebellar stroke Status: Acute Assessment & Plan: This raises a concern of possible atrial fibrillation. I implanted a loop recorder on 08/24. The sterile dressing can be removed on 08/26. We will use this for prolonged surveillance of atrial fibrillation. For the time being, I recommend she continue on aspirin and ezetimibe. She has a reported intolerance to statin medications. She was also taking estradiol at home. I recommend stopping this medication. Prolonged use of estrogen replacement therapy has been associated with increased risk of both venous and arterial thrombotic events. (2) Irregular heart rhythm Status: Acute Assessment & Plan: She was having some irregular heartbeats during her acute hospitalization. This was primarily due to frequent premature supraventricular complexes. She also had some tachycardia. I started her on beta-antionette due to intermittent tachycardia and hypertension. I did not see any definitive ame dence of atrial fibrillation. We will monitor her loop recorder for any signs of atrial fibrillation. There is no indication for oral anticoagulants at this time. (3) Primary hypertension Assessment & Plan: Her outpatient indapamide has been resumed. I also started her on metoprolol succinate due to some intermittent tachycardia. She had also been started on amlodipine. I discontinued the amlodipine after she had low blood pressure this morning. We may want to allow for some permissive hypertension given the recent stroke. (4) Mixed hyperlipidemia Assessment & Plan: Continue ezetimibe which she was taking at home. As above, she has a reported intolerance to statin medications. ALFONSO MEDINA DO Aug 26, 2021 06:56
[2021-08-26 08:00] VITALS: BP 142/68
[2021-08-26] MEDS: PANTOPRAZOLE 40 MG (PROTONIX) TAB PO SCH ×2 (08:20→19:48)
[2021-08-26] MEDS: ACETAMINOPHEN 500 MG TAB (TYLENOL) PO SCH ×4 (08:20→19:48)
[2021-08-26] MEDS: ASPIRIN E.C. 325 MG (ECOTRIN) TABLET PO SCH (08:21)
[2021-08-26] MEDS: meTOproloL SUCCINATE 50 MG (TOPROL XL) TAB PO SCH (08:21)
[2021-08-26] MEDS: GABAPENTIN 600 MG (NEURONTIN) TAB PO SCH ×2 (08:22→19:48)
[2021-08-26] MEDS: INDAPAMIDE 2.5 MG (LOZOL) TAB PO SCH (08:23)
[2021-08-26] MEDS: DOCUSATE SODIUM 100 MG (COLACE) CAP PO SCH ×2 (08:25→21:45)
[2021-08-26] MEDS: SENNA W/DOCUSATE (SENOKOT S) TABLET PO SCH ×2 (08:25→21:45)
[2021-08-26] MEDS: polyethylene glycoL POWDER 17 GM (MIRALAX) PACK PO SCH ×2 (08:25→21:45)
[2021-08-26] MEDS: ALPRAZolam 0.25 MG (XANAX) TAB PO SCH ×2 (09:00→21:46)
--- NOTE | 2021-08-26 09:16 | Physical Therapy Daily Note ---
PT Daily Note-Current Subjective Pt in recliner upon arrival, reports pain 8/10. With encouragement pt agrees to tx. Pt states "I don't want to get up out of this chair." as she just TF to recliner from bed earlier this am. Mental Status Patient Orientation: Person, Confused, Place Transfers SCALE: Activities may be completed with or without assistive devices. 1-Mjajzslxth-dlfkkqc completes the activity by him/herself with no assistance from a helper. 5-Set-up or Clean-up Assistance-helper sets up or cleans up; patient completes activity. [place] assists only prior to or following the activity. 4-Supervision or Touching Assistance-helper provides verbal cues and/or touching/steadying and/or contact guard assistance as patient completes activity. Assistance may be provided throughout the activity or intermittently. 3-Partial/Moderate Assistance-helper does LESS THAN HALF the effort. [place] lifts, holds or supports trunk or limbs, but provides less than half the effort. 2-Substantial/Maximal Assistance-helper does MORE THAN HALF the effort. [place] lifts or holds trunk or limbs and provides more than half the effort. 6-Dvddkwqam-kwrghk does ALL the effort. Patient does none of the effort to complete the activity. Or, the assistance of 2 or more helpers is required for the patient to complete the activity. If activity was not attempted, code reason: 7-Patient Refused. 9-Not Applicable-not attempted and the patient did not perform the activity before the current illness, exacerbation or injury. 10-Not Attempted due to Environmental Limitations-(lack of equipment, weather restraints, etc.). 88-Not Attempted due to Medical Conditions or Safety Concerns. Gait Training Does the Patient Walk?: No and Walking Goal IS indicated Exercises Supine Ex: Ankle pumps, Glut sets, Heel Slides, Short Arc Quads, Hip abd/add Supine Reps: 10 Treatments Pt in recliner, completes supine exercises. Pt remains in recliner with all needs met, heating pad on back, call light in hand. Assessment Current Status: Fair Progress Pt very confused, requiring Max VC for reminders as to which ex pt is completing PT Short Term Goals Short Term Goals Time Frame: Aug 30, 2021 Roll Left & Right: 2 Sit to lyin Lying to sitting on side of be: 2 Sit to stand: 3 Chair/fwj-zq-lyuas transfer: 3 Walk 10 feet: 3 Walk 50 feet with two turns: 3 PT Care Home Goals Valve Setter Goals PT Care Home Goals Time Frame: Sep 13, 2021 Roll Left & Right (QC): 3 Sit to Lying (QC): 3 Lying-Sitting on Side/Bed(QC): 3 Sit to Stand (QC): 4 Chair/Byj-pt-Fqbmf Xfer(QC): 4 Toilet Transfer (QC): 4 Car Transfer (QC): 3 Does the Patient Walk: Yes Walk 10 feet (QC): 4 Walk 50ft with 2 Turns (QC): 4 Walk 150 ft (QC): 4 Walking 10ft on Uneven Surface: 4 1 Step (curb) (QC): 88 4 Steps (QC): 88 12 Steps (QC): 88 Picking up an Object (QC): 4 Wheel 50 feet with 2 turns (QC: 4 Wheel 150 feet: 4 PT Plan Treatment/Plan Treatment Plan: Continue Plan of Care Treatment Plan: Bed Mobility, Education, Functional Activity [place], Functional Strength, Group Therapy, Gait, Safety, Therapeutic Exercise, Transfers Treatment Duration: Sep 13, 2021 Frequency: At least 5 of 7 days/Wk (IRF) Estimated Hrs Per Day: 1.5 hours per day Patient and/or Family Agrees t: Yes Time/GCodes Time In: 902 Time Out: 911 Total Billed Treatment Time: 9 Total Billed Treatment 1AMERICA SYD[place] TEST AND RESEARCH REACTOR OPERATOR Aug 26, 2021 09:16
[2021-08-26] MEDS: FERROUS SULF 325 MG (IRON) TAB PO SCH (11:11)
[2021-08-26] MEDS ORDERED: CATHETER FLUSH 10 ML SYR IV PRN (13:30)
[2021-08-26] MEDS: CATHETER FLUSH 10 ML SYR IV SCH ×2 (14:13→20:01)
[2021-08-26] MEDS: eZETimibe 10 MG (ZETIA) TABLET PO SCH (19:48)
[2021-08-26] MEDS: FAMOTIDINE 20 MG (PEPCID) TABLET PO SCH (19:48)
[2021-08-26] MEDS: ENOXAPARIN 40 MG/0.4 ML (LOVENOX) SYR SC SCH (19:49)
[2021-08-26] MEDS: MELATONIN 3 MG TABLET PO PRN (19:55)
[2021-08-26 20:02] VITALS: BP 132/63
[2021-08-27] MEDS: ACETAMINOPHEN 325 MG TABLET PO PRN (03:36)
[2021-08-27] MEDS: CATHETER FLUSH 10 ML SYR IV SCH ×3 (04:21→20:48)
[2021-08-27] MEDS: SUCRALFATE 1 GM (CARAFATE) TAB PO SCH ×4 (05:12→20:44)
[2021-08-27] MEDS: LEVOTHYROXINE 75 MCG (LEVOTHROID) TABLET PO SCH (05:12)
--- NOTE | 2021-08-27 07:06 | PM&R Progress Note ---
Subjective HPI/CC On Admission Date Seen by Provider: Aug 27, 2021 Time Seen by Provider: 13:00 Subjective/Events-last exam 08/27/2021: Patient doing about the same Cries a lot Xanax scheduled Cognition comes and goes 08/26/2021: Patient about the same No pain issues Checked meds and labs No seizure activity reported Family will come to visit on weekends in the afternoon 08/25/21: Pt doing about the same Xanax 0.25mg will be given BID scheduled as she takes at home Bowels moved yesterday No evidence of any seizures 08/24/2021: Patient doing pretty well Held the scheduled Xanax due to sedation Blood pressure was elevated prior to meds Feeds her self Family told nurse they think she is having seizures since everyone in her family has seizures but there was no evidence of any seizure-like activity assessed by the nursing staff so will be on alert for anything like that. No evidence to support the addition of antiseizure meds. Review of Systems General: Fatigue, Malaise Objective Exam Vital Signs Vital Signs Date Time Temp Pulse Resp B/P (MAP) Pulse Ox O2 Delivery O2 Flow Rate FiO2 08/27/21 21:05 Room Air 08/27/21 20:50 36.2 60 18 104/52 (69) 94 Capillary Refill : General Appearance: No Apparent Distress, WD/WN, Chronically ill HEENT: PERRL/EOMI, Normal ENT Inspection, Pharynx Normal Neck: Full Range of Motion, Normal Inspection, Non Tender, Supple, Carotid Bruit Respiratory: Chest Non Tender, Lungs Clear, Normal Breath Sounds, No Accessory Muscle Use, No Respiratory Distress Cardiovascular: Regular Rate, Rhythm, No Edema, No Gallop, No JVD, No Murmur, Normal Peripheral Pulses Gastrointestinal: Normal Bowel Sounds, No Organomegaly, No Pulsatile Mass, Non Tender, Soft Back: Normal Inspection, No CVA Tenderness, No Vertebral Tenderness Extremity: Normal Capillary Refill, Normal Inspection, Normal Range of Motion, Non Tender, No Calf Tenderness, No Pedal Edema Neurologic/Psychiatric: Alert, No Motor/Sensory Deficits, 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 FIM Transfers Therapy Code Descriptions/Definitions Functional [place] Measure: 0=Not Assessed/NA 4=Minimal Assistance 1=Total Assistance 5=Supervision or Setup 2=Maximal Assistance 6=Modified [place] 3=Moderate Assistance 7=Complete IndependenceSCALE: Activities may be completed with or without assistive devices. 7-Bltfpygiht-seegqzz completes the activity by him/herself with no assistance from a helper. 5-Set-up or Clean-up Assistance-helper sets up or cleans up; patient completes activity. [place] assists only prior to or following the activity. 4-Supervision or Touching Assistance-helper provides verbal cues and/or touching/steadying and/or contact guard assistance as patient completes activity. Assistance may be provided throughout the activity or intermittently. 3-Partial/Moderate Assistance-helper does LESS THAN HALF the effort. [place] lifts, holds or supports trunk or limbs, but provides less than half the effort. 2-Substantial/Maximal Assistance-helper does MORE THAN HALF the effort. [place] lifts or holds trunk or limbs and provides more than half the effort. 5-Rqymocqlg-rorlfb does ALL the effort. Patient does none of the effort to complete the activity. Or, the assistance of 2 or more helpers is required for the patient to complete the activity. If activity was not attempted, code reason: 7-Patient Refused. 9-Not Applicable-not attempted and the patient did not perform the activity before the current illness, exacerbation or injury. 10-Not Attempted due to Environmental Limitations-(lack of equipment, weather restraints, etc.). 88-Not Attempted due to Medical Conditions or Safety Concerns. Roll Left to Right (QC): 3 Sit to Lying (QC): 1 (dependent) Sit to Stand (QC): 3 Chair/Kij-zg-Rcdcm Xfer(QC): 4 Car Transfer (QC): 1 (dependent) Gait Training Does the Patient Walk?: No and Walking Goal IS indicated Distance: 20', 10'x3 Walk 10 feet (QC): 4 Walk 50 ft with 2 Turns(QC): 88 Walk 150 ft (QC): 88 Walking 10ft/uneven surface-QC: 88 Gait Assistive Device: FWW Wheelchair Training Does the Pt Use a Wheelchair?: Yes Distance: 15' Wheel 50 ft with 2 turns (QC): 2 Wheel 150 ft (QC): 2 Type of Wheelchair: Manual Stair Training 1 Step (curb) (QC): 88 4 Steps (QC): 88 12 Steps (QC): 88 Balance Picking up an Object (QC): 88 ADL-Treatment Eating (QC): 5 Oral Hygiene (QC): 4 Bathing Location: L Arm, Abdomen Shower/Bathe Self (QC): 4 Upper Body Dressing (QC): 4 Lower Body Dressing (QC): 2 On/Off Footwear (QC): 2 Toileting Hygiene (QC): 4 Toilet Transfer (QC): 3 Assessment/Plan Assessment and Plan Assess & Plan/Chief Complaint Assessment: Cerebellar stroke Dementia Status post severe sepsis with pneumonia History of recurrent UTIs Osteoporosis Hypertension Anemia DNR Chronic debility resides in assisted living Plan: Home meds Aggressive rehab Speech therapy 08/24/2021: Supportive care Be on alert for any seizures per family request 08/25/2021: Supportive care Dementia precludes complete recovery 08/26/2021: Supportive care Dementia care 08/27/2021: Supportive care Xanax for tearfulness (1) Cerebellar stroke Status: Acute Assessment & Plan: This raises a concern of possible atrial fibrillation. I implanted a loop recorder on 08/24. The sterile dressing can be removed on 08/26. We will use this for prolonged surveillance of atrial fibrillation. For the time being, I recommend she continue on aspirin and ezetimibe. She has a reported intolerance to statin medications. She was also taking estradiol at home. I recommend stopping this medication. Prolonged use of estrogen replacement therapy has been associated with increased risk of both venous and arterial thrombotic events. (2) Irregular heart rhythm Status: Acute Assessment & Plan: She was having some irregular heartbeats during her acute hospitalization. This was primarily due to frequent premature supraventricular complexes. She also had some tachycardia. I started her on beta-antionette due to intermittent tachycardia and hypertension. I did not see any definitive ame dence of atrial fibrillation. We will monitor her loop recorder for any signs of atrial fibrillation. There is no indication for oral anticoagulants at this time. (3) Primary hypertension Assessment & Plan: Her outpatient indapamide has been resumed. I also started her on metoprolol succinate due to some intermittent tachycardia. She had also been started on amlodipine. I discontinued the amlodipine after she had low blood pressure this morning. We may want to allow for some permissive hypertension given the recent stroke. (4) Mixed hyperlipidemia Assessment & Plan: Continue ezetimibe which she was taking at home. As above, she has a reported intolerance to statin medications. ALFONSO MEDINA DO Aug 27, 2021 07:06
[2021-08-27 08:00] VITALS: BP 123/60
[2021-08-27] MEDS: ASPIRIN E.C. 325 MG (ECOTRIN) TABLET PO SCH (08:36)
[2021-08-27] MEDS: PANTOPRAZOLE 40 MG (PROTONIX) TAB PO SCH ×2 (08:36→20:45)
[2021-08-27] MEDS: INDAPAMIDE 2.5 MG (LOZOL) TAB PO SCH (08:36)
[2021-08-27] MEDS: ACETAMINOPHEN 500 MG TAB (TYLENOL) PO SCH ×4 (08:37→20:46)
[2021-08-27] MEDS: KCL 20 MEQ TAB (K-DUR) PO SCH (08:37)
[2021-08-27] MEDS: meTOproloL SUCCINATE 50 MG (TOPROL XL) TAB PO SCH (08:37)
[2021-08-27] MEDS: GABAPENTIN 600 MG (NEURONTIN) TAB PO SCH ×2 (08:37→20:44)
[2021-08-27] MEDS: SENNA W/DOCUSATE (SENOKOT S) TABLET PO SCH ×2 (08:39→20:46)
[2021-08-27] MEDS: DOCUSATE SODIUM 100 MG (COLACE) CAP PO SCH ×2 (08:40→20:46)
[2021-08-27] MEDS: polyethylene glycoL POWDER 17 GM (MIRALAX) PACK PO SCH ×2 (08:40→20:46)
[2021-08-27] MEDS: ALPRAZolam 0.25 MG (XANAX) TAB PO SCH ×3 (08:46→20:47)
[2021-08-27] MEDS: FERROUS SULF 325 MG (IRON) TAB PO SCH (11:35)
--- NOTE | 2021-08-27 12:17 | Cardiology Progress Note ---
Progress Note-Cardiology Events since last exam Date Seen by Provider: Aug 27, 2021 Time Seen by Provider: 12:12 Events since last exam I am following her due to recent stroke. Yesterday she developed some midsternal chest pain. This resolved spontaneously but she did tell the nurse. She denies any further chest discomfort today. She feels as though the chest discomfort could have just been "heartburn." She denies dyspnea at rest. She denies palpitations, syncope, or ankle edema. Certain portions of this document may have been dictated utilizing voice recognition technology. Inherent to this technology, typographical and grammatical errors may exist. As much as I am diligent to identify and correct these mistakes, some errors may remain in the document. Vitals Last set of Vitals Signs Vital Signs 08/27/21 08/27/21 08:00 09:00 Temp 36.4 Pulse 63 Resp 18 B/P (MAP) 123/60 (81) Pulse Ox 96 O2 Delivery Room Air Exam Vital Signs Vital Signs Date Time Temp Pulse Resp B/P (MAP) Pulse Ox O2 Delivery O2 Flow Rate FiO2 08/27/21 09:00 Room Air 08/27/21 08:00 36.4 63 18 123/60 (81) 96 Physical Exam General: Alert. No acute distress. Eye: No xanthelasma. HENT: Normocephalic. Neck: Jugular venous pressure does not appear elevated. Respiratory: Lungs are clear to auscultation. Respirations are non-labored. Breath sounds are equal. Symmetrical chest wall expansion. Cardiovascular: Normal rate. Regular rhythm. No murmur. No gallop. Trace bilateral pretibial edema. Gastrointestinal: Soft. Normal bowel sounds. Skin: Warm. Dry. Neurologic: Alert and oriented to person, place, time. Cranial nerves 3-11 grossly intact. Psychiatric: Cooperative. Appropriate mood & affect. Radiology Electrocardiogram from 08/26 showed sinus rhythm with right bundle branch block without any acute ST changes. Diagnosis/Problems Diagnosis/Problems (1) Chest pain Assessment & Plan: Exact etiology unclear. No further chest pain today. No acute changes on her electrocardiogram which was done when she was having chest pain. This may have been related to gastroesophageal reflux disease. She is on pantoprazole twice daily. In light of her DNR status, I recommend conservative medical management. However, if she continues to have intermittent chest discomfort, then we may need to consider an ischemic evaluation but I would first want to discuss this with her family. (2) Cerebellar stroke Status: Acute Assessment & Plan: This raises a concern of possible atrial fibrillation. I implanted a loop recorder on 08/24. We will use this for prolonged surveillance of atrial fibrillation. For the time being, I recommend she continue on aspirin and ezetimibe. She has a reported intolerance to statin medications. She was also taking estradiol at home which I stopped. Prolonged use of estrogen repla cement therapy has been associated with increased risk of both venous and arterial thrombotic events. (3) Irregular heart rhythm Status: Acute Assessment & Plan: She was having some irregular heartbeats during her acute hospitalization. This was primarily due to frequent premature supraventricular complexes. She also had some tachycardia. I started her on beta-antionette due to intermittent tachycardia and hypertension. I did not see any definitive evidence of atrial fibrillation. We will monitor her loop recorder for any signs of atrial fibrillation. There is no indication for oral anticoagulants at this time. (4) Primary hypertension Assessment & Plan: Her outpatient indapamide has been resumed. I also started her on metoprolol succinate due to some intermittent tachycardia. She had also been started on amlodipine. I discontinued the amlodipine after she had low blood pressure 1 evening. We may want to allow for some permissive hypertension given the recent stroke. Her blood pressure is presently reasonably well cont rolled on the current medication. (5) Mixed hyperlipidemia Assessment & Plan: Continue ezetimibe which she was taking at home. She has a reported intolerance to statin medications. TYLER HENDRICKS JR, MD Aug 27, 2021 12:17
[2021-08-27] MEDS ORDERED: OLANZapine 5 MG (ZyPREXA) TAB PO SCH (20:00)
[2021-08-27] MEDS: eZETimibe 10 MG (ZETIA) TABLET PO SCH (20:44)
[2021-08-27] MEDS: FAMOTIDINE 20 MG (PEPCID) TABLET PO SCH (20:46)
[2021-08-27] MEDS: ENOXAPARIN 40 MG/0.4 ML (LOVENOX) SYR SC SCH (20:47)
[2021-08-27 20:50] VITALS: BP 104/52
[2021-08-28] MEDS ORDERED: WATER (STERILE) FOR INJECTION 10 ML ONE (00:17)
[2021-08-28] MEDS: BACLOFEN 10 MG (LIORESAL) TAB PO PRN (01:33)
--- NOTE | 2021-08-28 05:40 | PM&R Progress Note ---
Subjective HPI/CC On Admission Date Seen by Provider: Aug 28, 2021 Time Seen by Provider: 09:00 Subjective/Events-last exam 08/28/2021: Pt a little bit more confused today Oscar alvarez will be given Bowels on 08/27 but they were loose Need to reach out to assisted living to see what we have to do for her to meet criteria to come back 08/27/2021: Patient doing about the same Cries a lot Xanax scheduled Cognition comes and goes 08/26/2021: Patient about the same No pain issues Checked meds and labs No seizure activity reported Family will come to visit on weekends in the afternoon 08/25/21: Pt doing about the same Xanax 0.25mg will be given BID scheduled as she takes at home Bowels moved yesterday No evidence of any seizures 08/24/2021: Patient doing pretty well Held the scheduled Xanax due to sedation Blood pressure was elevated prior to meds Feeds her self Family told nurse they think she is having seizures since everyone in her family has seizures but there was no evidence of any seizure-like activity assessed by the nursing staff so will be on alert for anything like that. No evidence to support the addition of antiseizure meds. Review of Systems General: Fatigue Neurological: Weakness, Confusion Objective Exam Vital Signs Vital Signs Date Time Temp Pulse Resp B/P (MAP) Pulse Ox O2 Delivery O2 Flow Rate FiO2 08/28/21 21:00 Room Air 08/28/21 19:53 36.6 59 20 95/61 (72) 96 Capillary Refill : General Appearance: No Apparent Distress, WD/WN, Chronically ill HEENT: PERRL/EOMI, Normal ENT Inspection, Pharynx Normal Neck: Full Range of Motion, Normal Inspection, Non Tender, Supple, Carotid Bruit Respiratory: Chest Non Tender, Lungs Clear, Normal Breath Sounds, No Accessory Muscle Use, No Respiratory Distress Cardiovascular: Regular Rate, Rhythm, No Edema, No Gallop, No JVD, No Murmur, Normal Peripheral Pulses Gastrointestinal: Normal Bowel Sounds, No Organomegaly, No Pulsatile Mass, Non Tender, Soft Back: Normal Inspection, No CVA Tenderness, No Vertebral Tenderness Extremity: Normal Capillary Refill, Normal Inspection, Normal Range of Motion, Non Tender, No Calf Tenderness, No Pedal Edema Neurologic/Psychiatric: Alert, No Motor/Sensory Deficits, rate supervisor II-XII Norm as Tested, Abnormal Gait, Depressed Affect, Disoriented, Motor Weakness (left s ided) Skin: Normal Color, Warm/Dry Lymphatic: No Adenopathy Results/Procedures Lab Laboratory Tests 08/28/21 06:30 Patient resulted labs reviewed. FIM Transfers Therapy Code Descriptions/Definitions Functional [place] Measure: 0=Not Assessed/NA 4=Minimal Assistance 1=Total Assistance 5=Supervision or Setup 2=Maximal Assistance 6=Modified [place] 3=Moderate Assistance 7=Complete IndependenceSCALE: Activities may be completed with or without assistive devices. 2-Qhwuoxdrif-kumaftn completes the activity by him/herself with no assistance from a helper. 5-Set-up or Clean-up Assistance-helper sets up or cleans up; patient completes activity. [place] assists only prior to or following the activity. 4-Supervision or Touching Assistance-helper provides verbal cues and/or touchin g/steadying and/or contact guard assistance as patient completes activity. Assistance may be provided throughout the activity or intermittently. 3-Partial/Moderate Assistance-helper does LESS THAN HALF the effort. [place] lifts, holds or supports trunk or limbs, but provides less than half the effort. 2-Substantial/Maximal Assistance-helper does MORE THAN HALF the effort. [place] lifts or holds trunk or limbs and provides more than half the effort. 2-Utydqzbvk-evsbbh does ALL the effort. Patient does none of the effort to complete the activity. Or, the assistance of 2 or more helpers is required for the patient to complete the activity. If activity was not attempted, code reason: 7-Patient Refused. 9-Not Applicable-not attempted and the patient did not perform the activity before the current illness, exacerbation or injury. 10-Not Attempted due to Environmental Limitations-(lack of equipment, weather restraints, etc.). 88-Not Attempted due to Medical Conditions or Safety Concerns. Roll Left to Right (QC): 3 Sit to Lying (QC): 1 (dependent) Sit to Stand (QC): 3 Chair/Lcx-af-Qwkvh Xfer(QC): 4 Car Transfer (QC): 1 (dependent) Gait Training Does the Patient Walk?: No and Walking Goal IS indicated Distance: 20', 10'x3 Walk 10 feet (QC): 4 Walk 50 ft with 2 Turns(QC): 88 Walk 150 ft (QC): 88 Walking 10ft/uneven surface-QC: 88 Gait Assistive Device: FWW Wheelchair Training Does the Pt Use a Wheelchair?: Yes Distance: 15' Wheel 50 ft with 2 turns (QC): 2 Wheel 150 ft (QC): 2 Type of Wheelchair: Manual Stair Training 1 Step (curb) (QC): 88 4 Steps (QC): 88 12 Steps (QC): 88 Balance Picking up an Object (QC): 88 ADL-Treatment Eating (QC): 5 Oral Hygiene (QC): 4 Bathing Location: L Arm, Abdomen Shower/Bathe Self (QC): 4 Upper Body Dressing (QC): 4 Lower Body Dressing (QC): 2 On/Off Footwear (QC): 2 Toileting Hygiene (QC): 4 Toilet Transfer (QC): 3 Assessment/Plan Assessment and Plan Assess & Plan/Chief Complaint Assessment: Cerebellar stroke Dementia Status post severe sepsis with pneumonia History of recurrent UTIs Osteoporosis Hypertension Anemia DNR Chronic debility resides in assisted living Plan: Home meds Aggressive rehab Speech therapy 08/24/2021: Supportive care Be on alert for any seizures per family request 08/25/2021: Supportive care Dementia precludes complete recovery 08/26/2021: Supportive care Dementia care 08/27/2021: Supportive care Xanax for tearfulness 08/28/2021: Supportive care DC planning (1) Chest pain Assessment & Plan: Exact etiology unclear. No further chest pain today. No acute changes on her electrocardiogram which was done when she was having chest pain. This may have been related to gastroesophageal reflux disease. She is on pantoprazole twice daily. In light of her DNR status, I recommend conservative medical management. However, if she continues to have intermittent chest discomfort, then we may need to consider an ischemic evaluation but I would first want to discuss this with her family. (2) Cerebellar stroke Status: Acute Assessment & Plan: This raises a concern of possible atrial fibrillation. I implanted a loop recorder on 08/24. We will use this for prolonged surveillance of atrial fibrillation. For the time being, I recommend she continue on aspirin and ezetimibe. She has a reported intolerance to statin medications. She was also taking estradiol at home which I stopped. Prolonged use of estrogen replacement therapy has been associated with increased risk of both venous and arterial thrombotic events. (3) Irregular heart rhythm Status: Acute Assessment & Plan: She was having some irregular heartbeats during her acute hospitalization. This was primarily due to frequent premature supraventricular complexes. She also had some tachycardia. I started her on beta-antionette due to intermittent tachycardia and hypertension. I did not see any definitive evidence of atrial fibrillation. We will monitor her loop recorder for any signs of atrial fibrillation. There is no indication for oral anticoagulants at this time. (4) Primary hypertension Assessment & Plan: Her outpatient indapamide has been resumed. I also started her on metoprolol succinate due to some intermittent tachycardia. She had also been started on amlodipine. I discontinued the amlodipine after she had low blood pressure 1 evening. We may want to allow for some permissive hypertension given the recent stroke. Her blood pressure is presently reasonably well controlled on the current medication. (5) Mixed hyperlipidemia Assessment & Plan: Continue ezetimibe which she was taking at home. She has a reported intolerance to statin medications. ALFONSO MEDINA DO Aug 28, 2021 05:40
[2021-08-28 06:41] LABS: BASOPHILS % (AUTO) 0 % (0-10); EOSINOPHILS # (AUTO) 0.6 10^3/uL (0.0-0.3); EOSINOPHILS % (AUTO) 9 % (0-10); HEMATOCRIT 40 % (35-52); HEMOGLOBIN 13.2 g/dL (11.5-16.0); LYMPHOCYTES # (AUTO) 1.8 10^3/uL (1.0-4.0); LYMPHOCYTES % (AUTO) 24 % (12-44); MEAN CORPUSCULAR HEMOGLOBIN 31 pg (25-34); MEAN CORPUSCULAR HGB CONC 33 g/dL (32-36); MEAN CORPUSCULAR VOLUME 96 fL (80-99); MEAN PLATELET VOLUME 9.4 fL (9.0-12.2); MONOCYTES # (AUTO) 0.6 10^3/uL (0.0-1.0); MONOCYTES % (AUTO) 9 % (0-12); NEUTROPHILS # (AUTO) 4.1 10^3/uL (1.8-7.8); NEUTROPHILS % (AUTO) 56 % (42-75); PLATELET COUNT 283 10^3/uL (130-400); WHITE BLOOD COUNT 7.4 10^3/uL (4.3-11.0)
[2021-08-28] MEDS: CATHETER FLUSH 10 ML SYR IV SCH ×3 (06:41→21:50)
[2021-08-28 07:09] LABS: ALBUMIN 3.3 GM/DL (3.2-4.5); BILIRUBIN,TOTAL 0.5 MG/DL (0.1-1.0); CALCIUM 9.8 MG/DL (8.5-10.1); CREATININE SERUM 0.95 MG/DL (0.60-1.30); POTASSIUM 3.7 MMOL/L (3.6-5.0); TOTAL PROTEIN 6.9 GM/DL (6.4-8.2)
[2021-08-28] MEDS: ACETAMINOPHEN 500 MG TAB (TYLENOL) PO SCH ×4 (07:44→20:44)
[2021-08-28] MEDS: meTOproloL SUCCINATE 50 MG (TOPROL XL) TAB PO SCH (07:44)
[2021-08-28] MEDS: PANTOPRAZOLE 40 MG (PROTONIX) TAB PO SCH ×2 (07:44→20:44)
[2021-08-28] MEDS: ASPIRIN E.C. 325 MG (ECOTRIN) TABLET PO SCH (07:44)
[2021-08-28] MEDS: GABAPENTIN 600 MG (NEURONTIN) TAB PO SCH ×2 (07:44→20:43)
[2021-08-28 07:45] VITALS: BP 151/68
[2021-08-28] MEDS: INDAPAMIDE 2.5 MG (LOZOL) TAB PO SCH (07:46)
[2021-08-28] MEDS: ALPRAZolam 0.25 MG (XANAX) TAB PO SCH ×2 (07:53→21:48)
[2021-08-28] MEDS: SUCRALFATE 1 GM (CARAFATE) TAB PO SCH ×4 (07:53→20:44)
[2021-08-28] MEDS: LEVOTHYROXINE 75 MCG (LEVOTHROID) TABLET PO SCH (07:53)
[2021-08-28] MEDS: KCL 20 MEQ TAB (K-DUR) PO SCH (07:53)
[2021-08-28] MEDS: polyethylene glycoL POWDER 17 GM (MIRALAX) PACK PO SCH ×2 (08:00→21:47)
[2021-08-28] MEDS: DOCUSATE SODIUM 100 MG (COLACE) CAP PO SCH ×2 (08:00→20:43)
[2021-08-28] MEDS: SENNA W/DOCUSATE (SENOKOT S) TABLET PO SCH ×2 (08:00→21:47)
--- NOTE | 2021-08-28 08:43 | Occupational Ther Daily Note ---
OT Current Status-Daily Note Subjective Pt alert, confused, agitated and combative. Pt getting out of chair without assistance to grab FWW. Nrsg and COLLINS in room. Pt agitated wants to go to the bathroom. Physical cues to assist pt to manipulate FWW to bathroom. At that time pt is groggy and non-verbal. Directed pt to sit on toilet. Pt then became more alert and agitated stating that she wants to go to the bathroom. COLLINS attempted to explain to pt that she is sitting on toilet. Pt states, "if you would just get out of my way I want to go to the bathroom". Pt unable to comprehend that she was sitting on toilet and became agitated. COLLINS allow pt to stand and pt began to walk around room in search of toilet. Pt ambulated to far side of bed and began to sit like she was sitting on the toilet. When attempting to reorient pt, pt stated just let me go to the bathroom. Nrsg tech entered room and was able to have pt follow her to bathroom. Pt attempted to walk out of room, nrsg tech and COLLINS guided FWW to bathroom. Pt then sat on toilet and urinated. Pt then sat there with her head in her hand then spontaneously stood up, when COLLINS and nrsg tech came to assist pt stated "if you would just leave me alone, I am trying to go to the bathroom. At this time pt had hiked pants over hips then sat back onto toilet. Multiple attempts to have pt come out of bathroom with verbal cues did not work. COLLINS took pt's hand and pt pulled it away and shook it at COLLINS, stating that she could get up when she wanted to. Pt then stood up and began to ambulate out of bathroom. Pt made it out of bathroom door and began to sit down, nrsg put w/c behind pt to sit. Pt then would not allow w/c to be moved from spot. Breakfast placed in front of p t. Pt reached to drink coffee then just sat there tearing napkin then placing to lips. COLLINS and nrsg had pt in eyesight to ensure safety. Pt began finally to eat breakfast. When any attempts were made to assist pt, pt stated "when I want to do it I will." Pt left alone while eating breakfast, staff watching pt to ensure safety. Pt ate full breakfast, drank liquids and finally nrsg was able to have pt take medications. Nrsg contacted [facility] mobile manager about sitter. COLLINS attempted to engage pt in oral care and grooming sitting in w/c. Pt stated "I can do that when I want to do that." Items placed in front of pt and pt ignored completing task. Attempt to have pt move from w/c to recliner, pt refused. Mental Status/Objective Patient Orientation: Person, Confused Attachments: IV ADL-Treatment Therapy Code Descriptions/Definitions Functional [place] Measure: 0=Not Assessed/NA 4=Minimal Assistance 1=Total Assistance 5=Supervision or Setup 2=Maximal Assistance 6=Modified [place] 3=Moderate Assistance 7=Complete IndependenceSCALE: Activities may be completed with or without assistive devices. 9-Ydcurpcpdx-mckwnff completes the activity by him/herself with no assistance from a helper. 5-Set-up or Clean-up Assistance-helper sets up or cleans up; patient completes activity. [place] assists only prior to or following the activity. 4-Supervision or Touching Assistance-helper provides verbal cues and/or touching/steadying and/or contact guard assistance as patient completes activity. Assistance may be provided throughout the activity or intermittently. 3-Partial/Moderate Assistance-helper does LESS THAN HALF the effort. [place] lifts, holds or supports trunk or limbs, but provides less than half the effort. 2-Substantial/Maximal Assistance-helper does MORE THAN HALF the effort. [place] lifts or holds trunk or limbs and provides more than half the effort. 7-Onafxrjcs-hhpkzi does ALL the effort. Patient does none of the effort to complete the activity. Or, the assistance of 2 or more helpers is required for the patient to complete the activity. If activity was not attempted, code reason: 7-Patient Refused. 9-Not Applicable-not attempted and the patient did not perform the activity before the current illness, exacerbation or injury. 10-Not Attempted due to Environmental Limitations-(lack of equipment, weather restraints, etc.). 88-Not Attempted due to Medical Conditions or Safety Concerns. Eating (QC): 5 Oral Hygiene (QC): 7 Other Treatment Pt left in care of PT. All needs met. OT Short Term Goals Short Term Goals Time Frame: Sep 01, 2021 Eatin Oral hygiene: 5 Toileting hygiene: 3 Shower/bathe self: 3 OT Senior Care Goals Senior Care Goals Time Frame: Sep 15, 2021 Eating (QC): 6 Oral Hygiene (QC): 6 Toileting Hygiene (QC): 6 Shower/Bathe Self (QC): 4 Upper Body Dressing (QC): 6 Lower Body Dressing (QC): 4 On/Off Footwear (QC): 4 Additional Goals: 1-Demonstrate ADL Tasks, 2-Verbalize Understanding, 3- ImproveStrength/Philipp 1=Demonstrate adherence to instructed precautions during ADL tasks. 2=Patient will verbalize/demonstrate understanding of assistive devices/modifications for ADL. 3=Patient will improve strength/tolerance for activity to enable patient to perform ADL's. OT Education/Plan Problem List/Assessment Assessment: Decreased Activ Tolerance, Decreased Safety Aware, Impaired Cognition Discharge Recommendations Plan/Recommendations: Continue POC Treatment Plan/Plan of Care Patient would benefit from OT for education, treatment and training to promote independence in ADL's, mobility, safety and/or upper extremity function for ADL's. Plan of Care: ADL Retraining, Functional Mobility, UE Funct Exercise/Act Treatment Duration: Sep 15, 2021 Frequency: At least 5 of 7 days/Wk (IRF) Estimated Hrs Per Day: 1.5 hours per day Agreement: Yes Rehab Potential: Guarded Time/GCodes Start Time: 07:30 Stop Time: 09:00 Total Time Billed (hr/min): 90 Billed Treatment Time 1 visit-ADL 6 (90 min) DARREL BEARD Aug 28, 2021 08:43
--- NOTE | 2021-08-28 09:35 | Physical Therapy Daily Note ---
PT Daily Note-Current Subjective Pt. in w/c, OT just leaving. Pt. with head down, eyes mostly closed, appears uncomfortable, furrowed brow, whinces and grimaces, slightly readjusting in w/c occasionally. Responds in aggravated tone when spoken to. Repeatedly declines any invitation to move to a more comfortable place ie bed or recliner, pt. irritated when she she responds that she is uncomfortable "if I wanted to move to another spot I would" " Leave me alone". At one point does state that she is uncomfortable , then at another point denies it. Appearance appears uncomfortable in chair,, awkwardly positioned in w/c, slumped to side and slightly twisted. grimace on face, sleeping part of the time Mental Status Patient Orientation: Person Transfers SCALE: Activities may be completed with or without assistive devices. 9-Ewzzyxfwxp-syhiecs completes the activity by him/herself with no assistance from a helper. 5-Set-up or Clean-up Assistance-helper sets up or cleans up; patient completes activity. [place] assists only prior to or following the activity. 4-Supervision or Touching Assistance-helper provides verbal cues and/or touching/steadying and/or contact guard assistance as patient completes activity. Assistance may be provided throughout the activity or intermittently. 3-Partial/Moderate Assistance-helper does LESS THAN HALF the effort. [place] lifts, holds or supports trunk or limbs, but provides less than half the effort. 2-Substantial/Maximal Assistance-helper does MORE THAN HALF the effort. [place] ifts or holds trunk or limbs and provides more than half the effort. 0-Okkyjdpry-qjnzpy does ALL the effort. Patient does none of the effort to complete the activity. Or, the assistance of 2 or more helpers is required for the patient to complete the activity. If activity was not attempted, code reason: 7-Patient Refused. 9-Not Applicable-not attempted and the patient did not perform the activity before the current illness, exacerbation or injury. 10-Not Attempted due to Environmental Limitations-(lack of equipment, weather restraints, etc.). 88-Not Attempted due to Medical Conditions or Safety Concerns. Assessment Current Status: Refused Treatment pt. 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 [employer] Goals Skilled Nursing Goals PT Skilled Nursing Goals Time Frame: Sep 13, 2021 Roll Left & Right (QC): 3 Sit to Lying (QC): 3 Lying-Sitting on Side/Bed(QC): 3 Sit to Stand (QC): 4 Chair/Qug-ci-Odnfc Xfer(QC): 4 Toilet Transfer (QC): 4 Car Transfer (QC): 3 Does the Patient Walk: Yes Walk 10 feet (QC): 4 Walk 50ft with 2 Turns (QC): 4 Walk 150 ft (QC): 4 Walking 10ft on Uneven Surface: 4 1 Step (curb) (QC): 88 4 Steps (QC): 88 12 Steps (QC): 88 Picking up an Object (QC): 4 Wheel 50 feet with 2 turns (QC: 4 Wheel 150 feet: 4 PT Plan Treatment/Plan Treatment Plan: Continue Plan of Care (as pt. cooperates) Treatment Plan: Bed Mobility, Education, Functional Activity [place], Functional Strength, Group Therapy, Gait, Safety, Therapeutic Exercise, Transfers Treatment Duration: Sep 13, 2021 Frequency: At least 5 of 7 days/Wk (IRF) Estimated Hrs Per Day: 1.5 hours per day Patient and/or Family Agrees t: Yes Time/GCodes Time In: 900 Time Out: 930 Total Billed Treatment Time: 30 Total Billed Treatment 1, no Rx, no chg BLAYNE AVILA MAINTENANCE TRUCK DRIVER Aug 28, 2021 09:35
[2021-08-28] MEDS: FERROUS SULF 325 MG (IRON) TAB PO SCH (11:29)
--- NOTE | 2021-08-28 11:46 | Speech Therapy Daily Note ---
Speech Daily Progress Note Subjective Date Seen by Provider: Aug 28, 2021 Time Seen by Provider: 09:30 The patient was seated upright in her wheelchair with eyes closed upon entrance. The patient did not respond (verbally or nonverbally) to the clinician's verbal greeting. The patient remains with her eyes closed for a majority of the treatment session. Objective Orientation: The clinician attempted orientation review with the patient. When asked for her location, the patient grew agitated and stated, "I know where I'm at! I'm right here in my living room." The clinician redirected the patient to the accurate orientation information and attempted recall approximately five minutes later. The patient was unable to recall her location, stating she was in "[place]." The patient refused participation in multiple memory exercises on this date. Due to this and the patient's current level of agitation, the clinician read the bible verses present in the room aloud and attempted to hold structured conversation. Initially, the patient listened and opened her eyes in participation. However, throughout the exercise and discussion that patient stated, "Just leave me alone!" The patient requested to return to bed, therefore, the clinician contacted the RN. Once the RN arrived, the patient refused to transfer to the bed. After the RN left the room, the patient again requested to return to bed. The process of the transfer was discussed and the patient agreed. Once the RN arrived, the patient required a large level of assistance to transfer to the bed, not providing a standing or pivot posture for the clinician and RN. The patient was transferred safely back to bed and the session was ended. The patient is greatly confused on this date. The patient's current level of confusion has resulted in refusal of therapy and agitation. Assessment Assessment Current Status: Poor Progress Treatment Plan Continue Plan of Care Speech Short Term Goals Short Term Goals Short Term Goals 1. The patient will participate in completion of the SLUMS assessment with mild clinician verbal prompting. Speech Construction Sales Representative Goals Construction Sales Representative Goals 1. The patient will demonstrate increased functional safety awareness and problem solving for return to the least restrictive environment. Speech-Plan Treatment Plan Speech Therapy Treatment Plan: Continue Plan of Care Treatment Duration: Sep 20, 2021 Frequency: 4 times per week (Four to five times per week.) Estimated Hrs Per Day: .5 hour per day Rehab Potential: Guarded Pt/Family Agrees to Plan: Yes Safety Risks/Education Teaching Recipient: Patient Teaching Methods: Discussion Response to Teaching: Verbalize Understanding Education Topics Provided: Plan of Care Time Speech Therapy Time In: 09:30 Speech Therapy Time Out: 10:00 Total Billed Time: 30 Billed Treatment Time 1MEGNA [facility] ST Aug 28, 2021 11:46
--- NOTE | 2021-08-28 14:14 | Physical Therapy Daily Note ---
PT Daily Note-Current Subjective This being he 3rd attempt to see pt. this date. 2nd attempt approx 11 am pt. was sleeping hard, unable to awaken with advice from other staff not to wake her. This attempt pt is awake, up in recliner, eating lunch and more pleasant to engage . Pt. needs some time and gentle persuasion to participate in just a few exercises after she finished her lunch. Pt. requested hot coffee, this was brought. Pt. asked for her foods to be identified n her plate/tray Pain Location: No Pain Reported Appearance pt. appears visually impaired as she uses her fork repeatedly on a napkin on her chest/lap to try to retrieve food. This APPRAISER TIMBER repeatedly guided her back toward dishes with food and identified tem for her. Pt. also repeatedly tried to get food out of empty dishes and bowls. Pt. seldom makes eye contact with this APPRAISER TIMBER during conversation and appears to possibly have convergence insufficiency or malaligned eyes . Pt states she wears glasses for reading and writing only. Mental Status Patient Orientation: Confused Transfers SCALE: Activities may be completed with or without assistive devices. 4-Dsqdackygg-jlzlbxk completes the activity by him/herself with no assistance from a helper. 5-Set-up or Clean-up Assistance-helper sets up or cleans up; patient completes activity. [place] assists only prior to or following the activity. 4-Supervision or Touching Assistance-helper provides verbal cues and/or touching/steadying and/or contact guard assistance as patient completes activity. Assistance may be provided throughout the activity or intermittently. 3-Partial/Moderate Assistance-helper does LESS THAN HALF the effort. [place] lifts, holds or supports trunk or limbs, but provides less than half the effort. 2-Substantial/Maximal Assistance-helper does MORE THAN HALF the effort. [place] lifts or holds trunk or limbs and provides more than half the effort. 8-Hqrosdchu-kjyfyg does ALL the effort. Patient does none of the effort to complete the activity. Or, the assistance of 2 or more helpers is required for the patient to complete the activity. If activity was not attempted, code reason: 7-Patient Refused. 9-Not Applicable-not attempted and the patient did not perform the activity before the current illness, exacerbation or injury. 10-Not Attempted due to Environmental Limitations-(lack of equipment, weather restraints, etc.). 88-Not Attempted due to Medical Conditions or Safety Concerns. Sit to Stand (QC): 4 pt. stood from recliner x 4 with CGA, pt. held on to walker in stance approx 30 sec each trial but refused to consider walking , to bathroom or anywhere in her room. pt. also pushed herself up in the recliner with heels wedged at foot rest for leverage and using UEs on chair arms. Pt completed this with instruction. Exercises Seated Therapy Exercises: Ankle pumps, Sit to stand, Long arc quads, Hip flexion, Hip abd/add Seated Reps: 12 Treatments pt. was somewhat easier to approach this rx and was open to conversation and some activity. TRFs and LE seated exercises were completed as well as eating assistance, mostly appearing to be visual deficit related Assessment Current Status: Fair Progress somewhat more cooperative but not completely PT Short Term Goals Short Term Goals Time Frame: Aug 30, 2021 Roll Left & Right: 2 Sit to lyin Lying to sitting on side of be: 2 Sit to stand: 3 Chair/bsu-ip-owryn transfer: 3 Walk 10 feet: 3 Walk 50 feet with two turns: 3 PT Fdc Goals Bias Cutter Helper Goals PT Bias Cutter Helper Goals Time Frame: Sep 13, 2021 Roll Left & Right (QC): 3 Sit to Lying (QC): 3 Lying-Sitting on Side/Bed(QC): 3 Sit to Stand (QC): 4 Chair/Pmk-zt-Zdylp Xfer(QC): 4 Toilet Transfer (QC): 4 Car Transfer (QC): 3 Does the Patient Walk: Yes Walk 10 feet (QC): 4 Walk 50ft with 2 Turns (QC): 4 Walk 150 ft (QC): 4 Walking 10ft on Uneven Surface: 4 1 Step (curb) (QC): 88 4 Steps (QC): 88 12 Steps (QC): 88 Picking up an Object (QC): 4 Wheel 50 feet with 2 turns (QC: 4 Wheel 150 feet: 4 PT Plan Treatment/Plan Treatment Plan: Continue Plan of Care Treatment Plan: Bed Mobility, Education, Functional Activity Philipp, Functional Strength, Group Therapy, Gait, Safety, Therapeutic Exercise, Transfers Treatment Duration: Sep 13, 2021 Frequency: At least 5 of 7 days/Wk (IRF) Estimated Hrs Per Day: 1.5 hours per day Patient and/or Family Agrees t: Yes Safety Risks/Education Patient Education: Transfer Techniques, Issued Written HEP, Correct Positioning, Safety Issues Teaching Methods: Demonstration, Discussion Response to Teaching: Verbalize Understanding, Return Demonstration, R einforcement Needed Time/GCodes Time In: 1305 Time Out: 1405 Total Billed Treatment Time: 60 Total Billed Treatment 1,FA45m,EX15m BLAYNE AVILA APPRAISER TIMBER Aug 28, 2021 14:14
[2021-08-28] MEDS: ACETAMINOPHEN 325 MG TABLET PO PRN (17:14)
[2021-08-28 19:53] VITALS: BP 95/61
[2021-08-28] MEDS: MELATONIN 3 MG TABLET PO PRN (20:43)
[2021-08-28] MEDS: OLANZapine 5 MG (ZyPREXA) TAB PO SCH (20:44)
[2021-08-28] MEDS: eZETimibe 10 MG (ZETIA) TABLET PO SCH (20:44)
[2021-08-28] MEDS: FAMOTIDINE 20 MG (PEPCID) TABLET PO SCH (20:44)
[2021-08-28] MEDS: ENOXAPARIN 40 MG/0.4 ML (LOVENOX) SYR SC SCH (20:48)
--- NOTE | 2021-08-29 06:50 | PM&R Progress Note ---
Subjective HPI/CC On Admission Date Seen by Provider: Aug 29, 2021 Time Seen by Provider: 09:00 Subjective/Events-last exam 08/29/2021: Pt doing pretty well Family concerned it's another UTI, so we will do an in and out cath for UA Pt appears to be on a lot of antibiotics over and over with chronic UTIs Overall slept a lot better last night with Melatonin 08/28/2021: Pt a little bit more confused today Covid booster will be given Bowels on 08/27 but they were loose Need to reach out to assisted living to see what we have to do for her to meet criteria to come back 08/27/2021: Patient doing about the same Cries a lot Xanax scheduled Cognition comes and goes 08/26/2021: Patient about the same No pain issues Checked meds and labs No seizure activity reported Family will come to visit on weekends in the afternoon 08/25/21: Pt doing about the same Xanax 0.25mg will be given BID scheduled as she takes at home Bowels moved yesterday No evidence of any seizures 08/24/2021: Patient doing pretty well Held the scheduled Xanax due to sedation Blood pressure was elevated prior to meds Feeds her self Family told nurse they think she is having seizures since everyone in her family has seizures but there was no evidence of any seizure-like activity assessed by the nursing staff so will be on alert for anything like that. No evidence to support the addition of antiseizure meds. Review of Systems General: Fatigue, Malaise Neurological: Confusion Objective Exam Vital Signs Vital Signs Date Time Temp Pulse Resp B/P (MAP) Pulse Ox O2 Delivery O2 Flow Rate FiO2 08/29/21 21:00 Room Air 08/29/21 20:00 36.7 72 18 110/67 (81) 95 Capillary Refill : General Appearance: No Apparent Distress, WD/WN, Chronically ill HEENT: PERRL/EOMI, Normal ENT Inspection, Pharynx Normal Neck: Full Range of Motion, Normal Inspection, Non Tender, Supple, Carotid Bruit Respiratory: Chest Non Tender, Lungs Clear, Normal Breath Sounds, No Accessory Muscle Use, No Respiratory Distress Cardiovascular: Regular Rate, Rhythm, No Edema, No Gallop, No JVD, No Murmur, Normal Peripheral Pulses Gastrointestinal: Normal Bowel Sounds, No Organomegaly, No Pulsatile Mass, Non Tender, Soft Back: Normal Inspection, No CVA Tenderness, No Vertebral Tenderness Extremity: Normal Capillary Refill, Normal Inspection, Normal Range of Motion, Non Tender, No Calf Tenderness, No Pedal Edema Neurologic/Psychiatric: Alert, No Motor/Sensory Deficits, grader marker II-XII Norm as Tested, Abnormal Gait, Depressed Affect, Disoriented, Motor Weakness (left sided) Skin: Normal Color, Warm/Dry Lymphatic: No Adenopathy Results/Procedures Lab Patient resulted labs reviewed. FIM Transfers Therapy Code Descriptions/Definitions Functional [place] Measure: 0=Not Assessed/NA 4=Minimal Assistance 1=Total Assistance 5=Supervision or Setup 2=Maximal Assistance 6=Modified [place] 3=Moderate Assistance 7=Complete IndependenceSCALE: Activities may be completed with or without assistive devices. 3-Prpaphtaok-hfpmvtm completes the activity by him/herself with no assistance from a helper. 5-Set-up or Clean-up Assistance-helper sets up or cleans up; patient completes activity. [place] assists only prior to or following the activity. 4-Supervision or Touching Assistance-helper provides verbal cues and/or touching/steadying and/or contact guard assistance as patient completes a ctivity. Assistance may be provided throughout the activity or intermittently. 3-Partial/Moderate Assistance-helper does LESS THAN HALF the effort. [place] lifts, holds or supports trunk or limbs, but provides less than half the effort. 2-Substantial/Maximal Assistance-helper does MORE THAN HALF the effort. [place] lifts or holds trunk or limbs and provides more than half the effort. 4-Hudihzwgc-hitncl does ALL the effort. Patient does none of the effort to complete the activity. Or, the assistance of 2 or more helpers is required for the patient to complete the activity. If activity was not attempted, code reason: 7-Patient Refused. 9-Not Applicable-not attempted and the patient did not perform the activity before the current illness, exacerbation or injury. 10-Not Attempted due to Environmental Limitations-(lack of equipment, weather restraints, etc.). 88-Not Attempted due to Medical Conditions or Safety Concerns. Roll Left to Right (QC): 3 Sit to Lying (QC): 1 (dependent) Sit to Stand (QC): 4 Chair/Kod-fd-Zqaho Xfer(QC): 4 Car Transfer (QC): 1 (dependent) Gait Training Does the Patient Walk?: No and Walking Goal IS indicated Distance: 20', 10'x3 Walk 10 feet (QC): 4 Walk 50 ft with 2 Turns(QC): 88 Walk 150 ft (QC): 88 Walking 10ft/uneven surface-QC: 88 Gait Assistive Device: FWW Wheelchair Training Does the Pt Use a Wheelchair?: Yes Distance: 15' Wheel 50 ft with 2 turns (QC): 2 Wheel 150 ft (QC): 2 Type of Wheelchair: Manual Stair Training 1 Step (curb) (QC): 88 4 Steps (QC): 88 12 Steps (QC): 88 Balance Picking up an Object (QC): 88 ADL-Treatment Eating (QC): 5 Oral Hygiene (QC): 7 Bathing Location: L Arm, Abdomen Shower/Bathe Self (QC): 4 Upper Body Dressing (QC): 4 Lower Body Dressing (QC): 2 On/Off Footwear (QC): 2 Toileting Hygiene (QC): 4 Toilet Transfer (QC): 3 Assessment/Plan Assessment and Plan Assess & Plan/Chief Complaint Assessment: Cerebellar stroke Dementia Status post severe sepsis with pneumonia History of recurrent UTIs Osteoporosis Hypertension Anemia DNR Chronic debility resides in assisted living Plan: Home meds Aggressive rehab Speech therapy 08/24/2021: Supportive care Be on alert for any seizures per family request 08/25/2021: Supportive care Dementia precludes complete recovery 08/26/2021: Supportive care Dementia care 08/27/2021: Supportive care Xanax for tearfulness 08/28/2021: Supportive care DC planning 08/29/2021: UA Monitor closely (1) Chest pain Assessment & Plan: Exact etiology unclear. No further chest pain today. No acute changes on her electrocardiogram which was done when she was having chest pain. This may have been related to gastroesophageal reflux disease. She is on pantoprazole twice daily. In light of her DNR status, I recommend conservative medical management. However, if she continues to have intermittent chest discomfort, then we may need to consider an ischemic evaluation but I would first want to discuss this with her family. (2) Cerebellar stroke Status: Acute Assessment & Plan: This raises a concern of possible atrial fibrillation. I implanted a loop recorder on 08/24. We will use this for prolonged surveillance of atrial fibrillation. For the time being, I recommend she continue on aspirin and ezetimibe. She has a reported intolerance to statin medications. She was also taking estradiol at home which I stopped. Prolonged use of estrogen replacement therapy has been associated with increased risk of both venous and arterial thrombotic events. (3) Irregular heart rhythm Status: Acute Assessment & Plan: She was having some irregular heartbeats during her acute hospitalization. This was primarily due to frequent premature supraventricular complexes. She also had some tachycardia. I started her on beta-antionette due to intermittent tachycardia and hypertension. I did not see any definitive evidence of atrial fibrillation. We will monitor her loop recorder for any signs of atrial fibrillation. There is no indication for oral anticoagulants at this time. (4) Primary hypertension Assessment & Plan: Her outpatient indapamide has been resumed. I also started her on metoprolol succinate due to some intermittent tachycardia. She had also been started on amlodipine. I discontinued the amlodipine after she had low blood pressure 1 evening. We may want to allow for some permissive hypertension given the recent stroke. Her blood pressure is presently reasonably well controlled on the current medication. (5) Mixed hyperlipidemia Assessment & Plan: Continue ezetimibe which she was taking at home. She has a reported intolerance to statin medications. ALFONSO MEDINA DO Aug 29, 2021 06:50
[2021-08-29] MEDS: CATHETER FLUSH 10 ML SYR IV SCH ×3 (07:11→20:31)
[2021-08-29] MEDS: KCL 10 MEQ TAB (MICRO K) PO SCH (07:11)
[2021-08-29] MEDS: SUCRALFATE 1 GM (CARAFATE) TAB PO SCH ×4 (07:11→20:30)
[2021-08-29] MEDS: LEVOTHYROXINE 75 MCG (LEVOTHROID) TABLET PO SCH (07:11)
[2021-08-29] MEDS: ALPRAZolam 0.25 MG (XANAX) TAB PO SCH ×2 (07:16→20:30)
[2021-08-29] MEDS: GABAPENTIN 600 MG (NEURONTIN) TAB PO SCH ×2 (07:16→20:30)
[2021-08-29] MEDS: SENNA W/DOCUSATE (SENOKOT S) TABLET PO SCH ×2 (07:16→20:30)
[2021-08-29] MEDS: meTOproloL SUCCINATE 50 MG (TOPROL XL) TAB PO SCH (07:16)
[2021-08-29] MEDS: PANTOPRAZOLE 40 MG (PROTONIX) TAB PO SCH ×2 (07:16→20:31)
[2021-08-29] MEDS: ACETAMINOPHEN 500 MG TAB (TYLENOL) PO SCH ×4 (07:16→20:31)
[2021-08-29] MEDS: DOCUSATE SODIUM 100 MG (COLACE) CAP PO SCH ×2 (07:17→20:30)
[2021-08-29] MEDS: INDAPAMIDE 2.5 MG (LOZOL) TAB PO SCH (07:17)
[2021-08-29] MEDS: ASPIRIN E.C. 325 MG (ECOTRIN) TABLET PO SCH (07:17)
[2021-08-29] MEDS: polyethylene glycoL POWDER 17 GM (MIRALAX) PACK PO SCH ×2 (07:22→20:53)
--- NOTE | 2021-08-29 07:53 | Occupational Ther Daily Note ---
OT Current Status-Daily Note Subjective Pt sleeping in bed. Pt wakes to name and gently touch. Pt is incontinent of urine. Nrsg stated that pt went to sleep at 2200 and slept for the rest of the night. Mental Status/Objective Patient Orientation: Person, Confused Attachments: IV ADL-Treatment 1st session([id number]) Min A for supine to EOB due to sleepiness. Pt is confused this morning and somewhat agitated though COLLINS is able to mollify pt when needed. Assist needed to don clothing due to confusion. Ambulated to bath room then transferred to toilet with CGA for safety. Pt able to manipulate clothing by self. Due to wet clothes clothing needed changed, pt had difficulty with process and got agitated with the assistance though was able to work through after some time. Pt would not sit down to don sock, COLLINS stabilized pt and nrsg donned sock while pt stood with FWW. Set up for meal. Pt asking where utensils were then found by self. Pt fed self though stopped and focused on tearing napkin before beginning to eat again. Nrsg aware of pt's position, safety measures in place. Call light/phone in reach. 2nd session([id number]) Co-treat with PT ([id number]), skills of 2 clinician required to decrease fall risk, increase activity tolerance due to pt's decreased stamina and confusion. PT focusing on ambulation and transfers while OT focusing on B UE placement for transfers/ambulation and ADLs. Pt ambulate to bathroom with physical guidance from PT to manipulate the walker and to stand upright. Min A to transfer into shower. Pt agrees to shower though states that she is to tired to bathe herself that she is about to collapse. Pt has demonstrated during previous sessions that she is able to assist for upper body, buttocks/kaushik area, and B LE except feet. At this time due to confusion and fatigue assist given to make sure pt is thoroughly clean. Pt does assist with kaushik area and abdomen. Assist to don/doff lower body clothing. Min A for upper body clothing. Pt requested to use toilet. Assist given to manipulate clothing , pt cleansed kaushik area by self with only CGA for safety. Using w/c, pt transported to bed. CGA and verbal cues for pt to transfer onto bed. Max A for EOB to supine and assist x2 for bed mobility. Nrsg in room to straight cath for urine sample. Then nrsg and COLLINS assisted with lower body dressing. After therapy, pt lying in bed sleeping. Call light/phone in reach, all needs met in room. Therapy Code Descriptions/Definitions Functional [place] Measure: 0=Not Assessed/NA 4=Minimal Assistance 1=Total Assistance 5=Supervision or Setup 2=Maximal Assistance 6=Modified [place] 3=Moderate Assistance 7=Complete IndependenceSCALE: Activities may be completed with or without assistive devices. 6-Yzvlpkuyqv-hcuklzt completes the activity by him/herself with no assistance from a helper. 5-Set-up or Clean-up Assistance-helper sets up or cleans up; patient completes activity. [place] assists only prior to or following the activity. 4-Supervision or Touching Assistance-helper provides verbal cues and/or touching/steadying and/or contact guard assistance as patient completes activity. Assistance may be provided throughout the activity or intermittently. 3-Partial/Moderate Assistance-helper does LESS THAN HALF the effort. [place] lifts, holds or supports trunk or limbs, but provides less than half the effort. 2-Substantial/Maximal Assistance-helper does MORE THAN HALF the effort. [place] lifts or holds trunk or limbs and provides more than half the effort. 9-Kybsrntlr-gvaswi does ALL the effort. Patient does none of the effort to complete the activity. Or, the assistance of 2 or more helpers is required for the patient to complete the activity. If activity was not attempted, code reason: 7-Patient Refused. 9-Not Applicable-not attempted and the patient did not perform the activity before the current illness, exacerbation or injury. 10-Not Attempted due to Environmental Limitations-(lack of equipment, weather restraints, etc.). 88-Not Attempted due to Medical Conditions or Safety Concerns. Shower/Bathe Self (QC): 2 Upper Body Dressing (QC): 3 Lower Body Dressing (QC): 2 On/Off Footwear: 2 Toileting Hygiene (QC): 2 Toilet Transfer (QC): 4 OT Short Term Goals Short Term Goals Time Frame: Sep 01, 2021 [place] Oral hygiene: 5 Toileting hygiene: 3 Shower/bathe self: 3 OT Bus Company Manager Goals Shelter Goals Time Frame: Sep 15, 2021 Eating (QC): 6 Oral Hygiene (QC): 6 Toileting Hygiene (QC): 6 Shower/Bathe Self (QC): 4 Upper Body Dressing (QC): 6 Lower Body Dressing (QC): 4 On/Off Footwear (QC): 4 Additional Goals: 1-Demonstrate ADL Tasks, 2-Verbalize Understanding, 3- ImproveStrength/Philipp 1=Demonstrate adherence to instructed precautions during ADL tasks. 2=Patient will verbalize/demonstrate understanding of assistive devices/modifications for ADL. 3=Patient will improve strength/tolerance for activity to enable patient to perform ADL's. OT Education/Plan Problem List/Assessment Assessment: Decreased Activ Tolerance, Decreased Safety Aware, Impaired Bed Mobility, Impaired Cognition, Impaired Coordination, Impaired Funct Balance, Impaired Self-Care Skills, Restricted Funct UE ROM Discharge Recommendations Plan/Recommendations: Continue POC Treatment Plan/Plan of Care Patient would benefit from OT for education, treatment and training to promote independence in ADL's, mobility, safety and/or upper extremity function for ADL's. Plan of Care: ADL Retraining, Functional Mobility, UE Funct Exercise/Act Treatment Duration: Sep 15, 2021 Frequency: At least 5 of 7 days/Wk (IRF) Estimated Hrs Per Day: 1.5 hours per day Agreement: Yes Rehab Potential: Guarded Time/GCodes Start Time: 07:00 (1030) Stop Time: 07:30 (1130) Total Time Billed (hr/min): 90 Billed Treatment Time 1 visit([id number]): ADL 2 (30 min) 1 visit([id number]): ADL 4 (60 min) co-treat with PT [id number], individual [id number] DARREL BEARD Aug 29, 2021 07:53
[2021-08-29 07:57] VITALS: BP 106/53
--- NOTE | 2021-08-29 11:02 | Physical Therapy Daily Note ---
PT Daily Note-Current Subjective Pt. agrees to Rx with gentle persuasion from this DEPUTY BRAND INSPECTOR and nurse who called the patients daughter and had her speak to patient encouraging her to participate in therapies so she can get out of the hospital. Pt. commented may times that she is so weak and tired but agreed to continue with rest breaks. Last half of Tx co Rx PT OT for shower TRFs, toilet TRFs, doffing clothing, showering secondary to safety concerns related to weakness and pts on off confused state Pain Location: No Pain Reported Mental Status Patient Orientation: Person, Confused Transfers SCALE: Activities may be completed with or without assistive devices. 7-Ecgdefitvs-onohyjt completes the activity by him/herself with no assistance from a helper. 5-Set-up or Clean-up Assistance-helper sets up or cleans up; patient completes activity. [place] assists only prior to or following the activity. 4-Supervision or Touching Assistance-helper provides verbal cues and/or touching/steadying and/or contact guard assistance as patient completes activity. Assistance may be provided throughout the activity or intermittently. 3-Partial/Moderate Assistance-helper does LESS THAN HALF the effort. [place] lifts, holds or supports trunk or limbs, but provides less than half the effort. 2-Substantial/Maximal Assistance-helper does MORE THAN HALF the effort. [place] lifts or holds trunk or limbs and provides more than half the effort. 8-Zfxptopbr-uzqrks does ALL the effort. Patient does none of the effort to complete the activity. Or, the assistance of 2 or more helpers is required for the patient to complete the activity. If activity was not attempted, code reason: 7-Patient Refused. 9-Not Applicable-not attempted and the patient did not perform the activity before the current illness, exacerbation or injury. 10-Not Attempted due to Environmental Limitations-(lack of equipment, weather restraints, etc.). 88-Not Attempted due to Medical Conditions or Safety Concerns. Sit to Stand (QC): 4 Toilet Transfer (QC): 4 TRF w/c to shower min assist and direction by both PT and OT. Pt. needs guided for all funct activity Gait Training Does the Patient Walk?: Yes Walk 10 feet (QC): 4 Gait Persons Needed: 1 Gait Assistive Device: FWW pt. very slow, walks with head down posture, followed by w/c as she has Hx of sitting without warning. Pt. c/o fatigue and walks approx 25 ft then rests x3, 60 ft x1.vry flexed trunk, shuffled gait Exercises Seated Therapy Exercises: Ankle pumps, Sit to stand, Long arc quads, Hip flexion, Hip abd/add Seated Reps: 12 Treatments pt. more cooperative today , joint effort by PT, OT, nursing and phone call with daughter. Pt does need guided and directed for all activity and has to be cajoled at times, comforted and lead . Pt. is weak and fatigues quickly Assessment Current Status: Good Progress fatigues quickly, needs much encouragement to participate PT Short Term Goals Short Term Goals Time Frame: Aug 30, 2021 Roll Left & Right: 2 Sit to lyin Lying to sitting on side of be: 2 Sit to stand: 3 Chair/pid-pp-eyqxl transfer: 3 Walk 10 feet: 3 Walk 50 feet with two turns: 3 PT Labor Arbitrator Goals Senior Living Goals PT Labor Arbitrator Goals Time Frame: Sep 13, 2021 Roll Left & Right (QC): 3 Sit to Lying (QC): 3 Lying-Sitting on Side/Bed(QC): 3 Sit to Stand (QC): 4 Chair/Jwo-lt-Pahgx Xfer(QC): 4 Toilet Transfer (QC): 4 Car Transfer (QC): 3 Does the Patient Walk: Yes Walk 10 feet (QC): 4 Walk 50ft with 2 Turns (QC): 4 Walk 150 ft (QC): 4 Walking 10ft on Uneven Surface: 4 1 Step (curb) (QC): 88 4 Steps (QC): 88 12 Steps (QC): 88 Picking up an Object (QC): 4 Wheel 50 feet with 2 turns (QC: 4 Wheel 150 feet: 4 PT Plan Treatment/Plan Treatment Plan: Continue Plan of Care Treatment Plan: Bed Mobility, Education, Functional Activity Philipp, Functional Strength, Group Therapy, Gait, Safety, Therapeutic Exercise, Transfers Treatment Duration: Sep 13, 2021 Frequency: At least 5 of 7 days/Wk (IRF) Estimated Hrs Per Day: 1.5 hours per day Patient and/or Family Agrees t: Yes Safety Risks/Education Patient Education: Gait Training, Transfer Techniques, Correct Positioning, Disease Process, Safety Issues Teaching Recipient: Patient Teaching Methods: Demonstration, Discussion Response to Teaching: Unable to Return Demonstration, Return Demonstration, Reinforcement Needed Time/GCodes Time In: 1000 Time Out: 1100 Total Billed Treatment Time: 60 Total Billed Treatment 1,FA35m, Gt 15m,EX10m (PT OT co Rx 30m) BLAYNE AVILA DEPUTY BRAND INSPECTOR Aug 29, 2021 11:02
[2021-08-29] MEDS: FERROUS SULF 325 MG (IRON) TAB PO SCH (11:15)
[2021-08-29 11:23] LABS: BILIRUBIN,URINE NEGATIVE (NEGATIVE); CLARITY,URINE CLEAR; COLOR,URINE YELLOW; GLUCOSE, URINE (UA) NEGATIVE (NEGATIVE); KETONES,URINE NEGATIVE (NEGATIVE); LEUKOCYTE ESTERASE ,URINE NEGATIVE (NEGATIVE); NITRITE,URINE NEGATIVE (NEGATIVE); PROTEIN,URINE NEGATIVE (NEGATIVE)
[2021-08-29 11:30] LABS: RBC,URINE RARE /HPF; WBC,URINE RARE /HPF
[2021-08-29 11:31] LABS: BACTERIA,URINE NEGATIVE /HPF; SQUAMOUS EPITHELIAL CELL,UR RARE /HPF
--- NOTE | 2021-08-29 12:42 | Speech Therapy Daily Note ---
Speech Daily Progress Note Subjective Date Seen by Provider: Aug 29, 2021 Time Seen by Provider: 09:00 The patient was seated upright in her recliner upon entrance by the clinician. The patient was sleeping, however, did intermittently wake to clinical verbal greeting and conversation. Objective - Orientation: The patient was not oriented to month ("Shana"), day of week ("I don't know that."), or date ("who knows.). The patient was able to state the accurate year and location. Orientation information was provided by the clinician. Following a five minute recall attempt, the patient remained unable to state the month ("Oh, October."), the date, or the day of week. At the close of the session, orientation of month was attempted for a third time. On the third attempt the patient stated, "Well, you said August." - Problem Solving: The patient was provided basic problem solving cards and was requested to identify "What's wrong?" With maximum clinician verbal cueing, the patient displayed 43% accuracy (3/7). The patient continues to require maximum verbal encouragement and prompting for limited participation in the speech pathology session. Assessment Assessment Current Status: Poor Progress Treatment Plan Continue Plan of Care Speech Short Term Goals Short Term Goals Short Term Goals 1. The patient will participate in completion of the SLUMS assessment with mild clinician verbal prompting. Speech Flat Cutter Goals Longterm Goals 1. The patient will demonstrate increased functional safety awareness and problem solving for return to the least restrictive environment. Speech-Plan Treatment Plan Speech Therapy Treatment Plan: Continue Plan of Care Treatment Duration: Sep 20, 2021 Frequency: 4 times per week (Four to five times per week.) Estimated Hrs Per Day: .5 hour per day Rehab Potential: Guarded Barriers to Learning: Cognition Pt/Family Agrees to Plan: Yes Safety Risks/Education Teaching Recipient: Patient Teaching Methods: Discussion Response to Teaching: Unable to Comprehend Education Topics Provided: Plan of Care, Role of ST Time Speech Therapy Time In: 09:00 Speech Therapy Time Out: 09:30 Total Billed Time: 30 Billed Treatment Time MEGAN Tian [facility] Aug 29, 2021 12:42
--- NOTE | 2021-08-29 13:38 | Physical Therapy Daily Note ---
PT Daily Note-Current Subjective Pt. in recliner. States she would like to go to bathroom. Pain Location: No Pain Reported Mental Status Patient Orientation: Confused Transfers SCALE: Activities may be completed with or without assistive devices. 1-Davrgjhsog-gcwxnpw completes the activity by him/herself with no assistance from a helper. 5-Set-up or Clean-up Assistance-helper sets up or cleans up; patient completes activity. [place] assists only prior to or following the activity. 4-Supervision or Touching Assistance-helper provides verbal cues and/or touching/steadying and/or contact guard assistance as patient completes activity. Assistance may be provided throughout the activity or intermittently. 3-Partial/Moderate Assistance-helper does LESS THAN HALF the effort. [place] lifts, holds or supports trunk or limbs, but provides less than half the effort. 2-Substantial/Maximal Assistance-helper does MORE THAN HALF the effort. [place] lifts or holds trunk or limbs and provides more than half the effort. 2-Pqmhmpbof-ibypzz does ALL the effort. Patient does none of the effort to complete the activity. Or, the assistance of 2 or more helpers is required for the patient to complete the activity. If activity was not attempted, code reason: 7-Patient Refused. 9-Not Applicable-not attempted and the patient did not perform the activity before the current illness, exacerbation or injury. 10-Not Attempted due to Environmental Limitations-(lack of equipment, weather restraints, etc.). 88-Not Attempted due to Medical Conditions or Safety Concerns. Sit to Lying (QC): 4 Sit to Stand (QC): 4 Gait Training Does the Patient Walk?: Yes Gait Assistive Device: FWW 30ft x 2 FWW needs guided, needs FWW pushed for her toward / aimed toward destination and assist to turn device. slow, head down, feet shuffling at times Treatments gait to toilet, assist for clothing up dwn and cleaning after, gait to bed and CGA to get in bed, alarm set, call kasper at hand, pt. with eyes closed asleep nearly upon laying down Assessment Current Status: Good Progress more cooperative PT Short Term Goals Short Term Goals Time Frame: Aug 30, 2021 Roll Left & Right: 2 Sit to lyin Lying to sitting on side of be: 2 Sit to stand: 3 Chair/anu-vs-jntdk transfer: 3 Walk 10 feet: 3 Walk 50 feet with two turns: 3 PT Penitentiary Goals Bereavement Program Coordinator Goals PT Penitentiary Goals Time Frame: Sep 13, 2021 Roll Left & Right (QC): 3 Sit to Lying (QC): 3 Lying-Sitting on Side/Bed(QC): 3 Sit to Stand (QC): 4 Chair/Dce-jk-Dseon Xfer(QC): 4 Toilet Transfer (QC): 4 Car Transfer (QC): 3 Does the Patient Walk: Yes Walk 10 feet (QC): 4 Walk 50ft with 2 Turns (QC): 4 Walk 150 ft (QC): 4 Walking 10ft on Uneven Surface: 4 1 Step (curb) (QC): 88 4 Steps (QC): 88 12 Steps (QC): 88 Picking up an Object (QC): 4 Wheel 50 feet with 2 turns (QC: 4 Wheel 150 feet: 4 PT Plan Treatment/Plan Treatment Plan: Continue Plan of Care Treatment Plan: Bed Mobility, Education, Functional Activity Philipp, Functional Strength, Group Therapy, Gait, Safety, Therapeutic Exercise, Transfers Treatment Duration: Sep 13, 2021 Frequency: At least 5 of 7 days/Wk (IRF) Estimated Hrs Per Day: 1.5 hours per day Patient and/or Family Agrees t: Yes Safety Risks/Education Patient Education: Gait Training, Transfer Techniques, Correct Positioning, Safety Issues Teaching Recipient: Patient Teaching Methods: Demonstration Response to Teaching: Reinforcement Needed Time/GCodes Time In: 1300 Time Out: 1315 Total Billed Treatment Time: 15 Total Billed Treatment 1,FA15m BLAYNE AVILA SEPARATIONS SCIENTIST Aug 29, 2021 13:38
[2021-08-29 20:00] VITALS: BP 110/67
[2021-08-29] MEDS: eZETimibe 10 MG (ZETIA) TABLET PO SCH (20:30)
[2021-08-29] MEDS: FAMOTIDINE 20 MG (PEPCID) TABLET PO SCH (20:31)
[2021-08-29] MEDS: MELATONIN 3 MG TABLET PO PRN (20:31)
[2021-08-29] MEDS: ENOXAPARIN 40 MG/0.4 ML (LOVENOX) SYR SC SCH (20:31)
[2021-08-29] MEDS: OLANZapine 5 MG (ZyPREXA) TAB PO SCH (20:31)
[2021-08-30] MEDS: SUCRALFATE 1 GM (CARAFATE) TAB PO SCH ×4 (05:23→20:29)
[2021-08-30] MEDS: LEVOTHYROXINE 75 MCG (LEVOTHROID) TABLET PO SCH (05:27)
[2021-08-30] MEDS: KCL 10 MEQ TAB (MICRO K) PO SCH (05:28)
[2021-08-30] MEDS: CATHETER FLUSH 10 ML SYR IV SCH ×2 (05:36→14:09)
--- NOTE | 2021-08-30 05:57 | PM&R Progress Note ---
Subjective HPI/CC On Admission Date Seen by Provider: Aug 30, 2021 Time Seen by Provider: 09:00 Subjective/Events-last exam 08/30/2021: Pt doing about the same Will need skilled care since and [facility] will not take patient back All 9 children have been communicating with the nurse which is overwhelming but the health care DPOA needs to be the one appraiser personal property Urinary frequency will require urology consultation UA in and out cath was normal 08/29/2021: Pt doing pretty well Family concerned it's another UTI, so we will do an in and out cath for UA Pt appears to be on a lot of antibiotics over and over with chronic UTIs Overall slept a lot better last night with Melatonin 08/28/2021: Pt a little bit more confused today Covid booster will be given Bowels on 08/27 but they were loose Need to reach out to assisted living to see what we have to do for her to meet criteria to come back 08/27/2021: Patient doing about the same Cries a lot Xanax scheduled Cognition comes and goes 08/26/2021: Patient about the same No pain issues Checked meds and labs No seizure activity reported Family will come to visit on weekends in the afternoon 08/25/21: Pt doing about the same Xanax 0.25mg will be given BID scheduled as she takes at home Bowels moved yesterday No evidence of any seizures 08/24/2021: Patient doing pretty well Held the scheduled Xanax due to sedation Blood pressure was elevated prior to meds Feeds her self Family told nurse they think she is having seizures since everyone in her family has seizures but there was no evidence of any seizure-like activity assessed by the nursing staff so will be on alert for anything like that. No evidence to support the addition of antiseizure meds. Review of Systems General: Fatigue, Malaise Genitourinary: Frequency Objective Exam Vital Signs Vital Signs Date Time Temp Pulse Resp B/P (MAP) Pulse Ox O2 Delivery O2 Flow Rate FiO2 08/30/21 20:40 Room Air 08/30/21 20:01 36.7 65 18 98/49 (65) 94 Capillary Refill : General Appearance: No Apparent Distress, WD/WN, Chronically ill HEENT: PERRL/EOMI, Normal ENT Inspection, Pharynx Normal Neck: Full Range of Motion, Normal Inspection, Non Tender, Supple, Carotid Bruit Respiratory: Chest Non Tender, Lungs Clear, Normal Breath Sounds, No Accessory Muscle Use, No Respiratory Distress Cardiovascular: Regular Rate, Rhythm, No Edema, No Gallop, No JVD, No Murmur, Normal Peripheral Pulses Gastrointestinal: Normal Bowel Sounds, No Organomegaly, No Pulsatile Mass, Non Tender, Soft Back: Normal Inspection, No CVA Tenderness, No Vertebral Tenderness Extremity: Normal Capillary Refill, Normal Inspection, Normal Range of Motion, Non Tender, No Calf Tenderness, No Pedal Edema Neurologic/Psychiatric: Alert, No Motor/Sensory Deficits, manager contracting II-XII Norm as Tested, Abnormal Gait, Depressed Affect, Disoriented, Motor Weakness (left sided) Skin: Normal Color, Warm/Dry Lymphatic: No Adenopathy Results/Procedures Lab Patient resulted labs reviewed. FIM Transfers Therapy Code Descriptions/Definitions Functional [place] Measure: 0=Not Assessed/NA 4=Minimal Assistance 1=Total Assistance 5=Supervision or Setup 2=Maximal Assistance 6=Modified [place] 3=Moderate Assistance 7=Complete IndependenceSCALE: Activities may be completed with or without assistive devices. 7-Yncwqwudqo-fubydtn completes the activity by him/herself with no assistance from a helper. 5-Set-up or Clean-up Assistance-helper sets up or cleans up; patient completes activity. [place] assists only prior to or following the activity. 4-Supervision or Touching Assistance-helper provides verbal cues and/or touchi ng/steadying and/or contact guard assistance as patient completes activity. Assistance may be provided throughout the activity or intermittently. 3-Partial/Moderate Assistance-helper does LESS THAN HALF the effort. [place] lifts, holds or supports trunk or limbs, but provides less than half the effort. 2-Substantial/Maximal Assistance-helper does MORE THAN HALF the effort. [place] lifts or holds trunk or limbs and provides more than half the effort. 5-Mkhlajyle-bnzehu does ALL the effort. Patient does none of the effort to complete the activity. Or, the assistance of 2 or more helpers is required for the patient to complete the activity. If activity was not attempted, code reason: 7-Patient Refused. 9-Not Applicable-not attempted and the patient did not perform the activity before the current illness, exacerbation or injury. 10-Not Attempted due to Environmental Limitations-(lack of equipment, weather restraints, etc.). 88-Not Attempted due to Medical Conditions or Safety Concerns. Roll Left to Right (QC): 3 Sit to Lying (QC): 4 Sit to Stand (QC): 4 Chair/Pcv-kq-Lplph Xfer(QC): 4 Car Transfer (QC): 1 (dependent) Gait Training Does the Patient Walk?: Yes Distance: 20', 10'x3 Walk 10 feet (QC): 4 Walk 50 ft with 2 Turns(QC): 88 Walk 150 ft (QC): 88 Walking 10ft/uneven surface-QC: 88 Gait Persons Needed: 1 Gait Assistive Device: FWW Wheelchair Training Does the Pt Use a Wheelchair?: Yes Distance: 15' Wheel 50 ft with 2 turns (QC): 2 Wheel 150 ft (QC): 2 Type of Wheelchair: Manual Stair Training 1 Step (curb) (QC): 88 4 Steps (QC): 88 12 Steps (QC): 88 Balance Picking up an Object (QC): 88 ADL-Treatment Eating (QC): 5 Oral Hygiene (QC): 7 Bathing Location: L Arm, Abdomen Shower/Bathe Self (QC): 2 Upper Body Dressing (QC): 3 Lower Body Dressing (QC): 2 On/Off Footwear (QC): 2 Toileting Hygiene (QC): 2 Toilet Transfer (QC): 4 Assessment/Plan Assessment and Plan Assess & Plan/Chief Complaint Assessment: Cerebellar stroke Dementia Status post severe sepsis with pneumonia History of recurrent UTIs Osteoporosis Hypertension Anemia DNR Chronic debility resides in assisted living Urinary frequency with negative UA consulting urology closely 09/01/2021 Plan: Home meds Aggressive rehab Speech therapy 08/24/2021: Supportive care Be on alert for any seizures per family request 08/25/2021: Supportive care Dementia precludes complete recovery 08/26/2021: Supportive care Dementia care 08/27/2021: Supportive care Xanax for tearfulness 08/28/2021: Supportive care DC planning 08/29/2021: UA Monitor closely 08/30/2021: Urology consult Needs skilled care (1) Chest pain Assessment & Plan: Exact etiology unclear. No further chest pain today. No acute changes on her electrocardiogram which was done when she was having chest pain. This may have been related to gastroesophageal reflux disease. She is on pantoprazole twice daily. In light of her DNR status, I recommend conservative medical management. However, if she continues to have intermittent chest discomfort, then we may need to consider an ischemic evaluation but I would first want to discuss this with her family. (2) Cerebellar stroke Status: Acute Assessment & Plan: This raises a concern of possible atrial fibrillation. I implanted a loop recorder on 08/24. We will use this for prolonged surveillance of atrial fibrillation. For the time being, I recommend she continue on aspirin and ezetimibe. She has a reported intolerance to statin medications. She was also taking estradiol at home which I stopped. Prolonged use of estrogen replacement therapy has been associated with increased risk of both venous and arterial thrombotic events. (3) Irregular heart rhythm Status: Acute Assessment & Plan: She was having some irregular heartbeats during her acute hospitalization. This was primarily due to frequent premature supraventricular complexes. She also had some tachycardia. I started her on beta-antionette due to intermittent tachycardia and hypertension. I did not see any definitive evidence of atrial fibrillation. We will monitor her loop recorder for any signs of atrial fibrillation. There is no indication for oral anticoagulants at this time. (4) Primary hypertension Assessment & Plan: Her outpatient indapamide has been resumed. I also started her on metoprolol succinate due to some intermittent tachycardia. She had also been started on amlodipine. I discontinued the amlodipine after she had low blood pressure 1 evening. We may want to allow for some permissive hypertension given the recent stroke. Her blood pressure is presently reasonably well controlled on the current medication. (5) Mixed hyperlipidemia Assessment & Plan: Continue ezetimibe which she was taking at home. She has a reported intolerance to statin medications. ALFONSO MEDINA DO Aug 30, 2021 05:57
[2021-08-30 07:46] VITALS: BP 111/68
[2021-08-30] MEDS: polyethylene glycoL POWDER 17 GM (MIRALAX) PACK PO SCH ×2 (08:19→21:24)
[2021-08-30] MEDS: ASPIRIN E.C. 325 MG (ECOTRIN) TABLET PO SCH (09:42)
[2021-08-30] MEDS: SENNA W/DOCUSATE (SENOKOT S) TABLET PO SCH ×2 (09:43→21:24)
[2021-08-30] MEDS: ACETAMINOPHEN 500 MG TAB (TYLENOL) PO SCH ×4 (09:43→20:29)
[2021-08-30] MEDS: DOCUSATE SODIUM 100 MG (COLACE) CAP PO SCH ×2 (09:43→21:24)
[2021-08-30] MEDS: GABAPENTIN 600 MG (NEURONTIN) TAB PO SCH ×2 (09:43→20:29)
[2021-08-30] MEDS: INDAPAMIDE 2.5 MG (LOZOL) TAB PO SCH (09:44)
[2021-08-30] MEDS: meTOproloL SUCCINATE 50 MG (TOPROL XL) TAB PO SCH (09:44)
[2021-08-30] MEDS: PANTOPRAZOLE 40 MG (PROTONIX) TAB PO SCH ×2 (09:44→20:29)
[2021-08-30] MEDS: ALPRAZolam 0.25 MG (XANAX) TAB PO SCH ×2 (09:45→21:25)
--- NOTE | 2021-08-30 10:39 | Speech Therapy Daily Note ---
Speech Daily Progress Note Subjective Date Seen by Provider: Aug 30, 2021 Time Seen by Provider: 09:30 The patient was seated upright in her recliner, awake and alert upon entrance by the clinician. The patient greeted the clinician appropriately and was agreeable to participation in the cognitive linguistic treatment session. Per patient, "Well, I'm doing alright, I'm just a little confused." The patient's self-awareness of her confusion does display improvement to the clinician. Objective The patient remains pleasant, alert and cooperative throughout the treatment session. The patient does continue to state, "I'm just a little confused by all of this." The patient reports, "I had a UTI and they brought me to [facility]. After that, I don't really know." The patient's hospitalization process was discussed by the clinician. Orientation: The patient does remain oriented to location and year, however, is not oriented to month ("July or August"), day of week, or date. Orientation information was provided to the patient and delayed recall attempts were made. The patient was unable to recall the orientation information five minutes following presentation or at the close of the session. Telling Time: The patient was provided an analog clock and asked to state the time to the clinician. The patient displayed 60% accuracy with moderate clinician verbal cueing. Overall, the patient displayed improvement throughout today's session. Assessment Assessment Current Status: Fair Progress Treatment Plan Continue Plan of Care Speech Short Term Goals Short Term Goals Short Term Goals 1. The patient will participate in completion of the SLUMS assessment with mild clinician verbal prompting. Speech Halfway Goals Plumbing Engineering Draftsperson Goals 1. The patient will demonstrate increased functional safety awareness and problem solving for return to the least restrictive environment. Speech-Plan Treatment Plan Speech Therapy Treatment Plan: Continue Plan of Care Treatment Duration: Sep 20, 2021 Frequency: 4 times per week (Four to five times per week.) Estimated Hrs Per Day: .5 hour per day Rehab Potential: Guarded Pt/Family Agrees to Plan: Yes Safety Risks/Education Teaching Recipient: Patient Teaching Methods: Discussion Response to Teaching: Reinforcement Needed Education Topics Provided: Plan of Care, Speech Pathology Goals Time Speech Therapy Time In: 09:30 Speech Therapy Time Out: 10:00 Total Billed Time: 30 Billed Treatment Time 1MEGAN [facility] ST Aug 30, 2021 10:39
--- NOTE | 2021-08-30 11:03 | Physical Therapy Daily Note ---
PT Daily Note-Current Subjective Pt. agrees to Rx with explanation and encouragement from PT OT for co Tx session. Pt. is tearful today and speaks of a son she lost . Pt. c/o pain in LEs during gait and fatigue with activity. Pain Numeric Pain Scale: 5-Moderate Pain Location: Right (and left ) Location Body Site: Thigh Pain Description: Ache Comment: with gait Mental Status Patient Orientation: Person, Place (was oriented to place by therapists) Transfers SCALE: Activities may be completed with or without assistive devices. 2-Jyqeioswsz-xzejurx completes the activity by him/herself with no assistance from a helper. 5-Set-up or Clean-up Assistance-helper sets up or cleans up; patient completes activity. [place] assists only prior to or following the activity. 4-Supervision or Touching Assistance-helper provides verbal cues and/or touching/steadying and/or contact guard assistance as patient completes activity. Assistance may be provided throughout the activity or intermittently. 3-Partial/Moderate Assistance-helper does LESS THAN HALF the effort. [place] lifts, holds or supports trunk or limbs, but provides less than half the effort. 2-Substantial/Maximal Assistance-helper does MORE THAN HALF the effort. [place] lifts or holds trunk or limbs and provides more than half the effort. 0-Wzsvqyyqw-tbuzdh does ALL the effort. Patient does none of the effort to complete the activity. Or, the assistance of 2 or more helpers is required for the patient to complete the activity. If activity was not attempted, code reason: 7-Patient Refused. 9-Not Applicable-not attempted and the patient did not perform the activity before the current illness, exacerbation or injury. 10-Not Attempted due to Environmental Limitations-(lack of equipment, weather restraints, etc.). 88-Not Attempted due to Medical Conditions or Safety Concerns. Sit to Stand (QC): 4 Chair/Cce-qm-Iftou Xfer(QC): 4 Toilet Transfer (QC): 4 Gait Training Does the Patient Walk?: Yes Walk 10 feet (QC): 4 Gait Persons Needed: 1 Gait Assistive Device: FWW needs w/c follow up as pt. suddenly states she needs to sit, gait with shuffled steps, head down , needs assist to turn walker to appropriate direction, needs instructed to goal, c/o fatigue from gait Exercises Supine Ex: Bridging, Heel Slides, Straight leg raise Supine Reps: 10 Seated Therapy Exercises: Ankle pumps, Sit to stand, Long arc quads Seated Reps: 8 Treatments PT OT co Tx secondary to 2 skilled clinicians needed to decrease fall risk given pts history . PT focusing on sit to stand TRFs and gait and OT incorporating ADLs and UE function. Pt. needs many rest breaks and gentle encouraging explanation of the activity, TRFs, clean up sitting partial bath, clothing change, gait, LE ex seated and positioning . Assessment Current Status: Good Progress pt. needs guidance for all funct mob PT Short Term Goals Short Term Goals Time Frame: Aug 30, 2021 Roll Left & Right: 2 Sit to lyin Lying to sitting on side of be: 2 Sit to stand: 3 Chair/esn-qp-riwbq transfer: 3 Walk 10 feet: 3 Walk 50 feet with two turns: 3 PT Group Home Goals Group Home Goals PT Group Home Goals Time Frame: Sep 13, 2021 Roll Left & Right (QC): 3 Sit to Lying (QC): 3 Lying-Sitting on Side/Bed(QC): 3 Sit to Stand (QC): 4 Chair/Kfq-th-Ayiqo Xfer(QC): 4 Toilet Transfer (QC): 4 Car Transfer (QC): 3 Does the Patient Walk: Yes Walk 10 feet (QC): 4 Walk 50ft with 2 Turns (QC): 4 Walk 150 ft (QC): 4 Walking 10ft on Uneven Surface: 4 1 Step (curb) (QC): 88 4 Steps (QC): 88 12 Steps (QC): 88 Picking up an Object (QC): 4 Wheel 50 feet with 2 turns (QC: 4 Wheel 150 feet: 4 PT Plan Treatment/Plan Treatment Plan: Continue Plan of Care Treatment Plan: Bed Mobility, Education, Functional Activity Philipp, Functional Strength, Group Therapy, Gait, Safety, Therapeutic Exercise, Transfers Treatment Duration: Sep 13, 2021 Frequency: At least 5 of 7 days/Wk (IRF) Estimated Hrs Per Day: 1.5 hours per day Patient and/or Family Agrees t: Yes Safety Risks/Education Patient Education: Gait Training, Transfer Techniques, Reviewed Precautions, Correct Positioning, Disease Process, Safety Issues Teaching Recipient: Patient Teaching Methods: Demonstration, Discussion Response to Teaching: Verbalize Understanding, Return Demonstration, Reinforcement Needed Time/GCodes Time In: 1000 Time Out: 1100 Total Billed Treatment Time: 60 Total Billed Treatment 1,FA35m,GT10m,EX15m BLAYNE AVILA ELDER ASSISTANT Aug 30, 2021 11:03
--- NOTE | 2021-08-30 11:17 | Occupational Ther Daily Note ---
OT Current Status-Daily Note Subjective Pt alert and more cooperative today. Pt still has difficulties with memory for current information, but is able to recall past events. No c/o pain. Agrees to therapy. Mental Status/Objective Patient Orientation: Person, Confused, Place ADL-Treatment OT/PT co-treat [id number], skills of 2 clinicians required to decrease fall risk, increase mobility and working on increasing activity tolerance. PT focusing on ambulation, sit<--> stands and transfers while OT focusing on ADLs and B UE placement. After set up, pt able to cleanse upper body, buttock and kaushik area. Set up for upper body dressing. Min A for lower body dressing. Supervision for oral care while sitting at sink. Pt able to doff/don slippers. Pt c/of fatigue throughout session. Therapy Code Descriptions/Definitions Functional [place] Measure: 0=Not Assessed/NA 4=Minimal Assistance 1=Total Assistance 5=Supervision or Setup 2=Maximal Assistance 6=Modified [place] 3=Moderate Assistance 7=Complete IndependenceSCALE: Activities may be completed with or without assistive devices. 8-Kgdodnhdgc-nugctpw completes the activity by him/herself with no assistance from a helper. 5-Set-up or Clean-up Assistance-helper sets up or cleans up; patient completes activity. [place] assists only prior to or following the activity. 4-Supervision or Touching Assistance-helper provides verbal cues and/or touching/steadying and/or contact guard assistance as patient completes activity. Assistance may be provided throughout the activity or intermittently. 3-Partial/Moderate Assistance-helper does LESS THAN HALF the effort. [place] lifts, holds or supports trunk or limbs, but provides less than half the effort. 2-Substantial/Maximal Assistance-helper does MORE THAN HALF the effort. [place] lifts or holds trunk or limbs and provides more than half the effort. 7-Bwgzdsrqw-lntvyi does ALL the effort. Patient does none of the effort to complete the activity. Or, the assistance of 2 or more helpers is required for the patient to complete the activity. If activity was not attempted, code reason: 7-Patient Refused. 9-Not Applicable-not attempted and the patient did not perform the activity before the current illness, exacerbation or injury. 10-Not Attempted due to Environmental Limitations-(lack of equipment, weather restraints, etc.). 88-Not Attempted due to Medical Conditions or Safety Concerns. Oral Hygiene (QC): 4 Upper Body Dressing (QC): 5 Lower Body Dressing (QC): 3 Other Treatment Pt ambulated with PT and COLLINS following with w/c for safety. See PT notes for pt's mobility progress. Pt discussed making rosaries. COLLINS provided fine motor string and beads to work on dexterity and coordination for daily functional tasks. After session, pt sitting in recliner with call light/phone in reach. All needs met in room. OT Short Term Goals Short Term Goals Time Frame: Sep 01, 2021 Eatin Oral hygiene: 5 Toileting hygiene: 3 Shower/bathe self: 3 OT Retirement Goals Retirement Goals Time Frame: Sep 15, 2021 Eating (QC): 6 Oral Hygiene (QC): 6 Toileting Hygiene (QC): 6 Shower/Bathe Self (QC): 4 Upper Body Dressing (QC): 6 Lower Body Dressing (QC): 4 On/Off Footwear (QC): 4 Additional Goals: 1-Demonstrate ADL Tasks, 2-Verbalize Understanding, 3- ImproveStrength/Philipp 1=Demonstrate adherence to instructed precautions during ADL tasks. 2=Patient will verbalize/demonstrate understanding of assistive devices/modif ications for ADL. 3=Patient will improve strength/tolerance for activity to enable patient to perform ADL's. OT Education/Plan Problem List/Assessment Assessment: Decreased Activ Tolerance, Decreased Safety Aware, Impaired Cognition, Impaired Self-Care Skills Discharge Recommendations Plan/Recommendations: Continue POC Treatment Plan/Plan of Care Patient would benefit from OT for education, treatment and training to promote independence in ADL's, mobility, safety and/or upper extremity function for ADL's. Plan of Care: ADL Retraining, Functional Mobility, UE Funct Exercise/Act Treatment Duration: Sep 15, 2021 Frequency: At least 5 of 7 days/Wk (IRF) Estimated Hrs Per Day: 1.5 hours per day Agreement: Yes Rehab Potential: Guarded Time/GCodes Start Time: 10:00 Stop Time: 11:15 Total Time Billed (hr/min): 75 Billed Treatment Time 1 visit-ADL 3 (50 min) FA 1 (10 min) EX 1 (15 min) co-treat with PT 1000- 1100, individual [id number] DARREL BEARD Aug 30, 2021 11:17
[2021-08-30] MEDS: FERROUS SULF 325 MG (IRON) TAB PO SCH (12:11)
--- NOTE | 2021-08-30 13:34 | Physical Therapy Daily Note ---
PT Daily Note-Current Subjective Pt. up in recliner and again presents agitated , eyes closed and resistive to therapy. director of student affairs present and attempting to comfort patient. Pt. reluctantly agrees to seated and reclined therex with LEs. Pt. states " All I want is a glass of iced tea and a roll and you people to leave me alone". Iced tea and roll were ordered. Pain Location: No Pain Reported Mental Status Patient Orientation: Confused Transfers SCALE: Activities may be completed with or without assistive devices. 6-Aawwtzrkvz-cgitijp completes the activity by him/herself with no assistance from a helper. 5-Set-up or Clean-up Assistance-helper sets up or cleans up; patient completes activity. [place] assists only prior to or following the activity. 4-Supervision or Touching Assistance-helper provides verbal cues and/or touching/steadying and/or contact guard assistance as patient completes activity. Assistance may be provided throughout the activity or intermittently. 3-Partial/Moderate Assistance-helper does LESS THAN HALF the effort. [place] lifts, holds or supports trunk or limbs, but provides less than half the effort. 2-Substantial/Maximal Assistance-helper does MORE THAN HALF the effort. [place] lifts or holds trunk or limbs and provides more than half the effort. 2-Mzuuoarej-phqdys does ALL the effort. Patient does none of the effort to compl ete the activity. Or, the assistance of 2 or more helpers is required for the patient to complete the activity. If activity was not attempted, code reason: 7-Patient Refused. 9-Not Applicable-not attempted and the patient did not perform the activity before the current illness, exacerbation or injury. 10-Not Attempted due to Environmental Limitations-(lack of equipment, weather restraints, etc.). 88-Not Attempted due to Medical Conditions or Safety Concerns. sit to stand CGA, pt. scoots up in recliner using UEs and LEs with instruction and some assist for using chair back release. Exercises Supine Ex: Quad Set, Heel Slides, Scooting, Straight leg raise Supine Reps: 10 Assessment Current Status: Fair Progress pt. resists Tx this pm, agitated again PT Short Term Goals Short Term Goals Time Frame: Aug 30, 2021 Roll Left & Right: 2 Sit to lyin Lying to sitting on side of be: 2 Sit to stand: 3 Chair/fhz-ol-ztucw transfer: 3 Walk 10 feet: 3 Walk 50 feet with two turns: 3 PT Snf Goals Candle Wrapper Goals PT Snf Goals Time Frame: Sep 13, 2021 Roll Left & Right (QC): 3 Sit to Lying (QC): 3 Lying-Sitting on Side/Bed(QC): 3 Sit to Stand (QC): 4 Chair/Xkx-ci-Stnnd Xfer(QC): 4 Toilet Transfer (QC): 4 Car Transfer (QC): 3 Does the Patient Walk: Yes Walk 10 feet (QC): 4 Walk 50ft with 2 Turns (QC): 4 Walk 150 ft (QC): 4 Walking 10ft on Uneven Surface: 4 1 Step (curb) (QC): 88 4 Steps (QC): 88 12 Steps (QC): 88 Picking up an Object (QC): 4 Wheel 50 feet with 2 turns (QC: 4 Wheel 150 feet: 4 PT Plan Treatment/Plan Treatment Plan: Continue Plan of Care Treatment Plan: Bed Mobility, Education, Functional Activity Philipp, Functional Strength, Group Therapy, Gait, Safety, Therapeutic Exercise, Transfers Treatment Duration: Sep 13, 2021 Frequency: At least 5 of 7 days/Wk (IRF) Estimated Hrs Per Day: 1.5 hours per day Patient and/or Family Agrees t: Yes Safety Risks/Education Patient Education: Correct Positioning Time/GCodes Time In: 1300 Time Out: 1315 Total Billed Treatment Time: 15 Total Billed Treatment 1,FA15m BLAYNE [employer] Aug 30, 2021 13:34
[2021-08-30 20:01] VITALS: BP 98/49
[2021-08-30] MEDS: eZETimibe 10 MG (ZETIA) TABLET PO SCH (20:29)
[2021-08-30] MEDS: OLANZapine 5 MG (ZyPREXA) TAB PO SCH (20:29)
[2021-08-30] MEDS: ENOXAPARIN 40 MG/0.4 ML (LOVENOX) SYR SC SCH (20:30)
[2021-08-30] MEDS: FAMOTIDINE 20 MG (PEPCID) TABLET PO SCH (20:30)
--- NOTE | 2021-08-31 06:01 | PM&R Progress Note ---
Subjective HPI/CC On Admission Date Seen by Provider: Aug 31, 2021 Time Seen by Provider: 10:00 Subjective/Events-last exam 08/31/2021: Patient about the same Dr. 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 Urinary frequency will require urology consultation UA in and out cath was normal 08/29/2021: Pt doing pretty well Family concerned it's another UTI, so we will do an in and out cath for UA Pt appears to be on a lot of antibiotics over and over with chronic UTIs Overall slept a lot better last night with Melatonin 08/28/2021: Pt a little bit more confused today Covid booster will be given Bowels on 08/27 but they were loose Need to reach out to assisted living to see what we have to do for her to meet criteria to come back 08/27/2021: Patient doing about the same Cries a lot Xanax scheduled Cognition comes and goes 08/26/2021: Patient about the same No pain issues Checked meds and labs No seizure activity reported Family will come to visit on weekends in the afternoon 08/25/21: Pt doing about the same Xanax 0.25mg will be given BID scheduled as she takes at home Bowels moved yesterday No evidence of any seizures 08/24/2021: Patient doing pretty well Held the scheduled Xanax due to sedation Blood pressure was elevated prior to meds Feeds her self Family told nurse they think she is having seizures since everyone in her family has seizures but there was no evidence of any seizure-like activity assessed by the nursing staff so will be on alert for anything like that. No evidence to support the addition of antiseizure meds. Review of Systems General: Fatigue, Malaise Neurological: Weakness, Confusion Objective Exam Vital Signs Vital Signs Date Time Temp Pulse Resp B/P (MAP) Pulse Ox O2 Delivery O2 Flow Rate FiO2 08/31/21 20:59 Room Air 08/31/21 19:38 36.2 60 16 110/57 (74) 97 Capillary Refill : General Appearance: No Apparent Distress, WD/WN, Chronically ill HEENT: PERRL/EOMI, Normal ENT Inspection, Pharynx Normal Neck: Full Range of Motion, Normal Inspection, Non Tender, Supple, Carotid Bruit Respiratory: Chest Non Tender, Lungs Clear, Normal Breath Sounds, No Accessory Muscle Use, No Respiratory Distress Cardiovascular: Regular Rate, Rhythm, No Edema, No Gallop, No JVD, No Murmur, Normal Peripheral Pulses Gastrointestinal: Normal Bowel Sounds, No Organomegaly, No Pulsatile Mass, Non Tender, Soft Back: Normal Inspection, No CVA Tenderness, No Vertebral Tenderness Extremity: Normal Capillary Refill, Normal Inspection, Normal Range of Motion, Non Tender, No Calf Tenderness, No Pedal Edema Neurologic/Psychiatric: Alert, No Motor/Sensory Deficits, loading 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 FIM Transfers Therapy Code Descriptions/Definitions Functional [place] Measure: 0=Not Assessed/NA 4=Minimal Assistance 1=Total Assistance 5=Supervision or Setup 2=Maximal Assistance 6=Modified [place] 3=Moderate Assistance 7=Complete IndependenceSCALE: Activities may be completed with or without assistive devices. 9-Swqeibqtyn-kyqyqgw completes the activity by him/herself with no assistance from a helper. 5-Set-up or Clean-up Assistance-helper sets up or cleans up; patient completes activity. [place] assists only prior to or following the activity. 4-Supervision or Touching Assistance-helper provides verbal cues and/or touching/steadying and/or contact guard assistance as patient completes activity. Assistance may be provided throughout the activity or intermittently. 3-Partial/Moderate Assistance-helper does LESS THAN HALF the effort. [place] lifts, holds or supports trunk or limbs, but provides less than half the effort. 2-Substantial/Maximal Assistance-helper does MORE THAN HALF the effort. [place] lifts or holds trunk or limbs and provides more than half the effort. 8-Wycdjausx-mkhyra does ALL the effort. Patient does none of the effort to complete the activity. Or, the assistance of 2 or more helpers is required for the patient to complete the activity. If activity was not attempted, code reason: 7-Patient Refused. 9-Not Applicable-not attempted and the patient did not perform the activity before the current illness, exacerbation or injury. 10-Not Attempted due to Environmental Limitations-(lack of equipment, weather restraints, etc.). 88-Not Attempted due to Medical Conditions or Safety Concerns. Roll Left to Right (QC): 3 Sit to Lying (QC): 4 Sit to Stand (QC): 4 Chair/Eqi-do-Appwq Xfer(QC): 4 Car Transfer (QC): 1 (dependent) Gait Training Does the Patient Walk?: Yes Distance: 20', 10'x3 Walk 10 feet (QC): 4 Walk 50 ft with 2 Turns(QC): 88 Walk 150 ft (QC): 88 Walking 10ft/uneven surface-QC: 88 Gait Persons Needed: 1 Gait Assistive Device: FWW Wheelchair Training Does the Pt Use a Wheelchair?: Yes Distance: 15' Wheel 50 ft with 2 turns (QC): 2 Wheel 150 ft (QC): 2 Type of Wheelchair: Manual Stair Training 1 Step (curb) (QC): 88 4 Steps (QC): 88 12 Steps (QC): 88 Balance Picking up an Object (QC): 88 ADL-Treatment Eating (QC): 5 Oral Hygiene (QC): 4 Bathing Location: L Arm, Abdomen Shower/Bathe Self (QC): 2 Upper Body Dressing (QC): 5 Lower Body Dressing (QC): 3 On/Off Footwear (QC): 2 Toileting Hygiene (QC): 2 Toilet Transfer (QC): 4 Assessment/Plan Assessment and Plan Assess & Plan/Chief Complaint Assessment: Cerebellar stroke Dementia Status post severe sepsis with pneumonia History of recurrent UTIs Osteoporosis Hypertension Anemia DNR Chronic debility resides in assisted living Urinary frequency with negative UA consulting urology closely 09/01/2021 Plan: Home meds Aggressive rehab Speech therapy 08/24/2021: Supportive care Be on alert for any seizures per family request 08/25/2021: Supportive care Dementia precludes complete recovery 08/26/2021: Supportive care Dementia care 08/27/2021: Supportive care Xanax for tearfulness 08/28/2021: Supportive care DC planning 08/29/2021: UA Monitor closely 08/30/2021: Urology consult Needs skilled care 08/31/2021: Urology consult appreciated Supportive care (1) Chest pain Assessment & Plan: Exact etiology unclear. No further chest pain today. No acute changes on her electrocardiogram which was done when she was having chest pain. This may have been related to gastroesophageal reflux disease. She is on pantoprazole twice daily. In light of her DNR status, I recommend conservative medical management. However, if she continues to have intermittent chest discomfort, then we may need to consider an ischemic evaluation but I would first want to discuss this with her family. (2) Cerebellar stroke Status: Acute Assessment & Plan: This raises a concern of possible atrial fibrillation. I im planted a loop recorder on 08/24. We will use this for prolonged surveillance of atrial fibrillation. For the time being, I recommend she continue on aspirin and ezetimibe. She has a reported intolerance to statin medications. She was also taking estradiol at home which I stopped. Prolonged use of estrogen replacement therapy has been associated with increased risk of both venous and arterial thrombotic events. (3) Irregular heart rhythm Status: Acute Assessment & Plan: She was having some irregular heartbeats during her acute hospitalization. This was primarily due to frequent premature supraventricular complexes. She also had some tachycardia. I started her on beta-antionette due to intermittent tachycardia and hypertension. I did not see any definitive evidence of atrial fibrillation. We will monitor her loop recorder for any signs of atrial fibrillation. There is no indication for oral anticoagulants at this time. (4) Primary hypertension Assessment & Plan: Her outpatient indapamide has been resumed. I also started her on metoprolol succinate due to some intermittent tachycardia. She had also been started on amlodipine. I discontinued the amlodipine after she had low blood pressure 1 evening. We may want to allow for some permissive hypertension given the recent stroke. Her blood pressure is presently reasonably well controlled on the current medication. (5) Mixed hyperlipidemia Assessment & Plan: Continue ezetimibe which she was taking at home. She has a reported intolerance to statin medications. ALFONSO MEDINA DO Aug 31, 2021 06:01
[2021-08-31] MEDS: LEVOTHYROXINE 75 MCG (LEVOTHROID) TABLET PO SCH (06:53)
[2021-08-31] MEDS: SUCRALFATE 1 GM (CARAFATE) TAB PO SCH ×4 (06:53→20:35)
[2021-08-31] MEDS: KCL 10 MEQ TAB (MICRO K) PO SCH (06:53)
[2021-08-31] MEDS: PANTOPRAZOLE 40 MG (PROTONIX) TAB PO SCH ×2 (07:56→20:35)
[2021-08-31] MEDS: meTOproloL SUCCINATE 50 MG (TOPROL XL) TAB PO SCH (07:56)
[2021-08-31] MEDS: ASPIRIN E.C. 325 MG (ECOTRIN) TABLET PO SCH (07:56)
[2021-08-31] MEDS: SENNA W/DOCUSATE (SENOKOT S) TABLET PO SCH ×3 (07:56→20:54)
[2021-08-31] MEDS: INDAPAMIDE 2.5 MG (LOZOL) TAB PO SCH (07:56)
[2021-08-31] MEDS: DOCUSATE SODIUM 100 MG (COLACE) CAP PO SCH ×3 (07:56→20:53)
[2021-08-31] MEDS: ACETAMINOPHEN 500 MG TAB (TYLENOL) PO SCH ×4 (07:57→20:35)
[2021-08-31] MEDS: GABAPENTIN 600 MG (NEURONTIN) TAB PO SCH ×2 (07:57→20:35)
[2021-08-31] MEDS: ALPRAZolam 0.25 MG (XANAX) TAB PO SCH ×2 (07:57→20:35)
[2021-08-31] MEDS: polyethylene glycoL POWDER 17 GM (MIRALAX) PACK PO SCH ×2 (07:57→20:53)
[2021-08-31 08:00] VITALS: BP 136/62
--- NOTE | 2021-08-31 10:36 | Speech Therapy Daily Note ---
Speech Daily Progress Note Subjective Date Seen by Provider: Aug 31, 2021 Time Seen by Provider: 09:15 The patient was ambulating with her walker from the restroom to her recliner with the RN upon entrance. The patient was engaging in dismissive sarcasm and agitation with the RN, as the RN attempted to provide supportive care and kind encouragement. Once the patient was seated, the clinician re-introduced herself. Per patient, "Oh perfect, just what I wanted, another visitor. I don't give a damn." Objective The patient required consistent maximum verbal prompting and encouragement for limited to zero participation in skilled speech pathology services on this date. The patient appears resistant to care and continues dismissive sarcasm ("I'm just so happy you are here." "Oh a clean board, just what I needed.") throughout skilled therapy attempts. Orientation: Orientation was discussed and reviewed throughout therapy on this date. The patient stated the month was "July," the accurate year, and her location as "[facility]." Accurate orientation information was provided to the patient by the clinician and placed on the in-room white board. The in-room white board appears distracting, as multiple messages have been scripted on the item from family members. The clinician attempted to clean the white board without removing messages from family. Orientation information was placed in purple in attempts to draw the patient's attention to the information. Recall of orientation information at five minutes and at the end of the session was completed with 0% accuracy. The patient continues to display poor participation, fluctuating mentation, and poor progression through skilled therapy. Assessment Assessment Current Status: Poor Progress Treatment Plan Continue Plan of Care Speech Short Term Goals Short Term Goals Short Term Goals 1. The patient will participate in completion of the SLUMS assessment with mild clinician verbal prompting. Speech Molder Wax Ball Goals Molder Wax Ball Goals 1. The patient will demonstrate increased functional safety awareness and problem solving for return to the least restrictive environment. Speech-Plan Treatment Plan Speech Therapy Treatment Plan: Continue Plan of Care Treatment Duration: Sep 20, 2021 Frequency: 4 times per week (Four to five times per week.) Estimated Hrs Per Day: .5 hour per day Rehab Potential: Guarded Pt/Family Agrees to Plan: Yes Safety Risks/Education Teaching Recipient: Patient Teaching Methods: Discussion Response to Teaching: Reinforcement Needed Education Topics Provided: Plan of Care, Rationale for Skilled Services Time Speech Therapy Time In: 09:15 Speech Therapy Time Out: 09:45 Total Billed Time: 30 Billed Treatment Time 1MEGAN [facility] Aug 31, 2021 10:36
--- NOTE | 2021-08-31 11:24 | Occupational Ther Daily Note ---
OT Current Status-Daily Note Subjective Pt dozing in chair, woke to name. Pt demonstrated dismissive sarcasm when COLLINS asked any questions or encouraged to participate in therapy. Pt grudgingly agreed to therapy. Pt c/o back pain. Mental Status/Objective Patient Orientation: Person, Place, Time, Situation ADL-Treatment OT/PT co-treat [id number], skills of 2 clinicians required to decrease fall risk, increase mobility and working on increasing activity tolerance. PT focusing on ambulation, sit<--> stands and transfers while OT focusing on ADLs and B UE placement. Pt is resistive to care during session. Pt requires time to allow processing to agree to shower. Pt would sit up then lean back multiple times until appearing angry and stating "Well we might as well get this over since there is a democrat in here" due to OT/PT both in room. See PT notes for ambulation and transfers. Pt transferred to toilet with CGA due to "butt diving" toward surface. Pt able to hike pants over hips and cleanse after urination, noted that pt was not thorough with cleansing from previous BM. Pt able to doff R sock then requested help with doffing rest of lower body clothing. Pt able to doff shirt in standing with CGA. Pt then transferred to shower bench, assist given due to "butt diving" to surface, unable to redirect pt for safe transfer due to increased agitation when corrective instruction is given. Pt able to complete all areas of bathing after set up except assist with buttocks and drying B LE's. Pt able to don shirt by self after set up. Max A for lower body dressing and footwear. Sitting at sink, pt able to complete oral care with supervision. Pt was then transported 3/4's way back to recliner then ambulated the rest of the way. Instead of lining up with recliner, pt "butt dived" into seat. Pt then was made comfortable in recliner. Coffee, iced tea and ice water given to pt per pt request. After session, pt sitting in recliner with call light/phone in reach. Safety measures in place. All needs met. Therapy Code Descriptions/Definitions Functional [place] Measure: 0=Not Assessed/NA 4=Minimal Assistance 1=Total Assistance 5=Supervision or Setup 2=Maximal Assistance 6=Modified [place] 3=Moderate Assistance 7=Complete IndependenceSCALE: Activities may be completed with or without assistive devices. 4-Kcychwuohd-exavzcp completes the activity by him/herself with no assistance from a helper. 5-Set-up or Clean-up Assistance-helper sets up or cleans up; patient completes activity. [place] assists only prior to or following the activity. 4-Supervision or Touching Assistance-helper provides verbal cues and/or touching/steadying and/or contact guard assistance as patient completes activity. Assistance may be provided throughout the activity or intermittently. 3-Partial/Moderate Assistance-helper does LESS THAN HALF the effort. [place] lifts, holds or supports trunk or limbs, but provides less than half the effort. 2-Substantial/Maximal Assistance-helper does MORE THAN HALF the effort. [place] lifts or holds trunk or limbs and provides more than half the effort. 2-Shpflanlt-yblocb does ALL the effort. Patient does none of the effort to complete the activity. Or, the assistance of 2 or more helpers is required for the patient to complete the activity. If activity was not attempted, code reason: 7-Patient Refused. 9-Not Applicable-not attempted and the patient did not perform the activity before the current illness, exacerbation or injury. 10-Not Attempted due to Environmental Limitations-(lack of equipment, weather restraints, etc.). 88-Not Attempted due to Medical Conditions or Safety Concerns. Eating (QC): 5 Oral Hygiene (QC): 4 Shower/Bathe Self (QC): 3 Upper Body Dressing (QC): 5 Lower Body Dressing (QC): 2 On/Off Footwear: 2 Toileting Hygiene (QC): 3 Toilet Transfer (QC): 4 Pt c/o fatigue throughout session and immediately closed eyes when back in recliner. When coffee brought to pt, pt opened eyes and began to drink. OT Short Term Goals Short Term Goals Time Frame: Sep 01, 2021 Eatin Oral hygiene: 5 Toileting hygiene: 3 Shower/bathe self: 3 OT Assistant Food Service Director Goals Custodial Goals Time Frame: Sep 15, 2021 Eating (QC): 6 (not met) Oral Hygiene (QC): 6 (ot met) Toileting Hygiene (QC): 6 (not met) Shower/Bathe Self (QC): 4 (not met) Upper Body Dressing (QC): 6 (not met) Lower Body Dressing (QC): 4 (not met) On/Off Footwear (QC): 4 (not met) Additional Goals: 1-Demonstrate ADL Tasks, 2-Verbalize Understanding, 3-ImproveStrength/Philipp 1=Demonstrate adherence to instructed precautions during ADL tasks. 2=Patient will verbalize/demonstrate understanding of assistive devices/modifications for ADL. 3=Patient will improve strength/tolerance for activity to enable patient to perform ADL's. OT Education/Plan Problem List/Assessment Assessment: Decreased Activ Tolerance, Decreased Safety Aware, Impaired Cognition, Impaired Self-Care Skills Discharge Recommendations Plan/Recommendations: Continue POC Treatment Plan/Plan of Care Patient would benefit from OT for education, treatment and training to promote independence in ADL's, mobility, safety and/or upper extremity function for ADL's. Plan of Care: ADL Retraining, Functional Mobility, UE Funct Exercise/Act Treatment Duration: Sep 15, 2021 Frequency: At least 5 of 7 days/Wk (IRF) Estimated Hrs Per Day: 1.5 hours per day Agreement: Yes Rehab Potential: Guarded Time/GCodes Start Time: 10:15 Stop Time: 11:30 Total Time Billed (hr/min): 75 Billed Treatment Time 1 visit-ADL 5 (75 min) co-treat with PT [id number] DARREL BEARD Aug 31, 2021 11:24
--- NOTE | 2021-08-31 11:58 | Physical Therapy Daily Note ---
PT Daily Note-Current Subjective Pt dozing in chair, woke to name. Pt demonstrated dismissive sarcasm when COLLINS asked any questions or encouraged to participate in therapy. Pt grudgingly agreed to therapy. Pt c/o back pain. Pain Location: Lower Location Body Site: Back Pain Description: Tightness Comment: Reported but not rated Mental Status Patient Orientation: Person, Confused Transfers SCALE: Activities may be completed with or without assistive devices. 8-Esgldgsuzo-sjfopmj completes the activity by him/herself with no assistance f rom a helper. 5-Set-up or Clean-up Assistance-helper sets up or cleans up; patient completes activity. [place] assists only prior to or following the activity. 4-Supervision or Touching Assistance-helper provides verbal cues and/or touching/steadying and/or contact guard assistance as patient completes activity. Assistance may be provided throughout the activity or intermittently. 3-Partial/Moderate Assistance-helper does LESS THAN HALF the effort. [place] lifts, holds or supports trunk or limbs, but provides less than half the effort. 2-Substantial/Maximal Assistance-helper does MORE THAN HALF the effort. [place] lifts or holds trunk or limbs and provides more than half the effort. 6-Ozzlgpztu-pctnum does ALL the effort. Patient does none of the effort to complete the activity. Or, the assistance of 2 or more helpers is required for the patient to complete the activity. If activity was not attempted, code reason: 7-Patient Refused. 9-Not Applicable-not attempted and the patient did not perform the activity before the current illness, exacerbation or injury. 10-Not Attempted due to Environmental Limitations-(lack of equipment, weather restraints, etc.). 88-Not Attempted due to Medical Conditions or Safety Concerns. Roll Left & Right (QC): 3 Sit to Lying (QC): 3 Lying to Sitting/Side of Bed(Q: 3 Sit to Stand (QC): 3 Chair/Uhg-zp-Mvgrd Xfer(QC): 3 Toilet Transfer (QC): 3 Car Transfer (QC): 3 Gait Training Does the Patient Walk?: Yes Distance: 5' Walk 10 feet (QC): 7 Walk 50 ft with 2 Turns(QC): 7 Walk 150 ft (QC): 7 Walking 10ft/uneven surface-QC: 3 Gait Persons Needed: 1 Gait Assistive Device: FWW Wheelchair Training Does the Pt Use a Wheelchair?: Yes Wheel 50 ft with 2 turns (QC): 7 Wheel 150 ft (QC): 7 Type of Wheelchair: Manual Stair Training 1 Step (curb) (QC): 88 (Safety concerns as pt is uable to follow directions) 4 Steps (QC): 88 12 Steps (QC): 88 Balance Picking up an Object (QC): 3 Treatments OT/PT co-treat [id number], skills of 2 clinicians required to decrease fall risk, increase mobility and working on increasing activity tolerance. PT focusing on ambulation, sit<--> stands and transfers while OT focusing on ADLs and B UE placement. Pt is resistive to care during session. Pt requires time to allow processing to agree to shower. Pt would sit up then lean back multiple times until appearing angry and stating "Well we might as well get this over since there is a constitution party in here" due to OT/PT both in room. See PT notes for amb ulation and transfers. Pt transferred to toilet with CGA due to "butt diving" toward surface. Pt able to hike pants over hips and cleanse after urination, noted that pt was not thorough with cleansing from previous BM. Pt able to doff R sock then requested help with doffing rest of lower body clothing. Pt able to doff shirt in standing with CGA. Pt then transferred to shower bench, assist given due to "butt diving" to surface, unable to redirect pt for safe transfer due to increased agitation when corrective instruction is given. Pt able to complete all areas of bathing after set up except assist with buttocks and drying B LE's. Pt able to don shirt by self after set up. Max A for lower body dressing and footwear. Sitting at sink, pt able to complete oral care with supervision. Pt was then transported 3/4's way back to recliner then ambulated the rest of the way. Instead of lining up with recliner, pt "butt dived" into seat. Pt then was made comfortable in recliner. Coffee, iced tea and ice water given to pt per pt request. After session, pt sitting in recliner with call light/phone in reach. Safety measures in place. All needs met. Assessment Current Status: Poor Progress Pt fluctuates in performance during tx due to cognitive state. Pt reports knees buckling and R UE weakness even though CVA affected L side. Pt needs repeated VC to prevent "butt diving" to seated surface. PT Short Term Goals Short Term Goals Time Frame: Aug 30, 2021 Roll Left & Right: 2 Sit to lyin Lying to sitting on side of be: 2 Sit to stand: 3 Chair/wqb-ax-kbmnv transfer: 3 Walk 10 feet: 3 Walk 50 feet with two turns: 3 PT Credit Or Loans Officer Goals Credit Or Loans Officer Goals PT Residential Goals Time Frame: Sep 13, 2021 Roll Left & Right (QC): 3 Sit to Lying (QC): 3 Lying-Sitting on Side/Bed(QC): 3 Sit to Stand (QC): 4 Chair/Wco-sn-Cdrmb Xfer(QC): 4 Toilet Transfer (QC): 4 Car Transfer (QC): 3 Does the Patient Walk: Yes Walk 10 feet (QC): 4 Walk 50ft with 2 Turns (QC): 4 Walk 150 ft (QC): 4 Walking 10ft on Uneven Surface: 4 1 Step (curb) (QC): 88 4 Steps (QC): 88 12 Steps (QC): 88 Picking up an Object (QC): 4 Wheel 50 feet with 2 turns (QC: 4 Wheel 150 feet: 4 PT Plan Problem List Problem List: Activity Tolerance, Functional Strength, Safety, Gait Treatment/Plan Treatment Plan: Continue Plan of Care Treatment Plan: Bed Mobility, Education, Functional Activity Philipp, Functional Strength, Group Therapy, Gait, Safety, Therapeutic Exercise, Transfers Treatment Duration: Sep 13, 2021 Frequency: At least 5 of 7 days/Wk (IRF) Estimated Hrs Per Day: 1.5 hours per day Patient and/or Family Agrees t: Yes Safety Risks/Education Patient Education: Gait Training, Correct Positioning, Safety Issues Teaching Recipient: Patient Teaching Methods: Discussion Response to Teaching: Reinforcement Needed Time/GCodes Time In: 1015 Time Out: 1130 Total Billed Treatment Time: 75 Total Billed Treatment Co-treat w/OT for 75m 1, FA x5 (75m) LUCAS CHANG TOLL MECHANIC Aug 31, 2021 11:58
[2021-08-31] MEDS: FERROUS SULF 325 MG (IRON) TAB PO SCH (12:08)
--- NOTE | 2021-08-31 15:54 | CONSULTATION REPORT ---
DATE OF SERVICE: 08/31/2021 ATTENDING PHYSICIAN: Dr. Oro. SUMMARY: After reviewing the patient's record from which I obtained most information, interviewing her and examining her, this is an 86-year-old white lady with multiple medical problems recovering from it including a subacute cerebellar stroke. I was consulted because of significant frequency and nocturia. History and physical unchanged from the original one from Dr. Oro. IMPRESSION: Overactive bladder, rule out urinary retention. PLAN: Bladder sono, postvoid residual and manage accordingly. Job ID: [id number] DocumentID: [id number] Dictated Date: 08/31/2021 12:02:14 Manager Custom Date: 08/31/2021 15:53:36 Dictated By: ELISA SAM MD
[2021-08-31 19:38] VITALS: BP 110/57
[2021-08-31] MEDS: eZETimibe 10 MG (ZETIA) TABLET PO SCH (20:35)
[2021-08-31] MEDS: OLANZapine 5 MG (ZyPREXA) TAB PO SCH (20:35)
[2021-08-31] MEDS: ENOXAPARIN 40 MG/0.4 ML (LOVENOX) SYR SC SCH (20:36)
[2021-08-31] MEDS: FAMOTIDINE 20 MG (PEPCID) TABLET PO SCH (20:36)
--- NOTE | 2021-09-01 05:40 | PM&R Progress Note ---
Subjective HPI/CC On Admission Date Seen by Provider: Sep 01, 2021 Time Seen by Provider: 11:00 Subjective/Events-last exam 09/01/21: Pt about the same Urology evaluated her post void residual to be zero Detrol LA was started today Slept pretty well Very confused and sometimes combative End stage dementia noted 08/31/2021: Patient about the same Dr. Quick ordered bladder scanning and will evaluate that urinary frequency Slept better Cognitive deficit is profound 08/30/2021: Pt doing about the same Will need skilled care since and [facility] will not take patient back All 9 children have been communicating with the nurse which is overwhelming but the health care DPOA needs to be the one contact center specialist Urinary frequency will require urology consultation UA in and out cath was normal 08/29/2021: Pt doing pretty well Family concerned it's another UTI, so we will do an in and out cath for UA Pt appears to be on a lot of antibiotics over and over with chronic UTIs Overall slept a lot better last night with Melatonin 08/28/2021: Pt a little bit more confused today Covid booster will be given Bowels on 08/27 but they were loose Need to reach out to assisted living to see what we have to do for her to meet criteria to come back 08/27/2021: Patient doing about the same Cries a lot Xanax scheduled Cognition comes and goes 08/26/2021: Patient about the same No pain issues Checked meds and labs No seizure activity reported Family will come to visit on weekends in the afternoon 08/25/21: Pt doing about the same Xanax 0.25mg will be given BID scheduled as she takes at home Bowels moved yesterday No evidence of any seizures 08/24/2021: Patient doing pretty well Held the scheduled Xanax due to sedation Blood pressure was elevated prior to meds Feeds her self Family told nurse they think she is having seizures since everyone in her family has seizures but there was no evidence of any seizure-like activity assessed by the nursing staff so will be on alert for anything like that. No evidence to support the addition of antiseizure meds. Review of Systems General: Fatigue, Malaise Neurological: Confusion Objective Exam Vital Signs Vital Signs Date Time Temp Pulse Resp B/P (MAP) Pulse Ox O2 Delivery O2 Flow Rate FiO2 09/01/21 20:26 37.1 61 16 118/77 (91) 95 Room Air Capillary Refill : General Appearance: No Apparent Distress, WD/WN, Chronically ill HEENT: PERRL/EOMI, Normal ENT Inspection, Pharynx Normal Neck: Full Range of Motion, Normal Inspection, Non Tender, Supple, Carotid Bruit Respiratory: Chest Non Tender, Lungs Clear, Normal Breath Sounds, No Accessory Muscle Use, No Respiratory Distress Cardiovascular: Regular Rate, Rhythm, No Edema, No Gallop, No JVD, No Murmur, Normal Peripheral Pulses Gastrointestinal: Normal Bowel Sounds, No Organomegaly, No Pulsatile Mass, Non Tender, Soft Back: Normal Inspection, No CVA Tenderness, No Vertebral Tenderness Extremity: Normal Capillary Refill, Normal Inspection, Normal Range of Motion, Non Tender, No Calf Tenderness, No Pedal Edema Neurologic/Psychiatric: Alert, No Motor/Sensory Deficits, tool turret lathe set up operator II-XII Norm as Tested, Abnormal Gait, Depressed Affect, Disoriented, Motor Weakness (left sided ) Skin: Normal Color, Warm/Dry Lymphatic: No Adenopathy Results/Procedures Lab Patient resulted labs reviewed. FIM Transfers Therapy Code Descriptions/Definitions Functional [place] Measure: 0=Not Assessed/NA 4=Minimal Assistance 1=Total Assistance 5=Supervision or Setup 2=Maximal Assistance 6=Modified [place] 3=Moderate Assistance 7=Complete IndependenceSCALE: Activities may be completed with or without assistive devices. 7-Etispexstx-cgsxtse completes the activity by him/herself with no assistance from a helper. 5-Set-up or Clean-up Assistance-helper sets up or cleans up; patient completes activity. [place] assists only prior to or following the activity. 4-Supervision or Touching Assistance-helper provides verbal cues and/or touching/steadying and/or contact guard assistance as patient completes activity. Assistance may be provided throughout the activity or intermittently. 3-Partial/Moderate Assistance-helper does LESS THAN HALF the effort. [place] lifts, holds or supports trunk or limbs, but provides less than half the effort. 2-Substantial/Maximal Assistance-helper does MORE THAN HALF the effort. [place] lifts or holds trunk or limbs and provides more than half the effort. 6-Kbrjqqjpx-updngr does ALL the effort. Patient does none of the effort to complete the activity. Or, the assistance of 2 or more helpers is required for the patient to complete the activity. If activity was not attempted, code reason: 7-Patient Refused. 9-Not Applicable-not attempted and the patient did not perform the activity before the current illness, exacerbation or injury. 10-Not Attempted due to Environmental Limitations-(lack of equipment, weather restraints, etc.). 88-Not Attempted due to Medical Conditions or Safety Concerns. Roll Left to Right (QC): 3 Sit to Lying (QC): 3 Sit to Stand (QC): 3 Chair/Ckt-md-Jkzrb Xfer(QC): 3 Car Transfer (QC): 3 Gait Training Does the Patient Walk?: Yes Distance: 5' Walk 10 feet (QC): 7 Walk 50 ft with 2 Turns(QC): 7 Walk 150 ft (QC): 7 Walking 10ft/uneven surface-QC: 3 Gait Persons Needed: 1 Gait Assistive Device: FWW Wheelchair Training Does the Pt Use a Wheelchair?: Yes Distance: 15' Wheel 50 ft with 2 turns (QC): 7 Wheel 150 ft (QC): 7 Type of Wheelchair: Manual Stair Training 1 Step (curb) (QC): 88 (Safety concerns as pt is uable to follow directions) 4 Steps (QC): 88 12 Steps (QC): 88 Balance Picking up an Object (QC): 3 ADL-Treatment Eating (QC): 5 Oral Hygiene (QC): 4 Bathing Location: L Arm, Abdomen Shower/Bathe Self (QC): 3 Upper Body Dressing (QC): 5 Lower Body Dressing (QC): 2 On/Off Footwear (QC): 2 Toileting Hygiene (QC): 3 Toilet Transfer (QC): 4 Assessment/Plan Assessment and Plan Assess & Plan/Chief Complaint Assessment: Cerebellar stroke Dementia Status post severe sepsis with pneumonia History of recurrent UTIs Osteoporosis Hypertension Anemia DNR Chronic debility resides in assisted living Urinary frequency with negative UA consulting urology closely 09/01/2021 Plan: Home meds Aggressive rehab Speech therapy 08/24/2021: Supportive care Be on alert for any seizures per family request 08/25/2021: Supportive care Dementia precludes complete recovery 08/26/2021: Supportive care Dementia care 08/27/2021: Supportive care Xanax for tearfulness 08/28/2021: Supportive care DC planning 08/29/2021: UA Monitor closely 08/30/2021: Urology consult Needs skilled care 08/31/2021: Urology consult appreciated Supportive care 09/01/21: Supportive care Dementia profound NHP (1) Chest pain Assessment & Plan: Exact etiology unclear. No further chest pain today. No acute changes on her electrocardiogram which was done when she was having chest pain. This may have been related to gastroesophageal reflux disease. She is on pantoprazole twice daily. In light of her DNR status, I recommend conservative medical management. However, if she continues to have intermittent chest discomfort, then we may need to consider an ischemic evaluation but I would first want to discuss this with her family. (2) Cerebellar stroke Status: Acute Assessment & Plan: This raises a concern of possible atrial fibrillation. I implanted a loop recorder on 08/24. We will use this for prolonged surveillance of atrial fibrillation. For the time being, I recommend she continue on aspirin and ezetimibe. She has a reported intolerance to statin medications. She was also taking estradiol at home which I stopped. Prolonged use of estrogen replacement therapy has been associated with increased risk of both venous and arterial thrombotic events. (3) Irregular heart rhythm Status: Acute Assessment & Plan: She was having some irregular heartbeats during her acute hospitalization. This was primarily due to frequent premature supraventricular complexes. She also had some tachycardia. I started her on beta-antionette due to intermittent tachycardia and hypertension. I did not see any definitive evidence of atrial fibrillation. We will monitor her loop recorder for any signs of atrial fibrillation. There is no indication for oral anticoagulants at this time. (4) Primary hypertension Assessment & Plan: Her outpatient indapamide has been resumed. I also started her on metoprolol succinate due to some intermittent tachycardia. She had also been started on amlodipine. I discontinued the amlodipine after she had low blood pressure 1 evening. We may want to allow for some permissive hypertension given the recent stroke. Her blood pressure is presently reasonably well controlled on the current medication. (5) Mixed hyperlipidemia Assessment & Plan: Continue ezetimibe which she was taking at home. She has a reported intolerance to statin medications. ALFONSO MEDINA DO Sep 01, 2021 05:40
[2021-09-01] MEDS: KCL 10 MEQ TAB (MICRO K) PO SCH (06:41)
[2021-09-01] MEDS: LEVOTHYROXINE 75 MCG (LEVOTHROID) TABLET PO SCH (06:41)
[2021-09-01] MEDS: SUCRALFATE 1 GM (CARAFATE) TAB PO SCH ×4 (06:41→21:08)
[2021-09-01 07:52] VITALS: BP 114/56
[2021-09-01] MEDS: ASPIRIN E.C. 325 MG (ECOTRIN) TABLET PO SCH (08:25)
[2021-09-01] MEDS: GABAPENTIN 600 MG (NEURONTIN) TAB PO SCH ×2 (08:25→21:08)
[2021-09-01] MEDS: ACETAMINOPHEN 500 MG TAB (TYLENOL) PO SCH ×4 (08:25→21:07)
[2021-09-01] MEDS: INDAPAMIDE 2.5 MG (LOZOL) TAB PO SCH (08:26)
[2021-09-01] MEDS: ALPRAZolam 0.25 MG (XANAX) TAB PO SCH ×2 (08:26→21:08)
[2021-09-01] MEDS: SENNA W/DOCUSATE (SENOKOT S) TABLET PO SCH ×2 (08:26→21:00)
[2021-09-01] MEDS: meTOproloL SUCCINATE 50 MG (TOPROL XL) TAB PO SCH (08:26)
[2021-09-01] MEDS: PANTOPRAZOLE 40 MG (PROTONIX) TAB PO SCH ×2 (08:26→21:07)
[2021-09-01] MEDS: DOCUSATE SODIUM 100 MG (COLACE) CAP PO SCH ×2 (08:27→21:00)
[2021-09-01] MEDS: polyethylene glycoL POWDER 17 GM (MIRALAX) PACK PO SCH ×2 (08:27→21:00)
--- NOTE | 2021-09-01 09:03 | Occupational Ther Daily Note ---
OT Current Status-Daily Note Subjective Pt dozing in chair, woke to name. Pt demonstrated dismissive sarcasm when COLLINS asked any questions or encouraged to participate in therapy. Pt grudgingly agreed to therapy. Pt c/o back pain. Mental Status/Objective Patient Orientation: Person, Confused ADL-Treatment 2nd session([id number]): PT/OT co-treat, skills of 2 clinicians required to decrease fall risk, increase activity tolerance and participation with therapy. PT focusing on transfers and ambulation while OT focusing on ADLs and functional mobility. Pt initially began treatment with resistance to care using dismissive sarcasm when PT/OT attempted to have pt ambulate to bathroom then to change into clothing. Pt was CGA for safety to complete toileting. When pt agrees to change clothing, COLLINS placed clothing in pt's lap and pt threw it back at COLLINS stating that the clothes were too hot and she wanted different clothing. There were no short sleeve clothing in pt's closet and COLLINS and MARKETING FINANCE MANAGER attempted to find clothing that was cupola tapper weight. When presented to pt, pt threw them back at COLLINS and MARKETING FINANCE MANAGER explained that these were the lightest wt clothing. Pt then excepted an outfit. Pt had difficulty with sequencing while donning pants, mod A. Set up for upper body clothing. Pt then sat in front of sink to complete hand washing and brushing hair, declined oral care. Pt then ambulated around [facility], worked on car transfer and w/c mobility. Pt able to follow 1 step directions and was compliant while participating at end of session. After session, pt sitting in recliner with call light/phone in reach. All needs met in room. Therapy Code Descriptions/Definitions Functional [place] Measure: 0=Not Assessed/NA 4=Minimal Assistance 1=Total Assistance 5=Supervision or Setup 2=Maximal Assistance 6=Modified [place] 3=Moderate Assistance 7=Complete IndependenceSCALE: Activities may be completed with or without assistive devices. 1-Hylkelpkvv-iipjkpp completes the activity by him/herself with no assistance from a helper. 5-Set-up or Clean-up Assistance-helper sets up or cleans up; patient completes activity. [place] assists only prior to or following the activity. 4-Supervision or Touching Assistance-helper provides verbal cues and/or touching/steadying and/or contact guard assistance as patient completes activity. Assistance may be provided throughout the activity or intermittently. 3-Partial/Moderate Assistance-helper does LESS THAN HALF the effort. [place] lifts, holds or supports trunk or limbs, but provides less than half the effort. 2-Substantial/Maximal Assistance-helper does MORE THAN HALF the effort. [place] lifts or holds trunk or limbs and provides more than half the effort. 7-Rhazufqbv-ewntgf does ALL the effort. Patient does none of the effort to complete the activity. Or, the assistance of 2 or more helpers is required for the patient to complete the activity. If activity was not attempted, code reason: 7-Patient Refused. 9-Not Applicable-not attempted and the patient did not perform the activity before the current illness, exacerbation or injury. 10-Not Attempted due to Environmental Limitations-(lack of equipment, weather restraints, etc.). 88-Not Attempted due to Medical Conditions or Safety Concerns. Oral Hygiene (QC): 7 Upper Body Dressing (QC): 5 Lower Body Dressing (QC): 3 Toileting Hygiene (QC): 4 Toilet Transfer (QC): 4 Other Treatment 1st session([id number]): Woke pt sitting in recliner. Pt at first c/o back pain and was groggy. Began to adjust pt and place warm pack to decrease back pain. Pt then became agitated and asked "What do you want?" When explained to pt she said "As might as well get it done." Pt did assist with scooting self back in chair when chair was in reclined position and pt was able to use footrest to push with feet as COLLINS assisted with pad under pt. When COLLINS asked if she wanted to use the bathroom or change into clothing, pt stated "No, I do not want to go to the bathroom or put my pants on." then promptly fell asleep again. Pt left in care of HOME CARE MANAGER. Call light/phone in reach. OT Short Term Goals Short Term Goals Time Frame: Sep 01, 2021 Eatin Oral hygiene: 5 Toileting hygiene: 3 Shower/bathe self: 3 OT Hand Driller Goals Hand Driller Goals Time Frame: Sep 15, 2021 Eating (QC): 6 (not met) Oral Hygiene (QC): 6 (ot met) Toileting Hygiene (QC): 6 (not met) Shower/Bathe Self (QC): 4 (not met) Upper Body Dressing (QC): 6 (not met) Lower Body Dressing (QC): 4 (not met) On/Off Footwear (QC): 4 (not met) Additional Goals: 1-Demonstrate ADL Tasks, 2-Verbalize Understanding, 3- ImproveStrength/Philipp 1=Demonstrate adherence to instructed precautions during ADL tasks. 2=Patient will verbalize/demonstrate understanding of assistive devices/modifications for ADL. 3=Patient will improve strength/tolerance for activity to enable patient to perform ADL's. OT Education/Plan Problem List/Assessment Assessment: Decreased Activ Tolerance, Decreased Safety Aware, Impaired Cognition, Impaired Self-Care Skills Discharge Recommendations Plan/Recommendations: Continue POC Treatment Plan/Plan of Care Patient would benefit from OT for education, treatment and training to promote independence in ADL's, mobility, safety and/or upper extremity function for ADL's. Plan of Care: ADL Retraining, Functional Mobility, UE Funct Exercise/Act Treatment Duration: Sep 15, 2021 Frequency: At least 5 of 7 days/Wk (IRF) Estimated Hrs Per Day: 1.5 hours per day Agreement: Yes Rehab Potential: Guarded Time/GCodes Start Time: 08:45 (944) Stop Time: 09:15 (1044) Total Time Billed (hr/min): 90 Billed Treatment Time 1 visit(): FA 2 (30 min) 1 visit([id number]): ADL 2 (30 min) FA 2 (30 min) DARREL BEARD Sep 01, 2021 09:03
--- NOTE | 2021-09-01 09:38 | Progress Note - Urology ---
Progress Note-Urology Progress Notes/Assess & Plan Progress/Assessment & Plan PVR YESTERDAY 0. START DETROL LA Final Diagnosis OAB (WET) ELISA SAM MD Sep 01, 2021 09:38
--- NOTE | 2021-09-01 10:23 | Speech Therapy Daily Note ---
Speech Daily Progress Note Subjective Date Seen by Provider: Sep 01, 2021 Time Seen by Provider: 09:15 The patient was seated upright in her recliner with her eyes closed upon entrance to her room. The patient does not respond to the clinician's verbal greeting and does not attempt participation throughout the treatment session. Objective Orientation: Orientation review and discussion was attempted on multiple times by the clinician, providing the information to the patient and directing her attention to her in-room white board. The patient continued to provide dismiss sarcasm stating, "Well, I'm right in front of you aren't I?" when asked location questions. The patient remains able to state and request her wants and needs fluently as the patient made multiple requests throughout the treatment session. The patient requested repositioning due to discomfort (which the clinician provided) and warm coffee. The clinician requested to hold the coffee for the patient and asked questions regarding the temperature. Per patient, "Well this coffee may make it worse or it may make it better." The patient participated in limited skilled services on this date regardless of consistent encouragement and motivation from the clinician. Assessment Assessment Current Status: Poor Progress Treatment Plan Continue Plan of Care Speech Short Term Goals Short Term Goals Short Term Goals 1. The patient will participate in completion of the SLUMS assessment with mild clinician verbal prompting. Speech Team Cdl Driver Goals Team Cdl Driver Goals 1. The patient will demonstrate increased functional safety awareness and problem solving for return to the least restrictive environment. Speech-Plan Treatment Plan Speech Therapy Treatment Plan: Continue Plan of Care Treatment Duration: Sep 20, 2021 Frequency: 4 times per week (Four to five times per week.) Estimated Hrs Per Day: .5 hour per day Rehab Potential: Poor Safety Risks/Education Teaching Recipient: Patient Teaching Methods: Discussion Response to Teaching: Reinforcement Needed Education Topics Provided: Plan of Care Time Speech Therapy Time In: 09:15 Speech Therapy Time Out: 09:45 Total Billed Time: 30 Billed Treatment Time Asmita NANCYCHAS Jeanie RADHA EVERETT Sep 01, 2021 10:23
--- NOTE | 2021-09-01 11:35 | Physical Therapy Daily Note ---
PT Daily Note-Current Subjective Pt dozing in chair, woke to name. Pt demonstrated dismissive sarcasm when COLLINS asked any questions or encouraged to participate in therapy. Pt grudgingly agreed to therapy. Pt c/o back pain. Pain Location: Right Location Body Site: Shoulder Mental Status Patient Orientation: Person, Confused Transfers SCALE: Activities may be completed with or without assistive devices. 7-Yzvlmkfmbg-ojriekm completes the activity by him/herself with no assistance from a helper. 5-Set-up or Clean-up Assistance-helper sets up or cleans up; patient completes activity. [place] assists only prior to or following the activity. 4-Supervision or Touching Assistance-helper provides verbal cues and/or touching/steadying and/or contact guard assistance as patient completes activity. Assistance may be provided throughout the activity or intermittently. 3-Partial/Moderate Assistance-helper does LESS THAN HALF the effort. [place] lifts, holds or supports trunk or limbs, but provides less than half the effort. 2-Substantial/Maximal Assistance-helper does MORE THAN HALF the effort. [place] lifts or holds trunk or limbs and provides more than half the effort. 4-Jlmmmuous-jibfvj does ALL the effort. Patient does none of the effort to complete the activity. Or, the assistance of 2 or more helpers is required for the patient to complete the activity. If activity was not attempted, code reason: 7-Patient Refused. 9-Not Applicable-not attempted and the patient did not perform the activity before the current illness, exacerbation or injury. 10-Not Attempted due to Environmental Limitations-(lack of equipment, weather restraints, etc.). 88-Not Attempted due to Medical Conditions or Safety Concerns. Sit to Stand (QC): 4 Toilet Transfer (QC): 4 Weight Bearing Full Weight Bearing Full Weight Bearing Gait Training Does the Patient Walk?: Yes Distance: 200' Walk 10 feet (QC): 4 Walk 50 ft with 2 Turns(QC): 4 Walk 150 ft (QC): 4 Gait Persons Needed: 1 Gait Assistive Device: FWW Pt walks with slight Kyphotic posture and needs occasional RB. Treatments ([id number]): PT/OT co-treat, skills of 2 clinicians required to decrease fall risk, increase activity tolerance and participation with therapy. PT focusing on transfers and ambulation while OT focusing on ADLs and functional mobility. Pt initially began treatment with resistance to care using dismissive sarcasm when PT/OT attempted to have pt ambulate to bathroom then to change into clothing. Pt was CGA for safety to complete toileting. When pt agrees to change clothing, COLLINS placed clothing in pt's lap and pt threw it back at COLLINS stating that the clothes were too hot and she wanted different clothing. There were no short sleeve clothing in pt's closet and COLLINS and LOIN PULLER attempted to find clothing that was nurse advocate weight. When presented to pt, pt threw them back at COLLINS and LOIN PULLER explained that these were the lightest wt clothing. Pt then excepted an outfit. Pt had difficulty with sequencing while donning pants, mod A. Set up for upper body clothing. Pt then sat in front of sink to complete handwashing and brushing hair, declined oral care. All needs met, call light in hand. Assessment Current Status: Poor Progress Pt remains confused and demonstrates difficulty following directions. PT Short Term Goals Short Term Goals Time Frame: Aug 30, 2021 Roll Left & Right: 2 Sit to lyin Lying to sitting on side of be: 2 Sit to stand: 3 Chair/sfo-pq-pnsiz transfer: 3 Walk 10 feet: 3 Walk 50 feet with two turns: 3 PT Director Transportation Goals Director Transportation Goals PT Director Transportation Goals Time Frame: Sep 13, 2021 Roll Left & Right (QC): 3 Sit to Lying (QC): 3 Lying-Sitting on Side/Bed(QC): 3 Sit to Stand (QC): 4 Chair/Fpd-qs-Xszir Xfer(QC): 4 Toilet Transfer (QC): 4 Car Transfer (QC): 3 Does the Patient Walk: Yes Walk 10 feet (QC): 4 Walk 50ft with 2 Turns (QC): 4 Walk 150 ft (QC): 4 Walking 10ft on Uneven Surface: 4 1 Step (curb) (QC): 88 4 Steps (QC): 88 12 Steps (QC): 88 Picking up an Object (QC): 4 Wheel 50 feet with 2 turns (QC: 4 Wheel 150 feet: 4 PT Plan Problem List Problem List: Activity Tolerance, Functional Strength, Safety, Transfer Treatment/Plan Treatment Plan: Continue Plan of Care Treatment Plan: Bed Mobility, Education, Functional Activity Philipp, Functional Strength, Group Therapy, Gait, Safety, Therapeutic Exercise, Transfers Treatment Duration: Sep 13, 2021 Frequency: At least 5 of 7 days/Wk (IRF) Estimated Hrs Per Day: 1.5 hours per day Patient and/or Family Agrees t: Yes Safety Risks/Education Patient Education: Gait Training, Transfer Techniques, Correct Positioning, Safety Issues Teaching Recipient: Patient Teaching Methods: Discussion Response to Teaching: Reinforcement Needed Time/GCodes Time In: 945 Time Out: 1045 Total Billed Treatment Time: 60 Total Billed Treatment Co-treat w/OT for 60m ([id number]) 1, FA x2 (30m), GT (20m) & WCH (10m) LUCAS CHANG LOIN PULLER Sep 01, 2021 11:35
[2021-09-01] MEDS: FERROUS SULF 325 MG (IRON) TAB PO SCH (11:39)
[2021-09-01 20:26] VITALS: BP 118/77
[2021-09-01] MEDS: ENOXAPARIN 40 MG/0.4 ML (LOVENOX) SYR SC SCH (21:07)
[2021-09-01] MEDS: FAMOTIDINE 20 MG (PEPCID) TABLET PO SCH (21:07)
[2021-09-01] MEDS: OLANZapine 5 MG (ZyPREXA) TAB PO SCH (21:08)
[2021-09-01] MEDS: eZETimibe 10 MG (ZETIA) TABLET PO SCH (21:08)
[2021-09-01] MEDS: TOLTERODINE LA 4 MG (DETROL) CAP PO SCH (21:08)
--- NOTE | 2021-09-02 05:42 | Progress Note - Hospitalist ---
Subjective HPI/CC On Admission Date Seen by Provider: Sep 02, 2021 Objective Exam Vital Signs Vital Signs Date Time Temp Pulse Resp B/P (MAP) Pulse Ox O2 Delivery O2 Flow Rate FiO2 09/02/21 07:19 36.8 61 20 108/54 (72) 91 Room Air Capillary Refill : Results/Procedures Lab Patient resulted labs reviewed. Assessment/Plan Assessment and Plan Assess & Plan/Chief Complaint Assessment: Cerebellar stroke Dementia Status post severe sepsis with pneumonia History of recurrent UTIs Osteoporosis Hypertension Anemia DNR Chronic debility resides in assisted living Urinary frequency with negative UA consulting urology closely 09/01/2021 Plan: Home meds Aggressive rehab Speech therapy 08/24/2021: Supportive care Be on alert for any seizures per family request 08/25/2021: Supportive care Dementia precludes complete recovery 08/26/2021: Supportive care Dementia care 08/27/2021: Supportive care Xanax for tearfulness 08/28/2021: Supportive care DC planning 08/29/2021: UA Monitor closely 08/30/2021: Urology consult Needs skilled care 08/31/2021: Urology consult appreciated Supportive care 09/01/21: Supportive care Dementia profound NHP Diagnosis/Problems Diagnosis/Problems (1) Cerebellar stroke Status: Acute (2) Severe sepsis Status: Acute (3) Pneumonia Status: Acute (4) Primary hypertension (5) Anemia Status: Acute (6) Mixed hyperlipidemia (7) Right bundle branch block (8) Essential hypertension (9) Chronic kidney disease, stage 3 ALFONSO MEDINA DO Sep 02, 2021 05:42
[2021-09-02] MEDS: KCL 10 MEQ TAB (MICRO K) PO SCH ×2 (06:35→06:44)
[2021-09-02] MEDS: LEVOTHYROXINE 75 MCG (LEVOTHROID) TABLET PO SCH (06:35)
[2021-09-02] MEDS: SUCRALFATE 1 GM (CARAFATE) TAB PO SCH ×4 (06:40→19:53)
[2021-09-02 07:19] VITALS: BP 108/54
[2021-09-02] MEDS: ASPIRIN E.C. 325 MG (ECOTRIN) TABLET PO SCH (07:44)
[2021-09-02] MEDS: INDAPAMIDE 2.5 MG (LOZOL) TAB PO SCH (07:45)
[2021-09-02] MEDS: PANTOPRAZOLE 40 MG (PROTONIX) TAB PO SCH ×2 (07:45→19:54)
[2021-09-02] MEDS: ALPRAZolam 0.25 MG (XANAX) TAB PO SCH ×2 (07:45→19:54)
[2021-09-02] MEDS: meTOproloL SUCCINATE 50 MG (TOPROL XL) TAB PO SCH (07:46)
[2021-09-02] MEDS: ACETAMINOPHEN 500 MG TAB (TYLENOL) PO SCH ×4 (07:46→19:53)
--- NOTE | 2021-09-02 08:21 | PM&R Progress Note ---
Subjective HPI/CC On Admission Date Seen by Provider: Sep 02, 2021 Time Seen by Provider: 12:30 Subjective/Events-last exam 09/02/21: Patient confused Ambulating well No pain reported halfway Saturday09/01/21: Pt about the same Urology evaluated her post void residual to be zero Detrol LA was started today Slept pretty well Very confused and sometimes combative End stage dementia noted 08/31/2021: Patient about the same Dr. Quick ordered bladder scanning and will evaluate that urinary frequency Slept better Cognitive deficit is profound 08/30/2021: Pt doing about the same Will need skilled care since and [place] will not take patient back All 9 children have been communicating with the nurse which is overwhelming but the health care DPOA needs to be the one supervisor contact lens Urinary frequency will require urology consultation UA in and out cath was normal 08/29/2021: Pt doing pretty well Family concerned it's another UTI, so we will do an in and out cath for UA Pt appears to be on a lot of antibiotics over and over with chronic UTIs Overall slept a lot better last night with Melatonin 08/28/2021: Pt a little bit more confused today Covid booster will be given Bowels on 08/27 but they were loose Need to reach out to assisted living to see what we have to do for her to meet criteria to come back 08/27/2021: Patient doing about the same Cries a lot Xanax scheduled Cognition comes and goes 08/26/2021: Patient about the same No pain issues Checked meds and labs No seizure activity reported Family will come to visit on weekends in the afternoon 08/25/21: Pt doing about the same Xanax 0.25mg will be given BID scheduled as she takes at home Bowels moved yesterday No evidence of any seizures 08/24/2021: Patient doing pretty well Held the scheduled Xanax due to sedation Blood pressure was elevated prior to meds Feeds her self Family told nurse they think she is having seizures since everyone in her family has seizures but there was no evidence of any seizure-like activity assessed by the nursing staff so will be on alert for anything like that. No evidence to support the addition of antiseizure meds. Review of Systems General: Fatigue, Malaise Neurological: Confusion Objective Exam Vital Signs Vital Signs Date Time Temp Pulse Resp B/P (MAP) Pulse Ox O2 Delivery O2 Flow Rate FiO2 09/02/21 20:42 95 09/02/21 19:08 36.0 61 18 103/63 (76) Room Air Capillary Refill : General Appearance: No Apparent Distress, WD/WN, Chronically ill HEENT: PERRL/EOMI, Normal ENT Inspection, Pharynx Normal Neck: Full Range of Motion, Normal Inspection, Non Tender, Supple, Carotid Bruit Respiratory: Chest Non Tender, Lungs Clear, Normal Breath Sounds, No Accessory Muscle Use, No Respiratory Distress Cardiovascular: Regular Rate, Rhythm, No Edema, No Gallop, No JVD, No Murmur, Normal Peripheral Pulses Gastrointestinal: Normal Bowel Sounds, No Organomegaly, No Pulsatile Mass, Non Tender, Soft Back: Normal Inspection, No CVA Tenderness, No Vertebral Tenderness Extremity: Normal Capillary Refill, Normal Inspection, Normal Range of Motion, Non Tender, No Calf Tenderness, No Pedal Edema Neurologic/Psychiatric: Alert, No Motor/Sensory Deficits, angle furnaceman II-XII Norm as Tested, Abnormal Gait, Depressed Affect, Disoriented, Motor Weakness (left sided) Skin: Normal Color, Warm/Dry Lymphatic: No Adenopathy Results/Procedures Lab Patient resulted labs reviewed. FIM Transfers Therapy Code Descriptions/Definitions Functional [place] Measure: 0=Not Assessed/NA 4=Minimal Assistance 1=Total Assistance 5=Supervision or Setup 2=Maximal Assistance 6=Modified [place] 3=Moderate Assistance 7=Complete IndependenceSCALE: Activities may be completed with or without assistive devices. 8-Prxvaeiimb-kynoruz completes the activity by him/herself with no assistance from a helper. 5-Set-up or Clean-up Assistance-helper sets up or cleans up; patient completes activity. [place] assists only prior to or following the activity. 4-Supervision or Touching Assistance-helper provides verbal cues and/or touching/steadying and/or contact guard assistance as patient completes activity. Assistance may be provided throughout the activity or intermittently. 3-Partial/Moderate Assistance-helper does LESS THAN HALF the effort. [place] lifts, holds or supports trunk or limbs, but provides less than half the effort. 2-Substantial/Maximal Assistance-helper does MORE THAN HALF the effort. [place] lifts or holds trunk or limbs and provides more than half the effort. 8-Egymwynlk-yqqkpy does ALL the effort. Patient does none of the effort to complete the activity. Or, the assistance of 2 or more helpers is required for the patient to complete the activity. If activity was not attempted, code reason: 7-Patient Refused. 9-Not Applicable-not attempted and the patient did not perform the activity before the current illness, exacerbation or injury. 10-Not Attempted due to Environmental Limitations-(lack of equipment, weather restraints, etc.). 88-Not Attempted due to Medical Conditions or Safety Concerns. Roll Left to Right (QC): 3 Sit to Lying (QC): 3 Sit to Stand (QC): 4 Chair/Ypd-sv-Haafr Xfer(QC): 3 Car Transfer (QC): 3 Gait Training Does the Patient Walk?: Yes Distance: 200' Walk 10 feet (QC): 4 Walk 50 ft with 2 Turns(QC): 4 Walk 150 ft (QC): 4 Walking 10ft/uneven surface-QC: 3 Gait Persons Needed: 1 Gait Assistive Device: FWW Wheelchair Training Does the Pt Use a Wheelchair?: Yes Distance: 15' Wheel 50 ft with 2 turns (QC): 7 Wheel 150 ft (QC): 7 Type of Wheelchair: Manual Stair Training 1 Step (curb) (QC): 88 (Safety concerns as pt is uable to follow directions) 4 Steps (QC): 88 12 Steps (QC): 88 Balance Picking up an Object (QC): 3 ADL-Treatment Eating (QC): 5 Oral Hygiene (QC): 7 Bathing Location: L Arm, Abdomen Shower/Bathe Self (QC): 3 Upper Body Dressing (QC): 5 Lower Body Dressing (QC): 3 On/Off Footwear (QC): 2 Toileting Hygiene (QC): 4 Toilet Transfer (QC): 4 Assessment/Plan Assessment and Plan Assess & Plan/Chief Complaint Assessment: Cerebellar stroke Dementia Status post severe sepsis with pneumonia History of recurrent UTIs Osteoporosis Hypertension Anemia DNR Chronic debility resides in assisted living Urinary frequency with negative UA consulting urology closely 09/01/2021 Plan: Home meds Aggressive rehab Speech therapy 08/24/2021: Supportive care Be on alert for any seizures per family request 08/25/2021: Supportive care Dementia precludes complete recovery 08/26/2021: Supportive care Dementia care 08/27/2021: Supportive care Xanax for tearfulness 08/28/2021: Supportive care DC planning 08/29/2021: UA Monitor closely 08/30/2021: Urology consult Needs skilled care 08/31/2021: Urology consult appreciated Supportive care 09/01/21: Supportive care Dementia profound NHP 09/02/21: Monitor closely NHP (1) Chest pain Assessment & Plan: Exact etiology unclear. No further chest pain today. No acute changes on her electrocardiogram which was done when she was having chest pain. This may have been related to gastroesophageal reflux disease. She is on pantoprazole twice daily. In light of her DNR status, I recommend conservative medical management. However, if she continues to have intermittent chest discomfort, then we may need to consider an ischemic evaluation but I would first want to discuss this with her family. (2) Cerebellar stroke Status: Acute Assessment & Plan: This raises a concern of possible atrial fibrillation. I implanted a loop recorder on 08/24. We will use this for prolonged surveillance of atrial fibrillation. For the time being, I recommend she continue on aspirin and ezetimibe. She has a reported intolerance to statin medications. She was also taking estradiol at home which I stopped. Prolonged use of estrogen replacement therapy has been associated with increased risk of both venous and arterial thrombotic events. (3) Irregular heart rhythm Status: Acute Assessment & Plan: She was having some irregular heartbeats during her acute hospitalization. This was primarily due to frequent premature supraventricular complexes. She also had some tachycardia. I started her on beta-antionette due to intermittent tachycardia and hypertension. I did not see any definitive evidence of atrial fibrillation. We will monitor her loop recorder for any signs of atrial fibrillation. There is no indication for oral anticoagulants at this time. (4) Primary hypertension Assessment & Plan: Her outpatient indapamide has been resumed. I also started her on metoprolol succinate due to some intermittent tachycardia. She had also been started on amlodipine. I discontinued the amlodipine after she had low blood pressure 1 evening. We may want to allow for some permissive hypertension given the recent stroke. Her blood pressure is presently reasonably well controlled on the current medication. (5) Mixed hyperlipidemia Assessment & Plan: Continue ezetimibe which she was taking at home. She has a reported intolerance to statin medications. ALFONSO MEDINA DO Sep 02, 2021 08:21
--- NOTE | 2021-09-02 08:43 | Physical Therapy Daily Note ---
PT Daily Note-Current Subjective Pt. getting up at edge of bed and expresses that she is in a hurry to get to the bathroom. Pt. uses aggravated , condescending tone even as PT cajoles and soft pedals to encourage pt. Pt. does agree to be up in recliner for brkfst Pain Location: No Pain Reported Mental Status Patient Orientation: Confused Transfers SCALE: Activities may be completed with or without assistive devices. 9-Plueqvgpdz-fnzddfh completes the activity by him/herself with no assistance from a helper. 5-Set-up or Clean-up Assistance-helper sets up or cleans up; patient completes activity. [place] assists only prior to or following the activity. 4-Supervision or Touching Assistance-helper provides verbal cues and/or touching/steadying and/or contact guard assistance as patient completes activity. Assistance may be provided throughout the activity or intermittently. 3-Partial/Moderate Assistance-helper does LESS THAN HALF the effort. [place] lifts, holds or supports trunk or limbs, but provides less than half the effort. 2-Substantial/Maximal Assistance-helper does MORE THAN HALF the effort. [place] lifts or holds trunk or limbs and provides more than half the effort. 1-Mbxdegfmj-syfkwn does ALL the effort. Patient does none of the effort to complete the activity. Or, the assistance of 2 or more helpers is required for the patient to complete the activity. If activity was not attempted, code reason: 7-Patient Refused. 9-Not Applicable-not attempted and the patient did not perform the activity before the current illness, exacerbation or injury. 10-Not Attempted due to Environmental Limitations-(lack of equipment, weather restraints, etc.). 88-Not Attempted due to Medical Conditions or Safety Concerns. Lying to Sitting/Side of Bed(Q: 4 Sit to Stand (QC): 4 Toilet Transfer (QC): 5 Weight Bearing Full Weight Bearing Full Weight Bearing Gait Training Gait Assistive Device: FWW 25ft x 2 FWW CGA, needs guided to steer to goal direction , short step length, shuffling feet Treatments pt. TRFd out of bed mod to min assist, gait to bthrm and back CGA, pt. required max assist to doff and rbuens clean brief but pt. cleaned herself ( unsure how thoroughly) as pt. was very resistant to assist, pushing this FLOWER SHOP LABORER/DESIGNER away at one po int. Pt. at sink for handwashing and combed her hair before brkfst set up. Pt. able to open and manage breakfst items Assessment Current Status: Fair Progress resistant and obstinate PT Short Term Goals Short Term Goals Time Frame: Aug 30, 2021 Roll Left & Right: 2 Sit to lyin Lying to sitting on side of be: 2 Sit to stand: 3 Chair/act-ee-qvako transfer: 3 Walk 10 feet: 3 Walk 50 feet with two turns: 3 PT Retirement Goals Contact Center Representative Goals PT Retirement Goals Time Frame: Sep 13, 2021 Roll Left & Right (QC): 3 Sit to Lying (QC): 3 Lying-Sitting on Side/Bed(QC): 3 Sit to Stand (QC): 4 Chair/Klo-at-Warlv Xfer(QC): 4 Toilet Transfer (QC): 4 Car Transfer (QC): 3 Does the Patient Walk: Yes Walk 10 feet (QC): 4 Walk 50ft with 2 Turns (QC): 4 Walk 150 ft (QC): 4 Walking 10ft on Uneven Surface: 4 1 Step (curb) (QC): 88 4 Steps (QC): 88 12 Steps (QC): 88 Picking up an Object (QC): 4 Wheel 50 feet with 2 turns (QC: 4 Wheel 150 feet: 4 PT Plan Treatment/Plan Treatment Plan: Continue Plan of Care Treatment Plan: Bed Mobility, Education, Functional Activity Philipp, Functional Strength, Group Therapy, Gait, Safety, Therapeutic Exercise, Transfers Treatment Duration: Sep 13, 2021 Frequency: At least 5 of 7 days/Wk (IRF) Estimated Hrs Per Day: 1.5 hours per day Patient and/or Family Agrees t: Yes Safety Risks/Education Patient Education: Gait Training, Transfer Techniques, Correct Positioning, Safety Issues Teaching Recipient: Patient Teaching Methods: Demonstration, Discussion Response to Teaching: Unable to Return Demonstration, Unable to Comprehend, Reinforcement Needed Time/GCodes Time In: 800 Time Out: 820 Total Billed Treatment Time: 20 Total Billed Treatment 1,FA20m BLAYNE AVILA FLOWER SHOP LABORER/DESIGNER Sep 02, 2021 08:43
[2021-09-02] MEDS: polyethylene glycoL POWDER 17 GM (MIRALAX) PACK PO SCH ×2 (09:24→19:58)
[2021-09-02] MEDS: DOCUSATE SODIUM 100 MG (COLACE) CAP PO SCH ×2 (09:24→19:58)
[2021-09-02] MEDS: SENNA W/DOCUSATE (SENOKOT S) TABLET PO SCH ×2 (09:25→19:58)
[2021-09-02] MEDS: GABAPENTIN 600 MG (NEURONTIN) TAB PO SCH ×2 (09:27→19:54)
--- NOTE | 2021-09-02 10:24 | Progress Note - Urology ---
Progress Note-Urology Progress Notes/Assess & Plan Progress/Assessment & Plan TOLERATES DETROL LA WELL Final Diagnosis WET OAB ELISA SAM MD Sep 02, 2021 10:24
[2021-09-02] MEDS: FERROUS SULF 325 MG (IRON) TAB PO SCH (11:19)
[2021-09-02 19:08] VITALS: BP 103/63
[2021-09-02] MEDS: ENOXAPARIN 40 MG/0.4 ML (LOVENOX) SYR SC SCH (19:52)
[2021-09-02] MEDS: TOLTERODINE LA 4 MG (DETROL) CAP PO SCH (19:53)
[2021-09-02] MEDS: OLANZapine 5 MG (ZyPREXA) TAB PO SCH (19:54)
[2021-09-02] MEDS: eZETimibe 10 MG (ZETIA) TABLET PO SCH (19:54)
[2021-09-02] MEDS: FAMOTIDINE 20 MG (PEPCID) TABLET PO SCH (20:00)
[2021-09-02] MEDS: MELATONIN 3 MG TABLET PO PRN (23:24)
[2021-09-03] MEDS: LEVOTHYROXINE 75 MCG (LEVOTHROID) TABLET PO SCH (06:33)
[2021-09-03] MEDS: SUCRALFATE 1 GM (CARAFATE) TAB PO SCH ×4 (06:33→20:53)
[2021-09-03] MEDS: KCL 10 MEQ TAB (MICRO K) PO SCH (06:34)
--- NOTE | 2021-09-03 06:44 | PM&R Progress Note ---
Subjective HPI/CC On Admission Date Seen by Provider: Sep 03, 2021 Time Seen by Provider: 12:00 Subjective/Events-last exam 09/03/2021: Patient doing pretty well Confused at times Labile moods Very frustrated about her progress 09/02/21: Patient confused Ambulating well No pain reported [facility]CI Saturday09/01/21: Pt about the same Urology evaluated her post void residual to be zero Detrol LA was started today Slept pretty well Very confused and sometimes combative End stage dementia noted 08/31/2021: Patient about the same Dr. 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 person Urinary frequency will require urology consultation UA in and out cath was normal 08/29/2021: Pt doing pretty well Family concerned it's another UTI, so we will do an in and out cath for UA Pt appears to be on a lot of antibiotics over and over with chronic UTIs Overall slept a lot better last night with Melatonin 08/28/2021: Pt a little bit more confused today Covid booster will be given Bowels on 08/27 but they were loose Need to reach out to assisted living to see what we have to do for her to meet criteria to come back 08/27/2021: Patient doing about the same Cries a lot Xanax scheduled Cognition comes and goes 08/26/2021: Patient about the same No pain issues Checked meds and labs No seizure activity reported Family will come to visit on weekends in the afternoon 08/25/21: Pt doing about the same Xanax 0.25mg will be given BID scheduled as she takes at home Bowels moved yesterday No evidence of any seizures 08/24/2021: Patient doing pretty well Held the scheduled Xanax due to sedation Blood pressure was elevated prior to meds Feeds her self Family told nurse they think she is having seizures since everyone in her family has seizures but there was no evidence of any seizure-like activity assessed by the nursing staff so will be on alert for anything like that. No evidence to support the addition of antiseizure meds. Review of Systems General: Fatigue, Malaise Objective Exam Vital Signs Vital Signs Date Time Temp Pulse Resp B/P (MAP) Pulse Ox O2 Delivery O2 Flow Rate FiO2 09/03/21 20:59 95 09/03/21 19:18 35.9 70 18 143/63 (89) Room Air Capillary Refill : General Appearance: No Apparent Distress, WD/WN, Chronically ill HEENT: PERRL/EOMI, Normal ENT Inspection, Pharynx Normal Neck: Full Range of Motion, Normal Inspection, Non Tender, Supple, Carotid Bruit Respiratory: Chest Non Tender, Lungs Clear, Normal Breath Sounds, No Accessory Muscle Use, No Respiratory Distress Cardiovascular: Regular Rate, Rhythm, No Edema, No Gallop, No JVD, No Murmur, Normal Peripheral Pulses Gastrointestinal: Normal Bowel Sounds, No Organomegaly, No Pulsatile Mass, Non Tender, Soft Back: Normal Inspection, No CVA Tenderness, No Vertebral Tenderness Extremity: Normal Capillary Refill, Normal Inspection, Normal Range of Motion, Non Tender, No Calf Tenderness, No Pedal Edema Neurologic/Psychiatric: Alert, No Motor/Sensory Deficits, general merchandise manager II-XII Norm as Tested, Abnormal Gait, Depressed Affect, Disoriented, Motor Weakness (left sided) Skin: Normal Color, Warm/Dry Lymphatic: No Adenopathy Results/Procedures Lab Patient resulted labs reviewed. FIM Transfers Therapy Code Descriptions/Definitions Functional [place] Measure: 0=Not Assessed/NA 4=Minimal Assistance 1=Total Assistance 5=Supervision or Setup 2=Maximal Assistance 6=Modified [place] 3=Moderate Assistance 7=Complete IndependenceSCALE: Activities may be completed with or without assistive devices. 6-Hrqqhdpodi-sfwpicq completes the activity by him/herself with no assistance from a helper. 5-Set-up or Clean-up Assistance-helper sets up or cleans up; patient completes activity. [place] assists only prior to or following the activity. 4-Supervision or Touching Assistance-helper provides verbal cues and/or touching/steadying and/or contact guard assistance as patient completes activity. Assistance may be provided throughout the activity or intermittently. 3-Partial/Moderate Assistance-helper does LESS THAN HALF the effort. [place] lifts, holds or supports trunk or limbs, but provides less than half the effort. 2-Substantial/Maximal Assistance-helper does MORE THAN HALF the effort. [place] lifts or holds trunk or limbs and provides more than half the effort. 3-Xjudulsby-zinhkw does ALL the effort. Patient does none of the effort to comp lete the activity. Or, the assistance of 2 or more helpers is required for the patient to complete the activity. If activity was not attempted, code reason: 7-Patient Refused. 9-Not Applicable-not attempted and the patient did not perform the activity before the current illness, exacerbation or injury. 10-Not Attempted due to Environmental Limitations-(lack of equipment, weather restraints, etc.). 88-Not Attempted due to Medical Conditions or Safety Concerns. Roll Left to Right (QC): 3 Sit to Lying (QC): 3 Sit to Stand (QC): 4 Chair/Jmy-tm-Makhp Xfer(QC): 3 Car Transfer (QC): 3 Gait Training Does the Patient Walk?: Yes Distance: 200' Walk 10 feet (QC): 4 Walk 50 ft with 2 Turns(QC): 4 Walk 150 ft (QC): 4 Walking 10ft/uneven surface-QC: 3 Gait Persons Needed: 1 Gait Assistive Device: FWW Wheelchair Training Does the Pt Use a Wheelchair?: Yes Distance: 15' Wheel 50 ft with 2 turns (QC): 7 Wheel 150 ft (QC): 7 Type of Wheelchair: Manual Stair Training 1 Step (curb) (QC): 88 (Safety concerns as pt is uable to follow directions) 4 Steps (QC): 88 12 Steps (QC): 88 Balance Picking up an Object (QC): 3 ADL-Treatment Eating (QC): 5 Oral Hygiene (QC): 7 Bathing Location: L Arm, Abdomen Shower/Bathe Self (QC): 3 Upper Body Dressing (QC): 5 Lower Body Dressing (QC): 3 On/Off Footwear (QC): 2 Toileting Hygiene (QC): 4 Toilet Transfer (QC): 4 Assessment/Plan Assessment and Plan Assess & Plan/Chief Complaint Assessment: Cerebellar stroke Dementia Status post severe sepsis with pneumonia History of recurrent UTIs Osteoporosis Hypertension Anemia DNR Chronic debility resides in assisted living Urinary frequency with negative UA consulting urology closely 09/01/2021 Plan: Home meds Aggressive rehab Speech therapy 08/24/2021: Supportive care Be on alert for any seizures per family request 08/25/2021: Supportive care Dementia precludes complete recovery 08/26/2021: Supportive care Dementia care 08/27/2021: Supportive care Xanax for tearfulness 08/28/2021: Supportive care DC planning 08/29/2021: UA Monitor closely 08/30/2021: Urology consult Needs skilled care 08/31/2021: Urology consult appreciated Supportive care 09/01/21: Supportive care Dementia profound NHP 09/02/21: Monitor closely NHP 09/03/2021: Supportive care [place] half-way (1) Chest pain Assessment & Plan: Exact etiology unclear. No further chest pain today. No acute changes on her electrocardiogram which was done when she was having chest pain. This may have been related to gastroesophageal reflux disease. She is on pantoprazole twice daily. In light of her DNR status, I recommend conservative medical management. However, if she continues to have intermittent chest discomfort, then we may need to consider an ischemic evaluation but I would firs t want to discuss this with her family. (2) Cerebellar stroke Status: Acute Assessment & Plan: This raises a concern of possible atrial fibrillation. I implanted a loop recorder on 08/24. We will use this for prolonged surveillance of atrial fibrillation. For the time being, I recommend she continue on aspirin and ezetimibe. She has a reported intolerance to statin medications. She was also taking estradiol at home which I stopped. Prolonged use of estrogen replacement therapy has been associated with increased risk of both venous and arterial thrombotic events. (3) Irregular heart rhythm Status: Acute Assessment & Plan: She was having some irregular heartbeats during her acute hospitalization. This was primarily due to frequent premature supraventricular complexes. She also had some tachycardia. I started her on beta-antionette due to intermittent tachycardia and hypertension. I did not see any definitive evidence of atrial fibrillation. We will monitor her loop recorder for any signs of atrial fibrillation. There is no indication for oral anticoagulants at this time. (4) Primary hypertension Assessment & Plan: Her outpatient indapamide has been resumed. I also started her on metoprolol succinate due to some intermittent tachycardia. She had also been started on amlodipine. I discontinued the amlodipine after she had low blood pressure 1 evening. We may want to allow for some permissive hypertension given the recent stroke. Her blood pressure is presently reasonably well controlled on the current medication. (5) Mixed hyperlipidemia Assessment & Plan: Continue ezetimibe which she was taking at home. She has a reported intolerance to statin medications. ALFONSO MEDINA DO Sep 03, 2021 06:44
[2021-09-03 07:30] VITALS: BP 107/57
[2021-09-03] MEDS: ACETAMINOPHEN 500 MG TAB (TYLENOL) PO SCH ×4 (08:45→20:53)
[2021-09-03] MEDS: ASPIRIN E.C. 325 MG (ECOTRIN) TABLET PO SCH (08:45)
[2021-09-03] MEDS: GABAPENTIN 600 MG (NEURONTIN) TAB PO SCH ×2 (08:45→20:53)
[2021-09-03] MEDS: INDAPAMIDE 2.5 MG (LOZOL) TAB PO SCH (08:45)
[2021-09-03] MEDS: ALPRAZolam 0.25 MG (XANAX) TAB PO SCH ×2 (08:45→20:53)
[2021-09-03] MEDS: PANTOPRAZOLE 40 MG (PROTONIX) TAB PO SCH ×2 (08:45→20:53)
[2021-09-03] MEDS: polyethylene glycoL POWDER 17 GM (MIRALAX) PACK PO SCH ×2 (08:46→20:54)
[2021-09-03] MEDS: SENNA W/DOCUSATE (SENOKOT S) TABLET PO SCH ×2 (08:46→20:53)
[2021-09-03] MEDS: DOCUSATE SODIUM 100 MG (COLACE) CAP PO SCH ×2 (08:46→20:54)
[2021-09-03] MEDS: meTOproloL SUCCINATE 50 MG (TOPROL XL) TAB PO SCH (08:47)
[2021-09-03] MEDS: FERROUS SULF 325 MG (IRON) TAB PO SCH (11:57)
[2021-09-03] MEDS: BACLOFEN 10 MG (LIORESAL) TAB PO PRN (18:22)
[2021-09-03 19:18] VITALS: BP 143/63
[2021-09-03] MEDS: ENOXAPARIN 40 MG/0.4 ML (LOVENOX) SYR SC SCH (20:52)
[2021-09-03] MEDS: OLANZapine 5 MG (ZyPREXA) TAB PO SCH (20:53)
[2021-09-03] MEDS: FAMOTIDINE 20 MG (PEPCID) TABLET PO SCH (20:53)
[2021-09-03] MEDS: TOLTERODINE LA 4 MG (DETROL) CAP PO SCH (20:53)
[2021-09-03] MEDS: eZETimibe 10 MG (ZETIA) TABLET PO SCH (20:53)
[2021-09-04] MEDS ORDERED: PANT40TA52 PO (06:13)
[2021-09-04] MEDS ORDERED: FAMO20TA5 PO (06:13)
[2021-09-04] MEDS ORDERED: OXC5T PO (06:13)
[2021-09-04] MEDS ORDERED: POTA-160 PO (06:13)
[2021-09-04] MEDS ORDERED: ALPR0.254 PO (06:13)
[2021-09-04] MEDS ORDERED: ACET-2267 PO (06:13)
[2021-09-04] MEDS ORDERED: SENN1TAB76 PO (06:13)
[2021-09-04] MEDS ORDERED: BACL10TA PO (06:13)
[2021-09-04] MEDS ORDERED: METO50TA7 PO (06:13)
[2021-09-04] MEDS ORDERED: DOXA4TAB2 PO (06:13)
[2021-09-04] MEDS ORDERED: ESTR1TAB24 PO (06:13)
[2021-09-04] MEDS ORDERED: MELA3TAB39 PO (06:13)
[2021-09-04] MEDS ORDERED: GBPN600T PO (06:13)
[2021-09-04] MEDS ORDERED: FERR325T18 PO (06:13)
[2021-09-04] MEDS ORDERED: EZET10TA49 PO (06:13)
[2021-09-04] MEDS ORDERED: LEVO75TA6 PO (06:13)
[2021-09-04] MEDS ORDERED: ASPI325T32 PO (06:13)
[2021-09-04] MEDS ORDERED: INDA1.25 PO (06:13)
[2021-09-04] MEDS ORDERED: TOLTA4 PO (06:13)
[2021-09-04] MEDS ORDERED: ALEN70TA80 PO (06:13)
[2021-09-04] MEDS ORDERED: SUCR1TAB36 PO (06:13)
[2021-09-04] MEDS ORDERED: OLN5T PO (06:13)
--- NOTE | 2021-09-04 06:14 | Discharge Inst-Skilled Nursing ---
Discharge Inst-Skilled NF Reconcile Patient Problems Problems Reviewed?: Yes Patient Instructions Patient Problems: Debility CVA Dementia Goal: Return to [place] Consult/Follow Up/Orders Follow Up Appt.: Dr Kang in 2 weeks Skilled NF Admit to: Certification (SNF) I certify that SNF services are required to be given on an inpatient basis because of the above named patient's need for long term care on a continuing basis for the conditions(s) for which he/she was receiving inpatient hospital services prior to his/her transfer to the SNF. Halfway Facility Order: Nursing Services, Tool And Die Technician-Evaluate & Treat, Physical Therapy-Evaluate & Treat, Speech Language-Evaluate & Treat Oxygen Delivery Method: Room Air Discharge Diet: No Restrictions Resuscitation Status: Do Not Resuscitate New & Resume Previous Orders New Medications: Doxazosin Mesylate (Doxazosin Mesylate) 4 Mg Tablet 2 MG PO Q6HR PRN for BLOOD PRESSURE, #30 TAB Give for SBP>170 Famotidine (Famotidine) 20 Mg Tablet 20 MG PO HS, #30 TAB Melatonin (Melatonin) 3 Mg Tablet 3 MG PO HS, #30 TAB Metoprolol Succinate (Metoprolol Succinate) 50 Mg Tab.er.24h 50 MG PO DAILY, #30 TAB Olanzapine (Olanzapine) 5 Mg Tablet 5 MG PO HS, #30 TAB Oxycodone Hcl (Oxyir Tablet) 5 Mg Tab 5 MG PO Q4HR PRN for PAIN-SEE DOSE INSTRUCTIONS, #10 TAB Potassium Chloride (Klor-Con 10) 10 Meq Tablet.er 10 MEQ PO DAILY@0700, #30 TAB Sennosides/Docusate Sodium (Stool Softener-Laxative Tablet) 1 Each Tablet 1 EA PO BID, #60 TAB Tolterodine Tartrate (Detrol LA) 4 Mg Cap 4 MG PO HS, #30 CAP Continued Medications: Acetaminophen (Tylenol Extra Strength) 500 Mg Tablet 500 MG PO QID, #120 TAB (This prescription has been renewed) Alendronate Sodium (Alendronate Sodium) 70 Mg Tablet 70 MG PO SATURDAY, #4 TAB (This prescription has been renewed) ALPRAZolam (ALPRAZolam) 0.25 Mg Tablet 0.25 MG PO BID, #60 TAB (This prescription has been renewed) Aspirin (Aspirin EC) 325 Mg Tablet.dr 325 MG PO DAILY, #30 TAB 0 Refills (This prescription has been renewed) Baclofen (Baclofen) 10 Mg Tablet 10 MG PO TID PRN for MUSCLE SPASMS, #30 TAB (This prescription has been renewed) Estradiol (Estradiol Tablet) 1 Mg Tablet 1 MG PO DAILY, #30 TAB (This prescription has been renewed) Ezetimibe (Ezetimibe) 10 Mg Tablet 10 MG PO HS, #30 TAB (This prescription has been renewed) Ferrous Sulfate (Ferrous Sulfate) 325 Mg Tablet 325 MG PO 1200, #30 TAB (This prescription has been renewed) Gabapentin (Gabapentin) 600 Mg Tablet 600 MG PO BID, #60 TAB (This prescription has been renewed) Indapamide (Indapamide) 1.25 Mg Tablet 1.25 MG PO DAILY, #30 TAB (This prescription has been renewed) Levothyroxine Sodium (Levothyroxine Sodium) 75 Mcg Tablet 75 MCG PO DAILY, #30 TAB (This prescription has been renewed) Pantoprazole Sodium (Pantoprazole Sodium) 40 Mg Tablet.dr 40 MG PO BID, #60 TAB (This prescription has been renewed) Sucralfate (Carafate) 1 Gm Tablet 1 GM PO ACHS, #120 TAB (This prescription has been renewed) Torrie Oro Sep 04, 2021 06:14 TORRIE ORO DO Sep 04, 2021 06:14
--- NOTE | 2021-09-04 06:15 | Discharge Summary ---
Diagnosis/Chief Complaint Date of Admission Aug 23, 2021 at 11:10 Date of Discharge Discharge Date: Sep 04, 2021 Discharge Diagnosis Assessment: Cerebellar stroke Dementia Status post severe sepsis with pneumonia History of recurrent UTIs Osteoporosis Hypertension Anemia DNR Chronic debility resides in assisted living Urinary frequency with negative UA consulting urology closely 09/01/2021 Plan: Home meds Aggressive rehab Speech therapy 08/24/2021: Supportive care Be on alert for any seizures per family request 08/25/2021: Supportive care Dementia precludes complete recovery 08/26/2021: Supportive care Dementia care 08/27/2021: Supportive care Xanax for tearfulness 08/28/2021: Supportive care DC planning 08/29/2021: UA Monitor closely 08/30/2021: Urology consult Needs skilled care 08/31/2021: Urology consult appreciated Supportive care 09/01/21: Supportive care Dementia profound NHP 09/02/21: Monitor closely NHP 09/03/2021: Supportive care [facility] (1) Chest pain Assessment & Plan: Exact etiology unclear. No further chest pain today. No acute changes on her electrocardiogram which was done when she was having chest pain. This may have been related to gastroesophageal reflux disease. She is on pantoprazole twice daily. In light of her DNR status, I recommend conservative medical management. However, if she continues to have intermittent chest discomfort, then we may need to consider an ischemic evaluation but I would first want to discuss this with her family. (2) Cerebellar stroke Status: Acute Assessment & Plan: This raises a concern of possible atrial fibrillation. I implanted a loop recorder on 08/24. We will use this for prolonged surveillance of atrial fibrillation. For the time being, I recommend she continue on aspirin and ezetimibe. She has a reported intolerance to statin medications. She was also taking estradiol at home which I stopped. Prolonged use of estrogen replacement therapy has been associated with increased risk of both venous and arterial thrombotic events. (3) Irregular heart rhythm Status: Acute Assessment & Plan: She was having some irregular heartbeats during her acute hospitalization. This was primarily due to frequent premature supraventricular complexes. She also had some tachycardia. I started her on beta-antionette due to intermittent tachycardia and hypertension. I did not see any definitive evidence of atrial fibrillation. We will monitor her loop recorder for any signs of atrial fibrillation. There is no indication for oral anticoagulants at this time. (4) Primary hypertension Assessment & Plan: Her outpatient indapamide has been resumed. I also started her on metoprolol succinate due to some intermittent tachycardia. She had also been started on amlodipine. I discontinued the amlodipine after she had low blood pressure 1 evening. We may want to allow for some permissive hypertension given the recent stroke. Her blood pressure is presently reasonably well controlled on the current medication. (5) Mixed hyperlipidemia Assessment & Plan: Continue ezetimibe which she was taking at home. She has a reported intolerance to statin medications. ALFONSO MEDINA Sep 03, 2021 06:44 Discharge Summary Discharge Physical Examination Allergies: Coded Allergies: Penicillins (Verified Allergy, Unknown, 03/04/21) Yigvrng-PEL-CtN Reductase Inhibitor (Unverified Allergy, Unknown, 03/07/21) cephalexin (Verified Allergy, Unknown, 03/04/21) hydrocodone (Verified Allergy, Unknown, 03/04/21) indomethacin (Verified Allergy, Unknown, 03/04/21) latex (Verified Allergy, Unknown, 03/04/21) morphine (Verified Allergy, Unknown, 03/04/21) Vitals & I&Os Vital Signs Date Time Temp Pulse Resp B/P (MAP) Pulse Ox O2 Delivery O2 Flow Rate FiO2 09/04/21 10:45 36.2 59 16 152/68 95 Room Air General Appearance: Alert, Cooperative Respiratory: Clear to Auscultation Cardiovascular: Regular Rate Psych/Mental Status: Mental Status NL Hospital Course Was the Problem List Reviewed?: Yes Pt had an uneventful 2 week hospital course while in in-patient rehab. Our goal was to return back to assisted living but due to the fact of her dementia, labile moods, and impulsiveness she required fci admission to [facility]. She completed her IV antibiotics for pneumonia that caused septic shock. She remained DNR. SLUMS score was very low. Precluding anything but a poor prognosis and continued decline. Hopefully the fci will be able to improve her status to be able to continue strengthening and improve quality of life. Labs (last 24 hrs) Laboratory Tests 08/24/21 06:18: Glucometer 71 08/24/21 06:21: White Blood Count 6.1, Red Blood Count 4.73, Hemoglobin 14.8, Hematocrit 45, Mean Corpuscular Volume 94, Mean Corpuscular Hemoglobin 31, Mean Corpuscular Hemoglobin Concent 33, Red Cell Distribution Width 14.4, Platelet Count 286, Mean Platelet Volume 9.2, Immature Granulocyte % (Auto) 4, Neutrophils (%) (Auto) 46, Lymphocytes (%) (Auto) 31, Monocytes (%) (Auto) 12, Eosinophils (%) (Auto) 6, Basophils (%) (Auto) 1, Neutrophils # (Auto) 2.8, Lymphocytes # (Auto) 1.9, Monocytes # (Auto) 0.7, Eosinophils # (Auto) 0.4H, Basophils # (Auto) 0.1, Immature Granulocyte # (Auto) 0.3H 08/24/21 07:50: Sodium Level 141, Potassium Level 3.6, Chloride Level 106, Carbon Dioxide Level 23, Anion Gap 12, Blood Urea Nitrogen 15, Creatinine 0.75, Estimat Glomerular Filtration Rate 78, BUN/Creatinine Ratio 20, Glucose Level 81, Calcium Level 9.3, Corrected Calcium 10.0, Total Bilirubin 0.5, Aspartate Amino Transf (AST/SGOT) 19, Alanine Aminotransferase (ALT/SGPT) 20, Alkaline Phosphatase 60, Total Protein 6.7, Albumin 3.1L 08/28/21 06:30: White Blood Count 7.4, Red Blood Count 4.20, Hemoglobin 13.2, Hematocrit 40, Mean Corpuscular Volume 96, Mean Corpuscular Hemoglobin 31, Mean Corpuscular Hemoglobin Concent 33, Red Cell Distribution Width 14.5, Platelet Count 283, Mean Platelet Volume 9.4, Immature Granulocyte % (Auto) 2, Neutrophils (%) (Auto) 56, Lymphocytes (%) (Auto) 24, Monocytes (%) (Auto) 9, Eosinophils (%) (Auto) 9, Basophils (%) (Auto) 0, Neutrophils # (Auto) 4.1, Lymphocytes # (Auto) 1.8, Monocytes # (Auto) 0.6, Eosinophils # (Auto) 0.6H, Basophils # (Auto) 0.0, Immature Granulocyte # (Auto) 0.1, Sodium Level 139, Potassium Level 3.7, Chloride Level 102, Carbon Dioxide Level 27, Anion Gap 10, Blood Urea Nitrogen 26H, Creatinine 0.95, Estimat Glomerular Filtration Rate 59, BUN/Creatinine Ratio 27, Glucose Level 75, Calcium Level 9.8, Corrected Calcium 10.4H, Total Bilirubin 0.5, Aspartate Amino Transf (AST/SGOT) 16, Alanine Aminotransferase (ALT/SGPT) 19, Alkaline Phosphatase 65, Total Protein 6.9, Albumin 3.3 08/29/21 11:10: Urine Color YELLOW, Urine Clarity CLEAR, Urine pH 6.0, Urine Specific Transfer <=1.005, Urine Protein NEGATIVE, Urine Glucose (UA) NEGATIVE, Urine Ketones NEGATIVE, Urine Nitrite NEGATIVE, Urine Bilirubin NEGATIVE, Urine Urobilinogen 0.2, Urine Leukocyte Esterase NEGATIVE, Urine RBC (Auto) TRACE-IH, Urine RBC RARE, Urine WBC RARE, Urine Squamous Epithelial Cells RARE, Urine Crystals NONE, Urine Bacteria NEGATIVE, Urine Casts NONE, Urine Mucus NEGATIVE, Urine Culture Indicated NO Pending Labs Laboratory Tests 08/24/21 06:18: Glucometer 71 08/24/21 06:21: White Blood Count 6.1, Red Blood Count 4.73, Hemoglobin 14.8, Hematocrit 45, Mean Corpuscular Volume 94, Mean Corpuscular Hemoglobin 31, Mean Corpuscular Hemoglobin Concent 33, Red Cell Distribution Width 14.4, Platelet Count 286, Mean Platelet Volume 9.2, Immature Granulocyte % (Auto) 4, Neutrophils (%) (Auto) 46, Lymphocytes (%) (Auto) 31, Monocytes (%) (Auto) 12, Eosinophils (%) (Auto) 6, Basophils (%) (Auto) 1, Neutrophils # (Auto) 2.8, Lymphocytes # (Auto) 1.9, Monocytes # (Auto) 0.7, Eosinophils # (Auto) 0.4, Basophils # (Auto) 0.1, Immature Granulocyte # (Auto) 0.3 08/24/21 07:50: Sodium Level 141, Potassium Level 3.6, Chloride Level 106, Carbon Dioxide Level 23, Anion Gap 12, Blood Urea Nitrogen 15, Creatinine 0.75, Estimat Glomerular Filtration Rate 78, BUN/Creatinine Ratio 20, Glucose Level 81, Calcium Level 9.3, Corrected Calcium 10.0, Total Bilirubin 0.5, Aspartate Amino Transf (AST/SGOT) 19, Alanine Aminotransferase (ALT/SGPT) 20, Alkaline Phosphatase 60, Total Protein 6.7, Albumin 3.1 08/28/21 06:30: White Blood Count 7.4, Red Blood Count 4.20, Hemoglobin 13.2, Hematocrit 40, Mean Corpuscular Volume 96, Mean Corpuscular Hemoglobin 31, Mean Corpuscular Hemoglobin Concent 33, Red Cell Distribution Width 14.5, Platelet Count 283, Mean Platelet Volume 9.4, Immature Granulocyte % (Auto) 2, Neutrophils (%) (Auto) 56, Lymphocytes (%) (Auto) 24, Monocytes (%) (Auto) 9, Eosinophils (%) (Auto) 9, Basophils (%) (Auto) 0, Neutrophils # (Auto) 4.1, Lymphocytes # (Auto) 1.8, Monocytes # (Auto) 0.6, Eosinophils # (Auto) 0.6, Basophils # (Auto) 0.0, Immature Granulocyte # (Auto) 0.1, Sodium Level 139, Potassium Level 3.7, Chloride Level 102, Carbon Dioxide Level 27, Anion Gap 10, Blood Urea Nitrogen 26, Creatinine 0.95, Estimat Glomerular Filtration Rate 59, BUN/Creatinine Ratio 27, Glucose Level 75, Calcium Level 9.8, Corrected Calcium 10.4, Total Bilirubin 0.5, Aspartate Amino Transf (AST/SGOT) 16, Alanine Aminotransferase (ALT/SGPT) 19, Alkaline Phosphatase 65, Total Protein 6.9, Albumin 3.3 08/29/21 11:10: Urine Color YELLOW, Urine Clarity CLEAR, Urine pH 6.0, Urine Specific Transfer <=1.005, Urine Protein NEGATIVE, Urine Glucose (UA) NEGATIVE, Urine Ketones NEGATIVE, Urine Nitrite NEGATIVE, Urine Bilirubin NEGATIVE, Urine Urobilinogen 0.2, Urine Leukocyte Esterase NEGATIVE, Urine RBC (Auto) TRACE-I, Urine RBC RARE, Urine WBC RARE, Urine Squamous Epithelial Cells RARE, Urine Crystals NONE, Urine Bacteria NEGATIVE, Urine Casts NONE, Urine Mucus NEGATIVE, Urine Culture Indicated NO Discharge Home Medications: Active Scripts Active Melatonin 3 Mg Tablet 3 Mg PO HS Detrol LA (Tolterodine Tartrate) 4 Mg Cap 4 Mg PO HS Famotidine 20 Mg Tablet 20 Mg PO HS Stool Softener-Laxative Tablet (Sennosides/Docusate Sodium) 1 Each Tablet 1 Ea PO BID Klor-Con 10 (Potassium Chloride) 10 Meq Tablet.er 10 Meq PO DAILY@0700 Olanzapine 5 Mg Tablet 5 Mg PO HS Oxyir Tablet (Oxycodone HCl) 5 Mg Tab 5 Mg PO Q4HR PRN Metoprolol Succinate 50 Mg Tab.er.24h 50 Mg PO DAILY Doxazosin Mesylate 4 Mg Tablet 2 Mg PO Q6HR PRN Give for SBP>170 Aspirin EC (Aspirin) 325 Mg Tablet.dr 325 Mg PO DAILY Baclofen 10 Mg Tablet 10 Mg PO TID PRN ALPRAZolam 0.25 Mg Tablet 0.25 Mg PO BID Ferrous Sulfate 325 Mg Tablet 325 Mg PO 1200 Pantoprazole Sodium 40 Mg Tablet.dr 40 Mg PO BID Carafate (Sucralfate) 1 Gm Tablet 1 Gm PO ACHS Levothyroxine Sodium 75 Mcg Tablet 75 Mcg PO DAILY Tylenol Extra Strength (Acetaminophen) 500 Mg Tablet 500 Mg PO QID Estradiol Tablet (Estradiol) 1 Mg Tablet 1 Mg PO DAILY Alendronate Sodium 70 Mg Tablet 70 Mg PO SATURDAY Gabapentin 600 Mg Tablet 600 Mg PO BID Ezetimibe 10 Mg Tablet 10 Mg PO HS Indapamide 1.25 Mg Tablet 1.25 Mg PO DAILY Instructions to patient/family Please see electronic discharge instructions given to patient. Diagnosis/Problems Diagnosis/Problems (1) Cerebellar stroke Status: Acute (2) Severe sepsis Status: Acute (3) Pneumonia Status: Acute (4) Primary hypertension (5) Anemia Status: Acute (6) Mixed hyperlipidemia (7) Right bundle branch block (8) Essential hypertension (9) Chronic kidney disease, stage 3 ALFONSO MEDINA DO Sep 04, 2021 06:15
[2021-09-04] MEDS: KCL 10 MEQ TAB (MICRO K) PO SCH (06:41)
[2021-09-04] MEDS: SUCRALFATE 1 GM (CARAFATE) TAB PO SCH (06:41)
[2021-09-04] MEDS: LEVOTHYROXINE 75 MCG (LEVOTHROID) TABLET PO SCH (06:41)
[2021-09-04 07:19] VITALS: BP 152/68
[2021-09-04] MEDS: GABAPENTIN 600 MG (NEURONTIN) TAB PO SCH (08:06)
[2021-09-04] MEDS: ASPIRIN E.C. 325 MG (ECOTRIN) TABLET PO SCH (08:06)
[2021-09-04] MEDS: INDAPAMIDE 2.5 MG (LOZOL) TAB PO SCH (08:06)
[2021-09-04] MEDS: ACETAMINOPHEN 500 MG TAB (TYLENOL) PO SCH (08:06)
[2021-09-04] MEDS: PANTOPRAZOLE 40 MG (PROTONIX) TAB PO SCH (08:07)
[2021-09-04] MEDS: ALPRAZolam 0.25 MG (XANAX) TAB PO SCH (08:07)
[2021-09-04] MEDS: meTOproloL SUCCINATE 50 MG (TOPROL XL) TAB PO SCH (08:07)
--- NOTE | 2021-09-04 08:10 | Occupational Ther Daily Note ---
OT Current Status-Daily Note Subjective Pt alert, lying in bed. Pt requests to use bathroom. No c/o pain. Mental Status/Objective Patient Orientation: Person ADL-Treatment 1st session([id number])-Independent with eating. Pt requests to use bathroom. Independent with supine to EOB. SBA to ambulate to bathroom for safety using FWW. Independent with toilet transfer and toileting. Pt agitated, declines assist with care and is dismissively sarcastic throughout session. Pt then yelled at COLLINS "get the hell out" "I don't need an audience". COLLINS stepped outside the bathroom door. COLLINS stepped in when pt stood to cleanse self for safety, pt yelled "get the hell out I will ask for help if I need it". COLLINS explained that it was for safety, pt sat back down on toilet. Pt did this 3x's before completing toileting. Attempted to have pt shower and change clothing, pt stated "I will do it when I want to do it". Pt then washed hands at sink and went to sit down at chair. Attempted to have pt change from hospital gown to regular clothing, pt stated "I will do it when I am ready, if you don't mind". Nrsg in room at end of session, when pt refused to complete any other task. Pt sitting in recliner with call light/phone in reach. Safety measures in place. Therapy Code Descriptions/Definitions Functional [place] Measure: 0=Not Assessed/NA 4=Minimal Assistance 1=Total Assistance 5=Supervision or Setup 2=Maximal Assistance 6=Modified [place] 3=Moderate Assistance 7=Complete IndependenceSCALE: Activities may be completed with or without assistive devices. 7-Enpnejsfas-extuula completes the activity by him/herself with no assistance from a helper. 5-Set-up or Clean-up Assistance-helper sets up or cleans up; patient completes activity. [place] assists only prior to or following the activity. 4-Supervision or Touching Assistance-helper provides verbal cues and/or touching/steadying and/or contact guard assistance as patient completes activity. Assistance may be provided throughout the activity or intermittently. 3-Partial/Moderate Assistance-helper does LESS THAN HALF the effort. [place] lifts, holds or supports trunk or limbs, but provides less than half the effort. 2-Substantial/Maximal Assistance-helper does MORE THAN HALF the effort. [place] lifts or holds trunk or limbs and provides more than half the effort. 9-[id number]-[id number] does ALL the effort. Patient does none of the effort to complete the activity. Or, the assistance of 2 or more helpers is required for the patient to complete the activity. If activity was not attempted, code reason: 7-Patient Refused. 9-Not Applicable-not attempted and the patient did not perform the activity before the current illness, exacerbation or injury. 10-Not Attempted due to Environmental Limitations-(lack of equipment, weather restraints, etc.). 88-Not Attempted due to Medical Conditions or Safety Concerns. Eating (QC): 6 Oral Hygiene (QC): 6 (Pt has demonstrated ability to complete task in sitting and standing. Safety concerns if standing.) Shower/Bathe Self (QC): 4 (Pt has demonstrated ability to complete bathing by self sitting on shower bench to cleanse all areas except buttocks then SBA for safety.) Upper Body Dressing (QC): 5 (Pt has demonstrated ability to complete by self after set up.) Lower Body Dressing (QC): 3 (Pt has demonstrated ability to complete with min A. Assist to thread feet then is able to hike over hips with SBA for safety.) On/Off Footwear: 5 (Able to don/doff house shoes after set up.) Toileting Hygiene (QC): 6 Toilet Transfer (QC): 6 Attempt ([id number]):Attempted at 0905 to have pt participate in changing clothing. Pt stated "I will when I am ready, now just leave me alone." Pt s itting in recliner working on omelett.es. Safety measures in place. Attempt ([id number]):Attempted to engage pt in conversation. Pt was attempting to get a knot out of pant's string. Pt stated that she had scissors in room. COLLINS reoriented pt to place and town, pt unable to remember where she was. Pt allowed assistance to get knot out of string. Attempted to have pt don regular clothing for discharge, pt refused again. Then daughter's came into room and pt allowed them to help with dressing. QC scores per clinical judgment due to multiple refusal throughout the morning. Pt discharging to SNF today, daughters taking her to facility. OT Short Term Goals Short Term Goals Time Frame: Sep 01, 2021 Eatin Oral hygiene: 5 Toileting hygiene: 3 Shower/bathe self: 3 OT Skilled Nursing Goals Skilled Nursing Goals Time Frame: Sep 15, 2021 Eating (QC): 6 (met) Oral Hygiene (QC): 6 (met) Toileting Hygiene (QC): 6 (met) Shower/Bathe Self (QC): 4 (not met) Upper Body Dressing (QC): 6 (not met) Lower Body Dressing (QC): 4 (not met) On/Off Footwear (QC): 4 (not met) Additional Goals: 1-Demonstrate ADL Tasks, 2-Verbalize Understanding, 3- ImproveStrength/Philipp 1=Demonstrate adherence to instructed precautions during ADL tasks. 2=Patient will verbalize/demonstrate understanding of assistive devices/mod ifications for ADL. 3=Patient will improve strength/tolerance for activity to enable patient to perform ADL's. OT Education/Plan Problem List/Assessment Assessment: Decreased Activ Tolerance, Impaired Cognition, Impaired Self-Care Skills Discharge Recommendations Plan/Recommendations: Discharge/Goals Met (d/c to SNF) Therapy Discharge Recommendati: 24 Hour Supervision Treatment Plan/Plan of Care Patient would benefit from OT for education, treatment and training to promote independence in ADL's, mobility, safety and/or upper extremity function for ADL's. Plan of Care: ADL Retraining, Functional Mobility, UE Funct Exercise/Act Treatment Duration: Sep 15, 2021 Frequency: At least 5 of 7 days/Wk (IRF) Estimated Hrs Per Day: 1.5 hours per day Agreement: Yes Rehab Potential: Poor Time/GCodes Start Time: 07:15 Stop Time: 07:45 Total Time Billed (hr/min): 30 Billed Treatment Time 1 visit([id number]) ADL 2 (30 min) attempt [id number](not billed), attempt [id number](not billed) DARREL BEARD Sep 04, 2021 08:10
[2021-09-04] MEDS: polyethylene glycoL POWDER 17 GM (MIRALAX) PACK PO SCH (08:46)
[2021-09-04] MEDS: DOCUSATE SODIUM 100 MG (COLACE) CAP PO SCH (08:46)
[2021-09-04] MEDS: SENNA W/DOCUSATE (SENOKOT S) TABLET PO SCH (08:46)
--- NOTE | 2021-09-04 09:55 | Progress Note - Urology ---
Progress Note-Urology Progress Notes/Assess & Plan Progress/Assessment & Plan HOME TODAY ON DETROL LA. WE WILL SEE PRN Final Diagnosis WET OAB ELISA SAM MD Sep 04, 2021 09:55
--- NOTE | 2021-09-04 10:15 | Therapy Team Discharge Summary ---
Therapy Discharge Summary Discharge Recommendations Date of Discharge Physical Therapy Patient came to rehab with sepsis and pneumonia. Upon evaluation patient performed rolling and supine <-> sit with dependence, sit <-> stand and transfers mod assist, car transfer dependent, ambulated 10' with a rolling walker with mod assist, and propelled a manual WC 15' with min assist. Patient has been performing bed mobility and transfer training, balance and endurance training, functional strengthening, gait training, and education. She has made some progress and has met all of her mcfp goals. Now, patient performs rolling and supine <-> sit with independence, sit <-> stand and transfers with CGA, car transfer CGA, ambulates 150' with a rolling walker with CGA (including 50' with at least 2 turns of 90 degrees and 10' over an uneven surface), and can sweet pickled fruit maker an object from the floor with CGA.. Patient is being discharged from this facility today and will be discharged from PT at this time. Occupational Therapy Decreased Activ Tolerance, Decreased Safety Aware, Impaired Cognition, Impaired Self-Care Skills PT Mcc Goals Mcc Goals PT Mcc Goals Time Frame: Sep 13, 2021 Roll Left to Right (QC): 3 Sit to Lying (QC): 3 Lying-Sitting on Side/Bed(QC): 3 Sit to Stand (QC): 4 Chair/Tdi-oq-Fhsiy Xfer(QC): 4 Car Transfer (QC): 3 Does the Patient Walk: Yes Walk 10 feet (QC): 4 Walk 10ft-Uneven Surface(QC): 4 Walk 50ft with 2 Turns (QC): 4 Walk 150 ft (QC): 4 Wheel 50 feet with 2 turns (QC: 4 1 Step (curb) (QC): 88 4 Steps (QC): 88 12 Steps (QC): 88 Picking up an Object (QC): 4 OT Field Merchandiser Goals Mcc Goals Time Frame: Sep 15, 2021 Eating (QC): 6 (not met) Oral Hygiene (QC): 6 (ot met) Shower/Bathe Self (QC): 4 (not met) Upper Body Dressing (QC): 6 (not met) Lower Body Dressing (QC): 4 (not met) On/Off Footwear (QC): 4 (not met) Toileting Hygiene (QC): 6 (not met) Toilet/Commode Transfer (QC): 4 Additional Goals: 1-Demonstrate ADL Tasks, 2-Verbalize Understanding, 3- ImproveStrength/Philipp 1=Demonstrate adherence to instructed precautions during ADL tasks. 2=Patient will verbalize/demonstrate understanding of assistive devices/modifications for ADL. 3=Patient will improve strength/tolerance for activity to enable patient to perform ADL's. Speech Field Merchandiser Goals Mcc Goals 1. The patient will demonstrate increased functional safety awareness and problem solving for return to the least restrictive environment. SANDRA TRAN PT Sep 04, 2021 10:14
--- NOTE | 2021-09-04 10:39 | Speech Therapy Daily Note ---
Speech Daily Progress Note Subjective Date Seen by Provider: Sep 04, 2021 Time Seen by Provider: 10:00 The patient was seated on the edge of her recliner upon entrance to the room. The sitter was with the patient and left the room when the clinician arrived. At the close of the session, the sitter returned to provide 1:1 supervision. Objective The patient participated minimally in the skilled therapy session on this date. With maximum encouragement, the patient responded to simple orientation questions provided by the clinician. - Orientation: The patient stated the month was "July," the year was "2021," and the day of the week was "Saturday." The patient was able to self-correct and provide the accurate location ([place] [place]). - Delayed Recall: The patient was provided three words and asked to recall the three words following a five minute delay. The patient recalled two of the three independently. The patient recalled the third word with a category cue. Assessment Assessment Current Status: Poor Progress Treatment Plan Continue Plan of Care Speech Short Term Goals Short Term Goals Short Term Goals 1. The patient will participate in completion of the SLUMS assessment with mild clinician verbal prompting. Speech Process Development Manager Goals Care Home Goals 1. The patient will demonstrate increased functional safety awareness and problem solving for return to the least restrictive environment. Speech-Plan Treatment Plan Speech Therapy Treatment Plan: Continue Plan of Care Treatment Duration: Sep 20, 2021 Frequency: 4 times per week (Four to five times per week.) Estimated Hrs Per Day: .5 hour per day Rehab Potential: Poor Safety Risks/Education Teaching Recipient: Patient Teaching Methods: Discussion Response to Teaching: Unable to Comprehend Education Topics Provided: Plan of Care Time Speech Therapy Time In: 10:00 Speech Therapy Time Out: 10:08 Total Billed Time: 8 Billed Treatment Time MEGAN Tian ELIZABEALLI DOBBS Sep 04, 2021 10:39
[2021-09-04 10:45] VITALS: BP 152/68
--- NOTE | 2021-09-04 10:55 | Physical Therapy Daily Note ---
PT Daily Note-Current Subjective ([id number]) Chair alarm is going off so LEASE ADMINISTRATION ANALYST answers. Pt tells LEASE ADMINISTRATION ANALYST "get the hell out of the way". Pt agitated, declines assist with care and is dismissively sarcastic throughout session. Pt finally sits back down in recliner but declines tx. ([id number]) LEASE ADMINISTRATION ANALYST returns as COLLINS is working with pt. Pt's family arrives shortly after and tries to convince pt to get ready to d/c. Pain Location: No Pain Reported Mental Status Patient Orientation: Person, Confused Transfers SCALE: Activities may be completed with or without assistive devices. 6-Zcruhhcsgo-kbinlbw completes the activity by him/herself with no assistance from a helper. 5-Set-up or Clean-up Assistance-helper sets up or cleans up; patient completes activity. [place] assists only prior to or following the activity. 4-Supervision or Touching Assistance-helper provides verbal cues and/or touching/steadying and/or contact guard assistance as patient completes activity. Assistance may be provided throughout the activity or intermittently. 3-Partial/Moderate Assistance-helper does LESS THAN HALF the effort. [place] lifts, holds or supports trunk or limbs, but provides less than half the effort. 2-Substantial/Maximal Assistance-helper does MORE THAN HALF the effort. [place] lifts or holds trunk or limbs and provides more than half the effort. 7-Oempzfajo-vpkjjq does ALL the effort. Patient does none of the effort to complete the activity. Or, the assistance of 2 or more helpers is required for the patient to complete the activity. If activity was not attempted, code reason: 7-Patient Refused. 9-Not Applicable-not attempted and the patient did not perform the activity before the current illness, exacerbation or injury. 10-Not Attempted due to Environmental Limitations-(lack of equipment, weather restraints, etc.). 88-Not Attempted due to Medical Conditions or Safety Concerns. Roll Left & Right (QC): 6 Sit to Lying (QC): 5 Lying to Sitting/Side of Bed(Q: 6 Sit to Stand (QC): 5 Chair/Fna-vs-Ksflu Xfer(QC): 5 Toilet Transfer (QC): 5 Car Transfer (QC): 5 Weight Bearing Full Weight Bearing Full Weight Bearing Gait Training Does the Patient Walk?: Yes Walk 10 feet (QC): 5 Walk 50 ft with 2 Turns(QC): 5 Walk 150 ft (QC): 5 Walking 10ft/uneven surface-QC: 5 Gait Persons Needed: 1 Gait Assistive Device: FWW Wheelchair Training Does the Pt Use a Wheelchair?: Yes Wheel 50 ft with 2 turns (QC): 4 Wheel 150 ft (QC): 4 Type of Wheelchair: Manual Stair Training 1 Step (curb) (QC): 7 4 Steps (QC): 7 Balance Picking up an Object (QC): 5 Special Test Comments Using political consultant Treatments Attempt ([id number]):Attempted to engage pt in conversation. Pt was attempting to get a knot out of pant's string. Pt stated that she had scissors in room. COLLINS reoriented pt to place and town, pt unable to remember where she was. Pt allowed assistance to get knot out of string. Attempted to have pt don regular clothing for discharge, pt refused again. Then daughter's came into room and pt allowed them to help with dressing. Pt uses BR and is able to complete pericare independently. QC scores per clinical judgment due to multiple refusal throughout the morning. Pt discharging to SNF today, daughters taking her to facility. Assessment Current Status: Fair Progress Pt reluctantly works with staff only with encouragement from daughter. QC scores per clinical judgment due to multiple refusal throughout the morning. Pt discharging to SNF today, daughters taking her to facility. PT Short Term Goals Short Term Goals Time Frame: Aug 30, 2021 Roll Left & Right: 2 Sit to lyin Lying to sitting on side of be: 2 Sit to stand: 3 Chair/xws-zj-cxysg transfer: 3 Walk 10 feet: 3 Walk 50 feet with two turns: 3 PT Halfway Goals Direct Care Provider Goals PT Halfway Goals Time Frame: Sep 13, 2021 Roll Left & Right (QC): 3 Sit to Lying (QC): 3 Lying-Sitting on Side/Bed(QC): 3 Sit to Stand (QC): 4 Chair/Ndx-tv-Wxrrg Xfer(QC): 4 Toilet Transfer (QC): 4 Car Transfer (QC): 3 Does the Patient Walk: Yes Walk 10 feet (QC): 4 Walk 50ft with 2 Turns (QC): 4 Walk 150 ft (QC): 4 Walking 10ft on Uneven Surface: 4 1 Step (curb) (QC): 88 4 Steps (QC): 88 12 Steps (QC): 88 Picking up an Object (QC): 4 Wheel 50 feet with 2 turns (QC: 4 Wheel 150 feet: 4 PT Plan Problem List Problem List: Activity Tolerance, Safety, Balance, Gait Treatment/Plan Treatment Plan: Continue Plan of Care Treatment Plan: Bed Mobility, Education, Functional Activity Philipp, Functional Strength, Group Therapy, Gait, Safety, Therapeutic Exercise, Transfers Treatment Duration: Sep 13, 2021 Frequency: At least 5 of 7 days/Wk (IRF) Estimated Hrs Per Day: 1.5 hours per day Patient and/or Family Agrees t: Yes Time/GCodes Time In: 930 Time Out: 1040 Total Billed Treatment Time: 30 Total Billed Treatment ([id number] & [id number]) 1, FA x2 (30m) LUCAS CHANG LEASE ADMINISTRATION ANALYST Sep 04, 2021 10:55
--- NOTE | 2021-09-04 11:00 | Therapy Team Discharge Summary ---
Therapy Discharge Summary Discharge Recommendations Date of Discharge Occupational Therapy Decreased Activ Tolerance, Impaired Cognition, Impaired Self-Care Skills Speech-Language Pathology The patient will be discharged from skilled speech pathology services on this date. The patient's mentation declined and frequently fluctuated throughout her inpatient acute rehabilitation stay. The patient did not meet her cognitive needs and, at this time, the clinician recommends 24/7 supervision for patient safety. PT Mcc Goals Mcc Goals PT Finisher Plate Goals Time Frame: Sep 13, 2021 Roll Left to Right (QC): 3 Sit to Lying (QC): 3 Lying-Sitting on Side/Bed(QC): 3 Sit to Stand (QC): 4 Chair/Ygp-la-Djvgg Xfer(QC): 4 Car Transfer (QC): 3 Does the Patient Walk: Yes Walk 10 feet (QC): 4 Walk 10ft-Uneven Surface(QC): 4 Walk 50ft with 2 Turns (QC): 4 Walk 150 ft (QC): 4 Wheel 50 feet with 2 turns (QC: 4 1 Step (curb) (QC): 88 4 Steps (QC): 88 12 Steps (QC): 88 Picking up an Object (QC): 4 OT Mcc Goals Mcc Goals Time Frame: Sep 15, 2021 Eating (QC): 6 (met) Oral Hygiene (QC): 6 (met) Shower/Bathe Self (QC): 4 (not met) Upper Body Dressing (QC): 6 (not met) Lower Body Dressing (QC): 4 (not met) On/Off Footwear (QC): 4 (not met) Toileting Hygiene (QC): 6 (met) Toilet/Commode Transfer (QC): 4 Additional Goals: 1-Demonstrate ADL Tasks, 2-Verbalize Understanding, 3- ImproveStrength/Philipp 1=Demonstrate adherence to instructed precautions during ADL tasks. 2=Patient will verbalize/demonstrate understanding of assistive devices/modifications for ADL. 3=Patient will improve strength/tolerance for activity to enable patient to perform ADL's. Speech Mcc Goals Finisher Plate Goals 1. The patient will demonstrate increased functional safety awareness and problem solving for return to the least restrictive environment. NOT MET. RADHA EVERETT Sep 04, 2021 11:00
--- NOTE | 2021-09-04 14:36 | Therapy Team Discharge Summary ---
Therapy Discharge Summary Discharge Recommendations Date of Discharge Sep 04, 2021 at 10:50 Occupational Therapy Pt admitted to FLU s/p CVA. At [facility], pt resided at [facility] with bathing dres sing and toileting, using FWW for mobility. Upon initial evaluation, pt required supervision with eating and oral care, max A showering, UE/LE dressing and footwear and total assistance with toileting. OT txs focused on increasing BUE strength and activity tolerance, and increasing safety and independence with ADLs and functional mobility. At discharge, pt was independent with eating, oral care and toileting, SBA showering, set up upper body dressing and footwear and min A lower body dressing. Pt made functional progress towards goal, but only attained LTGs for eating, oral care and toileting. Pt discharged from facility, d/c from OT. Decreased Activ Tolerance, Impaired Cognition, Impaired Self-Care Skills PT Still Pump Operator Goals Still Pump Operator Goals PT Half-Way Goals Time Frame: Sep 13, 2021 Roll Left to Right (QC): 3 Sit to Lying (QC): 3 Lying-Sitting on Side/Bed(QC): 3 Sit to Stand (QC): 4 Chair/Sro-mi-Fqdio Xfer(QC): 4 Car Transfer (QC): 3 Does the Patient Walk: Yes Walk 10 feet (QC): 4 Walk 10ft-Uneven Surface(QC): 4 Walk 50ft with 2 Turns (QC): 4 Walk 150 ft (QC): 4 Wheel 50 feet with 2 turns (QC: 4 1 Step (curb) (QC): 88 4 Steps (QC): 88 12 Steps (QC): 88 Picking up an Object (QC): 4 OT Half-Way Goals Still Pump Operator Goals Time Frame: Sep 15, 2021 Eating (QC): 6 (met) Oral Hygiene (QC): 6 (met) Shower/Bathe Self (QC): 4 (not met) Upper Body Dressing (QC): 6 (not met) Lower Body Dressing (QC): 4 (not met) On/Off Footwear (QC): 4 (not met) Toileting Hygiene (QC): 6 (met) Toilet/Commode Transfer (QC): 4 Additional Goals: 1-Demonstrate ADL Tasks, 2-Verbalize Understanding, 3- ImproveStrength/Philipp 1=Demonstrate adherence to instructed precautions during ADL tasks. 2=Patient will verbalize/demonstrate understanding of assistive devices/modifications for ADL. 3=Patient will improve strength/tolerance for activity to enable patient to perform ADL's. Speech Still Pump Operator Goals Half-Way Goals 1. The patient will demonstrate increased functional safety awareness and problem solving for return to the least restrictive environment. NOT MET. WAQAS HARDING OT Sep 04, 2021 14:36
== END 2021-09-04 10:50 | DRG 57 ==
PROVIDERS: ADMIT Internal Medicine; ATTEND Internal Medicine
DX: I69.354 Hemiplegia and hemiparesis following cerebral infarction affecting left non-dominant side (principal); I69.398 Other sequelae of cerebral infarction; R26.89 Other abnormalities of gait and mobility; F03.90 Unspecified dementia, unspecified severity, without behavioral disturbance, psychotic disturbance, mood disturbance, and anxiety; I12.9 Hypertensive chronic kidney disease with stage 1 through stage 4 chronic kidney disease, or unspecified chronic kidney disease; N18.30 Chronic kidney disease, stage 3 unspecified; N32.81 Overactive bladder; R35.0 Frequency of micturition; Z66 Do not resuscitate; E78.2 Mixed hyperlipidemia; I45.10 Unspecified right bundle-branch block; E03.9 Hypothyroidism, unspecified; M81.0 Age-related osteoporosis without current pathological fracture; D64.9 Anemia, unspecified; M19.91 Primary osteoarthritis, unspecified site; Z87.01 Personal history of pneumonia (recurrent); Z79.82 Long term (current) use of aspirin; Z88.5 Allergy status to narcotic agent; Z88.0 Allergy status to penicillin; Z88.8 Allergy status to other drugs, medicaments and biological substances; Z88.1 Allergy status to other antibiotic agents; Z91.040 Latex allergy status
CPT/HCPCS: 36415; 80053; 81000; 82947; 85025; 93005

== ENCOUNTER → 2021-08-24 | Day surgery (SDC) | payer MEDICARE, OTHER ==
[~2021-08-24] MED LIST changes: +ASPI325T32 PO; +LIDOCAINE 2% 20 ML (XYLOCAINE) VIAL ONE
--- NOTE | 2021-08-24 12:02 | Cardiac Procedure Note ---
Cardiology Procedures Date of Procedure 08/24/2021 LOOP RECORDER INSERTION INDICATION: Cerebrovascular accident. 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 2% lidocaine was then administered and the fourth i ntercostal space in the midclavicular line. Using the insertion kit, I then made a wolf in the skin. Using the insertion of tissue, I then inserted a Medtronic LINQ II (serial # [id number]). Interrogation revealed good R wave amplitude. Dermabond was then applied to the incision and a sterile dressing was applied. IMPRESSION: 1. Status post loop recorder insertion with a Medtronic LINQ II (serial # [id number]) device. Certain portions of this document may have been dictated utilizing voice recognition technology. Inherent to this technology, typographical and grammatical errors may exist. As much as I am diligent to identify and correct these mistakes, some errors may remain in the document. TYLER HENDRICKS JR, MD Aug 24, 2021 12:02
== END ==
LOC: CATH 11:18
PROVIDERS: ATTEND Internal Medicine Cardiovascular Disease
DX: I49.9 Cardiac arrhythmia, unspecified (principal); I10 Essential (primary) hypertension; I63.9 Cerebral infarction, unspecified; E78.2 Mixed hyperlipidemia
CPT/HCPCS: 33285; C1764